=== PATIENT | female | born 1985 | race Caucasian/White ===

== ENCOUNTER 2019-10-23 11:11 | Outpatient (CLI) | payer OTHER, SELFPAY | END 2019-10-23 11:12 | disposition home or self-care (01) | PROVIDERS: Visit Provider Advanced Practice Midwife | DX: O20.0 Threatened abortion (principal); Z3A.00 Weeks of gestation of pregnancy not specified | CPT/HCPCS: 36415 ==

== ENCOUNTER 2019-11-05 01:23 | Emergency (ER) | payer OTHER, SELFPAY ==
--- NOTE | ~2019-11-05 | US_ITS ---
EXAMINATION: US OB <=14 wk fetus w TV DATE: 11/05/2019 03:14 INDICATION: Abdominal and pelvic pain TECHNIQUE: Real-time pelvic ultrasound utilizing both a transvaginal and transabdominal probe was pe rformed. The interpreting radiologist was not present for the study. COMPARISON: None. FINDINGS: The uterus measures 8.0 x 4.3 x 5.4 cm. 5 mm nabothian cysts at the cervix. No evident intrauterine g estational sac. The right ovary measures 4.9 x 2.1 x 3.4 cm. 1.3 cm anechoic cyst in the right ovary. Vascular flow i dentified in the right ovary on color Doppler. The left ovary is not visualized and reportedly surgic ally absent. Small amount of free fluid in the pelvis which appears to demonstrate minimal internal e chogenicity. IMPRESSION: 1. No intrauterine gestational sac. Differential includes early, failed or ectopic . Accordi ng to documentation in report provided by [facility], Dr. Luis Turcios notified the emergency D epartment of these findings at 3:50 AM. 2. Small amount of free fluid in the pelvis which may be complex. Reviewed, dictated and finalized at location A. LAY OUT WORKER IMPRESSION: 1. No intrauterine gestational sac. Differential includes early, failed or ecto pic . According to documentation in report provided by [facility], Dr. Luis Turcios notified the emergency Department of these findings at 3:50 AM. 2. Small amount of free fluid in the pelvis which may be complex.
--- NOTE | 2019-11-05 01:36 | ED_ITS ---
I attest that this documentation has been prepared under the direction and in the presence of Claudio Rosa MD. Keshawn Mata Scribe 11/05/19;01:37 HPI - Abdominal Pain General Stated Complaint: abd pain/ miscarriage Time Seen by Provider: 11/05/19 01:33 Related Data Home Medications Medication Instructions Recorded Confirmed oxycodone-acetaminophen 10 mg-325 1 tablet PO Q8H tablet 10/02/19 10/29/19 mg tablet propranolol 20 mg tablet 20 mg PO DAILY tablet 10/02/19 10/29/19 Allergies Allergy/AdvReac Type Severity Reaction Status Date / Time morphine Allergy Intermediate ITCHING, Verified 10/29/19 11:23 MIGRAINE Penicillins Allergy Intermediate THROAT Verified 10/29/19 11:23 SWELLING metoclopramide AdvReac Severe PARANOIA Verified 10/29/19 11:23 Sulfa (Sulfonamide AdvReac Mild Rash Verified 10/29/19 11:23 Antibiotics) sulfamethoxazole AdvReac Mild Rash Verified 10/29/19 11:23 trimethoprim AdvReac Mild Rash Verified 10/29/19 11:23 Sulfonamides Allergy Intermediate Rash Uncoded 10/29/19 11:23 [facility] Social History Social History Smoking packs per day: 2 Smoking cigarettes per day: 40.0 Years smoked: 16 Smoking pack-years: 32.00 Smoking status: Current every day smoker Tobacco type: cigarettes Additional living arrangements comments: 1 daughter. 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
--- NOTE | 2019-11-05 01:38 | ED.PREGNANCY ---
HPI - General Chief complaint: Abdominal Pain Stated complaint: abd pain/ miscarriage Time Seen by Provider: 11/05/19 01:33 Source: patient and RN notes reviewed Mode of arrival: ambulatory Limitations: no limitations History of Present Illness HPI Narrative: Pt is a 34 y/o female who presents to the ED with c/o pelvic pain starting roughly 1 hour ago. She notes that she has a Hx of ectopic and dilation and curettage. Pt states that she is currently approximately 4-5 weeks , but notes that she has been diagnosed with an inviable by her [employer], Dr. Das. She states that she is scheduled for a dilation and curettage on 11/06/19. Pt notes that she developed severe pain in her pelvic area early this morning. She states that she took one prescribed Percocet for her pain around 00:30, but denied having any relief of her pain. Pt notes that movement aggravates her pain. She denies any fever, chills, or other symptoms. MD Complaint: other (Pelvic Pain) Onset (ago): hour(s) (1) Location: pelvis Severity: severe Relieving factors: none Exacerbating factors: movement Associated symptoms: denies other symptoms Patient : Yes Expected Date of Delivery: 06/24/20 Number of Weeks : 4-5 OB History - Previous Pregnancies: miscarriage care: followed by OB Related Data Home Medications Medication Instructions Recorded Confirmed oxycodone-acetaminophen 10 mg-325 1 tablet PO Q8H tablet 10/02/19 10/29/19 mg tablet propranolol 20 mg tablet 20 mg PO DAILY tablet 10/02/19 10/29/19 Allergies Allergy/AdvReac Type Severity Reaction Status Date / Time morphine Allergy Intermediate ITCHING, Verified 10/29/19 11:23 MIGRAINE Penicillins Allergy Intermediate THROAT Verified 10/29/19 11:23 SWELLING metoclopramide AdvReac Severe PARANOIA Verified 10/29/19 11:23 Sulfa (Sulfonamide AdvReac Mild Rash Verified 10/29/19 11:23 Antibiotics) sulfamethoxazole AdvReac Mild Rash Verified 10/29/19 11:23 trimethoprim AdvReac Mild Rash Verified 10/29/19 11:23 Sulfonamides Allergy Intermediate Rash Uncoded 10/29/19 11:23 Review of Systems Review of Systems: All systems reviewed & are unremarkable except as noted in HPI and below Constitutional: Constitutional: Denies chills and Denies fever(s) Genitourinary: Genitourinary: Reports pelvic pain PMFSH Past Medical History Medical History (Updated 11/05/19 @ 04:15 by Claudio Rosa MD) Anxiety Bipolar disorder Chronic headaches Chronic low back pain Depression Ectopic Eczema Epilepsy Gastric ulcer GERD (gastroesophageal reflux disease) Nicotine dependence Overweight UTI (urinary tract infection) Surgical History Surgical History Hx of section x3 Hx of cholecystectomy Hx of dilation and curettage Social History Social History Smoking packs per day: 2 Smoking cigarettes per day: 40.0 Years smoked: 16 Smoking pack-years: 32.00 Smoking status: Current every day smoker Tobacco type: cigarettes Additional living arrangements comments: 1 daughter. 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 Das. Exam Const: General: healthy appearing and other (tearful) Nutritional Appearance: well nourished Resp: Effort & Inspection: normal respiratory effort Auscultation: clear to auscultation bilaterally Cardio: Rate: regular rate Rhythm: regular rhythm Heart sounds: no murmurs GI: GI Palp: Yes Soft to palpation and Yes Tenderness to palpation present (GI) (pt complained of suprapubic tenderness prior to her ABD being palpated) Back/Spine/Pelvis: Back: other (Full ROM) Skin: General skin exam: normal color, dry skin and other (warm) Neuro: General: patient
[2019-11-05] MEDS: KETOROLAC 30 MG/ML VIAL (*BKC) IV PUSH (01:53)
[2019-11-05] MEDS: SODIUM CHLORIDE 0.9% IV 1,000 ML 999 ML IV CONT (01:54)
--- NOTE | 2019-11-05 02:22 | PC.NURSE ---
PT REPORT THAT THE FUCKING TORADOL YOU GAVE ME DIDNT DO AN SORIANO NOTIFIED
[2019-11-05 02:39] VITALS: BP 107/68; PULSE 95; RESP 18; TEMP 36.7; O2SAT 100
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
[2019-11-05 03:11] LABS: Basophils Percent Auto 0.4 % (0.2-1.2); Eosinophils Absolute Auto 0.3 K/mm3 (0-0.3); Eosinophils Percent Auto 3.9 % (0-4.4); Hematocrit 43.6 % (37.0-47.0); Hemoglobin 14.8 g/dL (12.0-15.0); Immature Granulocyte Absolute 0.01 K/mm3 (0.00-0.031); Immature Granulocyte Percent A 0.1 % (0-0.5); Lymphocytes Absolute Auto 2.51 K/mm3 (0.9-3.2); Lymphocytes Percent Auto 35.2 % (18.3-44.2); Mean Corpuscular HGB Conc 33.9 g/dl (32-36); Mean Corpuscular Hemoglobin 29.7 pg (26-34); Mean Corpuscular Volume 87.6 fl (80-100); Mean Platelet Volume 11.4 fl (7.4-10.4); Monocytes Absolute Auto 0.4 K/mm3 (0.1-0.6); Monocytes Percent Auto 5.8 % (2.6-8.5); Neutrophils Absolute Auto 3.9 K/mm3 (1.3-6.7); Neutrophils Percent Auto 54.6 % (45.5-73.1); Platelet Count Result 233 k/mm3 (150-375); Red Blood Count 4.98 M/mm3 (4.2-5.4); Red Cell Distribution Width 13.4 % (11.5-14.5); White Blood Count 7.1 K/mm3 (4.5-10.0)
[2019-11-05 03:21] LABS: INR 0.9; Prothrombin Time 11.7 Seconds (11.1-14.7)
[2019-11-05 03:22] LABS: Partial Thromboplastin Time 32.3 SECONDS (22.3-36.8)
[2019-11-05 03:29] LABS: Alanine Aminotransferase 20 U/L (4-35); Albumin Level 4.7 g/dL (3.5-5.1); Alkaline Phosphatase 82 U/L (38-126); Aspartate Amino Transferase 21 U/L (14-36); Bilirubin,Total 0.4 mg/dL (0.2-1.3); Blood Urea Nitrogen 10 mg/dL (7-17); Calcium 9.6 mg/dL (8.4-10.2); Carbon Dioxide 22 mmol/L (22-30); Chloride 101 mmol/L (98-107); Estimated Glomerular Filt Rate > 60; Glucose 93 mg/dL (65-105); Potassium 3.6 mmol/L (3.4-5.0); Sodium 140 mmol/L (137-145)
[2019-11-05 03:42] LABS: Add Urine Microscopic? YES; Appearance Urine Clear (Clear); Bacteria Urine Trace /hpf; Bilirubin Urine Negative (Negative); Blood Urine 3+ (Negative); Color Urine Yellow (Yellow); Glucose Urine UA Negative (Negative); Ketones Urine Negative (Negative); Leukocyte Esterase Ur Negative LEU/UL (Negative); Mucus Urine Heavy /lpf; Nitrate Urine Negative (Negative); Protein Urine 1+ mg/dL (Negative); Specific Grav Ur 1.023 (1.001-1.035); Squamous Epithelial Cell Urine Few /hpf (Few); Urobilinogen Urine Negative mg/dL (<2.0); WBC Urine 0-3 /hpf
[2019-11-05 03:45] LABS: Beta HCG Quantitative 206.43 mIU/ML
[2019-11-05 04:31] VITALS: BP 105/65; PULSE 82; RESP 20; O2SAT 98
== END 2019-11-05 04:33 | disposition home or self-care (01) ==
PROVIDERS: Emergency Provider Emergency Medicine
DX: O03.9 Complete or unspecified spontaneous abortion without complication (principal); F17.210 Nicotine dependence, cigarettes, uncomplicated; F41.9 Anxiety disorder, unspecified; F32.9 Major depressive disorder, single episode, unspecified; G40.909 Epilepsy, unspecified, not intractable, without status epilepticus; K21.9 Gastro-esophageal reflux disease without esophagitis
CPT/HCPCS: 36415; 76801; 76817; 80053; 81001; 81025; 84702; 85025; 85610; 85730; 96361; 96374; 96375; 99284; J1885; J3010; J7030

== ENCOUNTER 2019-11-05 15:30 | Outpatient (CLI) | payer OTHER, SELFPAY ==
[2019-11-05 17:05] LABS: Beta HCG Quantitative 190.13 mIU/ML
== END 2019-11-05 15:31 | disposition home or self-care (01) ==
LOC: ANHLAB 15:32
PROVIDERS: Visit Provider Obstetrics & Gynecology
DX: O02.1 Missed abortion (principal); Z3A.00 Weeks of gestation of pregnancy not specified
CPT/HCPCS: 36415; 84702

== ENCOUNTER 2019-11-08 14:33 | Outpatient (RCR) | payer OTHER, SELFPAY | END 2020-02-04 23:59 | disposition home or self-care (01) | LOC: ANHLAB 14:33 | PROVIDERS: Visit Provider Obstetrics & Gynecology | DX: O03.4 Incomplete spontaneous abortion without complication (principal) | CPT/HCPCS: 36415; 84702 ==

== ENCOUNTER 2019-11-15 00:14 | Day surgery (SDC) | payer OTHER, SELFPAY ==
[2019-10-29 11:21] VITALS: BMI 21.3
[2019-11-15] VITALS (9 sets, daily range): BP systolic 100–123; BP diastolic 57–83; PULSE 75–104; RESP 14–21; TEMP 36.9–37.8; O2SAT 95–99
[2019-11-15] MEDS: LACTATED RINGERS 1,000 ML 30 ML IV CONT ×2 (09:15→11:31)
--- NOTE | 2019-11-15 09:34 | WPDANESEPPF ---
Anes - Initial Pre Proc Eval Procedure: Operation Date: 11/15/19 10:30 Proposed Procedures p Diagnostic Laparoscopy, Suction Dilatation And Curettage - Laquita Das MD Date/Time: 11/15/19 09:34 Surgeon: Laquita Das MD Pre Op Diagnosis: Missed Ab,pelvic pain Patient Data Age: 34 Gender: F Height: 5 ft 1 in Weight: 51.26 kg Allergies Allergy/AdvReac Type Severity Reaction Status Date / Time morphine Allergy Intermediate ITCHING, Verified 10/29/19 11:23 MIGRAINE Penicillins Allergy Intermediate THROAT Verified 10/29/19 11:23 SWELLING metoclopramide AdvReac Severe PARANOIA Verified 10/29/19 11:23 Sulfa (Sulfonamide AdvReac Mild Rash Verified 10/29/19 11:23 Antibiotics) sulfamethoxazole AdvReac Mild Rash Verified 10/29/19 11:23 trimethoprim AdvReac Mild Rash Verified 10/29/19 11:23 Sulfonamides Allergy Intermediate Rash Uncoded 10/29/19 11:23 Home Medications Medication Instructions Recorded Confirmed Type hydroxyzine HCl 25 mg tablet 25 mg PO BID PRN #20 tablet 10/02/19 10/29/19 Rx oxycodone-acetaminophen 10 mg-325 1 tablet PO Q8H tablet 10/02/19 10/29/19 History mg tablet propranolol 20 mg tablet 20 mg PO DAILY tablet 10/02/19 10/29/19 History doxylamine succinate [Unisom 25 mg PO HS PRN 11/12/19 11/12/19 History (doxylamine)] Patient hx anesthesia problems: none Family hx anesthesia problems: none PMFSH Past Medical History Medical History Anxiety Bipolar disorder Chronic headaches Chronic low back pain Depression Ectopic Eczema Epilepsy Gastric ulcer GERD (gastroesophageal reflux disease) Nicotine dependence Overweight UTI (urinary tract infection) Surgical History Surgical History Hx of section x3 Hx of cholecystectomy Hx of dilation and curettage Family History Family History Father Medical history unknown Mother Schizophrenia Liver cirrhosis Social History Social History Smoking packs per day: 2 Smoking cigarettes per day: 40.0 Years smoked: 16 Smoking pack-years: 32.00 Smoking status: Current every day smoker Tobacco type: cigarettes Additional living arrangements comments: 1 daughter. 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 Questions were solicited and answers provided to the satisfaction of the patient/family/POA.
--- NOTE | 2019-11-15 09:37 | WPDHPUPDATE1 ---
History and Physical Update Update Date/Time: 11/15/19 09:37 History and Physical has been reviewed, including an updated exam of the patient. There are NO changes in the patient's condition. Risks, benefits, and alternatives have been discussed and questions answered. Patient agrees to proceed with procedure.
[2019-11-15] MEDS: KETOROLAC 30 MG/ML VIAL (*BKC) IV PUSH (11:21)
--- NOTE | 2019-11-15 11:30 | PM.PROC ---
Procedure Note - Detailed Date of procedure: 11/15/19 Pre-op diagnosis: Missed Ab,pelvic pain Post-op diagnosis: other (Ectopic in the right fallopian tube. Hemorrhagic corpus that cyst of the right ovary.) Procedure performed: Diagnostic laparoscopy, right ovarian cystectomy, right salpingostomy with removal ectopic . Description of procedure: The patient was taken the operating room. She was prepped and draped in the dorsal lithotomy position after induction of general anesthesia. A 5 mm left upper quadrant incision was made in the abdominal skin with a scalpel. A 5 mm trocar was inserted the intra-abdominal cavity under direct visualization of the scope. A 10 mm left lower quadrant incision was made with the scalp on the abdominal skin and a 10 mm trocar was inserted the intra-abdominal cavity under direct visualization of the scope. A 5 mm infraumbilical incision was made with scalpel and a 5 mm trocar was inserted into the intra-abdominal cavity under direct visualization of the scope. The pelvis and lower abdomen were irrigated with copious amounts of irrigation to remove all the clot. In the right adnexa of the right tube was found to be enlarged and apparently containing a ectopic . This is in the distal half of the tube. A linear incision was made in the tube with scissors in the area of the ectopic . It was about a 2.5 cm incision. The ectopic was withdrawn with a grasper. The ectopic was placed in a endobag and taken at the left lower quadrant trocar. The incision was closed with interrupted 3 0 Vicryl. This was done with intracorporeal knot tying. The cyst was removed from the right ovary. It was a hemorrhagic cyst with clot adherent to the outside surface. The cyst capsule was removed with blunt dissection. The abraded surface of the ovary was cauterized gently to make it hemostatic. The pelvis was irrigated with copious amounts of normal saline. The pneumoperitoneum was reduced. The trocars were removed. The patient was taken recovery room stable condition. Sponge lap and needle counts were correct x2. Anesthesia: GETA Surgeon: Laquita Das MD Estimated blood loss (mL): 200 Drains: No Packing: No Pathology: yes Complications: No immediate complications Condition: stable Disposition: PACU Findings: Is a 3 cm right hemorrhagic corpus luteum cyst with clot adherent to the outside. There was a large 4 cm mass in the right fallopian tube. It was consistent with an ectopic . The left fallopian tube was absent. The uterus appeared normal. There was a hemoperitoneum.
== END 2019-11-15 13:55 | disposition home or self-care (01) ==
PROVIDERS: Visit Provider Obstetrics & Gynecology
PROC: 0UDB8ZZ Extraction of Endometrium, Via Natural or Artificial Opening Endoscopic (ICD-10-PCS; CPT 58558; principal; 2019-11-15 10:30)
DX: O00.101 Right tubal pregnancy without intrauterine pregnancy (principal); N83.11 Corpus luteum cyst of right ovary; Z90.79 Acquired absence of other genital organ(s); F17.210 Nicotine dependence, cigarettes, uncomplicated; Z88.0 Allergy status to penicillin; Z88.2 Allergy status to sulfonamides
CPT/HCPCS: 59150; 58662; 88305; A9270; J0131; J0330; J1100; J1170; J1885; J2250; J2704; J2710; J3010; J7030; J7120

== ENCOUNTER 2020-05-09 20:18 | Emergency (ER) | payer OTHER, SELFPAY ==
--- NOTE | ~2020-05-09 | CT_ITS ---
EXAMINATION: CT brain wo con DATE: 05/09/2020 20:58 INDICATION: Seizure TECHNIQUE: Computed tomography (CT) of the head was performed without intravenous contrast. Sagittal and coronal reconstructions were performed. The mA was adjusted according to patient size. Iterative reconstruction technique was employed. The dose-length product was 605.33 mGy-cm. COMPARISON: head CT dated 11/04/2018 FINDINGS: No acute intracranial hemorrhage, acute infarction or abnormal extra axial fluid collection. Ventricl es are normal and symmetric. No mass/mass effect. Bubbly mucus in the left sphenoid sinus and in a po sterior right ethmoid air cell. Trace left mastoid effusion. The orbits are normal. IMPRESSION: 1. Normal brain. Reviewed, dictated and finalized at location A. IMPRESSION: 1. Normal brain.
[2020-05-09 20:19] VITALS: BP 105/72; PULSE 112; RESP 25; TEMP 36.2; O2SAT 99
[2020-05-09 20:34] VITALS: O2SAT 100
[2020-05-09 21:16] LABS: Add Urine Microscopic? YES; Appearance Urine Clear (Clear); Bilirubin Urine Negative (Negative); Blood Urine 1+ (Negative); Color Urine Straw (Yellow); Glucose Urine UA Negative (Negative); Ketones Urine Negative (Negative); Leukocyte Esterase Ur Negative LEU/UL (Negative); Mucus Urine Rare /lpf; Nitrate Urine Negative (Negative); Protein Urine 1+ mg/dL (Negative); RBC Urine 0-2 /hpf (0-2); Specific Grav Ur 1.014 (1.001-1.035); Squamous Epithelial Cell Urine Few /hpf (Few); Urobilinogen Urine Negative mg/dL (<2.0); WBC Urine 0-3 /hpf
[2020-05-09 21:26] LABS: Basophils Percent Auto 0.3 % (0.2-1.2); Eosinophils Absolute Auto 0.1 K/mm3 (0-0.3); Eosinophils Percent Auto 0.9 % (0-4.4); Hematocrit 42.5 % (37.0-47.0); Hemoglobin 15.1 g/dL (12.0-15.0); Immature Granulocyte Absolute 0.06 K/mm3 (0.00-0.031); Immature Granulocyte Percent A 0.5 % (0-0.5); Lymphocytes Absolute Auto 1.43 K/mm3 (0.9-3.2); Lymphocytes Percent Auto 10.8 % (18.3-44.2); Mean Corpuscular HGB Conc 35.5 g/dl (32-36); Mean Corpuscular Hemoglobin 30.3 pg (26-34); Mean Corpuscular Volume 85.2 fl (80-100); Mean Platelet Volume 9.5 fl (7.4-10.4); Monocytes Absolute Auto 0.7 K/mm3 (0.1-0.6); Neutrophils Absolute Auto 10.9 K/mm3 (1.3-6.7); Neutrophils Percent Auto 82.5 % (45.5-73.1); Platelet Count Result 214 k/mm3 (150-375); Red Blood Count 4.99 M/mm3 (4.2-5.4); Red Cell Distribution Width 12.9 % (11.5-14.5); White Blood Count 13.2 K/mm3 (4.5-10.0)
[2020-05-09 21:31] VITALS: BP 107/61; PULSE 115; RESP 20; TEMP 36.2; O2SAT 100
[2020-05-09 21:37] LABS: Ethanol < 10 mg/dL (<10)
[2020-05-09 21:38] LABS: Alanine Aminotransferase 21 U/L (4-35); Albumin Level 4.3 g/dL (3.5-5.1); Alkaline Phosphatase 80 U/L (38-126); Anion Gap 7 mmol/L (8-16); Aspartate Amino Transferase 19 U/L (14-36); Bilirubin,Total 0.2 mg/dL (0.2-1.3); Blood Urea Nitrogen 13 mg/dL (7-17); Calcium 9.8 mg/dL (8.4-10.2); Carbon Dioxide 21 mmol/L (22-30); Chloride 105 mmol/L (98-107); Estimated CRCL calculation 98 ml/min; Estimated Glomerular Filt Rate > 60; Glucose 108 mg/dL (65-105); Sodium 133 mmol/L (137-145)
[2020-05-09] MEDS: KETOROLAC 30 MG/ML VIAL (*BKC) (21:42)
--- NOTE | 2020-05-09 22:29 | ED.SEIZURE ---
HPI - Seizure General Chief Complaint: Seizure Stated Complaint: seizure Time Seen by Provider: 05/09/20 20:23 Source: patient and family Mode of arrival: EMS Limitations: no limitations History of Present Illness HPI Narrative: 34-year-old with a history of bipolar disorder, chronic headaches, dentalgia, anxiety, remote history of seizure disorder was brought in from home with a history of seizures. As per the patient was on to have a seizure for approximately 25 minutes. He also states that he was bleeding from the nose. Patient states that she is been taking Percocet every 6 hours for and ibuprofen. Patient states that she was diagnosed with seizures but she opted not to take any medication. Seizure History: Yes (LAST 2015, NO MEDICATIONS) Related Data Home Medications Medication Instructions Recorded Confirmed oxycodone-acetaminophen 10 mg-325 1 tablet PO Q8H tablet 10/02/19 02/27/20 mg tablet propranolol 20 mg tablet 20 mg PO DAILY tablet 10/02/19 02/27/20 Unisom (doxylamine) 25 mg PO HS PRN 11/12/19 02/27/20 hydroxyzine HCl 25 mg tablet 50 mg PO TID PRN tablet 04/08/20 paroxetine HCl 10 mg tablet 30 mg PO DAILY tablet 04/08/20 Allergies Allergy/AdvReac Type Severity Reaction Status Date / Time morphine Allergy Intermediate ITCHING, Verified 04/08/20 14:04 MIGRAINE Penicillins Allergy Intermediate THROAT Verified 04/08/20 14:04 SWELLING metoclopramide AdvReac Severe PARANOIA Verified 04/08/20 14:04 Sulfa (Sulfonamide AdvReac Mild Rash Verified 04/08/20 14:04 Antibiotics) sulfamethoxazole AdvReac Mild Rash Verified 04/08/20 14:04 trimethoprim AdvReac Mild Rash Verified 04/08/20 14:04 Sulfonamides Allergy Intermediate Rash Uncoded 11/15/19 09:37 Review of Systems Review of Systems: All systems reviewed & are unremarkable except as noted in HPI and below Constitutional: Constitutional: Reports as per HPI Eyes: Eyes: Reports as per HPI Cardiovascular: Cardiovascular: Reports as per HPI and Reports no additional cardiovascular complaints Respiratory: Respiratory: Reports as per HPI Gastrointestinal: Gastrointestinal: Reports as per HPI Musculoskeletal: Musculoskeletal: Reports no additional musculoskeletal complaints Neurologic: Reports system reviewed and no additional complaints, except as documented PMFSH Past Medical History Medical History Anxiety Bipolar disorder Chronic headaches Chronic low back pain Depression Ectopic Eczema Epilepsy Gastric ulcer GERD (gastroesophageal reflux disease) Nicotine dependence Overweight UTI (urinary tract infection) Surgical History Surgical History Hx of section x3 Hx of cholecystectomy Hx of dilation and curettage Family History Family History Father Medical history unknown Mother Schizophrenia Liver cirrhosis Social History Social History Smoking packs per day: 2 Smoking cigarettes per day: 40.0 Years smoked: 16 Smoking pack-years: 32.00 Smoking status: Current every day smoker Tobacco type: cigarettes Additional living arrangements comments: 1 daughter. 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 HEAD: Normocephalic, atraumatic. EYES: PERRLA and EOMI. ENT: Nares clear, old blood from the left naris. Mucous membranes moist. NECK: Supple. CHEST: Clear to auscultation. No respiratory distress. HEART: Regular rate and rhythm. No murmur heard. Normal peripheral pulses. ABDOMEN: Soft, nontender, nondistended, normal active bowel sounds. EXTREMITIES: Verenice
[2020-05-09 22:33] VITALS: BP 99/67; PULSE 110; RESP 22; O2SAT 100
--- NOTE | 2020-05-09 22:35 | PC.NURSE ---
pt requesting d/c papers at this time due to edp not giving her any more narcotic pain medication.
[2020-05-09 23:04] VITALS: BP 112/64; PULSE 80; RESP 19; TEMP 36.2; O2SAT 100
--- NOTE | 2020-05-09 23:31 | ECG_ITS ---
Measurements Intervals [place] Rate: 115 P: 36 CA: 120 QRS: 72 QRSD: 90 T: 16 QT: 312 QTc: 433 Interpretive Statements SINUS TACHYCARDIA NONSPECIFIC ST & T-WAVE ABNORMALITY- INFERIOR LEADS BASELINE ARTIFACT- I, III, AVL ABNORMAL ECG Electronically Signed On 05-15-2020 14:59:17 CDT by Winston Beck D.O.
== END 2020-05-09 23:05 | disposition home or self-care (01) ==
PROVIDERS: Emergency Provider Family Medicine; PCP Family Medicine
DX: R51 Headache (principal); G40.909 Epilepsy, unspecified, not intractable, without status epilepticus; F41.9 Anxiety disorder, unspecified; F31.9 Bipolar disorder, unspecified; K21.9 Gastro-esophageal reflux disease without esophagitis; Z87.440 Personal history of urinary (tract) infections; E66.3 Overweight; Z68.38 Body mass index [BMI] 38.0-38.9, adult; F17.210 Nicotine dependence, cigarettes, uncomplicated
CPT/HCPCS: 36415; 70450; 80053; 80307; 81001; 85025; 93005; 96374; 96375; 99284; J1885; J3010

== ENCOUNTER 2020-07-27 11:57 | Outpatient (CLI) | payer OTHER, SELFPAY ==
[2020-07-28 14:53] LABS: SARS-CoV-2 RNA PCR Negative
== END 2020-07-27 11:58 | disposition home or self-care (01) ==
LOC: CHSLAB 12:00
PROVIDERS: PCP Family Medicine; Visit Provider Family Medicine
DX: Z20.828 Contact with and (suspected) exposure to other viral communicable diseases (principal)
CPT/HCPCS: 87635; C9803; U0003

== ENCOUNTER 2020-08-04 11:24 | Outpatient (CLI) | payer OTHER, SELFPAY ==
[2020-08-05 14:04] LABS: SARS-CoV-2 RNA PCR Negative
== END 2020-08-04 11:25 | disposition home or self-care (01) ==
LOC: CHSLAB 11:26
PROVIDERS: PCP Family Medicine; Visit Provider Family Medicine
DX: Z20.828 Contact with and (suspected) exposure to other viral communicable diseases (principal)
CPT/HCPCS: 87635; C9803; U0003

== ENCOUNTER → 2020-11-14 02:56 | Outpatient (CLI) | payer OTHER, SELFPAY ==
[2020-11-14 19:42] LABS: SARS-CoV-2 RNA PCR Negative
== END ==
PROVIDERS: PCP Family Medicine; Visit Provider Obstetrics & Gynecology
DX: Z01.812 Encounter for preprocedural laboratory examination (principal); Z20.822 Contact with and (suspected) exposure to COVID-19
CPT/HCPCS: C9803; U0003; U0005

== ENCOUNTER 2020-11-17 19:20 | Observation (INO) | payer OTHER, SELFPAY ==
[2020-11-17 19:23] VITALS: BP 122/83; PULSE 92; RESP 20; TEMP 36.6; O2SAT 99
--- NOTE | 2020-11-17 22:38 | ED.ABDPAIN ---
HPI - Abdominal Pain General Chief Complaint: Abdominal Pain Stated Complaint: Cyst on ovary Time Seen by Provider: 11/17/20 22:37 Source: patient Mode of arrival: ambulatory Limitations: no limitations History of Present Illness HPI narrative: Patient is a 35-year-old female complaining of lower abdominal, pelvic pain, 06/27, sharp, nonradiating. Patient states she has a history of ovarian cyst and scheduled to have it removed tomorrow morning. Related Data Home Medications Medication Instructions Recorded Confirmed oxycodone-acetaminophen 10 mg-325 1 tablet PO Q8H tablet 10/02/19 11/13/20 mg tablet propranolol 20 mg tablet 20 mg PO BID tablet 10/02/19 11/13/20 Unisom (doxylamine) 25 mg PO HS PRN 11/12/19 11/13/20 paroxetine HCl 40 mg tablet 40 mg PO DAILY tablet 09/30/20 11/13/20 Allergies Allergy/AdvReac Type Severity Reaction Status Date / Time morphine Allergy Intermediate ITCHING, Verified 09/30/20 14:35 MIGRAINE Penicillins Allergy Intermediate THROAT Verified 09/30/20 14:35 SWELLING metoclopramide AdvReac Severe PARANOIA Verified 09/30/20 14:35 Sulfa (Sulfonamide AdvReac Mild Rash Verified 09/30/20 14:35 Antibiotics) sulfamethoxazole AdvReac Mild Rash Verified 09/30/20 14:35 trimethoprim AdvReac Mild Rash Verified 09/30/20 14:35 Sulfonamides Allergy Intermediate Rash Uncoded 09/30/20 14:35 Review of Systems Review of Systems: All systems reviewed & are unremarkable except as noted in HPI and below Constitutional: Constitutional: Denies body ache(s), Denies chills, Denies excessive sweating, Denies fatigue, Denies fever(s), Denies headache(s), Denies lethargy, Denies malaise, Denies weakness and Denies weight loss Eyes: Eyes: Denies blurry vision, Denies change in vision and Denies loss of vision ENT: Denies dizziness, Denies ear discharge, Denies headache(s), Denies lip swelling, Denies epistaxis, Denies nasal congestion, Denies neck pain, Denies throat swelling and Denies tongue swelling Cardiovascular: Cardiovascular: Denies chest pain, Denies chest pain at rest, Denies chest pain with activity, Denies diaphoresis, Denies rapid heart rate, Denies edema, Denies irregular heart rhythm, Denies lightheadedness, Denies palpitations, Denies dyspnea and Denies dyspnea on exertion Respiratory: Respiratory: Denies chest congestion, Denies cough, Denies hemoptysis, Denies dyspnea and Denies dyspnea on exertion Gastrointestinal: Gastrointestinal: Denies melena, Denies hematochezia, Denies diarrhea, Denies nausea, Denies vomiting and Denies hematemesis Musculoskeletal: Musculoskeletal: Denies abnormal gait, Denies deformity, Denies joint swelling, Denies limited range of motion, Denies neck pain and Denies numbness Neurologic: Denies Abnormal speech present, Denies abnormal gait, Denies confusion, Denies dizziness, Denies headache(s), Denies focal weakness, Denies loss of vision, Denies numbness, Denies Other visual disturbances, Denies Sensory deficit (Neuro) and Denies weakness Psychiatric: Psychiatric: Denies confusion, Denies depression, Denies auditory hallucinations, Denies homicidal ideation and Denies suicidal ideation Endocrine: Endocrine: Denies cold intolerance, Denies excessive sweating, Denies fatigue, Denies heat intolerance and Denies palpitations Hematologic/Lymphatic: Hematologic/Lymphatic: Denies easy bleeding and Denies easy bruising Allergic/Immunologic: Allergic/Immunologic: Denies lip swelling, Denies throat swelling and Denies tongue swelling PMFSH Past Medical History Medical History Anxiety Bipolar disorder Chronic headaches Chronic low back pain Depression Ectopic Eczema Epilepsy Gastric ulcer GERD (gastroesophageal reflux disease) Nicotine dependence Obesity, Class III, BMI 40-49.9 (morbid obesity) Overweight UTI (urinary tract infection) Surgical History Surgical History (Reviewed 11/17/20 @ 22:40 by
[2020-11-17 22:44] VITALS: BP 119/73; PULSE 84; RESP 16; O2SAT 99
[2020-11-17] MEDS: SODIUM CHLORIDE 0.9% IV 50 ML 200 ML (23:47)
[2020-11-17] MEDS: PROMETHAZINE HCL 25 MG/ML AMPUL 12.5 MG IV PUSH (23:47)
[2020-11-18] VITALS (15 sets, daily range): BP systolic 87–119; BP diastolic 42–83; PULSE 47–87; RESP 14–20; TEMP 36.3–37.6; O2SAT 96–100
[2020-11-18 03:26] LABS: Basophils Percent Auto 0.5 % (0.2-1.2); Eosinophils Absolute Auto 0.3 K/mm3 (0-0.3); Eosinophils Percent Auto 5.3 % (0-4.4); Hematocrit 38.9 % (37.0-47.0); Hemoglobin 13.2 g/dL (12.0-15.0); Immature Granulocyte Absolute 0.01 K/mm3 (0.00-0.031); Immature Granulocyte Percent A 0.2 % (0-0.5); Lymphocytes Absolute Auto 2.29 K/mm3 (0.9-3.2); Lymphocytes Percent Auto 39.2 % (18.3-44.2); Mean Corpuscular HGB Conc 33.9 g/dl (32-36); Mean Corpuscular Hemoglobin 29.9 pg (26-34); Mean Corpuscular Volume 88.2 fl (80-100); Mean Platelet Volume 11.5 fl (7.4-10.4); Monocytes Absolute Auto 0.4 K/mm3 (0.1-0.6); Monocytes Percent Auto 6.8 % (2.6-8.5); Neutrophils Absolute Auto 2.8 K/mm3 (1.3-6.7); Platelet Count Result 171 k/mm3 (150-375); Red Blood Count 4.41 M/mm3 (4.2-5.4); Red Cell Distribution Width 13.6 % (11.5-14.5); White Blood Count 5.8 K/mm3 (4.5-10.0)
[2020-11-18 03:38] LABS: Add Urine Microscopic? YES; Appearance Urine Cloudy (Clear); Bilirubin Urine Negative (Negative); Blood Urine 3+ (Negative); Glucose Urine UA Negative (Negative); Ketones Urine Negative (Negative); Leukocyte Esterase Ur Trace LEU/UL (Negative); Mucus Urine Heavy /lpf; Nitrate Urine Negative (Negative); Protein Urine 2+ mg/dL (Negative); RBC Urine >75 /hpf (0-2); Specific Grav Ur 1.014 (1.001-1.035); Urobilinogen Urine Negative mg/dL (<2.0)
[2020-11-18 03:39] LABS: Color Urine Light Brown (Yellow)
[2020-11-18 03:42] LABS: Alanine Aminotransferase 12 U/L (4-35); Albumin Level 3.4 g/dL (3.5-5.1); Alkaline Phosphatase 53 U/L (38-126); Anion Gap 6 mmol/L (8-16); Aspartate Amino Transferase 17 U/L (14-36); Bilirubin,Total 0.3 mg/dL (0.2-1.3); Blood Urea Nitrogen 16 mg/dL (7-17); Calcium 7.9 mg/dL (8.4-10.2); Carbon Dioxide 22 mmol/L (22-30); Chloride 111 mmol/L (98-107); Estimated CRCL calculation 95 ml/min; Estimated Glomerular Filt Rate > 60; Glucose 96 mg/dL (65-105); Lipase 78 U/L (23-300); Potassium 3.7 mmol/L (3.4-5.0); Sodium 139 mmol/L (137-145)
--- NOTE | 2020-11-18 04:09 | PC.NURSE ---
Patient admitted to room #289 per stretcher from ED.
[2020-11-18] MEDS: LACTATED RINGERS 1,000 ML 125 ML IV CONT (04:21)
[2020-11-18] MEDS: HYDROmorphone HCL INJ (*CRX) 1 MG/ML SYR 0.5 MG IV PUSH ×3 (04:22→10:33)
[2020-11-18] MEDS: ONDANSETRON INJ 4 MG/2 ML VIAL IV PUSH (04:42)
--- NOTE | 2020-11-18 04:50 | PC.NURSE ---
Patient states she has her prescription Percocet with her and that they don't leave her side .
--- NOTE | 2020-11-18 08:00 | PC.NURSE ---
PT introductions made and plan of care discussed per post op [facility] surgery, pain management, daily care activities and pending discharge to home. PT verbalized understanding of such care.
--- NOTE | 2020-11-18 08:13 | PM.IMHP ---
H&P: HPI History of Present Illness Date/Time: 11/18/20 08:13 Chief Complaint: Pelvic pain Narrative: Elvira Del Cid is a 35 year old female with severe pelvic pain. She presented the emergency department approximately 12 hours ago with marked right-sided pelvic pain. She has had severe pelvic pain for several weeks and had worsened today. Patient is noted have a right ovarian cyst. She denies any nausea, vomiting, fever, chills. She denies any chest pain or shortness of breath. The pain is constant. It does not radiate. It has gotten worse over time. It has been present for 3 weeks. Review of Systems Constitutional: Constitutional: Reports no additional constitutional complaints, Denies fatigue, Denies headache(s), Denies lethargy and Denies weakness Eyes: Eyes: Reports no additional eye complaints, Denies blurry vision and Denies photophobia ENT: Reports as per HPI, Denies headache(s) and Denies neck pain Cardiovascular: Cardiovascular: Denies chest pain, Denies diaphoresis, Denies leg edema, Denies palpitations and Denies dyspnea Respiratory: Respiratory: Denies hemoptysis, Denies dyspnea and Denies wheezing Gastrointestinal: Gastrointestinal: Denies abdominal pain, Denies melena, Denies bloating, Denies hematochezia, Denies nausea and Denies vomiting Genitourinary: Genitourinary: Reports no additional female genitourinary complaints Musculoskeletal: Musculoskeletal: Denies joint swelling, Denies neck pain, Denies numbness and Denies stiffness Neurologic: Denies Abnormal speech present, Denies confusion, Denies headache(s), Denies numbness and Denies weakness Psychiatric: Psychiatric: Denies anxiety, Denies confusion, Denies depression, Denies homicidal ideation and Denies suicidal ideation Endocrine: Endocrine: Denies fatigue and Denies palpitations Allergic/Immunologic: Allergic/Immunologic: Denies wheezing PMFSH Past Medical History Medical History Anxiety Bipolar disorder Chronic headaches Chronic low back pain Depression Ectopic Eczema Epilepsy Gastric ulcer GERD (gastroesophageal reflux disease) Nicotine dependence Obesity, Class III, BMI 40-49.9 (morbid obesity) Overweight UTI (urinary tract infection) Surgical History Surgical History Hx of section x3 Hx of cholecystectomy Hx of dilation and curettage Family History Family History Father Medical history unknown Mother Schizophrenia Liver cirrhosis Social History Social History Smoking packs per day: 2 Smoking cigarettes per day: 40.0 Years smoked: 16 Smoking pack-years: 32.00 Smoking status: Current every day smoker Tobacco type: cigarettes Substance use: never Living arrangements: with family Additional living arrangements comments: 1 daughter. Additional occupation/education comments: Disabled due to Idiopathic Intracranial Hypertension Gender identity (if verbalized by the patient): Female Sexual Orientation (if Verbalized by the Patient): Straight or Heterosexual Spiritual care concerns: No Meds Home Medications and Allergies Home Medications Medication Instructions Recorded Confirmed Type oxycodone-acetaminophen 10 mg-325 1 tablet PO Q8H tablet 10/02/19 11/18/20 History mg tablet propranolol 20 mg tablet 20 mg PO BID tablet 10/02/19 11/18/20 History Unisom (doxylamine) 25 mg PO HS PRN 11/12/19 11/18/20 History albuterol sulfate 90 mcg/actuation See Rx Instructions .ROUTE 04/08/20 11/18/20 Rx aerosol inhaler .COMPLEX #18 gm fluticasone propionate 110 1 puff INHALATION Q12H #12 gm 04/08/20 11/18/20 Rx mcg/actuation HFA aerosol inhaler ibuprofen 800 mg tablet 800 mg PO TID #90 tablet 07/03/20 11/18/20 Rx paroxetine HCl 40 mg tablet 40 mg
--- NOTE | 2020-11-18 08:17 | WPDHPUPDATE1 ---
History and Physical Update Update Date/Time: 11/18/20 08:17 History and Physical has been reviewed, including an updated exam of the patient. There are NO changes in the patient's condition. Risks, benefits, and alternatives have been discussed and questions answered. Patient agrees to proceed with procedure.
[2020-11-18] MEDS: PROPRANOLOL HCL 20 MG TABLET PO (08:53)
[2020-11-18] MEDS: hydrOXYzine HCL 25 MG TABLET 50 MG PO ×2 (08:53→14:34)
[2020-11-18] MEDS: PARoxetine 20 MG TABLET 40 MG PO (08:56)
--- NOTE | 2020-11-18 10:00 | PC.NURSE ---
PT to OR via bed accompanied by OR staff. significant other will remain in room temporarily per his choice.
[2020-11-18] MEDS: LACTATED RINGERS 1,000 ML 30 ML IV CONT ×2 (10:20→12:36)
--- NOTE | 2020-11-18 10:53 | WPDANESEPPF ---
Anes - Initial Pre Proc Eval Procedure: Operation Date: 11/18/20 10:30 Proposed Procedures p Laparoscopic Right Ovarian Cystectomy - Laquita Das MD Date/Time: 11/18/20 10:53 Surgeon: Laquita Das MD Pre Op Diagnosis: PELVIC PAIN, OVARIAN CYST Patient Data Age: 35 Gender: F Height: 5 ft 1 in Weight: 102.7 kg Last Vital Signs Temp 36.9 C 11/18/20 07:50 Pulse 78 11/18/20 08:53 Resp 16 11/18/20 07:50 BP 99/50 L 11/18/20 07:50 Pulse Ox 97 11/18/20 07:50 Allergies Allergy/AdvReac Type Severity Reaction Status Date / Time adhesive tape Allergy Severe Hives Verified 11/18/20 05:04 morphine Allergy Intermediate ITCHING, Verified 11/18/20 05:04 MIGRAINE Penicillins Allergy Intermediate THROAT Verified 11/18/20 05:04 SWELLING metoclopramide AdvReac Severe PARANOIA Verified 11/18/20 05:04 Sulfa (Sulfonamide AdvReac Mild Rash Verified 11/18/20 05:04 Antibiotics) sulfamethoxazole AdvReac Mild Rash Verified 11/18/20 05:04 trimethoprim AdvReac Mild Rash Verified 11/18/20 05:04 Sulfonamides Allergy Intermediate Rash Uncoded 09/30/20 14:35 Home Medications Medication Instructions Recorded Confirmed Type oxycodone-acetaminophen 10 mg-325 1 tablet PO Q8H tablet 10/02/19 11/18/20 History mg tablet propranolol 20 mg tablet 20 mg PO BID tablet 10/02/19 11/18/20 History Unisom (doxylamine) 25 mg PO HS PRN 11/12/19 11/18/20 History albuterol sulfate 90 mcg/actuation See Rx Instructions .ROUTE 04/08/20 11/18/20 Rx aerosol inhaler .COMPLEX #18 gm fluticasone propionate 110 1 puff INHALATION Q12H #12 gm 04/08/20 11/18/20 Rx mcg/actuation HFA aerosol inhaler ibuprofen 800 mg tablet 800 mg PO TID #90 tablet 07/03/20 11/18/20 Rx paroxetine HCl 40 mg tablet 40 mg PO DAILY tablet 09/30/20 11/18/20 History trazodone 100 mg tablet 100 mg PO .qhs #30 tablet 09/30/20 11/18/20 Rx hydroxyzine HCl 25 mg tablet 50 mg PO TID PRN #30 tablet 11/04/20 11/18/20 Rx Laboratory Tests 11/18/20 11/18/20 11/18/20 03:17 03:18 03:18 WBC 5.8 K/mm3 K/mm3 (4.5-10.0) RBC 4.41 M/mm3 M/mm3 (4.2-5.4) Hgb 13.2 g/dL g/dL (12.0-15.0) Hct 38.9 % % (37.0-47.0) MCV 88.2 fl fl (80-100) MCH 29.9 pg pg (26-34) MCHC 33.9 g/dl g/dl (32-36) RDW 13.6 % % (11.5-14.5) Plt Count 171 k/mm3 k/mm3 (150-375) MPV 11.5 fl H fl (7.4-10.4) Immature Gran % (Auto) 0.2 % % (0-0.5) Neut % (Auto) 48.0 % % (45.5-73.1) Lymph % (Auto) 39.2 % % (18.3-44.2) [place] % (Auto) 6.8 % % (2.6-8.5) Eos % (Auto) 5.3 % H % (0-4.4) Baso % (Auto) 0.5 % % (0.2-1.2) Lymph # (Auto) 2.29 K/mm3 K/mm3 (0.9-3.2) [place] # (Auto) 0.4 K/mm3 K/mm3 (0.1-0.6) Eos # (Auto) 0.3 K/mm3 K/mm3 (0-0.3) Baso # (Auto) 0.0 K/mm3 K/mm3 (0.0-0.1) Abs Immat Gran (auto) 0.01 K/mm3 K/mm3 (0.00-0.031) Absolute Neuts (auto) 2.8 K/mm3 K/mm3 (1.3-6.7) Absolute Nucleated RBC 0.0 K/mm3 K/mm3 (0.0-0.012) Nucleated RBC % 0.0 % % (0.0-0.2) Sodium 139 mmol/L mmol/L (137-145) Potassium 3.7 mmol/L mmol/L (3.4-5.0) Chloride 111 mmol/L H mmol/L (98-107) Carbon Dioxide 22 mmol/L mmol/L (22-30) Anion Gap 6 mmol/L L mmol/L (8-16) BUN 16 mg/dL mg/dL (7-17) Creatinine 0.80 mg/dL mg/dL (0.7-1.0) Estim Creat Clear Calc 95 ml/min ml/min Estimated GFR > 60 (59 - ) Glucose 96 mg/dL mg/dL (65-105) Calcium 7.9 mg/dL L mg/dL (8.4-10.2) Total Bilirubin 0.3 mg/dL mg/dL (0.2-1.3) AST 17 U/L U/L (14-36) ALT 12 U/L U/L (4-35) Alkaline Phosphatase 53 U/L U/L (38-126) Total Protein 6.0 g/dL L g/dL (6.3-8.2) Albumin 3.4 g/dL L g/dL (3.5-5.1
[2020-11-18] MEDS: METHYLENE BLUE 0.5% INJ 10 ML AMPULE IRRIGATION (12:07)
--- NOTE | 2020-11-18 12:33 | P.OP_ITS ---
Procedure Note - Detailed Date of procedure: 11/18/20 Pre-op diagnosis: PELVIC PAIN, OVARIAN CYST Post-op diagnosis: same (Hemoperitoneum) Procedure performed: Laparoscopic right ovarian cystectomy, evacuation of hemoperitoneum Description of procedure: The patient was taken the operating room. She was prepped and draped in the dorsal lithotomy position after induction of general anesthesia. A 5 mm left upper quadrant incision was made in the abdominal skin with a scalpel. A 5 mm trocar was inserted the intra-abdominal cavity under direct visualization of the scope. A 5 mm left lower quadrant incision was made with the scalp on the abdominal skin and a 5 mm trocar was inserted the intra- abdominal cavity under direct visualization of the scope. A 5 mm infraumbilical incision was made with scalpel and a 5 mm trocar was inserted into the intra- abdominal cavity under direct visualization of the scope. Using sharp and blunt dissection a right ovarian cystectomy was performed. Cautery was also used to make cut surfaces hemostatic. The cyst capsule was peeled out of the inner surface of the of the cyst. Hematoma was applied to the cut surfaces. The pelvis was irrigated with copious amounts of normal saline. The pneumo peritoneum was reduced. The trocars were removed. The patient was taken recovery room stable condition. Sponge lap and needle counts were correct x2. Anesthesia: GETA Surgeon: Laquita Das MD Estimated blood loss (mL): 20 Drains: No Packing: No Complications: No immediate complications Condition: stable Disposition: PACU Findings: 5 cm right ovarian cyst, hemoperitoneum
[2020-11-18] MEDS: fentaNYL CITRATE INJ (*CRX) 100 MCG/2 ML VIAL 25 MCG IV PUSH ×8 (12:51→13:39)
--- NOTE | 2020-11-18 13:29 | SUR.PHASEI ---
1330 sbar faxed floor notified
--- NOTE | 2020-11-18 14:01 | SUR.PHASEI ---
[id number] nurse unable to take report at this time
--- NOTE | 2020-11-18 14:10 | PC.NURSE ---
PT returned to OB floor and room 289 via bed. PT alert and awake and accompanied by significant other. PT oob to bathroom with assistance and no difficulty. PT states would like to home later.
[2020-11-18] MEDS: IBUPROFEN 400 MG TABLET 800 MG PO (14:33)
[2020-11-18] MEDS: oxyCODONE/ACETAMINOPHEN (*CRX) 5-325 MG TABLET 1 TABLET PO (14:35)
--- NOTE | 2020-11-18 17:10 | PC.NURSE ---
PT received discharge instructions per protocol and verbalized understanding of such care.
--- NOTE | 2020-11-18 17:25 | PC.NURSE ---
Pt discharged to home via wheelchair accompanied by significant other and taken to waiting car. Follow up appts confirmed
--- NOTE | 2020-12-13 10:00 | PM.DS ---
DS: Admitting Diagnosis Admitting Diagnosis Admitting Diagnosis: acute pelvic pain DS: Discharge Diagnosis Discharge Diagnosis (1) Pelvic pain: Code(s): R10.2 - Pelvic and perineal pain Status: Acute (2) Ovarian cyst: Qualifiers: Laterality: unspecified laterality Qualified Code(s): N83.209 - Unspecified ovarian cyst, unspecified side Code(s): N83.209 - Unspecified ovarian cyst, unspecified side Status: Acute DS: Summary Hospital Course Hospital Course: this patient is a 35-year-old female who presented with severe pelvic pain and ovarian cyst. She is admitted for pain control and it was decided she needed surgery to remove the ovarian cyst relieve her pain. This surgery was performed without complications. She tolerated the procedure well. She recovered normally after the surgery. There was hemoperitoneum in the pelvis discovered at the time of the surgery. It was evacuated. She was discharged thereafter. Time Spent with Patient Time attestation: Total time spent providing and/or coordinating discharge services: DS: Data Data Completed and Pending Completed studies during hospitalization: Pending at discharge 11/18/20 12:22 Surgical [PTH] Routine Discharge Plan Discharge Discharging Clinician: Laquita Das Patient Disposition: Home, Self-Care Activity: may shower, no straining, no driving, as tolerated and pelvic rest Diet: heart healthy Patient Instructions: Antibiotic Form, Pain Management (DC), Ovarian Cyst Removal (DC) Stand Alone Forms: General Discharge Information Follow-up/Referrals: Laquita Das MD [Physician] - Discharge Medications: Continued oxycodone-acetaminophen 10-325 mg tablet 1 tablet PO Q8H RF: 0 propranolol 20 mg tablet 20 mg PO BID RF: 0 paroxetine HCl 40 mg tablet 40 mg PO DAILY RF: 0 trazodone 100 mg tablet 100 mg PO .qhs Qty: 30 RF: 3 albuterol sulfate 90 mcg/actuation HFA aerosol inhaler See Rx Instructions .ROUTE .COMPLEX Qty: 18 RF: 5 Flovent HFA 110 mcg/actuation HFA aerosol inhaler 1 puff INHALATION Q12H Qty: 12 RF: 3 Unisom (doxylamine) 25 mg Tablet 25 mg PO HS PRN (Reason: insomnia) RF: 0 ibuprofen 800 mg tablet 800 mg PO TID Qty: 90 RF: 3 Discontinued hydroxyzine HCl 25 mg tablet 50 mg PO TID PRN (Reason: anxiety) Qty: 30 RF: 0 Date of admission: 11/18/20 00:45 Primary Care Provider: Cuauhtemoc Veloz Admitting Provider: Laquita Das Attending physician on admission: Laquita Das Condition: Stable
== END 2020-11-18 17:25 | disposition home or self-care (01) ==
LOC: ANHED 11-18 00:49 → ANHOB2 11-18 01:03
PROVIDERS: Admitting Provider Obstetrics & Gynecology; Emergency Provider Emergency Medicine; PCP Family Medicine; Visit Provider Obstetrics & Gynecology
PROC: (CPT 49320; principal; 2020-11-18 10:30)
DX: N83.201 Unspecified ovarian cyst, right side (principal); N83.11 Corpus luteum cyst of right ovary; K66.1 Hemoperitoneum; E66.01 Morbid (severe) obesity due to excess calories; F17.210 Nicotine dependence, cigarettes, uncomplicated; Z68.41 Body mass index [BMI] 40.0-44.9, adult
CPT/HCPCS: 58662; 36415; 80053; 81001; 81025; 83690; 85025; 87077; 87086; 87088; 87186; 88305; 96365; 96375; 96376; 99285; A9270; G0378; G0379; J0131; J0330; J0461; J1100; J1170; J2250; J2405; J2550; J2704; J2710; J3010; J7120; Q9968

== ENCOUNTER 2021-01-11 13:45 | Outpatient (CLI) | payer OTHER, SELFPAY ==
--- NOTE | ~2021-01-11 | XR_ITS ---
EXAMINATION: XR ankle LT min 3V DATE: 01/11/2021 14:09 INDICATION: Left ankle pain post fall 5 days prior TECHNIQUE: Anteroposterior, oblique, mortise, and lateral views of the left ankle were obtained. COMPARISON: None. FINDINGS: Alignment is normal. No fracture. Joint spaces are well maintained. No ankle joint effusion. Small h eterotopic ossicle near the tip of the lateral malleolus likely sequela of chronic lateral ankle spra in. Soft tissue swelling about the lateral malleolus. IMPRESSION: 1. Findings suggestive of acute on chronic lateral ankle sprain. No acute osseous abnormality. Reviewed, dictated and finalized at location A. IMPRESSION: 1. Findings suggestive of acute on chronic lateral ankle sprain. No acute osseo us abnormality.
== END 2021-01-11 13:46 | disposition home or self-care (01) ==
LOC: CHSIMG 13:48
PROVIDERS: PCP Family Medicine; Visit Provider Family Medicine
DX: M25.572 Pain in left ankle and joints of left foot (principal)
CPT/HCPCS: 73610

== ENCOUNTER 2021-01-19 15:28 | Emergency (ER) | payer OTHER, SELFPAY ==
--- NOTE | ~2021-01-19 | XR_ITS ---
EXAMINATION: XR tibia fibula LT 2V DATE: 01/19/2021 17:08 INDICATION: Left lower leg injury. TECHNIQUE: 2 views of left tibia and fibula on 3 radiographs were obtained. COMPARISON: None. FINDINGS: Bone alignment is normal. No fracture. Joint spaces are well maintained. IMPRESSION: 1. No fracture. Reviewed, dictated and finalized at location A. IMPRESSION: 1. No fracture.
--- NOTE | ~2021-01-19 | XR_ITS ---
EXAMINATION: XR knee LT 3V DATE: 01/19/2021 17:07 INDICATION: Left knee injury. TECHNIQUE: 3 views of left knee were obtained. COMPARISON: None. FINDINGS: Bone alignment is normal. No fracture. There is mild tricompartmental osteoarthritis. No kn ee joint effusion. IMPRESSION: 1. Mild left knee osteoarthritis. Reviewed, dictated and finalized at location A.
[2021-01-19 15:50] VITALS: BP 116/72; PULSE 80; RESP 20; TEMP 36.3; O2SAT 100
--- NOTE | 2021-01-19 16:07 | PC.NURSE ---
Per XRAY, pt is refusing films until she gets pain medication. mobile equipment operator made aware.
--- NOTE | 2021-01-19 16:47 | ED.GENADULT ---
HPI - General Adult General Chief complaint: Extremity Injury, Lower Stated complaint: left knee injury Time Seen by Provider: 01/19/21 16:23 Source: patient History of Present Illness HPI narrative: Patient is a 35 y/o female complaining of left knee pain and left leg starting 1 1/2 hour ago. She states that she fell at a tire shop. She describes her pain crushing and rates it as more than 10/10. She states that movement worsens her pain. She denies hitting her head or having any other injury. Related Data Home Medications Medication Instructions Recorded Confirmed paroxetine HCl 40 mg tablet 40 mg PO DAILY tablet 09/30/20 12/31/20 risperidone 0.5 mg tablet 0.5 mg PO BID tablet 12/31/20 12/31/20 Allergies Allergy/AdvReac Type Severity Reaction Status Date / Time adhesive tape Allergy Severe Hives Verified 01/19/21 16:08 morphine Allergy Intermediate ITCHING, Verified 01/19/21 16:08 MIGRAINE Penicillins Allergy Intermediate THROAT Verified 01/19/21 16:08 SWELLING metoclopramide AdvReac Severe PARANOIA Verified 01/19/21 16:08 Sulfa (Sulfonamide AdvReac Mild Rash Verified 01/19/21 16:08 Antibiotics) sulfamethoxazole AdvReac Mild Rash Verified 01/19/21 16:08 trimethoprim AdvReac Mild Rash Verified 01/19/21 16:08 Sulfonamides Allergy Intermediate Rash Uncoded 01/19/21 16:08 Review of Systems Constitutional: Constitutional: Denies chills, Denies fever(s), Denies headache(s) and Denies weakness Eyes: Eyes: Denies blurry vision ENT: Denies headache(s) and Denies neck pain Cardiovascular: Cardiovascular: Denies chest pain and Denies dyspnea Respiratory: Respiratory: Denies cough and Denies dyspnea Gastrointestinal: Gastrointestinal: Denies abdominal pain, Denies diarrhea, Denies nausea and Denies vomiting Genitourinary: Genitourinary: Denies hematuria and Denies dysuria Musculoskeletal: Musculoskeletal: Denies back pain, Denies neck pain and Reports other (left knee pain) Neurologic: Denies headache(s) and Denies weakness PMFSH Past Medical History Medical History Anxiety Bipolar disorder Chronic headaches Chronic low back pain Depression Ectopic Eczema Epilepsy Gastric ulcer GERD (gastroesophageal reflux disease) Idiopathic intracranial hypertension Nicotine dependence Obesity, Class III, BMI 40-49.9 (morbid obesity) UTI (urinary tract infection) Surgical History Surgical History Hx of section x3 Hx of cholecystectomy Hx of dilation and curettage Family History Family History Father Medical history unknown Mother Schizophrenia Liver cirrhosis Social History Social History Smoking packs per day: 2 Smoking cigarettes per day: 40.0 Years smoked: 16 Smoking pack-years: 32.00 Smoking status: Current every day smoker Tobacco type: cigarettes Substance use: never Additional living arrangements comments: 1 daughter. Additional occupation/education comments: Disabled due to Idiopathic Intracranial Hypertension Gender identity (if verbalized by the patient): Female Spiritual care concerns: No Exam Const: General: no acute distress and well developed Orientation/consciousness: oriented to person, oriented to place, oriented to time and patient oriented x3 HENMT: Head: normocephalic Ears: external ears normal General nose exam: Normal external nose present Eyes: General: appearance normal, both eyes and all related structures Conjunctivae: conjunctivae normal Neck: Neck: normal visual inspection and full ROM Chest: Chest palpation & inspection: normal inspection of the chest and no tenderness Resp: Effort & Inspection: normal respiratory effort Auscultation: clear to auscultation bilaterally Cardio: Rate: regular rate
[2021-01-19] MEDS: IBUPROFEN 600 MG TABLET PO (17:21)
--- NOTE | 2021-01-19 17:37 | PC.NURSE ---
ambulation assessment - pt able to ambulate w/ walker
[2021-01-19 18:21] VITALS: BP 118/75; PULSE 72; RESP 18; O2SAT 100
== END 2021-01-19 18:22 | disposition home or self-care (01) ==
PROVIDERS: Emergency Provider Emergency Medicine; PCP Family Medicine
DX: M25.562 Pain in left knee (principal); F17.210 Nicotine dependence, cigarettes, uncomplicated; F41.9 Anxiety disorder, unspecified; F31.9 Bipolar disorder, unspecified; M54.5 Low back pain; G89.29 Other chronic pain; G40.909 Epilepsy, unspecified, not intractable, without status epilepticus; K21.9 Gastro-esophageal reflux disease without esophagitis; Z87.440 Personal history of urinary (tract) infections
CPT/HCPCS: 73562; 73590; 99283; A9270

== ENCOUNTER 2021-06-28 15:45 | Observation (INO) | payer OTHER, SELFPAY ==
--- NOTE | ~2021-06-28 | XR_ITS ---
EXAMINATION: XR lumbar puncture diagnostic EXAM DATE: 06/29/2021 12:42 INDICATION: Idiopathic intracranial hypertension, headache. History of blood patch after the prior alessandro mbar puncture performed here. TECHNIQUE: Informed consent was obtained from the patient for doing this procedure bedside prior to r [facility]. I discussed benefits and risks including bleeding, infection, backache and headache . Alternatives also discussed. Patient was brought down to fluoroscopy suite. Radiologist Nazario Wood M.D. performed the procedure with date of pulsed dose reduction fluoroscopy, with fluoroscopic time of 0.1 minutes. The DAP for this procedure was 0.6 Gycm2. A total of 3 images obtained for the exam . A timeout procedure was performed. The back was prepped in standard sterile fashion with Betadine. L4-5 entry site was chosen under fluoroscopic guidance and infiltrated with 1% lidocaine. The thecal sac was then accessed from a right approach using a 6 22G needle. Opening pressure determined to be 20 cm/mmHg. Closing pressure was less than 14, less than length of the needle (Normal range is variably defined as 6-20 cm water and up to 25 cm water in obese patients . Pressure >25 cm water is one of the modified Dandy criteria for idiopathic intracranial hypertensio n). A total of 19.5 mL of clear cerebral spinal fluid were then drained and placed in 4 consecutive vials which were labeled and sent to lab for analysis. Closing pressure was less than the length of t he needle, which is normal. There were no immediate complications. Patient tolerated the procedure we ll. IMPRESSION: Status post therapeutic lumbar puncture. Reviewed, dictated and finalized at location A.
--- NOTE | ~2021-06-28 | CT_ITS ---
EXAMINATION: CT brain wo con DATE: 06/28/2021 21:37 INDICATION: Headache. TECHNIQUE: Computed tomography (CT) of the head was performed without intravenous contrast. The mA wa s adjusted according to patient size. Iterative reconstruction technique was employed. The dose-lengt h product was 529.67 mGy-cm. COMPARISON: Head CT 05/09/2020 FINDINGS: There is no intracranial hemorrhage, acute infarction, or abnormal intracranial mass lesion . The ventricles are normal in size. There is mild mucosal thickening in the ethmoid sinuses. The orb its are normal. There is a small left mastoid effusion. IMPRESSION: 1. Normal brain. Reviewed, dictated and finalized at location A. IMPRESSION: 1. Normal brain.
[2021-06-28 16:25] VITALS: BP 125/62; PULSE 90; RESP 16; TEMP 36.3; O2SAT 98
[2021-06-28 17:40] VITALS: BP 120/74; PULSE 83; RESP 18; TEMP 36.4; O2SAT 96
[2021-06-28 20:47] VITALS: BP 85/60; PULSE 95; RESP 16; O2SAT 99
[2021-06-28 21:57] LABS: Basophils Percent Auto 0.4 % (0.2-1.2); Eosinophils Absolute Auto 0.4 K/mm3 (0-0.3); Eosinophils Percent Auto 4.3 % (0-4.4); Hematocrit 42.3 % (37.0-47.0); Hemoglobin 14.1 g/dL (12.0-15.0); Immature Granulocyte Absolute 0.03 K/mm3 (0.00-0.031); Immature Granulocyte Percent A 0.4 % (0-0.5); Lymphocytes Absolute Auto 1.85 K/mm3 (0.9-3.2); Lymphocytes Percent Auto 22.3 % (18.3-44.2); Mean Corpuscular HGB Conc 33.3 g/dl (32-36); Mean Corpuscular Hemoglobin 30.4 pg (26-34); Mean Corpuscular Volume 91.2 fl (80-100); Monocytes Absolute Auto 0.5 K/mm3 (0.1-0.6); Monocytes Percent Auto 6.2 % (2.6-8.5); Neutrophils Absolute Auto 5.5 K/mm3 (1.3-6.7); Neutrophils Percent Auto 66.4 % (45.5-73.1); Platelet Count Result 222 k/mm3 (150-375); Red Blood Count 4.64 M/mm3 (4.2-5.4); Red Cell Distribution Width 13.7 % (11.5-14.5); White Blood Count 8.3 K/mm3 (4.5-10.0)
[2021-06-28 22:01] LABS: Add Urine Microscopic? YES; Appearance Urine Clear (Clear); Bacteria Urine Trace /hpf; Bilirubin Urine Negative (Negative); Color Urine Yellow (Yellow); Glucose Urine UA Negative (Negative); Ketones Urine Negative (Negative); Leukocyte Esterase Ur Trace LEU/UL (Negative); Mucus Urine Rare /lpf; Nitrate Urine Negative (Negative); Protein Urine 1+ mg/dL (Negative); RBC Urine 0-2 /hpf (0-2); Squamous Epithelial Cell Urine Many /hpf (Few); Urobilinogen Urine Negative mg/dL (<2.0)
[2021-06-28 22:05] LABS: Blood Urine Negative (Negative)
[2021-06-28 22:09] LABS: Alanine Aminotransferase 21 U/L (4-35); Albumin Level 4.5 g/dL (3.5-5.1); Alkaline Phosphatase 60 U/L (38-126); Anion Gap 5 mmol/L (8-16); Aspartate Amino Transferase 27 U/L (14-36); Bilirubin,Total 0.4 mg/dL (0.2-1.3); Blood Urea Nitrogen 15 mg/dL (7-17); Calcium 9.4 mg/dL (8.4-10.2); Carbon Dioxide 30 mmol/L (22-30); Chloride 104 mmol/L (98-107); Estimated CRCL calculation 95 ml/min; Estimated Glomerular Filt Rate > 60; Glucose 92 mg/dL (65-110); Potassium 4.2 mmol/L (3.4-5.0); Sodium 139 mmol/L (137-145)
[2021-06-28 22:11] LABS: INR 0.8; Prothrombin Time 11.4 Seconds (11.1-14.7)
[2021-06-28 22:12] LABS: Partial Thromboplastin Time 31.6 SECONDS (22.3-36.8)
[2021-06-28] MEDS: HYDROmorphone HCL INJ (*CRX) 1 MG/ML SYR IV PUSH ×2 (22:19→23:44)
--- NOTE | 2021-06-28 22:22 | ED.GENADULT ---
HPI - General Adult General Chief complaint: Headache Stated complaint: head pressure Time Seen by Provider: 06/28/21 20:24 History of Present Illness HPI narrative: Patient 35-year-old female presents the emergency department with chief complaint of headache. Patient reports she has history of idiopathic intercranial hypertension and has had improvement before with therapeutic lumbar puncture. Patient states that this headache is been going on for several days reports is not improved by anything and reports that it is causing significant pain to the point that she is very frustrated. Patient states she called her neurologist this evening and the come to the emergency department. Related Data Home Medications Medication Instructions Recorded Confirmed paroxetine HCl 40 mg tablet 40 mg PO DAILY tablet 09/30/20 04/14/21 risperidone 0.5 mg tablet 0.5 mg PO BID tablet 12/31/20 04/14/21 hydroxyzine HCl 06/28/21 propranolol 06/28/21 Allergies Allergy/AdvReac Type Severity Reaction Status Date / Time adhesive tape Allergy Severe Hives Verified 06/28/21 20:51 morphine Allergy Intermediate ITCHING, Verified 06/28/21 20:51 MIGRAINE Penicillins Allergy Intermediate THROAT Verified 06/28/21 20:51 SWELLING metoclopramide AdvReac Severe PARANOIA Verified 06/28/21 20:51 Sulfa (Sulfonamide AdvReac Mild Rash Verified 06/28/21 20:51 Antibiotics) sulfamethoxazole AdvReac Mild Rash Verified 06/28/21 20:51 trimethoprim AdvReac Mild Rash Verified 06/28/21 20:51 Sulfonamides Allergy Intermediate Rash Uncoded 06/28/21 20:51 Review of Systems Review of Systems: A 10 system review of systems was completed on the patient and is negative except for what is stated in the HPI. Nursing and ancillary documentation was reviewed. [facility] Past Medical History Medical History Anxiety Bipolar disorder Chronic headaches Chronic low back pain Contusion of left knee Depression Ectopic Eczema Epilepsy Gastric ulcer GERD (gastroesophageal reflux disease) Idiopathic intracranial hypertension Nicotine dependence Obesity, Class III, BMI 40-49.9 (morbid obesity) UTI (urinary tract infection) Surgical History Surgical History Hx of section x3 Hx of cholecystectomy Hx of dilation and curettage Family History Family History Father Medical history unknown Mother Schizophrenia Liver cirrhosis Social History Social History Smoking packs per day: 1.5 Smoking cigarettes per day: 30.0 Years smoked: 16 Smoking pack-years: 24.00 Smoking status: Current every day smoker Tobacco type: cigarettes Substance use: never Additional living arrangements comments: 1 daughter. Additional occupation/education comments: Disabled due to Idiopathic Intracranial Hypertension Gender identity (if verbalized by the patient): Female Sexual Orientation (if Verbalized by the Patient): Straight or Heterosexual Spiritual care concerns: No Exam Narrative: GENERAL: Well-appearing, well-nourished, and in no acute distress. HEAD: Normocephalic, atraumatic. EYES: PERRLA and EOMI. ENT: Nares clear, no rhinorrhea or epistaxis. Mucous membranes moist. NECK: Supple. CHEST: Clear to auscultation. No respiratory distress. HEART: Regular rate and rhythm. No murmur heard. Normal peripheral pulses. ABDOMEN: Soft, nontender, nondistended, normal active bowel sounds. EXTREMITIES: Normal range of motion. No edema. SKIN: Warm, dry, no rash. NEURO: No focal deficits. Alert and oriented x3. PSYCH: Normal mood and affect. Course Course Emergency Course: Given the patient is followed by Dr. Higgins with neurology the case was discussed with Dr. Higgins who recommended pain
[2021-06-29] VITALS (10 sets, daily range): BP systolic 93–105; BP diastolic 53–70; PULSE 64–95; RESP 14–20; TEMP 36.1–36.6; O2SAT 94–99; BMI 41.8
--- NOTE | 2021-06-29 00:41 | PC.NURSE ---
This patient, Elvira Del Cid, was admitted to 3 [facility] Surg Room 313-01. Patient/family oriented to hospital policies and general routines including ID bracelet, bed and alarms, visiting hours, pain management, procedures, bathroom and other care routines, personal items, smoking policy, room service/diet, and visiting hours. Information on how to activate the Rapid Response Team has been discussed. Patient/Family are encouraged to report perceived risks to care and to ask questions if they do not understand what they are told or what they should do.
[2021-06-29] MEDS: HYDROmorphone HCL INJ (*CRX) 1 MG/ML SYR IV PUSH ×3 (02:54→09:00)
--- NOTE | 2021-06-29 03:59 | PM.IMHP ---
H&P: HPI History of Present Illness Date/Time: 06/29/21 03:59 Chief Complaint: Headache Narrative: 35-year-old female with past medical history of bipolar disorder, anxiety, depression, GERD, is epilepsy, and idiopathic intracranial hypertension who presented to the ER with 2 weeks of intractable headache. The patient reports that she is at 2 weeks of headache that is been quite bad. However she reports that the pain has been extremely severe in the last 2 days. She reports that her Percocet is no longer working. She is usually prescribed Percocet by Dr. Curt Higgins from Neurology. She took a Percocet prior to coming to the ER. She reports that the last time she needed a LP was approximately 1 year ago but on review of records it appears that she received her last LP October 2018. It was complicated by a post LP headache and she stated that she had weight loss could not keep food down and reported that she had loss of skin color and complete loss of her hair color and she thought he was going to . So she is extremely anxious about the possibility of requiring another lumbar puncture. She reports a history of epilepsy but has not had a seizure in many years despite not being on any epilepsy medications. She reports that her headache is a 9/10 in intensity when I arrived in the room the patient's TV was quite loud. She initially saw me that her headache was generalized in all over and felt like her eyes were going to pop out of her head. She reports that headache was throbbing in nature. However, when I went to leave the room she reported nursing staff there headache was in the posterior part of her head. She reports occasional nausea with the headache but none currently. She reports that the headache is so bad that if she was not afraid to that she would shoot herself. She denies suicidal ideation. She reports some mild blurring of her vision. He reports that she is on disability due to her headaches. She reports no eliciting or relieving factors. She does have a chronic smoker's cough. She has never been told that she has COPD. She does wheeze chronically. She has never had pulmonary function testing. She does snore quite loudly. So loud that her boyfriend has to sleep in the other room. She does occasionally wake herself up snoring. She does have daytime fatigue and sleepiness. Review of Systems Review of Systems: 12 systems were reviewed with pertinent positives and negatives per HPI. Except as documented in the HPI, all other systems were reviewed and are negative. [facility] Past Medical History Medical History (Updated 06/29/21 @ 04:31 by Fidelina Dominguez DO) Anxiety Bipolar disorder Chronic headaches Chronic low back pain Depression Ectopic Eczema Epilepsy Reportedly her last seizure was November of 2015 Gastric ulcer GERD (gastroesophageal reflux disease) Idiopathic intracranial hypertension Managed by Dr. Curt Higgins Nicotine dependence Obesity, Class III, BMI 40-49.9 (morbid obesity) UTI (urinary tract infection) Surgical History Surgical History (Updated 06/29/21 @ 04:01 by Fidelina Dominguez DO) History of left salpingo-oophorectomy Due to ectopic Hx of section x3 Hx of cholecystectomy Hx of dilation and curettage Family History Family History (Updated 06/29/21 @ 04:03 by Fidelina Dominguez DO) Father Medical history unknown Mother Schizophrenia Liver cirrhosis Sibling Seizure disorder Daughter Congenital heart disease Social History Social History (Updated 06/29/21 @ 04:18 by Fidelina Dominguez DO) Social History: She lives with her 11-year-old daughter. She also has a 13 in 14-year-old child that sounds if lives elsewhere. She has smoked 1.5 packs of cigarettes per day since she was 17 years old. She denies any significant alcohol use. She is on disability. Smoking packs per day: 1.5 Smoking cigarettes per day: 30.0 Years smoked: 18 Sm
--- NOTE | 2021-06-29 08:21 | PM.IMPN ---
Progress Note: A&P Assessment and Plan (1) Cephalgia: Qualifiers: Headache chronicity pattern: acute headache Headache type: unspecified Intractability: intractable Qualified Code(s): R51.9 - Headache, unspecified Code(s): R51.9 - Headache, unspecified Status: Acute Assessment and Plan: Intractable headache likely due to idiopathic intracranial hypertension. Supportive care Continue analgesics Appreciate neurology consultation Planning for therapeutic lumbar puncture today. Will obtain opening and closing pressures, as well as cell count, glucose, gram stain, and routine culture per neurology recommendations. Given history of post LP headache, she will need to remain on bedrest 6 hours following per neuro recs (2) Idiopathic intracranial hypertension: Code(s): G93.2 - Benign intracranial hypertension Status: Chronic Assessment and Plan: Followed with neurologist Dr. Higgins. Plan as above (3) Wheezing: Code(s): R06.2 - Wheezing Status: Acute Assessment and Plan: She has diffuse wheezing bilaterally. Maintaining adequate O2 on room air Will schedule albuterol and ipratropium nebs q6h She will need outpatient follow up to obtain PFTs (4) Snoring: Code(s): R06.83 - Snoring Status: Acute Assessment and Plan: She reports loud snoring that wakes her up at night. Perform apnea link tonight She will need outpatient sleep study (5) Nicotine dependence: Qualifiers: Nicotine product type: cigarettes Substance use status: uncomplicated Qualified Code(s): F17.210 - Nicotine dependence, cigarettes, uncomplicated Code(s): F17.200 - Nicotine dependence, unspecified, uncomplicated Status: Acute Assessment and Plan: She smokes 1.5 ppd for 18 years. Continue with nicotine patch Smoking cessation is imperative in will be reinforced (6) Bipolar disorder: Code(s): F31.9 - Bipolar disorder, unspecified Status: Acute Assessment and Plan: Mood is stable at this time Continue risperidone, paroxetine, hydroxyzine Subjective Date/time seen: 06/29/21 08:21 Interval history: Date of service: 06/29/21 Elvira Del Cid is a 35 year old female with a history of bipolar disorder, depression, tobacco abuse, and idiopathic intracranial hypertension followed by neurologist, Dr. Higgins, who is seen in follow up for headache. She has had a headache for 2 weeks but has been worse the past 2 days. She states this is consistent in character to her other headaches. She describes a 500 pound brick sitting on her head and feeling as though her eyes are going to pop out. She denies visual changes at this time but she does note blurred vision yesterday that has resolved. No speech changes. No weakness, dizziness, lightheadedness, loss of balance or coordination. She reports shortness of breath off and on with good days and bad days. She denies wheezing. Denies fever, chills, nausea, vomiting. She feels anxious regarding having a lumbar puncture and states she did not tolerate very well last time. She reports being in 10/10 pain and asks multiple times during my encounter when she can have more pain medication. Review of Systems Review of Systems: All systems reviewed & are unremarkable except as noted in HPI and below Exam Narrative: Ms. Del Cid is an obese. well-appearing, slightly disheveled appearing 35-year-old female who is lying supine in bed. She appears comfortable and is in NARD. Neuro: awake, alert and oriented x4, speech clear, CN II-XII intact, strength 5/5 throughout, sensation intact, bilateral peoplesoft programmer strength equal HEENMT: normocephalic, atraumatic, EOMI, sclerae anicteric, moist oral mucosa Neck: supple, no lymphadenopathy Respiratory: clear to auscultation bilaterally, nonlabored breathing Cardio: regular rate, regular rhythm with S1-S2 Abdomen: nondi
[2021-06-29] MEDS: PARoxetine 10 MG TABLET 30 MG PO (09:03)
[2021-06-29] MEDS: risperiDONE 0.5 MG TABLET PO ×2 (09:04→19:01)
[2021-06-29] MEDS: hydrOXYzine HCL 25 MG TABLET 50 MG PO (09:05)
[2021-06-29] MEDS: LORazepam INJ (*CRX) 2 MG/ML VIAL 0.5 MG IV PUSH (11:34)
[2021-06-29] MEDS: HYDROmorphone HCL INJ (*CRX) 1 MG/ML SYR 0.5 MG IV PUSH ×2 (12:50→19:02)
[2021-06-29 13:13] LABS: Glucose CSF 55 mg/dL (40-70); Total Protein CSF 25 mg/dL (12-60)
[2021-06-29 13:59] LABS: Appearance CSF Clear (Clear); CSF source CSF; Color CSF Colorless (Colorless); Nucleated Cell CSF 0 /uL (0-5); Red Blood Cell CSF 15 (0-2)
[2021-06-29 14:02] LABS: Neutrophils CSF 0 % (0-6)
[2021-06-29] MEDS: HYDROcodone/acetaminophen (*CRX) 5-325 MG TABLET 1 TAB PO ×2 (14:43→22:41)
--- NOTE | 2021-06-29 16:14 | WPDNEURCNPN ---
Assessment and Plan Additional Plan considering the pseudotumor cerebri as documented previously by the spinal tap she had been continued on the treatment but unfortunately her headaches have been becoming more frequent and more severe and she has been refusing spinal tap repeat because the previous post spinal tap headaches X. but obviously we cannot continue the treatment as such she has to have the spinal tap done if the patient is still elevated she will need to be followed by the neurosurgeon otherwise will follow in the office Consult date: 06/29/21 Time Seen: 11:00 HPI: Elvira Del Cid is a 35 year old female has been admitted to the hospital through the emergency room for the complaints of severe headaches. In the past patient carries the diagnosis of 1. Idiopathic intracranial hypertension 2. Bipolar disorder 3. Anxiety with depression 4. GERD 5. Epilepsy the pain has been recently becoming more severe her last spinal tap was done in October of 2018 which was complicated by the LP headache neurosurgical consultation was obtained as well she has not had any seizure for several years considering her acute exacerbation of the headache in the emergency room she was advised to be hospitalized for the spinal tap additionally she does carry the diagnosis of COPD PMFSH Past Medical History Medical History Anxiety Bipolar disorder Chronic headaches Chronic low back pain Depression Ectopic Eczema Epilepsy Reportedly her last seizure was November of 2015 Gastric ulcer GERD (gastroesophageal reflux disease) Idiopathic intracranial hypertension Managed by Dr. Curt Higgins Nicotine dependence Obesity, Class III, BMI 40-49.9 (morbid obesity) UTI (urinary tract infection) Surgical History Surgical History History of left salpingo-oophorectomy Due to ectopic Hx of section x3 Hx of cholecystectomy Hx of dilation and curettage Family History Family History Father Medical history unknown Mother Schizophrenia Liver cirrhosis Sibling Seizure disorder Daughter Congenital heart disease Social History Social History Social History: She lives with her 11-year-old daughter. She also has a 13 in 14-year-old child that sounds if lives elsewhere. She has smoked 1.5 packs of cigarettes per day since she was 17 years old. She denies any significant alcohol use. She is on disability. Smoking packs per day: 1.5 Smoking cigarettes per day: 30.0 Years smoked: 18 Smoking pack-years: 27.00 Smoking status: Current every day smoker Tobacco type: cigarettes Second hand tobacco smoke exposure: Yes Alcohol intake: never Substance use: current Substance use type: marijuana Other substance usage details: used to sleep the other day, but not a daily usage Additional living arrangements comments: 1 daughter. Additional occupation/education comments: Disabled due to Idiopathic Intracranial Hypertension Gender identity (if verbalized by the patient): Female Sexual Orientation (if Verbalized by the Patient): Straight or Heterosexual Spiritual care concerns: No Meds Home Medications and Allergies Home Medications Medication Instructions Recorded Confirmed Type risperidone 0.5 mg tablet 0.5 mg PO BID tablet 12/31/20 06/29/21 History trazodone 100 mg tablet 100 mg PO .qhs #30 tablet 01/18/21 06/29/21 Rx hydroxyzine HCl 50 mg PO DAILY 06/28/21 06/29/21 History paroxetine HCl 30 mg PO DAILY 06/29/21 06/29/21 History Allergies Allergy/AdvReac Type Severity Reaction Status Date / Time adhesive tape Allergy Severe Hives Verified 06/28/21 20:51 morphine Allergy Intermediate ITCHING, Verified 06/28/21 20:51 MIGRAINE Penicillins Allergy Intermediate THROAT Verified 06/28
[2021-06-29] MEDS: IPRATROPIUM BR 0.02% INH SOLN 0.5 MG/2.5 ML VIAL INHALATION (19:50)
[2021-06-29] MEDS: ALBUTEROL SULFATE NEB 2.5 MG/0.5 ML INH INHALATION (19:50)
[2021-06-29] MEDS: NICOTINE (*PBKC) 21 MG PATCH 1 PATCH TRANSDERM (21:25)
[2021-06-29] MEDS: traZODone HCL 50 MG TABLET 100 MG PO (21:28)
[2021-06-30] MEDS: ALBUTEROL SULFATE NEB 2.5 MG/0.5 ML INH INHALATION (02:10)
[2021-06-30] MEDS: IPRATROPIUM BR 0.02% INH SOLN 0.5 MG/2.5 ML VIAL INHALATION (02:10)
[2021-06-30 02:11] VITALS: PULSE 80; RESP 16
[2021-06-30 02:18] VITALS: PULSE 92; RESP 16
[2021-06-30 06:00] VITALS: BP 107/78; PULSE 68; RESP 20; TEMP 36.4; O2SAT 97
[2021-06-30] MEDS: HYDROcodone/acetaminophen (*CRX) 5-325 MG TABLET 1 TAB PO (06:32)
[2021-06-30 07:45] VITALS: PULSE 75; RESP 18
[2021-06-30 07:52] VITALS: PULSE 79; RESP 18
[2021-06-30] MEDS: risperiDONE 0.5 MG TABLET PO (10:13)
[2021-06-30] MEDS: hydrOXYzine HCL 25 MG TABLET 50 MG PO (10:13)
[2021-06-30] MEDS: PARoxetine 10 MG TABLET 30 MG PO (10:13)
[2021-06-30] MEDS: NICOTINE (*PBKC) 21 MG PATCH 1 PATCH TRANSDERM (10:13)
--- NOTE | 2021-06-30 13:57 | PM.DS ---
DS: Admitting Diagnosis Discharge Date 06/30/2021 Admitting Diagnosis Intractable headache DS: Discharge Diagnosis Discharge Diagnosis (1) Cephalgia: Qualifiers: Headache chronicity pattern: acute headache Headache type: unspecified Intractability: intractable Qualified Code(s): R51.9 - Headache, unspecified Code(s): R51.9 - Headache, unspecified Status: Acute Assessment and Plan: Presented with severe headache ongoing for 2 weeks, felt to be related to idiopathic intracranial hypertension. Supportive care provided. Normal brain CT She was seen in consultation by Neurology and she is established with Dr. Higgins. She underwent therapeutic lumbar puncture on 06/29/2021. Opening and closing pressure is normal. CSF with normal glucose, protein, cell count, Gram stain negative, and preliminary culture negative. She remained on bedrest for 6 hours following to prevent post LP headache, which she has a history of. She did have some improvement, though headache did not resolve entirely. Discussed with her neurologist who felt comfortable with plans for discharge and continuing supportive care. She should follow-up with Neurology as an outpatient and may benefit from referral to Neurosurgery. She has been seen by Neurosurgery in the past but chose not to pursue any surgical options at that time. She would like to try seeing someone new as she reports she was not found of the first neurosurgeon she was referred to. (2) Idiopathic intracranial hypertension: Code(s): G93.2 - Benign intracranial hypertension Status: Chronic Assessment and Plan: See above (3) UTI (urinary tract infection): Code(s): N39.0 - Urinary tract infection, site not specified Status: Acute Assessment and Plan: Urinalysis grossly abnormal on presentation. Urine culture with growth of >100k E coli. She was started on IV Rocephin and will continue p.o. Macrobid to complete 3 days of treatment based on susceptibilities. (4) Wheezing: Code(s): R06.2 - Wheezing Status: Acute Assessment and Plan: She has diffuse wheezing bilaterally on presentation. Maintained adequate oxygen saturations on room air. She has never had PFTs and has never been evaluated for wheezing. She does have a 27 pack year smoking history. Had symptomatic improvement with albuterol and ipratropium nebs. Albuterol inhaler prescribed on discharge. She will need to follow-up with PCP for PFTs and possibly maintenance inhalers. (5) Snoring: Code(s): R06.83 - Snoring Status: Acute Assessment and Plan: She reports loud snoring that wakes her up at night. ApneaLink performed which showed high likelihood for RUFUS. She will need outpatient sleep study (6) Nicotine dependence: Qualifiers: Nicotine product type: cigarettes Substance use status: uncomplicated Qualified Code(s): F17.210 - Nicotine dependence, cigarettes, uncomplicated Code(s): F17.200 - Nicotine dependence, unspecified, uncomplicated Status: Acute Assessment and Plan: She smokes 1.5 ppd for 18 years. Nicotine patch initiated during hospital stay. She was educated on smoking cessation. (7) Bipolar disorder: Code(s): F31.9 - Bipolar disorder, unspecified Status: Acute Assessment and Plan: Mood was stable during hospitalization. Continue risperidone, paroxetine, hydroxyzine DS: Summary Hospital Course Hospital Course: Date of admission: 06/28/2021 Date of discharge: 06/30/2021 Elvira Del Cid is a 35 year old female with a history of bipolar disorder, depression, tobacco abuse, and idiopathic intracranial hypertension followed by neurologist, Dr. Higgins, who presented to the emergency department on 06/28/2021 with complaints of headache but had gone on for several days without improvement. On presentation to the emergency department, her vital signs
[2021-06-30 14:00] VITALS: BP 96/60; PULSE 93; RESP 18; TEMP 36.4; O2SAT 95
== END 2021-06-30 14:20 | disposition home or self-care (01) ==
LOC: ANHED 22:25 → ANH3MEDSUR 23:39
PROVIDERS: Physician Assistant; Admitting Provider Internal Medicine; Emergency Provider Emergency Medicine; PCP Family Medicine; Visit Provider Family Medicine
DX: R51.9 Headache, unspecified (principal); G93.2 Benign intracranial hypertension; N39.0 Urinary tract infection, site not specified; B96.20 Unspecified Escherichia coli [E. coli] as the cause of diseases classified elsewhere; F31.9 Bipolar disorder, unspecified; F41.8 Other specified anxiety disorders; F17.210 Nicotine dependence, cigarettes, uncomplicated; G40.909 Epilepsy, unspecified, not intractable, without status epilepticus; K21.9 Gastro-esophageal reflux disease without esophagitis; R06.83 Snoring; R06.2 Wheezing
CPT/HCPCS: 36415; 62328; 70450; 80053; 81001; 81025; 82945; 83735; 84157; 85025; 85610; 85730; 87070; 87077; 87086; 87088; 87186; 87205; 89051; 94640; 94762; 96365; 96374; 96375; 96376; 99285; A9270; G0378; G0379; J0696; J1170; J2060

== ENCOUNTER 2021-10-04 16:10 | Outpatient (CLI) | payer OTHER, SELFPAY ==
[2021-10-04 17:06] LABS: SARS-CoV-2 Ag Negative (Negative)
== END 2021-10-04 16:11 | disposition home or self-care (01) ==
LOC: CHSLAB 16:15
PROVIDERS: PCP Family Medicine; Visit Provider Family Medicine
DX: Z20.822 Contact with and (suspected) exposure to COVID-19 (principal)
CPT/HCPCS: 87426; C9803

== ENCOUNTER 2021-10-19 14:02 | Outpatient (CLI) | payer OTHER, SELFPAY ==
--- NOTE | 2021-10-19 14:03 | ECG_ITS ---
Measurements Intervals [place] Rate: 91 P: 60 SC: 140 QRS: 84 QRSD: 92 T: 57 QT: 360 QTc: 444 Interpretive Statements SINUS RHYTHM MINIMAL Q WAVES- INF/LAT LEADS BORDERLINE ECG Electronically Signed On 10-19-2021 16:03:52 [employer] by Winston Beck D.O.
== END 2021-10-19 14:03 | disposition home or self-care (01) ==
LOC: CHSCARD 14:03
PROVIDERS: PCP Family Medicine; Visit Provider Family Medicine
DX: Z91.89 Other specified personal risk factors, not elsewhere classified (principal)
CPT/HCPCS: 93005

== ENCOUNTER 2021-11-09 18:56 | Emergency (ER) | payer OTHER, SELFPAY ==
--- NOTE | ~2021-11-09 | CT_ITS ---
EXAMINATION: CT abdomen pelvis w con INDICATION: Abdominal pain TECHNIQUE: Computed tomographic images of the abdomen and pelvis were obtained after the administrati on of 100 cc of Omnipaque 350 intravenous contrast. The dose-length product (DLP) was 1474.55 mGy-cm. Automated exposure control and iterative reconstruction technique were employed. COMPARISON: 10/21/2018 FINDINGS: The lung bases are clear. The heart size is normal. The gallbladder is surgically absent. T he liver, spleen, pancreas, and adrenal glands are normal. The kidneys are unremarkable. No pathologi [place] enlarged abdominal or pelvic lymph nodes are identified. There is no free intraperitoneal gas o r evidence of bowel obstruction. The appendix is normal. There is a fat-containing umbilical hernia. IMPRESSION: 1. No CT correlate for the patient's symptoms. Reviewed, dictated and finalized at location F. DER TIER
[2021-11-09 18:57] VITALS: BP 114/81; PULSE 93; RESP 20; TEMP 36.3; O2SAT 100
--- NOTE | 2021-11-09 19:32 | ED.ABDPAIN ---
HPI - Abdominal Pain General Chief Complaint: Abdominal Pain Stated Complaint: ABD Pain Time Seen by Provider: 11/09/21 19:18 Source: patient Mode of arrival: ambulatory Limitations: no limitations History of Present Illness HPI narrative: Patient is a 36-year-old female complaining of mid abdominal pain, 7 out of 10, twisting accompanied by nausea times months . Patient states that she has seen her PCP for this multiple times and was given Protonix and Zofran. Patient also states that she was referred to a fish tender and has an endoscopy scheduled next month. Patient denies any chest pain, shortness of breath, diarrhea, fever or chills. Patient denies any urinary symptoms. Patient states that she takes Percocet 10 for her chronic pain. Related Data Home Medications Medication Instructions Recorded Confirmed hydroxyzine HCl 50 mg PO DAILY 06/28/21 10/05/21 paroxetine HCl 40 mg tablet 40 mg PO DAILY 08/17/21 10/05/21 risperidone 1 mg tablet 1 mg PO BID 08/17/21 10/05/21 trazodone 150 mg tablet 150 mg PO QHS PRN 08/17/21 10/05/21 Allergies Allergy/AdvReac Type Severity Reaction Status Date / Time adhesive tape Allergy Severe Hives Verified 11/09/21 19:22 morphine Allergy Intermediate ITCHING, Verified 11/09/21 19:22 MIGRAINE Penicillins Allergy Intermediate THROAT Verified 11/09/21 19:22 SWELLING metoclopramide AdvReac Severe PARANOIA Verified 11/09/21 19:22 Sulfa (Sulfonamide AdvReac Mild Rash Verified 11/09/21 19:22 Antibiotics) sulfamethoxazole AdvReac Mild Rash Verified 11/09/21 19:22 trimethoprim AdvReac Mild Rash Verified 11/09/21 19:22 Sulfonamides Allergy Intermediate Rash Uncoded 11/09/21 19:22 Review of Systems Review of Systems: All systems reviewed & are unremarkable except as noted in HPI and below Constitutional: Constitutional: Denies body ache(s), Denies chills, Denies excessive sweating, Denies fatigue, Denies fever(s), Denies headache(s), Denies lethargy, Denies malaise, Denies weakness and Denies weight loss Eyes: Eyes: Denies blurry vision, Denies change in vision and Denies loss of vision ENT: Denies dizziness, Denies ear discharge, Denies headache(s), Denies lip swelling, Denies epistaxis, Denies nasal congestion, Denies neck pain, Denies throat swelling and Denies tongue swelling Cardiovascular: Cardiovascular: Denies chest pain, Denies chest pain at rest, Denies chest pain with activity, Denies diaphoresis, Denies rapid heart rate, Denies edema, Denies irregular heart rhythm, Denies lightheadedness, Denies palpitations, Denies dyspnea and Denies dyspnea on exertion Respiratory: Respiratory: Denies chest congestion, Denies cough, Denies hemoptysis, Denies dyspnea and Denies dyspnea on exertion Gastrointestinal: Gastrointestinal: Denies melena, Denies hematochezia, Denies diarrhea, Denies vomiting and Denies hematemesis Musculoskeletal: Musculoskeletal: Denies abnormal gait, Denies deformity, Denies joint swelling, Denies limited range of motion, Denies neck pain and Denies numbness Neurologic: Denies Abnormal speech present, Denies abnormal gait, Denies confusion, Denies dizziness, Denies headache(s), Denies focal weakness, Denies loss of vision, Denies numbness, Denies Other visual disturbances, Denies Sensory deficit (Neuro) and Denies weakness Psychiatric: Psychiatric: Denies confusion, Denies depression, Denies auditory hallucinations, Denies homicidal ideation and Denies suicidal ideation Endocrine: Endocrine: Denies cold intolerance, Denies excessive sweating, Denies fatigue, Denies heat intolerance and Denies palpitations Hematologic/Lymphatic: Hematologic/Lymphatic: Denies easy bleeding and Denies easy bruising Allergic/Immunologic: Allergic/Immunologic: Denies lip swelling, Denies throat swelling and Denies tongue swelling PMFSH Past Medical History Medical History Anxiety Bipolar disorder Chronic headaches Ch
[2021-11-09] MEDS: KETOROLAC 30 MG/ML VIAL (*BKC) IV PUSH (19:42)
[2021-11-09] MEDS: PROMETHAZINE HCL 25 MG/ML AMPUL 12.5 MG IV PUSH (19:43)
[2021-11-09 19:45] LABS: Basophils Percent Auto 0.6 % (0.2-1.2); Eosinophils Absolute Auto 0.2 K/mm3 (0-0.3); Eosinophils Percent Auto 3.2 % (0-4.4); Hematocrit 44.5 % (37.0-47.0); Hemoglobin 14.8 g/dL (12.0-15.0); Immature Granulocyte Absolute 0.02 K/mm3 (0.00-0.031); Immature Granulocyte Percent A 0.3 % (0-0.5); Lymphocytes Absolute Auto 1.71 K/mm3 (0.9-3.2); Lymphocytes Percent Auto 25.1 % (18.3-44.2); Mean Corpuscular HGB Conc 33.3 g/dl (32-36); Mean Corpuscular Hemoglobin 29.2 pg (26-34); Mean Corpuscular Volume 87.8 fl (80-100); Monocytes Absolute Auto 0.4 K/mm3 (0.1-0.6); Monocytes Percent Auto 6.2 % (2.6-8.5); Neutrophils Absolute Auto 4.4 K/mm3 (1.3-6.7); Neutrophils Percent Auto 64.6 % (45.5-73.1); Platelet Count Result 225 k/mm3 (150-375); Red Blood Count 5.07 M/mm3 (4.2-5.4); Red Cell Distribution Width 13.7 % (11.5-14.5); White Blood Count 6.8 K/mm3 (4.5-10.0)
[2021-11-09 19:49] LABS: Add Urine Microscopic? YES; Appearance Urine Clear (Clear); Bilirubin Urine Negative (Negative); Blood Urine 1+ (Negative); Color Urine Colorless (Yellow); Glucose Urine UA Negative (Negative); Ketones Urine Negative (Negative); Leukocyte Esterase Ur Negative LEU/UL (Negative); Nitrate Urine Negative (Negative); Protein Urine Negative (Negative); RBC Urine 0-2 /hpf (0-2); Squamous Epithelial Cell Urine Rare /hpf (Few); Urobilinogen Urine Negative mg/dL (<2.0); WBC Urine 0-3 /hpf
[2021-11-09 19:50] LABS: Specific Grav Ur 1.001 (1.001-1.035)
[2021-11-09 19:56] LABS: Alanine Aminotransferase 27 U/L (4-35); Albumin Level 4.7 g/dL (3.5-5.1); Alkaline Phosphatase 87 U/L (38-126); Anion Gap 6 mmol/L (8-16); Aspartate Amino Transferase 29 U/L (14-36); Bilirubin,Total 0.6 mg/dL (0.2-1.3); Blood Urea Nitrogen 12 mg/dL (7-17); Calcium 9.2 mg/dL (8.4-10.2); Carbon Dioxide 24 mmol/L (22-30); Chloride 105 mmol/L (98-107); Estimated CRCL calculation 111 ml/min; Estimated Glomerular Filt Rate > 60; Glucose 102 mg/dL (65-110); Lipase 76 U/L (23-300); Potassium 4.4 mmol/L (3.4-5.0); Sodium 135 mmol/L (137-145)
[2021-11-09 21:18] VITALS: BP 116/73; PULSE 87; RESP 16; O2SAT 100
== END 2021-11-09 21:17 | disposition home or self-care (01) ==
LOC: ANHED 20:49
PROVIDERS: Emergency Provider Emergency Medicine; PCP Family Medicine
DX: R10.33 Periumbilical pain (principal); G93.2 Benign intracranial hypertension; K21.9 Gastro-esophageal reflux disease without esophagitis; G40.909 Epilepsy, unspecified, not intractable, without status epilepticus; F41.9 Anxiety disorder, unspecified; F31.9 Bipolar disorder, unspecified; E66.01 Morbid (severe) obesity due to excess calories; Z68.42 Body mass index [BMI] 45.0-49.9, adult; Z87.440 Personal history of urinary (tract) infections; F17.210 Nicotine dependence, cigarettes, uncomplicated
CPT/HCPCS: 36415; 74177; 80053; 81001; 81025; 83690; 85025; 96374; 96375; 99284; J1885; J2550; Q9967

== ENCOUNTER 2021-11-30 00:28 | Day surgery (SDC) | payer OTHER, SELFPAY ==
[2021-11-23 13:10] VITALS: BMI 47.3
[2021-11-30 08:51] VITALS: BP 107/72; PULSE 86; RESP 18; TEMP 36.3; O2SAT 99
[2021-11-30] MEDS: LACTATED RINGERS 1,000 ML 150 ML IV CONT (08:54)
--- NOTE | 2021-11-30 09:34 | WPDANESEPPF ---
Anes - Initial Pre Proc Eval Procedure: Operation Date: 11/30/21 10:00 Proposed Procedures p Esophagogastroduodenoscopy - Yordan Jay MD Date/Time: 11/30/21 09:34 Surgeon: Yordan Jay MD Pre Op Diagnosis: GERD Patient Data Age: 36 Gender: F Height: 1.55 m Weight: 111.1 kg Last Vital Signs Temp 97.3 F L 11/30/21 08:51 Pulse 86 11/30/21 08:51 Resp 18 11/30/21 08:51 BP 107/72 11/30/21 08:51 Pulse Ox 99 11/30/21 08:51 Allergies Allergy/AdvReac Type Severity Reaction Status Date / Time adhesive tape Allergy Severe Hives Verified 11/30/21 08:50 morphine Allergy Intermediate ITCHING, Verified 11/30/21 08:50 MIGRAINE Penicillins Allergy Intermediate THROAT Verified 11/30/21 08:50 SWELLING metoclopramide AdvReac Severe PARANOIA Verified 11/30/21 08:50 Sulfa (Sulfonamide AdvReac Mild Rash Verified 11/30/21 08:50 Antibiotics) sulfamethoxazole AdvReac Mild Rash Verified 11/30/21 08:50 trimethoprim AdvReac Mild Rash Verified 11/30/21 08:50 Sulfonamides Allergy Intermediate Rash Uncoded 11/30/21 08:50 Home Medications Medication Instructions Recorded Confirmed Type hydroxyzine HCl 50 mg PO DAILY 06/28/21 11/30/21 History albuterol sulfate 1 inh INHALATION QID PRN #8.5 g 06/30/21 11/30/21 Rx paroxetine HCl 40 mg tablet 40 mg PO DAILY 08/17/21 11/30/21 History risperidone 1 mg tablet 1 mg PO BID 08/17/21 11/30/21 History trazodone 150 mg tablet 150 mg PO QHS 08/17/21 11/30/21 History fluticasone propionate 110 1 puff INHALATION Q12H #12 gm 10/07/21 11/30/21 Rx mcg/actuation HFA aerosol inhaler oxycodone-acetaminophen 10 mg-325 1 tablet PO Q8H PRN #90 tablet 10/27/21 11/30/21 Rx mg tablet pantoprazole 40 mg tablet,delayed See Rx Instructions .ROUTE 11/15/21 11/30/21 Rx release .COMPLEX #30 tablet sucralfate 1 gram tablet See Rx Instructions .ROUTE 11/15/21 11/30/21 Rx .COMPLEX #90 tablet ondansetron HCl 4 mg tablet 4 mg PO Q8H PRN #30 tablet 11/17/21 11/30/21 Rx Patient hx anesthesia problems: none Family hx anesthesia problems: none Results Review: All pre-operative results and documents have been reviewed as part of the pre-operative evaluation. [facility] Past Medical History Medical History Anxiety Bipolar disorder Chronic headaches Chronic low back pain Depression Ectopic Eczema Epilepsy Reportedly her last seizure was November of 2015 Gastric ulcer GERD (gastroesophageal reflux disease) Idiopathic intracranial hypertension Managed by Dr. Curt Higgins Nicotine dependence Obesity, Class III, BMI 40-49.9 (morbid obesity) UTI (urinary tract infection) Surgical History Surgical History History of left salpingo-oophorectomy Due to ectopic Hx of section x3 Hx of cholecystectomy Hx of dilation and curettage Family History Family History Father Medical history unknown Mother Schizophrenia Liver cirrhosis Sibling Seizure disorder Daughter Congenital heart disease Social History Social History Social History: She lives with her 11-year-old daughter. She also has a 13 in 14-year-old child that sounds if lives elsewhere. She has smoked 1.5 packs of cigarettes per day since she was 17 years old. She denies any significant alcohol use. She is on disability. Smoking packs per day: 2 Smoking cigarettes per day: 40.0 Years smoked: 18 Smoking pack-years: 36.00 Smoking status: Current every day smoker Tobacco type: cigarettes Second hand tobacco smoke exposure: Yes Alcohol intake: never Substance use: current Substance use type: marijuana Other substance usage details: used to sleep the other day, but not a daily usage Additional living arrangements
--- NOTE | 2021-11-30 09:38 | PM.HPGS ---
History of Present Illness History of Present Illness Consent: Risks, benefits, and alternatives have been discussed and questions answered. Patient agrees to proceed with procedure. Chief complaint: GERD Narrative: Elvira Del Cid is a 36 year old female with burning sensation and pain in epigastrium for months, also n/v. Now using protonix, carafate and zofran with some relief but still with pain. Recent CT scan a/p unremarkable. Never had EGD. She is post cholecystectomy Review of Systems Constitutional: Constitutional: Denies headache(s) and Denies weakness Eyes: Eyes: Denies blurry vision ENT: Reports Normal hearing present, Denies headache(s) and Denies neck pain Cardiovascular: Cardiovascular: Denies chest pain and Denies dyspnea Respiratory: Respiratory: Denies dyspnea Gastrointestinal: Gastrointestinal: Reports no additional gastrointestinal complaints Genitourinary: Genitourinary: Denies dysuria Musculoskeletal: Musculoskeletal: Denies neck pain Integumentary/Breasts: Skin/Breast: Denies dry skin Neurologic: Reports Normal hearing present, Denies headache(s) and Denies weakness Psychiatric: Psychiatric: Denies anxiety Endocrine: Endocrine: Denies change in body appearance Hematologic/Lymphatic: Hematologic/Lymphatic: Denies easy bleeding Allergic/Immunologic: Allergic/Immunologic: Denies urticaria PMFSH Past Medical History Medical History (Updated 11/30/21 @ 09:40 by Yordan Jay MD) Anxiety Bipolar disorder Chronic headaches Chronic low back pain Depression Ectopic Eczema Epigastric pain Epilepsy Reportedly her last seizure was November of 2015 Gastric ulcer GERD (gastroesophageal reflux disease) Idiopathic intracranial hypertension Managed by Dr. Curt Higgins Nausea and vomiting in adult Nicotine dependence Obesity, Class III, BMI 40-49.9 (morbid obesity) UTI (urinary tract infection) Surgical History Surgical History History of left salpingo-oophorectomy Due to ectopic Hx of section x3 Hx of cholecystectomy Hx of dilation and curettage Family History Family History Father Medical history unknown Mother Schizophrenia Liver cirrhosis Sibling Seizure disorder Daughter Congenital heart disease Social History Social History Social History: She lives with her 11-year-old daughter. She also has a 13 in 14-year-old child that sounds if lives elsewhere. She has smoked 1.5 packs of cigarettes per day since she was 17 years old. She denies any significant alcohol use. She is on disability. Smoking packs per day: 2 Smoking cigarettes per day: 40.0 Years smoked: 18 Smoking pack-years: 36.00 Smoking status: Current every day smoker Tobacco type: cigarettes Second hand tobacco smoke exposure: Yes Alcohol intake: never Substance use: current Substance use type: marijuana Other substance usage details: used to sleep the other day, but not a daily usage Additional living arrangements comments: 1 daughter. Additional occupation/education comments: Disabled due to Idiopathic Intracranial Hypertension Gender identity (if verbalized by the patient): Female Sexual Orientation (if Verbalized by the Patient): Straight or Heterosexual Spiritual care concerns: No Meds Home Medications and Allergies Home Medications Medication Instructions Recorded Confirmed Type hydroxyzine HCl 50 mg PO DAILY 06/28/21 11/30/21 History albuterol sulfate 1 inh INHALATION QID PRN #8.5 g 06/30/21 11/30/21 Rx paroxetine HCl 40 mg tablet 40 mg PO DAILY 08/17/21 11/30/21 History risperidone 1 mg tablet 1 mg PO BID 08/17/21 11/30/21 History trazodone 150 mg tablet 150 mg PO QHS 08/17/21 11/30/21 History fluticasone propionate 110 1 puff INHALATION Q12
[2021-11-30 09:58] VITALS: BP 94/55; PULSE 81; RESP 22; O2SAT 95
[2021-11-30 10:08] VITALS: BP 112/68; PULSE 77; RESP 25; O2SAT 95
[2021-11-30 10:18] VITALS: BP 99/71; PULSE 71; RESP 18; O2SAT 100
== END 2021-11-30 10:30 | disposition home or self-care (01) ==
PROVIDERS: PCP Family Medicine; Visit Provider Internal Medicine Gastroenterology
PROC: 0DJ08ZZ Inspection of Upper Intestinal Tract, Via Natural or Artificial Opening Endoscopic (ICD-10-PCS; CPT 43235; principal; 2021-11-30 10:00)
DX: R11.2 Nausea with vomiting, unspecified (principal); R10.13 Epigastric pain; K44.9 Diaphragmatic hernia without obstruction or gangrene; K21.00 Gastro-esophageal reflux disease with esophagitis, without bleeding; K29.70 Gastritis, unspecified, without bleeding; F41.8 Other specified anxiety disorders; F31.9 Bipolar disorder, unspecified; L30.9 Dermatitis, unspecified; G40.909 Epilepsy, unspecified, not intractable, without status epilepticus; K25.9 Gastric ulcer, unspecified as acute or chronic, without hemorrhage or perforation; G93.2 Benign intracranial hypertension; Z90.49 Acquired absence of other specified parts of digestive tract; F17.210 Nicotine dependence, cigarettes, uncomplicated; F12.90 Cannabis use, unspecified, uncomplicated; Z79.51 Long term (current) use of inhaled steroids; E66.01 Morbid (severe) obesity due to excess calories; Z68.42 Body mass index [BMI] 45.0-49.9, adult
CPT/HCPCS: 43239; 88305; J2704; J7120

== ENCOUNTER 2021-12-15 16:51 | Outpatient (RCR) | payer OTHER, SELFPAY ==
--- NOTE | 2021-12-15 17:41 | PTOPEVAL ---
Thank you for referring Elvira Del Cid to [facility].? The patient is scheduled to be seen for therapy? ____x/week for ___ weeks. Please review, sign, date and return this plan of care JORGE. I agree with and certify that the following plan of care is medically necessary. Referring Physician Date Admitting Provider: Attending Provider: Kari Cummins Referring Provider: *PT Outpatient Evaluation Start: 12/15/21 17:02 Freq: Status: Active Protocol: Document 12/15/21 17:03 Terell (Rec: 12/15/21 17:41 [facility] [id number]) Therapy Assessment Status Assessment Status Assessment Status Evaluation Outpatient Past Medical History Neurological History Hx Epilepsy Yes Hx Other Neurological Disorders Yes: Idiopathic Intracranial Hypertension Cardiovascular History Hx Cardiac Disorders No Significant History Respiratory History Hx Asthma Yes Hx Bronchitis Yes Gastrointestinal History Hx Cholecystectomy Yes: 2018 Genitourinary History Hx Genitourinary Disorders No Significant History Musculoskeletal History Hx Other Musculoskeletal Disorders Yes: sciatica Hematological History Hx Hematological Disorders No Significant History Endocrine History Hx Endocrine Disorders No Significant History HEENT History Hx Dental Problems Yes: ALL UPPER TEETH REMOVED Integumentary History Hx Eczema Yes Reproductive History Hx Section Yes: X3 Hx Other Reproductive Disorders Yes: PELVIC PAIN Psychosocial History Hx Anxiety Yes Hx Depression Yes Pain History Has Past Pain Affected Your Daily Life Yes: BACK PAIN History of Long-Term Prescription Pain Yes: OXYCODONE 10/325 Medication Use (Opiates) Anesthesia History Hx Anesthesia Reactions No Significant History Evaluation Information Problem Diagnosis lumbar radiculopathy Onset 12/03/21 Additional Evaluation Detail LEFS = 70% functionally declined Subjective Information patient reports she has been Query Text:As Reported By Patient/ having pain in the lower back Family since puberty. she reports she is experiencing worsening pain in the lower back for the past 6 months to a year. she reports she does not tolerate standing in the kitched long enough to do dishes. she reports she refused injections to the lower back. she reports she does have pain
--- NOTE | 2021-12-31 20:24 | PTOPEVAL ---
Thank you for referring Elvira Del Cid to [facility].? The patient is scheduled to be seen for therapy? ____x/week for ___ weeks. Please review, sign, date and return this plan of care JORGE. I agree with and certify that the following plan of care is medically necessary. Referring Physician Date Admitting Provider: Attending Provider: Kari Cummins Referring Provider: *PT Outpatient Evaluation Start: 12/15/21 17:02 Freq: Status: Active Protocol: Document 12/15/21 17:03 Terell (Rec: 12/15/21 17:41 [facility] [id number]) Therapy Assessment Status Assessment Status Assessment Status Evaluation Outpatient Past Medical History Neurological History Hx Epilepsy Yes Hx Other Neurological Disorders Yes: Idiopathic Intracranial Hypertension Cardiovascular History Hx Cardiac Disorders No Significant History Respiratory History Hx Asthma Yes Hx Bronchitis Yes Gastrointestinal History Hx Cholecystectomy Yes: 2018 Genitourinary History Hx Genitourinary Disorders No Significant History Musculoskeletal History Hx Other Musculoskeletal Disorders Yes: sciatica Hematological History Hx Hematological Disorders No Significant History Endocrine History Hx Endocrine Disorders No Significant History HEENT History Hx Dental Problems Yes: ALL UPPER TEETH REMOVED Integumentary History Hx Eczema Yes Reproductive History Hx Section Yes: X3 Hx Other Reproductive Disorders Yes: PELVIC PAIN Psychosocial History Hx Anxiety Yes Hx Depression Yes Pain History Has Past Pain Affected Your Daily Life Yes: BACK PAIN History of Long-Term Prescription Pain Yes: OXYCODONE 10/325 Medication Use (Opiates) Anesthesia History Hx Anesthesia Reactions No Significant History Evaluation Information Problem Diagnosis lumbar radiculopathy Onset 12/03/21 Additional Evaluation Detail LEFS = 70% functionally declined Subjective Information patient reports she has been Query Text:As Reported By Patient/ having pain in the lower back Family since puberty. she reports she is experiencing worsening pain in the lower back for the past 6 months to a year. she reports she does not tolerate standing in the kitched long enough to do dishes. she reports she refused injections to the lower back. she reports she does have pain
== END 2022-01-11 09:29 | disposition home or self-care (01) ==
LOC: CHSPT 16:51
DX: M54.16 Radiculopathy, lumbar region (principal)
CPT/HCPCS: 97014; 97110; 97161; 97530; G0283

== ENCOUNTER 2022-01-29 09:53 | Outpatient (CLI) | payer OTHER, SELFPAY ==
--- NOTE | ~2022-01-29 | MR_ITS ---
EXAMINATION: MR lumbar spine wo con DATE: 01/29/2022 10:42 INDICATION: LBP into both legs x 3yrs, NKI, difficulty walking . TECHNIQUE: Magnetic resonance imaging (MRI) of the lumbar spine was performed without intravenous con trast. Sequences included sagittal T2-weighted FSE, sagittal T2-weighted FS FSE, sagittal T1-weighted FSE, and axial T2-weighted FSE. COMPARISON: 11/05/2018. FINDINGS: Mild motion artifact. The last fully formed and hydrated disc is designated L5-S1. The marrow signal is benign and homogeno us. Conus terminates at T12-L1. Disc narrowing and dehydration at T11-12. The following disc levels a re specifically discussed: T11-T12: Mild diffuse bulge, with likely small 3 mm left paracentral extrusion tracking 5 mm inferior ly along the posterior T12 vertebral body. There is no facet joint osteoarthritis. There is no neural foraminal stenosis. There is no central canal stenosis. T12-L1: The disc does not extend beyond the endplate margin. There is no facet joint osteoarthritis. There is no neural foraminal stenosis. There is no central canal stenosis. L1-L2: The disc does not extend beyond the endplate margin. There is no facet joint osteoarthritis. T here is no neural foraminal stenosis. There is no central canal stenosis. L2-L3: The disc does not extend beyond the endplate margin. There is no facet joint osteoarthritis. T here is no neural foraminal stenosis. There is no central canal stenosis. L3-L4: The disc does not extend beyond the endplate margin. There is no facet joint osteoarthritis. T here is no neural foraminal stenosis. There is no central canal stenosis. L4-L5: The disc does not extend beyond the endplate margin. There is mild facet joint osteoarthritis. There is no neural foraminal stenosis. There is no central canal stenosis. L5-S1: The disc does not extend beyond the endplate margin. There is mild facet joint osteoarthritis. There is no neural foraminal stenosis. There is no central canal stenosis. IMPRESSION: 1. Mild degenerative disc disease at T11-12, with likely small left paracentral disc extrusion, uncha nged. 2. Mild facet arthropathy at L4-5 and L5-S1. Reviewed, dictated and finalized at location K. IMPRESSION: 1. Mild degenerative disc disease at T11-12, with likely small left paracentral disc extrusion, unchanged. 2. Mild facet arthropathy at L4-5 and L5-S1.
== END 2022-01-29 09:54 | disposition home or self-care (01) ==
LOC: CHSIMG 09:54
PROVIDERS: PCP Family Medicine
DX: M54.16 Radiculopathy, lumbar region (principal)
CPT/HCPCS: 72148

== ENCOUNTER 2022-05-31 12:37 | Emergency (ER) | payer OTHER, SELFPAY ==
--- NOTE | ~2022-05-31 | CT_ITS ---
EXAMINATION: CT chest abdomen pelvis wo con DATE: 05/31/2022 14:56 INDICATION: chest pain, wheezing, nausea, vomiting. . TECHNIQUE: Computed tomography (CT) of the chest, abdomen, and pelvis was performed without intraveno us contrast. Automated exposure control and iterative reconstruction technique were employed. The dos e-length product was 1707.17 mGy-cm. COMPARISON: CT abdomen and pelvis 11/09/2021 FINDINGS: Thoracic aorta: No significant dilation or calcification. Lung parenchyma and airways: Scattered patchy areas of central and peripheral groundglass opacity in the upper and mid lungs. Pulmonary granulomas. Thoracic inlet, axillae and chest wall: No thyroid or soft tissue mass. No axillary lymphadenopathy. Mediastinum: Small hiatal hernia. Borderline mediastinal lymph nodes. Heart and pericardium: Normal heart size. No pericardial effusion. Coronary artery calcifications: None. Pleura: No effusion or mass. Thoracic bones: No acute osseous finding in the chest. ABDOMEN/PELVIS: Liver: Enlarged. Biliary/Gallbladder: Gallbladder is absent. No bile duct dilation. Pancreas: No mass or duct dilation. Spleen: Normal. Adrenals:No mass. Kidneys: No mass, stone, or hydronephrosis. GI tract: No small or large bowel dilation. Normal appendix. Mesentery/Peritoneum: No ascites, mass, or free air. Retroperitoneum: No mass Pelvis: Pelvic organs are within normal limits. Right ovarian cysts, of doubtful clinical significanc e Soft Tissues: Posterior injection sites. Uncomplicated small fat-containing umbilical hernia. Abdominopelvic bones: No acute osseous finding in the abdomen/pelvis. IMPRESSION: 1. Pulmonary opacities may reflect mild edema, atypical infection, acute hypersensitivity pneumonitis , or less likely pulmonary hemorrhage. If there are chronic pulmonary symptoms, consider asthma, bron chitis obliterans, hypersensitivity pneumonitis, or chronic thromboemboli. 2. Hepatomegaly. 3. No acute abdominopelvic process detected. Reviewed, dictated and finalized at location K. IMPRESSION: 1. Pulmonary opacities may reflect mild edema, atypical infection, acute hypers ensitivity pneumonitis, or less likely pulmonary hemorrhage. If there are chron ic pulmonary symptoms, consider asthma, bronchitis obliterans, hypersensitivity pneumonitis, or chronic thromboemboli. 2. Hepatomegaly. 3. No acute abdominopelvic process detected.
--- NOTE | ~2022-05-31 | CT_ITS ---
EXAMINATION: CT brain wo con DATE: 05/31/2022 14:59 INDICATION: Headache. TECHNIQUE: Computed tomography (CT) of the head was performed without intravenous contrast. The mA wa s adjusted according to patient size. Iterative reconstruction technique was employed. The dose-lengt h product was 605.33 mGy-cm. COMPARISON: Head CT 06/28/2021 FINDINGS: There is no intracranial hemorrhage, acute infarction, or abnormal intracranial mass lesion . The ventricles are normal in size. There is mucosal thickening in the paranasal sinuses. There is a left mastoid effusion. IMPRESSION: 1. Normal brain. Reviewed, dictated and finalized at location A. IMPRESSION: 1. Normal brain.
[2022-05-31 12:48] VITALS: BP 115/73; PULSE 101; RESP 19; TEMP 36.7; O2SAT 96
--- NOTE | 2022-05-31 13:14 | ECG_ITS ---
Measurements Intervals [place] Rate: 111 P: 67 CT: 122 QRS: 82 QRSD: 92 T: 20 QT: 308 QTc: 419 Interpretive Statements SINUS TACHYCARDIA MINIMAL Q WAVES- INF/LAT LEADS ABNORMAL ECG COMPARED TO ECG 10/19/2021 14:20:17 SINUS TACHYCARDIA NOW PRESENT Electronically Signed On 05-31-2022 13:40:20 CDT by Winston Beck D.O.
[2022-05-31 13:33] VITALS: PULSE 107; RESP 20; O2SAT 92
[2022-05-31] MEDS: IPRATROPIUM 0.5 MG/ALBUTEROL SULFATE 2.5 MG AMPUL.NEB 3 ML INHALATION (13:33)
--- NOTE | 2022-05-31 13:35 | PC.NURSE ---
PT REFUSES IV, ERP NOTIFIED.
[2022-05-31 13:41] VITALS: PULSE 102; RESP 20; O2SAT 99
[2022-05-31 13:45] LABS: Basophils Absolute Auto 0.03 K/mm3 (0.00-0.10); Basophils Percent Auto 0.3 % (0.0-1.0); Eosinophils Absolute Auto 0.22 K/mm3 (0.02-0.50); Eosinophils Percent Auto 2.3 % (1.0-6.0); Hematocrit 42.2 % (35.0-49.0); Hemoglobin 13.8 g/dL (12.0-15.0); Immature Granulocyte Absolute 0.03 K/mm3 (0.00-0.00); Immature Granulocyte Percent A 0.3 % (0.0-0.0); Lymphocytes Absolute Auto 1.35 K/mm3 (1.10-4.50); Lymphocytes Percent Auto 13.9 % (18.0-42.0); Mean Corpuscular HGB Conc 32.7 g/dL (32.0-36.0); Mean Corpuscular Hemoglobin 28.8 pg (27.0-31.0); Mean Corpuscular Volume 87.9 fL (78.0-102.0); Mean Platelet Volume 10.8 fl (9.2-11.8); Monocytes Absolute Auto 0.61 K/mm3 (0.10-0.90); Monocytes Percent Auto 6.3 % (2.0-11.0); Neutrophils Absolute Auto 7.5 K/mm3 (1.7-7.2); Neutrophils Percent Auto 76.9 % (50.0-70.0); Platelet Count Result 186 K/mm3 (150-420); Red Cell Distribution Width 14.5 % (11.6-14.4); White Blood Count 9.7 K/mm3 (4.8-10.8)
[2022-05-31 13:46] LABS: Add Urine Microscopic? YES; Appearance Urine Clear (Clear); Bilirubin Urine Negative (Negative); Blood Urine 1+ (Negative); Color Urine Light Yellow (Yellow); Glucose Urine UA Negative (Negative); Ketones Urine Negative (Negative); Leukocyte Esterase Ur Negative (Negative); Nitrate Urine Negative (Negative); Protein Urine Negative (Negative); Specific Grav Ur 1.015 (1.010-1.020); Urobilinogen Urine 0.2 mg/dL (0.2-1.0); pH Urine 5.5 (5.0-8.0)
[2022-05-31 13:51] LABS: Bacteria Urine Trace /hpf; Squamous Epithelial Cell Urine Few /hpf (Few); WBC Urine None seen /hpf (0-3)
[2022-05-31] MEDS: KETOROLAC (*BKC) 60 MG/2 ML VIAL IM (13:56)
[2022-05-31] MEDS: methylPREDNISolone SOD SUCC 125 MG VIAL IM (13:58)
[2022-05-31 14:07] LABS: SPREG INTERNAL CONTROL Positive; Serum Qual hCG Negative
[2022-05-31 14:08] LABS: Alanine Aminotransferase 19 U/L (14-59); Albumin Level 3.5 g/dL (3.4-5.0); Alkaline Phosphatase 78 U/L (46-116); Anion Gap 8 mmol/L (8-16); Aspartate Amino Transferase 15 U/L (15-37); Bilirubin,Total 0.5 mg/dL (0.00-1.00); Blood Urea Nitrogen 10 mg/dL (7-18); Calcium 8.6 mg/dL (8.5-10.1); Carbon Dioxide 24 mmol/L (21-32); Chloride 99 mmol/L (98-108); Estimated CRCL calculation 86 ml/min; Estimated Glomerular Filt Rate > 60; Glucose 110 mg/dL (70-99); Lipase 69 U/L (73-393); Osmolality Calculated 272 mOsm/kg (285-295); Potassium 4.1 mmol/L (3.5-5.1); Sodium 131 mmol/L (136-145); Total Protein 7.5 g/dL (6.4-8.2); Troponin I 4.5 ng/L (0.00-60.4)
--- NOTE | 2022-05-31 14:12 | PC.NURSE ---
PT IS AWAITING RESULTS FOR CT AT THIS TIME. NAD NOTED. PT IS AMBULATORY IN EXAM ROOM, TO RR, BACK TO EXAM ROOM. WILL CONTINUE TO MONITOR.
[2022-05-31 14:14] LABS: Strep Group A RT-PCR Not Detected (Negative)
[2022-05-31 14:24] LABS: Influenza A QL RT-PCR Negative (Negative); Influenza B QL RT-PCR Negative (Negative); SARS-CoV-2 RNA PCR Negative (Negative)
--- NOTE | 2022-05-31 14:37 | PC.NURSE ---
PT REPORTS SHE HAS TO LEAVE TO GET HER DAUGHTER OFF THE BUS. PT STATES SHE NEEDS A WORK NOTE. ERP NOTIFIED. PT HAS NOT GOTTEN HER CT SCANS OF YET. WILL CONTINUE TO MONITOR.
--- NOTE | 2022-05-31 14:48 | ED.URI ---
HPI - URI/Sore Throat General Chief Complaint: Upper Respiratory Infection Stated Complaint: HEADACHE, COUGH, CONGESTION Time Seen by Provider: 05/31/22 12:41 Source: patient and RN notes reviewed Mode of arrival: ambulatory Limitations: no limitations History of Present Illness MD elicited complaint: cough and other (mild occasional wheezing) Onset (ago): day(s) (3) Consistency: constant Severity: moderate Pain scale (0-10): 4 Able to tolerate fluids by mouth: Yes Exacerbating factors: nothing Relieving factors: cough suppressant Associated symptoms: nasal congestion, sore throat, shortness of breath and nausea Related Data Home Medications Medication Instructions Recorded Confirmed duloxetine 60 mg capsule,delayed 60 mg PO DAILY 03/25/22 05/31/22 release Allergies Allergy/AdvReac Type Severity Reaction Status Date / Time adhesive tape Allergy Severe Hives Verified 06/02/22 07:08 morphine Allergy Intermediate ITCHING, Verified 06/02/22 07:08 MIGRAINE Penicillins Allergy Intermediate THROAT Verified 06/02/22 07:08 SWELLING metoclopramide AdvReac Severe PARANOIA Verified 06/02/22 07:08 Sulfa (Sulfonamide AdvReac Mild Rash Verified 06/02/22 07:08 Antibiotics) sulfamethoxazole AdvReac Mild Rash Verified 06/02/22 07:08 trimethoprim AdvReac Mild Rash Verified 06/02/22 07:08 Sulfonamides Allergy Intermediate Rash Uncoded 06/02/22 07:08 Review of Systems Review of Systems: All systems reviewed & are unremarkable except as noted in HPI and below Constitutional: Constitutional: Reports no additional constitutional complaints Eyes: Eyes: Reports no additional eye complaints ENT: Reports system reviewed and no additional complaints, except as documented Cardiovascular: Cardiovascular: Reports no additional cardiovascular complaints Respiratory: Respiratory: Reports no additional respiratory complaints, Reports chest congestion, Reports cough and Reports wheezing Gastrointestinal: Gastrointestinal: Reports no additional gastrointestinal complaints Genitourinary: Genitourinary: Reports no additional female genitourinary complaints Musculoskeletal: Musculoskeletal: Reports no additional musculoskeletal complaints Integumentary/Breasts: Skin/Breast: Reports system reviewed and no additional complaints, except as docu Neurologic: Reports system reviewed and no additional complaints, except as documented Psychiatric: Psychiatric: Reports no additional psychiatric complaints Endocrine: Endocrine: Reports no additional endocrine complaints Hematologic/Lymphatic: Hematologic/Lymphatic: Reports no additional hematologic/lymphatic complaints Allergic/Immunologic: Allergic/Immunologic: Reports no additional allergic/immunologic complaints [facility] Past Medical History Medical History Anxiety Bipolar disorder Bronchitis Chronic headaches Chronic low back pain Depression Ectopic Eczema Epigastric pain Epilepsy Reportedly her last seizure was November of 2015 Gastric ulcer GERD (gastroesophageal reflux disease) Idiopathic intracranial hypertension Managed by Dr. Curt Higgins Nausea and vomiting in adult Nicotine dependence Obesity, Class III, BMI 40-49.9 (morbid obesity) UTI (urinary tract infection) Viral syndrome Surgical History Surgical History History of left salpingo-oophorectomy Due to ectopic Hx of section x3 Hx of cholecystectomy Hx of dilation and curettage Family History Family History Father Medical history unknown Mother Schizophrenia Liver cirrhosis Sibling Seizure disorder Daughter Congenital heart disease Social History Social History Social History: She lives with her 11-year-old daughter. She also has a 13 in 14-year
[2022-05-31 15:16] VITALS: BP 103/78; PULSE 82; O2SAT 98
--- NOTE | 2022-05-31 15:19 | PC.NURSE ---
PT REPORTS SHE CANNOT WAIT FOR CT RESULTS, SHE HAS TO LEAVE TO GET HER DAUGHTER.
== END 2022-05-31 15:15 | disposition home or self-care (01) ==
PROVIDERS: Emergency Provider Emergency Medicine; PCP Family Medicine
DX: J40 Bronchitis, not specified as acute or chronic (principal); B34.9 Viral infection, unspecified; Z20.822 Contact with and (suspected) exposure to COVID-19
CPT/HCPCS: 36415; 70450; 71250; 74176; 80053; 81001; 83605; 83690; 84484; 84703; 85025; 87502; 87651; 93005; 94640; 96372; 99284; C9803; J1885; J2930; U0003; U0005

== ENCOUNTER 2022-06-29 20:00 | Emergency (ER) | payer OTHER, SELFPAY ==
[2022-06-29 20:26] VITALS: BP 126/75; PULSE 88; RESP 16; TEMP 36.6; O2SAT 100
--- NOTE | 2022-06-29 20:50 | ED.HA ---
HPI - Headache General Chief Complaint: Headache Stated Complaint: headache Time Seen by Provider: 06/29/22 20:33 History of Present Illness HPI Narrative: 36-year-old female with history of pseudotumor cerebri presents to the emergency room for evaluation of a headache that has been present for 1 week. Patient states that her neurologist is at at [facility], and recently started her on Diamox. Patient states that she has had serial lumbar punctures to relieve the pressure. Patient states that she also takes Percocet for her headaches. Patient states that she was encouraged to come to the emergency room to be admitted to the hospital for pain management and to have another lumbar puncture tomorrow. Patient states she has pressure behind both of her eyes. Related Data Home Medications Medication Instructions Recorded Confirmed duloxetine 60 mg capsule,delayed 60 mg PO DAILY 03/25/22 05/31/22 release Allergies Allergy/AdvReac Type Severity Reaction Status Date / Time adhesive tape Allergy Severe Hives Verified 06/29/22 20:41 Penicillins Allergy Intermediate THROAT Verified 06/29/22 20:41 SWELLING metoclopramide AdvReac Severe PARANOIA Verified 06/29/22 20:41 morphine AdvReac Intermediate ITCHING, Verified 06/29/22 20:41 MIGRAINE Sulfa (Sulfonamide AdvReac Mild Rash Verified 06/29/22 20:41 Antibiotics) sulfamethoxazole AdvReac Mild Rash Verified 06/29/22 20:41 trimethoprim AdvReac Mild Rash Verified 06/29/22 20:41 Sulfonamides Allergy Intermediate Rash Uncoded 06/29/22 20:41 Review of Systems Review of Systems: CONSTITUTIONAL: Denies fever, chills, or sweats. EYES: Denies visual changes, redness, or discharge. ENT: Denies rhinorrhea, congestion, sore throat, or otalgia. CARDIOVASCULAR: Denies chest pain, palpitations, or edema. RESPIRATORY: Denies cough or dyspnea. GASTROINTESTINAL: Denies abdominal pain, nausea, vomiting, or diarrhea. GENITOURINARY: Denies dysuria or hematuria. SKIN: Denies rash or itching. MUSCULOSKELETAL: Denies back pain, joint pain, or myalgia. NEUROLOGIC: Reports headache PSYCHIATRIC: Denies anxiety or depression. [facility] Past Medical History Medical History Anxiety Bipolar disorder Bronchitis Chronic headaches Chronic low back pain Depression Ectopic Eczema Epigastric pain Epilepsy Reportedly her last seizure was November of 2015 Gastric ulcer GERD (gastroesophageal reflux disease) Idiopathic intracranial hypertension Managed by Dr. Curt Higgins Nausea and vomiting in adult Nicotine dependence Obesity, Class III, BMI 40-49.9 (morbid obesity) UTI (urinary tract infection) Viral syndrome Surgical History Surgical History History of left salpingo-oophorectomy Due to ectopic Hx of section x3 Hx of cholecystectomy Hx of dilation and curettage Family History Family History Father Medical history unknown Mother Schizophrenia Liver cirrhosis Sibling Seizure disorder Daughter Congenital heart disease Social History Social History Social History: She lives with her 11-year-old daughter. She also has a 13 in 14-year-old child that sounds if lives elsewhere. She has smoked 1.5 packs of cigarettes per day since she was 17 years old. She denies any significant alcohol use. She is on disability. Smoking packs per day: 2 Smoking cigarettes per day: 40.0 Years smoked: 18 Smoking pack-years: 36.00 Smoking status: Current every day smoker Tobacco type: cigarettes Second hand tobacco smoke exposure: Yes Alcohol intake: never Substance use: current Substance use type: marijuana Other substance usage details: used to sleep the other day, but not a daily usage Additional living arrangements
[2022-06-29] MEDS: SODIUM CHLORIDE 0.9% IV 1,000 ML 999 ML IV CONT (21:25)
[2022-06-29] MEDS: diphenhydrAMINE HCl INJ 50 MG/ML VIAL IV PUSH (21:26)
[2022-06-29] MEDS: methylPREDNISolone SOD SUCC 125 MG VIAL IV PUSH (21:28)
[2022-06-29] MEDS: KETOROLAC 30 MG/ML VIAL (*BKC) IV PUSH (21:33)
[2022-06-29] MEDS: PROCHLORPERAZINE EDISYLATE 10 MG/2 ML VIAL IV PUSH (21:36)
--- NOTE | 2022-06-29 22:39 | PC.NURSE ---
compazine vial would not scan. verified with second nurse. pharmacy notified and reports med is new and barcode not registered yet.
== END 2022-06-29 22:00 | disposition left against medical advice (07) ==
PROVIDERS: Emergency Provider Nurse Practitioner Family; PCP Family Medicine
DX: R51.9 Headache, unspecified (principal); G40.909 Epilepsy, unspecified, not intractable, without status epilepticus; G93.2 Benign intracranial hypertension; K21.9 Gastro-esophageal reflux disease without esophagitis; E66.01 Morbid (severe) obesity due to excess calories; Z68.42 Body mass index [BMI] 45.0-49.9, adult; Z87.442 Personal history of urinary calculi; Z90.721 Acquired absence of ovaries, unilateral; Z90.79 Acquired absence of other genital organ(s); F17.210 Nicotine dependence, cigarettes, uncomplicated
CPT/HCPCS: 96361; 96374; 96375; 99284; J0780; J1200; J1885; J2930; J7030

== ENCOUNTER 2022-06-30 11:55 | Outpatient (CLI) | payer OTHER, SELFPAY ==
--- NOTE | ~2022-06-30 | XR_ITS ---
EXAMINATION: XR knee LT 3V, XR knee RT 3V DATE: 06/30/2022 12:32 INDICATION: Nonspecific bilateral knee pain TECHNIQUE: 1. AP, flexed lateral and sunrise views of the left knee were obtained. 2. AP, flexed lateral and sunrise views of the right knee were obtained. COMPARISON: Left knee radiograph dated 01/19/2021 FINDINGS: Lateral patellar subluxation approximate 5 mm on the right and 12 mm the left. No fractures. Tricompa rtmental osteoarthritis at the left knee with moderate joint space narrowing at the lateral side of t he patellofemoral compartment with moderate-sized marginal osteophytes and with small marginal osteop hyte but relatively preserved joint space at the medial and lateral compartments. At the right knee t here is mild joint space narrowing at the lateral patellofemoral compartment with small marginal oste ophytes and tiny marginal osteophytes with relatively preserved joint spaces in the medial and latera l compartments. Soft tissues are unremarkable with no joint effusion at either knee. IMPRESSION: 1. Lateral patellar subluxation at both knees, 5 mm on the right and 12 mm on the left. 2. Patellofemoral compartment predominant tricompartmental osteoarthritis of both knees with mild rig ht patellofemoral osteoarthritis and moderate left patellofemoral osteoarthritis. Reviewed, dictated and finalized at location B. IMPRESSION: 1. Lateral patellar subluxation at both knees, 5 mm on the right and 12 mm on t he left. 2. Patellofemoral compartment predominant tricompartmental osteoarthritis of baron th knees with mild right patellofemoral osteoarthritis and moderate left patell ofemoral osteoarthritis.
== END 2022-06-30 11:56 | disposition home or self-care (01) ==
LOC: CHSLAB 11:58
PROVIDERS: PCP Family Medicine; Visit Provider Nurse Practitioner Family
DX: M25.561 Pain in right knee (principal); M25.562 Pain in left knee
CPT/HCPCS: 36415; 73562; 80307

== ENCOUNTER 2022-08-31 15:38 | Outpatient (CLI) | payer OTHER, SELFPAY ==
--- NOTE | ~2022-08-31 | XR_ITS ---
Clinical Indication: Cough PA and lateral views of the chest: Comparison: 05/30/2019 Findings: The lungs are clear, without evidence of focal consolidation or pleural effusion. Cardiome diastinal silhouette is within normal limits. Bones and soft tissues are unremarkable. Impression: Normal chest. Reviewed, dictated and finalized at location [] PHORIC ACID SUPERVISOR Impression: Normal chest.
[2022-08-31 15:58] LABS: Hematocrit 41.8 % (35.0-49.0); Mean Corpuscular HGB Conc 33.5 g/dL (32.0-36.0); Mean Corpuscular Hemoglobin 28.6 pg (27.0-31.0); Mean Corpuscular Volume 85.3 fL (78.0-102.0); Mean Platelet Volume 10.2 fl (9.2-11.8); Platelet Count Result 214 K/mm3 (150-420); Red Cell Distribution Width 14.9 % (11.6-14.4); White Blood Count 7.2 K/mm3 (4.8-10.8)
[2022-08-31 16:24] LABS: Alanine Aminotransferase 22 U/L (14-59); Albumin Level 3.5 g/dL (3.4-5.0); Alkaline Phosphatase 85 U/L (46-116); Anion Gap 9 mmol/L (8-16); Aspartate Amino Transferase 14 U/L (15-37); Bilirubin,Total 0.5 mg/dL (0.00-1.00); Blood Urea Nitrogen 9 mg/dL (7-18); Calcium 8.8 mg/dL (8.5-10.1); Carbon Dioxide 26 mmol/L (21-32); Chloride 102 mmol/L (98-108); Estimated Glomerular Filt Rate > 60; Glucose 99 mg/dL (70-99); Osmolality Calculated 282 mOsm/kg (285-295); Potassium 4.3 mmol/L (3.5-5.1); Sodium 137 mmol/L (136-145); Total Protein 7.1 g/dL (6.4-8.2)
== END 2022-08-31 15:39 | disposition home or self-care (01) ==
LOC: CHSLAB 15:40
PROVIDERS: PCP Family Medicine; Visit Provider Family Medicine
DX: J44.9 Chronic obstructive pulmonary disease, unspecified (principal)
CPT/HCPCS: 36415; 71046; 80053; 85027

== ENCOUNTER 2022-09-07 14:55 | Outpatient (RCR) | payer OTHER, SELFPAY ==
--- NOTE | 2022-09-07 15:52 | PTOPEVAL1 ---
Assessment and note entered by Any Moy, PT Evaluation Information Assessment Status Evaluation Diagnosis L RCT Onset 08/26/22 Subjective Information Elvira Del Cid reports she started having left shoulder about 1.5 months ago for unknown reasons. She is having difficulty sleeping because she can not lay on her side. She also has pain with reaching to the side, overhead, and behind her back. She is right hand dominant. She went to the doctor and was diagnosed with a rotator cuff tear and was referred to PT. She has not had diagnostic tests performed at this time. Reported Pain Level Pain Score 8: Self Report Assessment PT Clinical Summary Elvira Del Cid presents with left shoulder pain and has been diagnosed with a rotator cuff tear. She has difficulty with reaching in all directions , laying on her left side, lifting, and pulling which leads to deficits in ADL ability. She objectively demonstrates decreased and painful left shoulder AROM, decreased left shoulder PROM, decreased left shoulder strength, impaired posture , and decreased functional abilities. She will benefit from skilled PT to address these limitations. Plan of Care Interventions Electrical Stimulation,Hot Pack/Cold Pack,Manual Therapy,Patient/Caregiver Educati,Therapeutic Activities,Therapeutic Exercise PT Services Indicated Yes Treatment Frequency and 2 times a week for 8 visits Duration These treatments will address the objective and functional deficits as defined above. The patient will be advanced safely and appropriately in order for the patient to progress towards his/her prior level of function. Additional exercises will be introduced and as well as a comprehensive home exercise program upon discharge, if needed, ?to ensure carryover of functional gains achieved in the clinic. This treatment plan has been reviewed and agreement upon by the patient.
--- NOTE | 2022-10-11 14:48 | PTOPDC ---
Assessment and note entered by Any Moy, PT Evaluation Information Assessment Status Discharge Diagnosis L shoulder pain, RCT Onset 08/26/22 Subjective Information Elvira Del Cid reports that her left shoulder is still painful but is about 50% better overall since initiating PT. She continues to have pain that increases with laying on her left side, reaching overhead, and reaching behind her back. She states she has to have her daughter wash her back for her because she can not do it alone. She has been having left knee pain recently and it has been worse than her shoulder. She would like to discontinue formal PT on her left shoulder to focus on her left knee. Reported Pain Level Pain Score 4: Self Report Assessment PT Clinical Summary Elvira Del Cid has completed 8 skilled PT visits for left shoulder pain with a diagnosis of a rotator cuff tear. She is reporting a 50% overall improvement since initiating PT however, she still has pain with left sidelying, reaching overhead, and reaching behind her back. She has a history of chronic left knee pain and had a recent re-injury so she will be focusing her PT on her knee instead of the shoulder. She objectively demonstrates improved left shoulder AROM and strength but continues to have deficits. She will be discharged to an independent [facility] for her left shoulder. Plan of Care Interventions Electrical Stimulation,Hot Pack/Cold Pack,Manual Therapy,Patient/Caregiver Educati,Therapeutic Activities,Therapeutic Exercise
== END 2022-10-11 15:22 | disposition home or self-care (01) ==
LOC: CHSPT 14:55
PROVIDERS: PCP Family Medicine; Visit Provider Family Medicine
DX: M75.102 Unspecified rotator cuff tear or rupture of left shoulder, not specified as traumatic (principal)
CPT/HCPCS: 97014; 97110; 97161; G0283

== ENCOUNTER 2022-09-25 17:09 | Emergency (ER) | payer OTHER, SELFPAY ==
--- NOTE | ~2022-09-25 | XR_ITS ---
EXAM: XR knee LT min 4V DATE: 09/25/2022 17:52 HISTORY: chronic left knne pain fall monday . COMPARISON: 06/30/2022. FINDINGS: Normal mineralization. No fracture or dislocation. No lytic or blastic lesion. Moderate os teoarthritic change. No erosion or periosteal change. Soft tissues within normal limits. Moderate hina nt effusion. IMPRESSION: No acute osseous finding in the left knee. Reviewed, dictated and finalized at location K. BITION DESIGNER
[2022-09-25 17:40] VITALS: BP 102/64; PULSE 84; RESP 18; TEMP 36.2; O2SAT 96
--- NOTE | 2022-09-25 18:58 | ED.LOWEXIN ---
HPI - Extremity Injury (Lower) General Chief Complaint: Extremity Injury, Lower Stated Complaint: LLE pain Time Seen by Provider: 09/25/22 17:17 History of Present Illness HPI Narrative: 36-year-old female history of chronic left knee pain presents to the emergency room for sudden onset of left knee pain. Patient states as a child she fractured her left knee in multiple places and is has been experiencing chronic knee pain since. States she was evaluated by orthopedics in July and was told to have an MRI for further evaluation. Patient states pain is located posteriorly and reports feeling like it is going to give out on her when she ambulates. Patient was encouraged to go to PT following her orthopedic visit but has not done so. has been taking ibuprofen, using an Jesus bandage keeping it elevated and applying ice. does not radiate experience any resolution or improvement of her symptoms. Related Data Home Medications Medication Instructions Recorded Confirmed duloxetine 60 mg capsule,delayed 60 mg PO DAILY 03/25/22 07/26/22 release atogepant 60 mg tablet (Qulipta) 60 mg PO DAILY 08/26/22 sumatriptan succinate 100 mg tablet See Rx Instructions PO .COMPLEX 08/26/22 Allergies Allergy/AdvReac Type Severity Reaction Status Date / Time adhesive tape Allergy Severe Hives Verified 09/25/22 18:21 Penicillins Allergy Intermediate THROAT Verified 09/25/22 18:21 SWELLING metoclopramide AdvReac Severe PARANOIA Verified 09/25/22 18:21 morphine AdvReac Intermediate ITCHING, Verified 09/25/22 18:21 MIGRAINE Sulfa (Sulfonamide AdvReac Mild Rash Verified 09/25/22 18:21 Antibiotics) sulfamethoxazole AdvReac Mild Rash Verified 09/25/22 18:21 trimethoprim AdvReac Mild Rash Verified 09/25/22 18:21 Sulfonamides Allergy Intermediate Rash Uncoded 09/25/22 18:21 Review of Systems Review of Systems: CONSTITUTIONAL: Denies fever, chills, or sweats. EYES: Denies visual changes, redness, or discharge. ENT: Denies rhinorrhea, congestion, sore throat, or otalgia. CARDIOVASCULAR: Denies chest pain, palpitations, or edema. RESPIRATORY: Denies cough or dyspnea. GASTROINTESTINAL: Denies abdominal pain, nausea, vomiting, or diarrhea. GENITOURINARY: Denies dysuria or hematuria. SKIN: Denies rash or itching. MUSCULOSKELETAL: Denies back pain, joint pain, or myalgia. NEUROLOGIC: Denies headache, numbness, dizziness, or weakness. PSYCHIATRIC: Denies anxiety or depression. [facility] Past Medical History Medical History Anxiety Arthritis Bipolar disorder Bronchitis Chronic headaches Chronic low back pain Claustrophobia Depression Ectopic Eczema Epigastric pain Epilepsy Reportedly her last seizure was November of 2015 Gastric ulcer GERD (gastroesophageal reflux disease) Idiopathic intracranial hypertension Managed by Dr. Curt Higgins Nausea and vomiting in adult Nicotine dependence Obesity, Class III, BMI 40-49.9 (morbid obesity) UTI (urinary tract infection) Viral syndrome Surgical History Surgical History History of left salpingo-oophorectomy Due to ectopic Hx of section x3 Hx of cholecystectomy Hx of dilation and curettage Family History Family History Father Medical history unknown Mother Schizophrenia Liver cirrhosis Sibling Seizure disorder Daughter Congenital heart disease Other Arthritis Diabetes mellitus HLD (hyperlipidemia) Heart disease Hypertension Social History Social History Social History: She lives with her 11-year-old daughter. She also has a 13 in 14-year-old child that sounds if lives elsewhere. She has smoked 1.5 packs of cigarettes per day since she was 17 years old. She denies any significant alcohol use. She is on disa
== END 2022-09-25 19:37 | disposition home or self-care (01) ==
PROVIDERS: Emergency Provider Nurse Practitioner Family; PCP Family Medicine
DX: M23.92 Unspecified internal derangement of left knee (principal); G40.909 Epilepsy, unspecified, not intractable, without status epilepticus; G93.2 Benign intracranial hypertension; K21.9 Gastro-esophageal reflux disease without esophagitis; M19.90 Unspecified osteoarthritis, unspecified site; E66.01 Morbid (severe) obesity due to excess calories; Z68.41 Body mass index [BMI] 40.0-44.9, adult; Z87.440 Personal history of urinary (tract) infections; Z90.79 Acquired absence of other genital organ(s); Z90.721 Acquired absence of ovaries, unilateral; F17.210 Nicotine dependence, cigarettes, uncomplicated
CPT/HCPCS: 73564; 99283

== ENCOUNTER 2022-09-27 10:46 | Outpatient (CLI) | payer OTHER, SELFPAY ==
--- NOTE | ~2022-09-27 | MR_ITS ---
EXAMINATION: MR knee LT wo con DATE: 09/27/2022 11:42 INDICATION: Patellar subluxation TECHNIQUE: Magnetic resonance imaging (MRI) of the left knee was performed without intravenous contra st. Sequences included coronal PD-weighted FSE, coronal PD-weighted FS FSE, sagittal T2-weighted FSE , sagittal PD-weighted FS FSE and axial PD weighted fat saturated FSE. COMPARISON: None. FINDINGS: Medial compartment: Medial meniscus is normal. There are small marginal osteophytes along both the intercondylar eminence and weightbearing medial femoral condyle. The articular cartilage is however relatively preserved. Lateral compartment: Lateral meniscus is normal. Full-thickness chondral fissuring which appears to involve less than 50% the cartilage thickness at the central and posterior aspect of the lateral tibial plateau. Cartilage along the weightbearing lateral femoral condyle appears relatively preserved. Small marginal osteophy glenda are present. Patellofemoral compartment: There is patella shelly with Insall-Salvati ratio of 1.53, 1.4 cm lateral patellar subluxation and incr eased tibial tubercle - trochlear groove distance of 2.4 cm. All findings consistent with patellar in stability. Full-thickness cartilage loss with remodeling of the underlying articular cortex along the lateral third of the lateral trochlea. There is abrupt transition to relatively preserved cartilage thickness along the more medial aspect of the lateral trochlea but with irregular margin along the ju nction with deep fissuring and some delamination along the bone chondral interface. Additional full-t hickness cartilage loss with remodeling of the articular cortex at the juxtaposed articulation with t he medial half of the lateral patellar facet and apical ridge. Additional deep chondral ulceration al tyesha the lateral side of the medial patellar facet. Moderate size marginal osteophytes are present. Ligaments and tendons: Anterior and posterior cruciate ligaments are normal. The medial collateral ligament and fibular jennie ateral ligament complex are normal. Mild patellar and quadriceps tendinopathy without tear. There is a mesial and mild feathery muscular edema along the distal vastus medialis which can be seen with low -grade strain. The visualized medial and lateral hamstring tendons as well as the iliotibial band are normal. Fluid: Small left knee joint effusion. No loose osteochondral bodies identified. There is prominent prepatel lar edema without discrete bursal fluid collection. Osseous/other: Findings of patellar instability as previously detailed. No fracture. There is patchy red marrow reex pansion the metadiaphyseal region of the distal femur and proximal tibia and fibula. No other patholo gic marrow replacing process. IMPRESSION: 1. Constellation of findings including patella shelly, increased tibial tubercle 2 trochlear groove dis tance and lateral patellar subluxation, all consistent with patellar instability. There is likely sec ondary severe osteoarthritis at the lateral side of the patellofemoral joint. 2. Mild osteoarthritis in the medial and lateral compartments. 3. Low-grade strain along the distal vastus medialis with mild tendinopathy without discrete tears at the quadriceps and patellar tendons. Reviewed, dictated and finalized at location A. NESS ENGLISH INSTRUCTOR IMPRESSION: 1. Constellation of findings including patella shelly, increased tibial tubercle 2 trochlear groove distance and lateral patellar subluxation, all consistent wi th patellar instability. There is likely secondary severe osteoarthritis at the lateral side of the patellofemoral joint. 2. Mild osteoarthritis in the medial and lateral compartments. 3. Low-grade strain along the distal vastus medialis with mild tend
== END 2022-09-27 10:47 | disposition home or self-care (01) ==
PROVIDERS: PCP Family Medicine; Visit Provider Orthopaedic Surgery
DX: S83.013A Lateral subluxation of unspecified patella, initial encounter (principal); M25.562 Pain in left knee; M17.12 Unilateral primary osteoarthritis, left knee; S86.812A Strain of other muscle(s) and tendon(s) at lower leg level, left leg, initial encounter
CPT/HCPCS: 73721

== ENCOUNTER 2022-10-18 14:00 | Outpatient (RCR) | payer OTHER, SELFPAY ==
--- NOTE | 2022-10-18 15:00 | PTOPEVAL1 ---
Assessment and note entered by Charissa Gale DPT Evaluation Information Assessment Status Evaluation Diagnosis L knee pain Onset 09/23/22 Subjective Information Patient reports pain started after she fell on Sep 23 when she tripped and her knee popped out of place. Since then she has had fluid drained off her knee and pain has gotten worse. She reports pain is worse with walking and when standing after sitting for long periods of time. She reports that laying down helps to decrease pain. She is not working currently Reported Pain Level Pain Score 8: Self Report Assessment PT Clinical Summary Elvira is a 37 year old female who presents to PT with L knee pain. She demonstrates decreased L knee strength, decreased L knee extension ROM and impaired gait mechanics consistent with L patella instability. Patient has difficulty with walking and getting up after sitting for long periods of time and would benefit from skilled PT to address impairments and return to PLOF. Plan of Care Interventions Electrical Stimulation,Gait Training,Hot Pack/Cold Pack,Intermittent Compression,Manual Therapy, Mechanical Traction,Neuro Re-education,Patient/ Caregiver Educati,Therapeutic Activities, Therapeutic Exercise,Self-Care/Home Management PT Services Indicated Yes Treatment Frequency and 2x weekly for 10 visits Duration These treatments will address the objective and functional deficits as defined above. The patient will be advanced safely and appropriately in order for the patient to progress towards his/her prior level of function. Additional exercises will be introduced and as well as a comprehensive home exercise program upon discharge, if needed, ?to ensure carryover of functional gains achieved in the clinic. This treatment plan has been reviewed and agreement upon by the patient.
--- NOTE | 2023-01-24 13:38 | PCPTNOTE ---
Patient to be discharged at this time due to completion of current plan
== END 2022-12-02 23:59 | disposition home or self-care (01) ==
LOC: CHSPT 14:00
PROVIDERS: PCP Family Medicine; Visit Provider Orthopaedic Surgery
DX: S83.01 Lateral subluxation and dislocation of patella (principal)
CPT/HCPCS: 97014; 97110; 97161; 97530; G0283

== ENCOUNTER 2023-11-07 15:58 | Outpatient (RCR) | payer OTHER, SELFPAY ==
--- NOTE | 2023-10-31 14:44 | PCPTNOTE ---
patient had to cancel evaluation today due to having a sick kid. she was re-scheduled for next monday.
--- NOTE | 2023-11-07 16:36 | OPREHPOC ---
Outpatient Therapy Plan of Care This is a Multidisciplinary Plan of Care that may contain components documented by all disciplines (PT, OT, and ST.) PT Problem 1 PT Problem #1 Knowledge Deficit PT Goal 1 Goal 1. independent and compliant with HEP Target Visit 6 PT Problem 2 PT Problem #2 Pain PT Goal 1 Goal 1. decrease pain at worst to 6/10 in the lower back to improve quality of life and functional activity endurance Target Visit 12 PT Problem 3 PT Problem #3 Impaired Endurance PT Goal 1 Goal 1. patient to complete 6 minute walk test without sitting rest 2. patient to tolerate standing exercises for 10 minutes without rest Target Visit 12 PT Problem 4 PT Problem #4 Impaired Strength PT Goal 1 Goal 1. improve bilateral hip strength to 4+/5 or better 2. improve bilateral knee strength to 5/5 3. improve bilateral ankle DF to 5/5 Target Visit 12 PT Problem 5 PT Problem #5 Impaired Functional Mobil PT Goal 1 Goal 1. oswestry to display 40% or less functional deficits 2. patient to begin weight loss program to help with pain reduction of the lower back and other LE joints Target Visit 12
--- NOTE | 2023-11-07 16:36 | PTOPEVAL1 ---
Assessment and note entered by JT File, PT Evaluation Information Assessment Status Evaluation Diagnosis low back pain Onset 10/27/23 Subjective Information patient reports she is having lower back pain. she reports she has to come to therapy to get an MRI. she reports her back has been more flared up for the past 6 months or more. she reports she also has pain in the hips, knees, and LE's. she reports she has increased pain with sitting, standing, and walking. she reports standing and walking are the worst. she reports she gets red and sweaty when she is up too long. she reports it feels like her back is breaking. she reports she reports is unable to stand for more than 5 minutes, she reports she is unable to walk more than 1/2 a block, and reports it is difficult to get dressed (especially the lower body). she reports she does not have any NTB in the legs. Reported Pain Level Pain Score 5: Self Report Assessment PT Clinical Summary mrs. owens is a 38 yo woman who presents to skilled PT services for evaluation and treatment of lower back pain. she presents today with signs and symptoms of DDD of the lumbar spine. she displays a weak core, weakened LE's, poor lumbar rom, and limited standing/ambulation endurance. she would benefit from continued skilled PT to address her objective/functional deficits and progress towards a return to her prior level functional activity performance/quality of life. Plan of Care Interventions Electrical Stimulation,Gait Training,Hot Pack/Cold Pack,Manual Therapy,Neuro Re-education,Patient/ Caregiver Educati,Therapeutic Activities, Therapeutic Exercise PT Services Indicated Yes Treatment Frequency and 2x weekly for 12 visits Duration These treatments will address the objective and functional deficits as defined above. The patient will be advanced safely and appropriately in order for the patient to progress towards his/her prior level of function. Additional exercises will be introduced and as well as a comprehensive home exercise program upon discharge, if needed, ?to ensure carryover of functional gains achieved in the clinic. This treatment plan has been reviewed and agreement upon by the patient.
--- NOTE | 2023-11-13 13:00 | PCPTNOTE ---
Patient cancelled session today. Patient reports that her tooth is bothering her, and she is trying to get into the dentist.
--- NOTE | 2023-12-13 16:18 | OPREHPOC ---
Outpatient Therapy Plan of Care This is a Multidisciplinary Plan of Care that may contain components documented by all disciplines (PT, OT, and ST.) PT Problem 1 PT Problem #1 Knowledge Deficit PT Goal 1 Goal 1. independent and compliant with HEP Target Visit 6 Progress Met PT Problem 2 PT Problem #2 Pain PT Goal 1 Goal 1. decrease pain at worst to 6/10 in the lower back to improve quality of life and functional activity endurance Target Visit 12 Progress Not Met PT Problem 3 PT Problem #3 Impaired Endurance PT Goal 1 Goal 1. patient to complete 6 minute walk test without sitting rest 2. patient to tolerate standing exercises for 10 minutes without rest Target Visit 12 Progress Not Met PT Problem 4 PT Problem #4 Impaired Strength PT Goal 1 Goal 1. improve bilateral hip strength to 4+/5 or better 2. improve bilateral knee strength to 5/5 3. improve bilateral ankle DF to 5/5 Target Visit 12 Progress Not Met PT Problem 5 PT Problem #5 Impaired Functional Mobil PT Goal 1 Goal 1. oswestry to display 40% or less functional deficits 2. patient to begin weight loss program to help with pain reduction of the lower back and other LE joints Target Visit 12 Progress Not Met
--- NOTE | 2023-12-13 16:18 | PTOPDC ---
Assessment and note entered by JT File, PT Evaluation Information Assessment Status Discharge Diagnosis low back pain Onset 10/27/23 Subjective Information patient reports she is able to sit in her bed now for a bit. she reports she continues to have pain and tingling in the back and legs. she reports she is unable to stand or walk for prolonged time still due to pain. she reports she hurts all the time. Reported Pain Level Pain Score 7: Self Report Assessment PT Clinical Summary mrs. owens presents to skilled PT services for her 10th skilled therapy visit for her lower back pain. she has mande minimal progress towards goals in skilled PT, and continues to have pain and deficits in standing/upright activities. she will be DC'd from skilled PT today due to lack of significant progression made, and no reduction in symptoms. she was educated to return to the MD for follow up, and again to consider consultation for weight loss assistance. Plan of Care PT Services Indicated Yes
== END 2023-12-13 16:20 | disposition home or self-care (01) ==
LOC: CHSPT 15:58
PROVIDERS: PCP Family Medicine; Visit Provider Family Medicine
DX: M54.50 Low back pain, unspecified (principal); G89.29 Other chronic pain
CPT/HCPCS: 97014; 97110; 97161; 97550; G0283

== ENCOUNTER 2024-01-20 07:14 | Outpatient (CLI) | payer OTHER, SELFPAY ==
--- NOTE | ~2024-01-20 | MR_ITS ---
EXAMINATION: MR lumbar spine wo con DATE: 01/20/2024 08:25 INDICATION: Low back pain. TECHNIQUE: Magnetic resonance imaging (MRI) of the lumbar spine was performed without intravenous con trast. Sequences included sagittal T2-weighted FSE, sagittal T2-weighted FS FSE, sagittal T1-weighted FSE, and axial T2-weighted FSE. COMPARISON: Lumbar spine MRI 01/29/2022 FINDINGS: Bone alignment is normal. There is mild chronic anterior wedging of T12 vertebral body. Int ervertebral disc heights are normal. At T11-T12, there is a central extrusion with mild central canal stenosis. The distal spinal cord signal intensity is normal. The conus medullaris is at T12-L1. The following disc levels are specifically discussed: L1-L2: The disc does not extend beyond the endplate margin. There is no facet joint osteoarthritis. T here is no neural foraminal stenosis. There is no central canal stenosis. L2-L3: The disc does not extend beyond the endplate margin. There is no facet joint osteoarthritis. T here is no neural foraminal stenosis. There is no central canal stenosis. L3-L4: The disc does not extend beyond the endplate margin. There is mild bilateral facet joint osteo arthritis. There is no neural foraminal stenosis. There is no central canal stenosis. L4-L5: The disc does not extend beyond the endplate margin. There is mild bilateral facet joint osteo arthritis. There is no neural foraminal stenosis. There is no central canal stenosis. L5-S1: The disc does not extend beyond the endplate margin. There is mild bilateral facet joint osteo arthritis. There is no neural foraminal stenosis. There is no central canal stenosis. IMPRESSION: 1. 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 Reviewed, dictated and finalized at location A.
== END 2024-01-20 07:15 | disposition home or self-care (01) ==
PROVIDERS: PCP Family Medicine; Visit Provider Family Medicine
DX: G89.29 Other chronic pain (principal); M54.50 Low back pain, unspecified; M85.88 Other specified disorders of bone density and structure, other site
CPT/HCPCS: 72148

== ENCOUNTER 2024-02-20 13:55 | Outpatient (CLI) | payer OTHER, SELFPAY ==
--- NOTE | 2024-02-20 14:30 | NEURO_ITS ---
Impression: # Complains of left hand tingling. Not diabetic. # Normal Nerve Conduction Study # No Carpal Tunnel Syndrome or ulnar neuropathy. # Normal needle/EMG exam. Nerve Conduction Studies Anti Sensory Summary Table Stim Site NR Peak (ms) P-T Amp (?V) Site1 Site2 Delta-P (ms) Dist (cm) Mario (m/s) Left Median Anti Sensory (2-3nd Digit) Wrist 3.5 42.5 Wrist 2-3nd Digit 3.5 14.0 40 Wrist 3.6 44.0 Wrist 2-3nd Digit 3.5 14.0 40 Left Radial Anti Sensory (Base 1st Digit) Wrist 1.5 33.0 Wrist Base 1st Digit 1.5 0.0 Left Ulnar Anti Sensory (5th Digit) Wrist 2.0 66.7 Wrist 5th Digit 2.0 14.0 70 Motor Summary Table Stim Site NR Onset (ms) O-P Amp (mV) Site1 Site2 Delta-0 (ms) Dist (cm) Mario (m/s) Left Median Motor (Abd Poll Brev) Wrist 3.0 4.8 Elbow Wrist 4.9 26.0 53 Elbow 7.9 1.8 Left Ulnar Motor (Abd Dig Minimi) Wrist 2.3 6.8 A Elbow Wrist 4.4 27.0 61 A Elbow 6.7 5.6 F Wave Studies NR F-Lat (ms) L-R F-Lat (ms) Left Median (Mrkrs) (Abd Poll Brev) 25.94 Left Ulnar (Mrkrs) (Abd Dig Min) 24.69 EMG Side Muscle Nerve Root Ins Act Fibs Amp Dur Recrt Comment Left 1stDorInt Ulnar C8-T1 Nml Nml Nml Nml Nml Left Ext Indicis Radial (Post Int) C7-8 Nml Nml Nml Nml Nml Left Ext Digitorum Radial (Post Int) C7-8 Nml Nml Nml Nml Nml Left BrachioRad Radial C5-6 Nml Nml Nml Nml Nml Left PronatorTeres Median C6-7 Nml Nml Nml Nml Nml Left Abd Poll Brev Median C8-T1 Nml Nml Nml Nml Nml Left ABD Dig Min Ulnar C8-T1 Nml Nml Nml Nml Nml MTDD
== END 2024-02-20 13:56 | disposition home or self-care (01) ==
PROVIDERS: PCP Family Medicine; Visit Provider Family Medicine
DX: G56.00 Carpal tunnel syndrome, unspecified upper limb (principal)
CPT/HCPCS: 95886; 95909

== ENCOUNTER 2024-05-02 12:20 | Outpatient (CLI) | payer OTHER, SELFPAY ==
--- NOTE | ~2024-05-02 | XR_ITS ---
3 VIEWS LUMBAR SPINE Ordering provider: Edmond Patel MD History: . pain in shoulder,cervical region,unspec knee,lumbar region . Comparison: None. FINDINGS: VERTEBRAL BODIES: No visible fracture or subluxation. DISK SPACES: Normal. SOFT TISSUES: Normal. IMPRESSION: No acute osseous abnormality lumbar spine. Reviewed, dictated and finalized at location A.
--- NOTE | ~2024-05-02 | XR_ITS ---
XR_[id number] Ordering provider: Edmond Patel MD History: . y . Comparison: None. FINDINGS: VERTEBRAL BODIES: Normal height and alignment. No visible fracture or subluxation. The dens is intact . Mild dextroscoliosis. DISK SPACES: Well maintained. PARASPINOUS SOFT TISSUES: No prevertebral soft tissue swelling. IMPRESSION: No acute osseous abnormality cervical spine. Reviewed, dictated and finalized at location A.
--- NOTE | ~2024-05-02 | XR_ITS ---
XR_[id number]_CR Ordering provider: Edmond Patel MD History: . pain in shoulder,cervical region,unspec knee,lumbar region . Comparison: None. FINDINGS: BONES: No acute fracture or dislocation. JOINT SPACES: Normal. SOFT TISSUES: Normal. IMPRESSION: No acute osseous abnormality right knee. Reviewed, dictated and finalized at location A.
--- NOTE | ~2024-05-02 | XR_ITS ---
[id number] Ordering provider: Edmond Patel MD History: . pain in shoulder,cervical region,unspec knee,lumbar region . Comparison: None. FINDINGS: BONES: No acute fracture or dislocation. Slight lateral displacement of the patella. JOINT SPACES: Slight narrowing of the lateral compartment. Marginal osteophytes in the patella with n arrowing of the patellar femoral joint. SOFT TISSUES: Normal. IMPRESSION: No acute osseous abnormality left knee. Slight lateral displacement of the left kidney Mild osteoarthritic changes. Reviewed, dictated and finalized at location A.
--- NOTE | ~2024-05-02 | XR_ITS ---
3 VIEWS THORACIC SPINE Ordering provider: Edmond Patel MD History: . pain in shoulder,cervical region,unspec knee,lumbar region . Comparison: None. FINDINGS: VERTEBRAL BODIES: Normal height and alignment. No visible fracture or subluxation. 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 SOFT TISSUES: Normal. IMPRESSION: No acute osseous abnormality of the thoracic spine. Reviewed, dictated and finalized at location A.
--- NOTE | ~2024-05-02 | XR_ITS ---
XR shoulder RT min 2V Ordering provider: Edmond Patel MD History: . pain in shoulder,cervical region,unspec knee,lumbar region . Comparison: None. FINDINGS: BONES: No acute fracture or dislocation. JOINT SPACES: The acromioclavicular joint is normal. The glenohumeral joint is normal. SOFT TISSUES: Normal. IMPRESSION: No acute osseous abnormality right shoulder. Reviewed, dictated and finalized at location A.
--- NOTE | ~2024-05-02 | XR_ITS ---
XR shoulder LT min 2V Ordering provider: Edmond Patel MD History: . pain in shoulder,cervical region,unspec knee,lumbar region . Comparison: None. FINDINGS: BONES: No acute fracture or dislocation. JOINT SPACES: The acromioclavicular joint is normal. The glenohumeral joint is normal. SOFT TISSUES: Normal. IMPRESSION: No acute osseous abnormality left shoulder. Reviewed, dictated and finalized at location A.
== END 2024-05-02 12:21 | disposition home or self-care (01) ==
LOC: CHSIMG 12:23
PROVIDERS: PCP Family Medicine; Visit Provider Pain Medicine Interventional Pain Medicine
DX: M25.519 Pain in unspecified shoulder (principal); M54.12 Radiculopathy, cervical region; M25.569 Pain in unspecified knee; M54.14 Radiculopathy, thoracic region; M54.16 Radiculopathy, lumbar region
CPT/HCPCS: 72040; 72072; 72100; 73030; 73560

== ENCOUNTER 2024-05-21 08:07 | Inpatient (IN) | payer OTHER, SELFPAY ==
[2024-05-21] VITALS (18 sets, daily range): BP systolic 100–131; BP diastolic 48–86; PULSE 100–122; RESP 15–28; TEMP 36.1–36.7; O2SAT 90–96; BMI 58.6
--- NOTE | ~2024-05-21 | US_ITS ---
EXAMINATION: US venous doppler [facility] DATE: 05/21/2024 16:04 INDICATION: Lower limb pain. TECHNIQUE: Grayscale ultrasound images without and with compression and Doppler ultrasound images of the bilateral lower extremity veins were obtained. COMPARISON: None. FINDINGS: The visualized portions of right common femoral vein, profunda (deep) femoral vein, femoral vein, pop liteal vein, peroneal veins, posterior tibial veins, and greater saphenous vein outflow are patent. The visualized portions of left common femoral vein, profunda femoral vein, femoral vein, popliteal v ein, peroneal veins, posterior tibial veins, and greater saphenous vein outflow are patent. IMPRESSION: 1. No deep venous thrombosis. Reviewed, dictated and finalized at location A.
--- NOTE | ~2024-05-21 | CT_ITS ---
EXAMINATION: CTA chest PE protocol DATE: 05/21/2024 10:26 INDICATION: Hypoxia, cough, chest pain and shortness of breath TECHNIQUE: Computed tomography (CT) pulmonary angiogram of the chest was performed with 200 mL Omnipa que-350 intravenous contrast. Additional 3D reconstructions utilizing coronal maximum intensity proje ction (MIP) were performed. Automated exposure control and iterative reconstruction technique were em ployed. The dose-length product was 1818.00 mGy-cm. COMPARISON: None FINDINGS: Poor contrast opacification the initial imaging. There is adequate but still suboptimal contrast opac ification of the pulmonary arteries on the repeat imaging. This decreases sensitivity in the smaller subsegmental pulmonary arteries. No pulmonary embolism.There are patchy groundglass opacities in the right upper, middle and bilateral lower lobes. There are also regions of tree-in-bud opacity in the p osterior segment of the right upper lobe, in the posterior lingula and scattered in the left lower lo be most consistent with pneumonia with endobronchial spread of disease. No pulmonary edema or pleural effusion. Heart size is normal. No pericardial effusion. Thoracic aorta is normal in caliber with no dissection. This likely reactive mild bilateral hilar and mediastinal lymphadenopathy. Visualized up per abdomen is unremarkable. Mild thoracic spondylosis. IMPRESSION: 1. No pulmonary embolism. Sensitivity mildly decreased in the smaller subsegmental pulmonary arteries due to suboptimal contrast opacification. 2. Patchy bilateral groundglass and tree-in-bud opacities consistent with multifocal pneumonia. 3. Mild likely reactive bilateral hilar and mediastinal lymphadenopathy. Reviewed, dictated and finalized at location A. IMPRESSION: 1. No pulmonary embolism. Sensitivity mildly decreased in the smaller subsegmen jen pulmonary arteries due to suboptimal contrast opacification. 2. Patchy bilateral groundglass and tree-in-bud opacities consistent with multi focal pneumonia. 3. Mild likely reactive bilateral hilar and mediastinal lymphadenopathy.
--- NOTE | ~2024-05-21 | XR_ITS ---
XR chest 2V 05/21/2024 08:53 Indication: Cough and shortness of breath Procedure: 2 view chest Comparison: 08/31/2022 Findings: Heart size normal. There is bilateral symmetric airspace disease of the mid and lower lungs . No pleural effusion. No pneumothorax. No acute osseous abnormality. Impression: 1: Bilateral asymmetric airspace disease which may represent edema or pneumonia. Reviewed, dictated and finalized at location B. Impression: 1: Bilateral asymmetric airspace disease which may represent edema or pneumonia .
--- NOTE | 2024-05-21 08:13 | ECG_ITS ---
Test Date: 2024-05-21 08:16:50 Measurements Intervals Renick Rate: 114 P: 56 HI: 150 QRS: 80 QRSD: 94 T: -1 QT: 311 QTc: 430 Interpretive Statements SINUS TACHYCARDIA MINIMAL Q WAVES- INFERIOR LEADS NONSPECIFIC ST & T-WAVE ABNORMALITY- ANTEROLAT/INF LEADS ABNORMAL ECG No previous ECG available for comparison Electronically Signed On 05-21-2024 10:46:13 CDT by Winston Beck D.O.
--- NOTE | 2024-05-21 08:23 | ED.SOB ---
HPI - SOB/Dyspnea General Chief Complaint: Chest Pain Stated Complaint: cp and cough Time Seen by Provider: 05/21/24 08:17 History of Present Illness HPI Narrative: Patient presenting with chest discomfort, cough ongoing for the last 5 days, and URI symptoms, including headache and chills. Does smoke daily, has inhalers at home but has not really been using them. Related Data Home Medications Medication Instructions Recorded Confirmed acetazolamide 250 mg tablet 250 mg PO TID 10/11/23 05/17/24 Allergies Allergy/AdvReac Type Severity Reaction Status Date / Time adhesive tape Allergy Severe Hives Verified 05/21/24 08:49 Penicillins Allergy Intermediate THROAT Verified 05/21/24 08:49 SWELLING metoclopramide AdvReac Severe PARANOIA Verified 05/21/24 08:49 morphine AdvReac Intermediate ITCHING, Verified 05/21/24 08:49 MIGRAINE Sulfa (Sulfonamide AdvReac Mild Rash Verified 05/21/24 08:49 Antibiotics) sulfamethoxazole AdvReac Mild Rash Verified 05/21/24 08:49 trimethoprim AdvReac Mild Rash Verified 05/21/24 08:49 Sulfonamides Allergy Intermediate Rash Uncoded 05/21/24 08:49 Review of Systems Review of Systems: All systems reviewed & are unremarkable except as noted in HPI and below PMFSH Past Medical History Medical History Anxiety Arthritis Bipolar disorder Bronchitis Chronic headaches Chronic low back pain Claustrophobia Daytime somnolence Depression Ectopic Eczema Epigastric pain Epilepsy Reportedly her last seizure was November of 2015 Gastric ulcer GERD (gastroesophageal reflux disease) Idiopathic intracranial hypertension Managed by Dr. Curt Higgins Nausea and vomiting in adult Nicotine dependence Obesity, Class III, BMI 40-49.9 (morbid obesity) UTI (urinary tract infection) Viral syndrome Surgical History Surgical History History of left salpingo-oophorectomy Due to ectopic Hx of section x3 Hx of cholecystectomy Hx of dilation and curettage Family History Family History Father Medical history unknown Mother Schizophrenia Liver cirrhosis Sibling Seizure disorder Daughter Congenital heart disease Other Arthritis Diabetes mellitus HLD (hyperlipidemia) Heart disease Hypertension Social History Social History Social History: She lives with her 11-year-old daughter. She also has a 13 in 14-year-old child that sounds if lives elsewhere. She has smoked 1.5 packs of cigarettes per day since she was 17 years old. She denies any significant alcohol use. She is on disability. Smoking packs per day: 2 Smoking cigarettes per day: 40.0 Years smoked: 18 Smoking pack-years: 36.00 Smoking status: Current every day smoker Tobacco type: cigarettes Second hand tobacco smoke exposure: Yes Alcohol intake: never Substance use: current Substance use type: does not use Other substance usage details: used to sleep the other day, but not a daily usage Living arrangements: with family Additional living arrangements comments: 1 daughter. Occupation/Education: unemployed Additional occupation/education comments: Disabled due to Idiopathic Intracranial Hypertension Gender identity (if verbalized by the patient): Female Sexual Orientation (if Verbalized by the Patient): Straight or Heterosexual Spiritual care concerns: No Exam Narrative: EXAMINATION OF ORGAN SYSTEMS/BODY AREAS: Constitutional: Vital signs per nursing GENERAL:[No acute distress, non-toxic appearing.] HEAD: Normal with no signs of head trauma. EYES: EOMI, conjunctiva normal ENT: Hearing grossly intact LUNGS: Nonlabored breathing. diminished breath sounds with wheezing all lung rooney HEART: tachycardic ABD: [Soft], No
[2024-05-21] MEDS: ALBUTEROL SULFATE NEB 2.5 MG/3 ML INH 10 MG INHALATION (08:45)
[2024-05-21] MEDS: IPRATROPIUM BR 0.02% INH SOLN 0.5 MG/2.5 ML VIAL 1 MG INHALATION (08:45)
[2024-05-21] MEDS: methylPREDNISolone SOD SUCC 40 MG VIAL IV PUSH (08:50)
[2024-05-21] MEDS: KETOROLAC 15 MG/ML VIAL (*BKC) IV PUSH ×2 (08:50→21:37)
[2024-05-21 08:58] LABS: Anion Gap 9 mmol/L (4-12); Blood Urea Nitrogen 9 mg/dL (7-17); Calcium 8.8 mg/dL (8.4-10.2); Carbon Dioxide 27 mmol/L (22-30); Chloride 98 mmol/L (98-107); Estimated CRCL calculation 112 ml/min; Estimated Glomerular Filt Rate > 60; Glucose 140 mg/dL (65-110); Potassium 3.6 mmol/L (3.4-5.0); Sodium 134 mmol/L (137-145)
[2024-05-21 09:14] LABS: Basophils Percent Auto 0.4 % (0.2-1.2); Eosinophils Absolute Auto 0.2 K/mm3 (0-0.3); Eosinophils Percent Auto 3.3 % (0-4.4); Hematocrit 38.1 % (37.0-47.0); Hemoglobin 12.9 g/dL (12.0-15.0); Immature Granulocyte Percent A 1.4 % (0-0.5); Lymphocytes Absolute Auto 1.34 K/mm3 (0.9-3.2); Lymphocytes Percent Auto 18.5 % (18.3-44.2); Mean Corpuscular HGB Conc 33.9 g/dl (32-36); Mean Corpuscular Hemoglobin 28.9 pg (26-34); Mean Corpuscular Volume 85.4 fl (80-100); Mean Platelet Volume 10.1 fl (7.4-10.4); Monocytes Absolute Auto 0.5 K/mm3 (0.1-0.6); Monocytes Percent Auto 6.2 % (2.6-8.5); Neutrophils Absolute Auto 5.1 K/mm3 (1.3-6.7); Neutrophils Percent Auto 70.2 % (45.5-73.1); Platelet Count Result 185 k/mm3 (150-375); Red Blood Count 4.46 M/mm3 (4.2-5.4); Red Cell Distribution Width 15.5 % (11.5-14.5); White Blood Count 7.2 K/mm3 (4.5-10.0)
[2024-05-21 09:17] LABS: Influenza A QL RT-PCR Negative (Negative); Influenza B QL RT-PCR Negative (Negative); RSV RNA, RT-PCR Negative (Negative); SARS-CoV-2 RNA PCR Negative (Negative)
--- NOTE | 2024-05-21 09:30 | PC.NURSE ---
Kirsten in lab spoken with regarding add on BNP.
[2024-05-21 09:42] LABS: D Dimer 2.04 ug/mL (<0.48)
[2024-05-21 09:54] LABS: NT Pro B Type Natriuretic Pept 187 pg/mL (19.9-100)
[2024-05-21] MEDS: fentaNYL CITRATE INJ (*CRX) 100 MCG/2 ML VIAL 25 MCG IV PUSH (11:24)
[2024-05-21] MEDS: AZITHROMYCIN 250 MG TABLET 500 MG PO (11:25)
--- NOTE | 2024-05-21 12:14 | PC.NURSE ---
Patient request 2 additional doses of fentanyl. MD verbally notified by this RN. No new orders at this time. Patient informed that we are unable to give more fentanyl at this time.
--- NOTE | 2024-05-21 12:25 | PC.NURSE ---
Dietary called at this time to get a heart healthy lunch tray at this time.
--- NOTE | 2024-05-21 12:49 | PM.IMHP ---
H&P: HPI History of Present Illness Date/Time: 05/21/24 12:49 Chief Complaint: shortness of breath and cough Narrative: Patient is a 38 year old female that came to the hospital with cough for 5 days and shortness of breath since yesterday. Patient reports coughing up green to clear phlegm. Patient reports smoking 2-3 packs a day since the age of 17. Home inhalers are Albuterol and Symbicort, but not really using them as prescribed. Patient reports chills and generalized pain that is an 8 , pain is constant, pain described as aching, throbbing, and sharp. Denies any numbness or tingling. Patient reports being followed by pain management in [place]. Patient reports that she has not had any injections due to having to pay out of pocket, patient is prescribed Tylenol 4 up to 4 tablets daily per patient. Patient reports that she is awaiting approval for MRI back and knees. Ambulates with a walker, wears glasses. Review of Systems Constitutional: Constitutional: Reports chills Eyes: Eyes: Denies blurry vision ENT: Denies nasal discharge Cardiovascular: Cardiovascular: Denies leg edema and Reports palpitations Respiratory: Respiratory: Reports cough, Reports dyspnea, Reports dyspnea on exertion and Reports wheezing Gastrointestinal: Gastrointestinal: Denies constipation, Reports heartburn, Denies nausea and Denies vomiting Genitourinary: Genitourinary: Denies dysuria and Denies urinary urgency Musculoskeletal: Musculoskeletal: Reports myalgias Integumentary/Breasts: Skin/Breast: Reports system reviewed and no additional complaints, except as docu Neurologic: Reports headache(s) Psychiatric: Psychiatric: Reports no additional psychiatric complaints [facility] Past Medical History Medical History Anxiety Arthritis Bipolar disorder Bronchitis Chronic headaches Chronic low back pain Claustrophobia Daytime somnolence Depression Ectopic Eczema Epigastric pain Epilepsy Reportedly her last seizure was November of 2015 Gastric ulcer GERD (gastroesophageal reflux disease) Idiopathic intracranial hypertension Managed by Dr. Curt Higgins Nausea and vomiting in adult Nicotine dependence Obesity, Class III, BMI 40-49.9 (morbid obesity) UTI (urinary tract infection) Viral syndrome Surgical History Surgical History History of left salpingo-oophorectomy Due to ectopic Hx of section x3 Hx of cholecystectomy Hx of dilation and curettage Family History Family History Father Medical history unknown Mother Schizophrenia Liver cirrhosis Sibling Seizure disorder Daughter Congenital heart disease Other Arthritis Diabetes mellitus HLD (hyperlipidemia) Heart disease Hypertension Social History Social History Social History: She lives with her 11-year-old daughter. She also has a 13 in 14-year-old child that sounds if lives elsewhere. She has smoked 1.5 packs of cigarettes per day since she was 17 years old. She denies any significant alcohol use. She is on disability. Smoking packs per day: 2 Smoking cigarettes per day: 40.0 Years smoked: 18 Smoking pack-years: 36.00 Smoking status: Current every day smoker Tobacco type: cigarettes Second hand tobacco smoke exposure: Yes Alcohol intake: never Substance use: current Substance use type: does not use Other substance usage details: used to sleep the other day, but not a daily usage Living arrangements: with family Additional living arrangements comments: 1 daughter. Occupation/Education: unemployed Additional occupation/education comments: Disabled due to Idiopathic Intracranial Hypertension Gender identity (if verbalized by the patient): Female Sexual Orientation (
--- NOTE | 2024-05-21 13:00 | ADMGEN ---
This patient, Elvira Del Cid, was admitted to 3 [facility] Surg Room 309-01. Patient/family oriented to hospital policies and general routines including ID bracelet, bed and alarms, visiting hours, pain management, procedures, bathroom and other care routines, personal items, smoking policy, room service/diet, and visiting hours. Information on how to activate the Rapid Response Team has been discussed. Patient/Family are encouraged to report perceived risks to care and to ask questions if they do not understand what they are told or what they should do.
--- NOTE | 2024-05-21 13:07 | PM.IMHP ---
H&P: HPI History of Present Illness Date/Time: 05/21/24 13:07 [facility] Past Medical History Medical History Anxiety Arthritis Bipolar disorder Bronchitis Chronic headaches Chronic low back pain Claustrophobia Daytime somnolence Depression Ectopic Eczema Epigastric pain Epilepsy Reportedly her last seizure was November of 2015 Gastric ulcer GERD (gastroesophageal reflux disease) Idiopathic intracranial hypertension Managed by Dr. Curt Higgins Nausea and vomiting in adult Nicotine dependence Obesity, Class III, BMI 40-49.9 (morbid obesity) UTI (urinary tract infection) Viral syndrome Surgical History Surgical History History of left salpingo-oophorectomy Due to ectopic Hx of section x3 Hx of cholecystectomy Hx of dilation and curettage Family History Family History Father Medical history unknown Mother Schizophrenia Liver cirrhosis Sibling Seizure disorder Daughter Congenital heart disease Other Arthritis Diabetes mellitus HLD (hyperlipidemia) Heart disease Hypertension Social History Social History Social History: She lives with her 11-year-old daughter. She also has a 13 in 14-year-old child that sounds if lives elsewhere. She has smoked 1.5 packs of cigarettes per day since she was 17 years old. She denies any significant alcohol use. She is on disability. Smoking packs per day: 2 Smoking cigarettes per day: 40.0 Years smoked: 18 Smoking pack-years: 36.00 Smoking status: Current every day smoker Tobacco type: cigarettes Second hand tobacco smoke exposure: Yes Alcohol intake: never Substance use: current Substance use type: does not use Other substance usage details: used to sleep the other day, but not a daily usage Living arrangements: with family Additional living arrangements comments: 1 daughter. Occupation/Education: unemployed Additional occupation/education comments: Disabled due to Idiopathic Intracranial Hypertension Gender identity (if verbalized by the patient): Female Sexual Orientation (if Verbalized by the Patient): Straight or Heterosexual Spiritual care concerns: No Meds Home Medications and Allergies Home Medications Medication Instructions Recorded Confirmed Type albuterol sulfate 90 mcg/actuation 1 inh inhalation Q4H PRN shortness 08/31/22 05/17/24 Rx aerosol inhaler of breath or wheezing #8.5 grams acetazolamide 250 mg tablet 250 mg PO TID 10/11/23 05/17/24 History triamcinolone acetonide 0.5 % 1 applic topical TID #45 grams 12/06/23 05/17/24 Rx topical cream duloxetine 60 mg capsule,delayed 60 mg PO DAILY #90 caps 02/02/24 05/17/24 Rx release ibuprofen 800 mg tablet 800 mg PO TID PRN pain #90 tabs 02/02/24 05/17/24 Rx pregabalin 150 mg capsule (Lyrica) 150 mg PO BID #60 caps 03/05/24 05/17/24 Rx albuterol sulfate 90 mcg/actuation 2 puff inhalation QID #8.5 grams 03/26/24 05/17/24 Rx aerosol inhaler budesonide-formoterol HFA 160 2 puff inhalation Q12H #10.2 grams 03/26/24 05/17/24 Rx mcg-4.5 mcg/actuation aerosol inhaler (Symbicort) lidocaine 5 % topical patch 1 patch topical DAILY #30 ea 03/28/24 05/17/24 Rx risperidone 1 mg tablet (Risperdal) 1 mg PO BID #180 tabs 03/28/24 05/17/24 Rx hydroxyzine HCl 50 mg tablet 100 mg PO QHS PRN insomnia #60 tabs 04/08/24 05/17/24 Rx amitriptyline 100 mg tablet 100 mg PO QHS #90 tabs 04/23/24 05/17/24 Rx tizanidine 4 mg tablet 6 mg PO BID PRN muscle spasticity 05/01/24 05/17/24 Rx #60 tabs nicotine 21 mg/24 hr daily 2 patch transdermal DAILY #56 ea 05/17/24 05/17/24 Rx transdermal patch Allergies Allergy/AdvReac Type Severity Reaction Status Date / Time adhesive tape Allergy Severe Hives Verified 05/21/24
[2024-05-21] MEDS: ALBUTEROL SULFATE (*SP) INHALER 1 PUFF (15:04)
[2024-05-21] MEDS: ALBUTEROL SULFATE (*SP) AEROSOL 1 PUFF 2 PUFF INHALATION (15:04)
[2024-05-21] MEDS: risperiDONE 1 MG TABLET PO (17:30)
[2024-05-21] MEDS: PREGABALIN (*CRX) 75 MG CAPSULE 150 MG PO (17:30)
[2024-05-21] MEDS: HYDROcodone/acetaminophen (*CRX) 5-325 MG TABLET 1 TAB PO (17:30)
[2024-05-21] MEDS: NICOTINE (*PBKC) 21 MG PATCH 1 PATCH TRANSDERM (17:33)
[2024-05-21] MEDS: IPRATROPIUM 0.5 MG/ALBUTEROL SULFATE 2.5 MG AMPUL.NEB 3 ML INHALATION (20:39)
[2024-05-21] MEDS: AMITRIPTYLINE HCL 25 MG TABLET 100 MG PO (21:35)
[2024-05-21] MEDS: FAMOTIDINE 20 MG TABLET PO (21:35)
[2024-05-21] MEDS: HYDROcodone/acetaminophen (*CRX) 10-325 MG TABLET 1 TAB PO (21:35)
[2024-05-21] MEDS: hydrOXYzine HCL 25 MG TABLET 100 MG PO (21:36)
[2024-05-21] MEDS: TIZANIDINE HCL 2 MG TABLET 6 MG PO (21:37)
[2024-05-22] VITALS (13 sets, daily range): BP systolic 107–114; BP diastolic 53–75; PULSE 77–116; RESP 20–22; TEMP 35.8–36.4; O2SAT 94–98
[2024-05-22] MEDS: IPRATROPIUM 0.5 MG/ALBUTEROL SULFATE 2.5 MG AMPUL.NEB 3 ML INHALATION ×4 (02:27→20:52)
[2024-05-22 06:33] LABS: Basophils Percent Auto 0.4 % (0.2-1.2); Eosinophils Percent Auto 0.6 % (0-4.4); Hematocrit 40.4 % (37.0-47.0); Hemoglobin 13.1 g/dL (12.0-15.0); Immature Granulocyte Absolute 0.16 K/mm3 (0.00-0.031); Immature Granulocyte Percent A 2.2 % (0-0.5); Lymphocytes Absolute Auto 1.12 K/mm3 (0.9-3.2); Lymphocytes Percent Auto 15.6 % (18.3-44.2); Mean Corpuscular HGB Conc 32.4 g/dl (32-36); Mean Corpuscular Hemoglobin 28.2 pg (26-34); Mean Corpuscular Volume 86.9 fl (80-100); Mean Platelet Volume 10.2 fl (7.4-10.4); Monocytes Absolute Auto 0.4 K/mm3 (0.1-0.6); Monocytes Percent Auto 5.4 % (2.6-8.5); Neutrophils Absolute Auto 5.5 K/mm3 (1.3-6.7); Neutrophils Percent Auto 75.8 % (45.5-73.1); Platelet Count Result 226 k/mm3 (150-375); Red Blood Count 4.65 M/mm3 (4.2-5.4); Red Cell Distribution Width 15.8 % (11.5-14.5); White Blood Count 7.2 K/mm3 (4.5-10.0)
[2024-05-22 06:43] LABS: Anion Gap 10 mmol/L (4-12); Blood Urea Nitrogen 11 mg/dL (7-17); Calcium 8.9 mg/dL (8.4-10.2); Carbon Dioxide 27 mmol/L (22-30); Chloride 100 mmol/L (98-107); Estimated CRCL calculation 112 ml/min; Estimated Glomerular Filt Rate > 60; Glucose 115 mg/dL (65-110); Potassium 3.6 mmol/L (3.4-5.0); Sodium 137 mmol/L (137-145)
[2024-05-22] MEDS: KETOROLAC 15 MG/ML VIAL (*BKC) IV PUSH ×4 (09:15→21:57)
[2024-05-22] MEDS: DULoxetine HCL 60 MG CAPSULE.DR PO (09:15)
[2024-05-22] MEDS: NICOTINE (*PBKC) 21 MG PATCH 1 PATCH TRANSDERM (09:16)
[2024-05-22] MEDS: PREGABALIN (*CRX) 75 MG CAPSULE 150 MG PO ×2 (09:16→16:06)
[2024-05-22] MEDS: levoFLOXacin 750 MG/D5W 150 ML 750 MG/150 ML BAG 100 MG IVPB (09:16)
[2024-05-22] MEDS: HYDROcodone/acetaminophen (*CRX) 5-325 MG TABLET 1 TAB PO (09:16)
[2024-05-22] MEDS: LIDOCAINE 5% PATCH 1 PATCH TOPICAL (09:16)
[2024-05-22] MEDS: FAMOTIDINE 20 MG TABLET PO ×2 (09:16→21:01)
[2024-05-22] MEDS: risperiDONE 1 MG TABLET PO ×2 (09:16→16:06)
--- NOTE | 2024-05-22 13:13 | PM.IMPN ---
Progress Note: A&P Assessment and Plan (1) Multifocal pneumonia: Code(s): J18.9 - Pneumonia, unspecified organism Status: Acute Assessment and Plan: Chest CT negative for a PE, showed patchy bilateral ground glass and tree-in-bud opacities consistent with multifocal pneumonia. WBC 7.2. Negative for flu, COVID, and RSV. Blood cultures pending. Receiving IV Levofloxacin 750 mg IVPB daily. Sputum culture results pending. Added Guaifenesin 600 mg PO q 12. (2) Acute hypoxic respiratory failure: Code(s): J96.01 - Acute respiratory failure with hypoxia Status: Acute Assessment and Plan: Oxygen at 3 liters nasal cannula. Titrate to keep Sa02 >92%. D. Dimer +2.04, LE dopplers- negative. Report any worsening chest pain or shortness of breath. SCD's for DVT prophylaxis. (3) Acute exacerbation of chronic obstructive pulmonary disease: Code(s): J44.1 - Chronic obstructive pulmonary disease with (acute) exacerbation Status: Acute Assessment and Plan: Patient is receiving Duonebs. Take medications as prescribed. Refrain from smoking. Report any increased shortness of breath, wheezing, or fever. Follow labs. (4) Chronic pain: Qualifiers: Chronic pain type: other chronic pain Qualified Code(s): G89.29 - Other chronic pain Code(s): G89.29 - Other chronic pain Status: Acute Assessment and Plan: [place] and Toradol for pain. Ransom dose increased. Patient is followed by pain management outpatient. (5) Nicotine dependence: Qualifiers: Nicotine product type: cigarettes Substance use status: uncomplicated Qualified Code(s): F17.210 - Nicotine dependence, cigarettes, uncomplicated Code(s): F17.200 - Nicotine dependence, unspecified, uncomplicated Status: Acute Assessment and Plan: Refrain from smoking. Wearing nicotine patch, discussed importance of smoking cessation. Subjective Date/time seen: 05/22/24 13:13 Interval history: 38yo female with seizures, bipolar d/o, chronic pain, COPD and tobacco abuse here for SOB and cough. She developed cough, subjective fevers, chills and diaphoresis worsening over the past 5 days. No sick contacts. No n/v or diarrhea. Complains of headache with cough. Patient reports a headache, chest, and ribs that is an 8 , constant, describes as aching, throbbing, and sharp at times. Patient is asking for stronger pain medication. Appetite is good. Patient reports having difficulty coughing up phlegm. Review of Systems Constitutional: Constitutional: Reports chills and Reports headache(s) Eyes: Eyes: Denies blurry vision ENT: Reports headache(s) and Denies nasal discharge Cardiovascular: Cardiovascular: Denies leg edema, Reports dyspnea and Reports dyspnea on exertion Respiratory: Respiratory: Reports cough, Reports dyspnea, Reports dyspnea on exertion and Reports wheezing Gastrointestinal: Gastrointestinal: Denies constipation, Reports heartburn, Denies nausea and Denies vomiting Genitourinary: Genitourinary: Denies dysuria and Denies urinary urgency Musculoskeletal: Musculoskeletal: Reports myalgias Integumentary/Breasts: Skin/Breast: Reports system reviewed and no additional complaints, except as docu Neurologic: Reports headache(s) Psychiatric: Psychiatric: Reports no additional psychiatric complaints Allergic/Immunologic: Allergic/Immunologic: Reports wheezing Exam Const: General: uncomfortable (generalized pain) HENMT: Face/Nose/Sinus: Normal nares present Mouth: Yes moist mucous membranes Other: No facial tenderness. No lymphadenopathy. Eyes: General: appearance normal, both eyes and all related structures Resp: Auscultation: wheezes expiratory wheezes and diminished lung sounds Cardio: Rate: tachycardic GI: Auscultation: normal bowel sounds Skin: General skin exam: normal color Wounds: no wounds Neuro: Speech: normal speech Extrem: General: normal to
[2024-05-22] MEDS: guaiFENesin/DEXTROMETHORPHAN 10 ML UDC PO (14:36)
[2024-05-22] MEDS: HYDROcodone/acetaminophen (*CRX) 10-325 MG TABLET 1 TAB PO ×2 (15:03→21:02)
[2024-05-22] MEDS: guaiFENesin 12 HR 600 MG TABCR PO (21:01)
[2024-05-22] MEDS: AMITRIPTYLINE HCL 25 MG TABLET 100 MG PO (21:02)
[2024-05-22] MEDS: TIZANIDINE HCL 2 MG TABLET 6 MG PO (22:11)
[2024-05-23] VITALS (14 sets, daily range): BP systolic 122–124; BP diastolic 71–86; PULSE 96–108; RESP 14–20; TEMP 35.6–35.9; O2SAT 92–100
[2024-05-23] MEDS: guaiFENesin/DEXTROMETHORPHAN 10 ML UDC PO ×4 (02:23→22:06)
[2024-05-23] MEDS: IPRATROPIUM 0.5 MG/ALBUTEROL SULFATE 2.5 MG AMPUL.NEB 3 ML INHALATION ×4 (02:52→20:35)
[2024-05-23] MEDS: HYDROcodone/acetaminophen (*CRX) 10-325 MG TABLET 1 TAB PO ×3 (03:19→22:59)
[2024-05-23 06:50] LABS: Basophils Percent Auto 0.6 % (0.2-1.2); Eosinophils Absolute Auto 0.1 K/mm3 (0-0.3); Eosinophils Percent Auto 2.1 % (0-4.4); Hematocrit 38.1 % (37.0-47.0); Hemoglobin 12.5 g/dL (12.0-15.0); Lymphocytes Absolute Auto 1.52 K/mm3 (0.9-3.2); Lymphocytes Percent Auto 22.5 % (18.3-44.2); Mean Corpuscular HGB Conc 32.8 g/dl (32-36); Mean Corpuscular Hemoglobin 28.5 pg (26-34); Mean Platelet Volume 9.9 fl (7.4-10.4); Monocytes Absolute Auto 0.4 K/mm3 (0.1-0.6); Monocytes Percent Auto 5.8 % (2.6-8.5); Neutrophils Absolute Auto 4.5 K/mm3 (1.3-6.7); Platelet Count Result 222 k/mm3 (150-375); Red Blood Count 4.38 M/mm3 (4.2-5.4); Red Cell Distribution Width 15.8 % (11.5-14.5); White Blood Count 6.8 K/mm3 (4.5-10.0)
[2024-05-23 07:02] LABS: Alanine Aminotransferase 28 U/L (6-35); Albumin Level 3.7 g/dL (3.5-5.1); Alkaline Phosphatase 87 U/L (38-126); Anion Gap 7 mmol/L (4-12); Aspartate Amino Transferase 32 U/L (14-36); Bilirubin,Total 0.3 mg/dL (0.2-1.3); Blood Urea Nitrogen 14 mg/dL (7-17); Calcium 8.2 mg/dL (8.4-10.2); Carbon Dioxide 30 mmol/L (22-30); Chloride 98 mmol/L (98-107); Estimated CRCL calculation 83 ml/min; Estimated Glomerular Filt Rate 56; Glucose 104 mg/dL (65-110); Magnesium 2.2 mg/dL (1.6-2.3); Potassium 3.3 mmol/L (3.4-5.0); Sodium 135 mmol/L (137-145)
[2024-05-23] MEDS: KETOROLAC 15 MG/ML VIAL (*BKC) IV PUSH ×3 (07:18→20:20)
[2024-05-23] MEDS: POTASSIUM CHLORIDE 20 MEQ ER TABLET 40 MEQ PO (09:10)
[2024-05-23] MEDS: risperiDONE 1 MG TABLET PO ×2 (09:10→17:07)
[2024-05-23] MEDS: PREGABALIN (*CRX) 75 MG CAPSULE 150 MG PO ×2 (09:10→17:07)
[2024-05-23] MEDS: NICOTINE (*PBKC) 21 MG PATCH 1 PATCH TRANSDERM (09:11)
[2024-05-23] MEDS: DULoxetine HCL 60 MG CAPSULE.DR PO (09:11)
[2024-05-23] MEDS: levoFLOXacin 750 MG/D5W 150 ML 750 MG/150 ML BAG 100 MG IVPB (09:11)
[2024-05-23] MEDS: LIDOCAINE 5% PATCH 1 PATCH TOPICAL (09:11)
[2024-05-23] MEDS: guaiFENesin 12 HR 600 MG TABCR PO ×2 (09:11→20:21)
[2024-05-23] MEDS: FAMOTIDINE 20 MG TABLET PO ×2 (09:11→20:21)
[2024-05-23] MEDS: PROCHLORPERAZINE EDISYLATE 10 MG/2 ML VIAL IV PUSH (11:43)
--- NOTE | 2024-05-23 13:28 | PM.IMPN ---
Progress Note: A&P Assessment and Plan (1) Multifocal pneumonia: Code(s): J18.9 - Pneumonia, unspecified organism Status: Acute Assessment and Plan: Chest CT negative for a PE, showed patchy bilateral ground glass and tree-in-bud opacities consistent with multifocal pneumonia. WBC 6.8. Negative for flu, COVID, and RSV. Blood cultures pending. Receiving IV Levofloxacin 750 mg IVPB daily. Sputum culture preliminary showed: Rare Gram + cocci. Guaifenesin 600 mg PO q 12. (2) Acute hypoxic respiratory failure: Code(s): J96.01 - Acute respiratory failure with hypoxia Status: Acute Assessment and Plan: Oxygen at 3 liters nasal cannula. Titrate to keep Sa02 >92%. D. Dimer +2.04, LE dopplers- negative. Report any worsening chest pain or shortness of breath. SCD's for DVT prophylaxis. (3) Acute exacerbation of chronic obstructive pulmonary disease: Code(s): J44.1 - Chronic obstructive pulmonary disease with (acute) exacerbation Status: Acute Assessment and Plan: Patient is receiving Duonebs. Take medications as prescribed. Refrain from smoking. Report any increased shortness of breath, wheezing, or fever. Follow labs. Add incentive spirometer. (4) Chronic pain: Qualifiers: Chronic pain type: other chronic pain Qualified Code(s): G89.29 - Other chronic pain Code(s): G89.29 - Other chronic pain Status: Acute Assessment and Plan: [place] and Toradol for pain. Patient is followed by pain management outpatient. (5) Nicotine dependence: Qualifiers: Nicotine product type: cigarettes Substance use status: uncomplicated Qualified Code(s): F17.210 - Nicotine dependence, cigarettes, uncomplicated Code(s): F17.200 - Nicotine dependence, unspecified, uncomplicated Status: Acute Assessment and Plan: Refrain from smoking. Wearing nicotine patch, discussed importance of smoking cessation. (6) Nausea: Code(s): R11.0 - Nausea Status: Acute Assessment and Plan: Added Prochlorperazine. Slowly increase food as tolerated. Eat small meals. Subjective Date/time seen: 05/23/24 13:28 Interval history: 38yo female with seizures, bipolar d/o, chronic pain, COPD and tobacco abuse here for SOB and cough. She developed cough, subjective fevers, chills and diaphoresis worsening over the past 5 days. No sick contacts. No n/v or diarrhea. Complains of headache with cough. Appetite is good. Patient reports having difficulty coughing up phlegm. Patient reports shortness of breath with walking. Review of Systems Constitutional: Constitutional: Denies chills and Reports headache(s) Eyes: Eyes: Denies blurry vision ENT: Reports headache(s) and Denies nasal discharge Cardiovascular: Cardiovascular: Denies leg edema, Reports palpitations, Reports dyspnea and Reports dyspnea on exertion Respiratory: Respiratory: Reports cough, Reports dyspnea, Reports dyspnea on exertion and Reports wheezing Gastrointestinal: Gastrointestinal: Denies constipation, Reports heartburn, Denies nausea and Denies vomiting Genitourinary: Genitourinary: Denies dysuria and Denies urinary urgency Musculoskeletal: Musculoskeletal: Reports myalgias Integumentary/Breasts: Skin/Breast: Reports system reviewed and no additional complaints, except as docu Neurologic: Reports headache(s) Psychiatric: Psychiatric: Reports no additional psychiatric complaints Endocrine: Endocrine: Reports palpitations Allergic/Immunologic: Allergic/Immunologic: Reports wheezing Exam Const: General: uncomfortable (generalized pain) HENMT: Face/Nose/Sinus: Normal nares present Mouth: Yes moist mucous membranes Other: No facial tenderness. No lymphadenopathy. Eyes: General: appearance normal, both eyes and all related structures Resp: Auscultation: wheezes expiratory wheezes and diminished lung sounds Cardio: Rate: tachycardic GI: Auscultation:
[2024-05-23] MEDS: HYDROcodone/acetaminophen (*CRX) 5-325 MG TABLET 1 TAB PO (17:57)
[2024-05-23] MEDS: AMITRIPTYLINE HCL 25 MG TABLET 100 MG PO (20:21)
[2024-05-23] MEDS: TIZANIDINE HCL 2 MG TABLET 6 MG PO (20:22)
[2024-05-24] MEDS: IPRATROPIUM 0.5 MG/ALBUTEROL SULFATE 2.5 MG AMPUL.NEB 3 ML INHALATION ×3 (01:25→13:18)
[2024-05-24 01:26] VITALS: PULSE 99; RESP 18
[2024-05-24] MEDS: KETOROLAC 15 MG/ML VIAL (*BKC) IV PUSH ×2 (02:24→09:19)
[2024-05-24] MEDS: guaiFENesin/DEXTROMETHORPHAN 10 ML UDC PO ×2 (03:16→09:38)
[2024-05-24] MEDS: HYDROcodone/acetaminophen (*CRX) 10-325 MG TABLET 1 TAB PO (05:14)
[2024-05-24 05:41] VITALS: BP 130/68; PULSE 94; RESP 18; TEMP 35.8; O2SAT 98
[2024-05-24 07:49] VITALS: PULSE 91; RESP 18; O2SAT 95
[2024-05-24 08:07] VITALS: PULSE 101; RESP 18
[2024-05-24] MEDS: NICOTINE (*PBKC) 21 MG PATCH 1 PATCH TRANSDERM (09:21)
[2024-05-24] MEDS: LIDOCAINE 5% PATCH 1 PATCH TOPICAL (09:22)
[2024-05-24] MEDS: PREGABALIN (*CRX) 75 MG CAPSULE 150 MG PO (09:25)
[2024-05-24] MEDS: FAMOTIDINE 20 MG TABLET PO (09:25)
[2024-05-24] MEDS: guaiFENesin 12 HR 600 MG TABCR PO (09:25)
[2024-05-24] MEDS: DULoxetine HCL 60 MG CAPSULE.DR PO (09:25)
[2024-05-24] MEDS: risperiDONE 1 MG TABLET PO (09:25)
[2024-05-24] MEDS: levoFLOXacin 750 MG/D5W 150 ML 750 MG/150 ML BAG 100 MG IVPB (09:26)
--- NOTE | 2024-05-24 13:05 | PM.DS ---
DS: Admitting Diagnosis Discharge Date 05/24/24 Admitting Diagnosis Pneumonia DS: Discharge Diagnosis Discharge Diagnosis (1) Multifocal pneumonia: Code(s): J18.9 - Pneumonia, unspecified organism Status: Acute DS: Summary Hospital Course Hospital Course: 38yo female with seizures, bipolar d/o, chronic pain, COPD and tobacco abuse here for SOB and cough. She developed cough, subjective fevers, chills and diaphoresis worsening over the past 5 days. No sick contacts. Has productive cough of green sputum. No n/v or diarrhea. Complains of headache with cough. O: AF/VSS. NARD. Moderately poor lower dentition. Coarse inspir/expir rhonchi diffusely. RRR S1/S2. Abd soft, NT, obese. No pedal edema. +Eliza's sign A/P: PNA. COPD exacerbation. Seizure d/o. Bipolar d/o. Chronic pain. Tobacco abuse. Agree with the BHAVANA's evaluation, assessment and plan. Discussed with BHAVANA. Continue IV abx. Schedule nebs. Continue to follow. May need to schedule steroids but will see how nebs and abx work. She did receive [id number] once in ED. Patient was treated for pneumonia with levaquin and today she is off oxygen and was discharged home mira complete 4 more days of Levaquin. Assessment and Plan (1) Multifocal pneumonia: Code(s): J18.9 - Pneumonia, unspecified organism Status: Acute Assessment and Plan: Chest CT negative for a PE, showed patchy bilateral ground glass and tree-in-bud opacities consistent with multifocal pneumonia. WBC 6.8. Negative for flu, COVID, and RSV. culture negative completed 3 days of Levaquin discharged on 4 more days of Levaquin f/u with PCP in 3-5 days (2) Acute hypoxic respiratory failure, resolved Code(s): J96.01 - Acute respiratory failure with hypoxia Status: Acute Assessment and Plan: now on room air (3) Acute exacerbation of chronic obstructive pulmonary disease: Code(s): J44.1 - Chronic obstructive pulmonary disease with (acute) exacerbation Status: Acute Assessment and Plan: s/p bronchodilators counseled about smoking cessation (4) Chronic pain: Qualifiers: Chronic pain type: other chronic pain Qualified Code(s): G89.29 - Other chronic pain Code(s): G89.29 - Other chronic pain Status: Acute Assessment and Plan: [place] and Toradol for pain. Patient is followed by pain management outpatient. (5) Nicotine dependence: Qualifiers: Nicotine product type: cigarettes Substance use status: uncomplicated Qualified Code(s): F17.210 - Nicotine dependence, cigarettes, uncomplicated Code(s): F17.200 - Nicotine dependence, unspecified, uncomplicated Status: Acute Assessment and Plan: Refrain from smoking. Wearing nicotine patch, discussed importance of smoking cessation. (6) Nausea: Code(s): R11.0 - Nausea Status: Acute Assessment and Plan: resolved F/u with PCP in 3-5 days Time Spent with Patient Time attestation: Total time spent providing and/or coordinating discharge services: DS: Data Data Completed and Pending Labs on day of discharge: Labs from last 24 hours 05/22/24 05/22/24 05/22/24 12:50 10:29 10:29 Legionella Culture Cancelled Ur L.pneumophila Ag Pending Cancelled Urine Pneumococcal Ag Pending Preliminary micro results at discharge 05/22/24 12:49 Sputum Culture - Preliminary Sputum 05/21/24 11:06 Blood Culture - Preliminary Blood 05/21/24 11:06 Blood Culture - Preliminary Blood Discharge Plan Discharge Attending physician on discharge: Rosi Fish Discharging Clinician: Rosi Fish Anticipated Discharge Date/Time: 05/24/24 12:21 Patient Disposition: Home, Self-Care Activity: as tolerated Diet: as tolerated Patient Instructions: Antibiotic Form Stand Alone Forms: General Discharge Information Follow-up/Referrals: Juni Lopez, [Primary Care Provider] -
[2024-05-24 13:18] VITALS: PULSE 108; RESP 18
[2024-05-24 13:30] VITALS: PULSE 105; RESP 18
[2024-05-24 22:39] LABS: Pneumococcal Antigen Urine NOT DETECTED
== END 2024-05-24 13:50 | disposition home or self-care (01) | DRG 139 ==
LOC: ANHED 11:46 → ANH3MEDSUR 13:20
PROVIDERS: Internal Medicine; Nurse Practitioner Family; Admitting Provider Internal Medicine; Emergency Provider Emergency Medicine; PCP Family Medicine; Visit Provider Internal Medicine
DX: J18.9 Pneumonia, unspecified organism (principal); J44.0 Chronic obstructive pulmonary disease with (acute) lower respiratory infection; F31.9 Bipolar disorder, unspecified; G89.29 Other chronic pain; J44.1 Chronic obstructive pulmonary disease with (acute) exacerbation; G40.909 Epilepsy, unspecified, not intractable, without status epilepticus; J96.01 Acute respiratory failure with hypoxia; M19.90 Unspecified osteoarthritis, unspecified site; L30.9 Dermatitis, unspecified; K21.9 Gastro-esophageal reflux disease without esophagitis; E66.9 Obesity, unspecified; R11.0 Nausea; F17.210 Nicotine dependence, cigarettes, uncomplicated; Z20.822 Contact with and (suspected) exposure to COVID-19; Z68.43 Body mass index [BMI] 50.0-59.9, adult; Z90.49 Acquired absence of other specified parts of digestive tract; Z90.721 Acquired absence of ovaries, unilateral
CPT/HCPCS: 36415; 71046; 71275; 80048; 80053; 83735; 83880; 85025; 85380; 86140; 87040; 87070; 87205; 87449; 87637; 87899; 93005; 93970; 94640; 96365; 96375; 96376; 99285; A9270; G0378; G0379; J0696; J0780; J1885; J1956; J2919; J3010; Q9967

== ENCOUNTER 2024-10-11 10:56 | Outpatient (CLI) | payer OTHER, SELFPAY ==
[2024-10-11 11:09] LABS: Basophils Absolute Auto 0.03 K/mm3 (0.00-0.10); Basophils Percent Auto 0.3 % (0.0-1.0); Eosinophils Absolute Auto 0.18 K/mm3 (0.02-0.50); Eosinophils Percent Auto 1.9 % (1.0-6.0); Hematocrit 43.1 % (35.0-49.0); Hemoglobin 14.1 g/dL (12.0-15.0); Immature Granulocyte Absolute 0.05 K/mm3 (0.00-0.00); Immature Granulocyte Percent A 0.5 % (0.0-0.0); Lymphocytes Absolute Auto 2.18 K/mm3 (1.10-4.50); Lymphocytes Percent Auto 23.1 % (18.0-42.0); Mean Corpuscular HGB Conc 32.7 g/dL (32-36); Mean Corpuscular Hemoglobin 28.4 pg (27.0-31.0); Mean Corpuscular Volume 86.9 fL (78.0-102.0); Mean Platelet Volume 9.7 fl (9.2-11.8); Monocytes Absolute Auto 0.49 K/mm3 (0.10-0.90); Monocytes Percent Auto 5.2 % (2.0-11.0); Neutrophils Absolute Auto 6.51 K/mm3 (1.70-7.20); Platelet Count Result 221 K/mm3 (150-420); Red Blood Count 4.96 M/mm3 (4.20-5.40); Red Cell Distribution Width 16.1 % (11.6-14.4); White Blood Count 9.4 K/mm3 (4.8-10.8)
[2024-10-11 11:22] LABS: D Dimer 0.57 mg/L (0.19-0.50)
--- OUTSIDE RECORDS SUMMARY | 2024-10-11 11:29 | XMS_ITS ---
Care Plan - [facility] Created on: October 11, 2024 JOY DASKat Katie : 1985 Sex: Female Author Organization [facility] Address [address] [place] [address] Phone Care Team Providers Care Surface Supervisor Name Role Phone RENA SORIANO, LYNN Alcaraz Unavailable [phone] ROSENDO PECK DO Primary Care Provider [phone] ESTRADA SORIANO, NICHOLAS Unavailable [phone]
--- OUTSIDE RECORDS SUMMARY | 2024-10-11 11:29 | XMS_ITS | Clinical Summary ---
Author Organization [facility] Address [address] [place] [address] Phone Care Team Providers Care Nuclear Reactor Operator Name Role Phone RENA SORIANO, LYNN Alcaraz Unavailable [phone] ROSENDO PECK DO Primary Care Provider [phone] ESTRADA SORIANO, NICHOLAS Unavailable [phone] Reason for Visit and Chief Complaint * PHONE CALL Problems Includes: Problems addressed during this encounter and other active Problems All Visits Onset Date Resolved Date Provider Condition S tatus Bipolar Disorder Nos Unknown DEB CAMARENA VIOLIN TEACHER-FPA, SENIOR INSIGHT MANAGER-BC Active Last Documented On 2 11:56AM ; [facility] Esophageal Reflux Unknown DEB CAMARENA APR N-FPA, SENIOR INSIGHT MANAGER-BC Active Last Documented On 2 11:57AM ; [facility] 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 DEB CAMARENA VIOLIN TEACHER-FPA, F LENS ASSORTER-BC Active Last Documented On 2 11:43AM ; [facility] Plan of Treatment No Plan of Treatment Recorded Assessments Includes: Assessments from this encounter No Assessments Recorded Medical Equipment - Implanted Devices Includes: Current Devices No Medical Equipment Recorded Medications Includes: Medications discussed during this encounter and other current Medications Current Medications (continue as prescribed) DULoxetine HCl 60 MG Oral Capsule Delayed Release Particles 01/23/2023 Provider: DEB PACHECO SENIOR INSIGHT MANAGER-BC Diagnosis: Dorsalgia, unspe cified TAKE 1 CAPSULE BY MOUTH AT BEDTIME Last Documented On 3 2:59PM By DEB CALLE-JUNIE ; [facility] tiZANidine HCl 2 MG Oral Tablet 01/23/2023 Provider: BLANE GRANADOS Diagnosis: TAKE 1 TABLET BY MOUTH THREE TIMES DAILY NEEDED Last Documented On 3 8:40AM By DEB ARGUELLES ; [facility] oxyCODONE-Acetaminophen 10-3 25 MG Oral Tablet 01/03/2023 Provider: BLANE FROBES Diagnosis: 1/2-1 tablet as needed for s evere migraine, max 2 tablets per week Last Documented On 3 4:30PM By DEB ARGUELLES ; [facility] Buprenorphine 5 MCG/HR Transdermal Patch Weekly 12/08/2022 Provider: BLANE GRANADOS Diagnosis: Chronic pain syn drome apply 1 patch every 7 days, be sure to remove the old patch Last Documented On 3 12:46PM By DEB ARGUELLES ; [facility] Narcan 4 MG/0.1ML Nasal Liquid 12/08/2022 Provider: BLANE FORBES Diagnosis: Chronic pain syn drome 1 spray intranasally for jeff pected overdose Last Documented On 3 12:46PM By DEB ARGUELLES ; [facility] CeleBREX 200 MG Oral Capsule 11/28/2022 Provider: BLANE FORBES Diagnosis: Dorsalgia, unspe cified 1 capsule daily with a meal Last Documented On 3 12:46PM By DEB ARGUELLES ; [facility] hydrOXYzine HCl 50 MG Oral Tablet 10/04/2022 Provide r: ROSENDO PECK DO Diagnosis: Last Documented On 3 12:46PM By DEB ARGUELLES ; [facility] Symbicort 160-4.5 MCG/ACT Inhalation Aerosol 3 Provider: ROSENDO PECK DO Diagnosis: Last Documented On 3 4:46PM By DEB ARGUELLES ; [facility] Albuterol Sulfate HFA 108 (9 0 Base) MCG/ACT Inhalation Aerosol Solution 09/19/2022 Provider: ROSENDO ALARCON DO Diagnosis: Last Documented On 3 4:46PM By DEB CAMARENA [facility] ; [facility] SUMAtriptan Succinate 100 MG Oral Tablet 09/17/2022 Provider: NICHOLAS DORADO MD Diagnosis: Last Documented On 3 4:46PM By DEB CAMARENA [facility] ; [facility] Qulipta 60 MG Oral Tablet 08/08/2022 Provider: Diagnosis: Last Documented On 3 4:46PM By DEB CAMARENA [facility] ; [facility] RisperDAL 1 MG Oral Tablet 12/03/2021 Provider: Diagnosis: Last Documented On 2 11:52AM [facility] Pantoprazole Sodium 40 MG Oral Tablet Delayed Release 11/14/2021 Provider: Diagnosis: Last Documented On 2 11:52AM By DEB CAMARENA [facility] ; [facility] Sucralfate 1 GM Oral Tablet 10/18/2021 Provider: Diagnosis: Last Documented On 2 11:52AM By DEB CAMARENA [facility] ; [facility] Past Medications on file SUMAtriptan Succinate 50 MG Oral Tablet 07/28/2022 - 08/27/2022 Provider: DEB CAMARENA APRN-JUNIOR, [facility]- Diagnosis: Headache, unspec ified take 2 tablet at onset of he adache, may repeat after 2 hours, max 4 in 24 hours Last Documented On 2 8:43AM By DEB CAMARENA [facility] ; [facility] Medications Administered Includes: Administered Medications from this encounter No Administered Medications Recorded Results Includes: Results discussed during this encounter No Results Recorded For Specified Dates History of Present Illness Includes: History of Present Illness from this encounter No History of Present Illness Recorded Social History Description Last Updated No consumption of alcohol 12/03/2021 Last Documented On 3 10:29AM ; [facility] Not using drugs 12/03/2021 Last Documented On 3 10:29AM ; [facility] Smoking packs of cigarettes per day 2 Last Documented On 3 10:29AM ; [facility] Current smoker 12/03/2021 Last Documented On 3 10:29AM ; [facility] Smoking Status Unknown Procedures and Surgical History Surgical History Last Updated No Pacemaker 12/03/2021 Last Documented On 3 10:29AM ; [facility] Medical History Includes: Medical History addressed during this encounter Description Last Updated Has had a fall in the last 12 months. Last Documented On 3 10:29AM ; [facility] Denies a fear of falling. 12/03/2021 Last Documented On 3 10:29AM ; [facility] Currently wearing eyeglasses 12/03/2021 Last Documented On 3 10:29AM ; [facility] No Pain Pump 12/03/2021 Last Documented On 3 10:29AM ; [facility] No Spinal cord stimulator 12/03/2021 Last Documented On 3 10:29AM ; [facility] Please list all illnesses/co nditions you have been diagnosed with: Idopathic intercranial hypertension, seizures, stomach hernia,acid reflux disease,depression,anxiety,bipolor 12/03/2021 Last Documented On 3 10:29AM ; [facility] Please list all surgeries: C sections 12/09/06 12/10/07 01/19/2010. eptopic pregnacy 2 12/03/2021 Last Documented On 3 10:29AM ; [facility] Family History Includes: Family History addressed during this encounter Description Last Updated Family history of ischemic heart disease 12/03/2021 Last Documented On 3 10:29AM ; [facility] Fraternal history of reported family his tory of seizures 12/03/2021 Last Documented On 3 10:29AM ; [facility] Maternal history of reported family hist ory of seizures 12/03/2021 Last Documented On 3 10:29AM ; [facility] Sororal history of reported family histo ry of seizures 12/03/2021 Last Documented On 3 10:29AM ; [facility] Review of Systems Includes: Review of Systems from this encounter No Review of Systems Recorded Mental Status Includes: Mental Status from this encounter No Mental Status Recorded Functional Status Includes: Functional Status from this encounter No Functional Status Recorded Physical Exam Includes: Physical Exam from this encounter No Physical Exam Recorded Allergies Includes: Active Allergies Substance Type Reaction Onset Date Resolved Date Statu s Trimethoprim Allergy 12/03/2021 Active Last Documented On 3 10:33AM ; [facility] Sulfa Antibiotics Allergy 12/03/2021 A ctive Last Documented On 3 10:33AM ; [facility] Penicillins Allergy 12/03/2021 Active Last Documented On 3 10:33AM ; [facility] Morphine Derivatives Allergy 12/03/2021 Active Last Documented On 3 10:33AM ; [facility] Metoclopramide Allergy 12/03/2021 Acti ve Last Documented On 3 10:33AM ; [facility] Adhesive Tape Allergy 12/03/2021 Activ e Last Documented On 3 10:33AM ; [facility] Encounters Encounter Provider Location Date Check-In Time Check-Out Time Diagnosis * PHONE CALL DEB Anita CAMARENA APRN-JUNIOR, LUC-BC 12/15/2022 10:29AM 11:59PM Insurance Includes: Active Insurance Policies Plan Name Member ID Group # Subscriber Relationship Effect enriqueta Dates 1 - [facility] [id number] LAURIE DAS Self Clinical Notes Includes: Clinical Notes from this encounter * Progress note Date Encounter Last Documented by 12/15/2022 * PHONE CALL Last documented on 12/15/2022; 1:54 PM, DEB Howard NICOL VIOLIN TEACHER-FPA, SENIOR INSIGHT MANAGER-BC; [facility] Active Problems & Conditions - Bipolar Disorder Nos - Esophageal Reflux - Idiopathic Intracranial Hypertension (Pseudotumor Cerebri) Chief Complaint Phone Call - Chief Concern: reason for call:Patient called, very upset. She states that she has used 1 of the pain patches for 2 days and is not getting any relief at all. She is in severe pain and wants to speak with you or your nurse. Please advise. pt phone # for return call: date/initials:12/15/2022 CP. Current Medication - Albuterol Sulfate HFA 108 (90 Base) MCG/ACT Inhalation Aerosol Solution 25 days, 0 refills - Amitriptyline HCl 50 MG Oral Tablet One tablet at bed time, 30 days, 0 refills - Buprenorphine 5 MCG/HR Transdermal Patch Weekly apply 1 patch every 7 days, be sure to remove the old patch, 30 days, 0 refills - CeleBREX 200 MG Oral Capsule 1 capsule daily with a meal, 30 days, 1 refills - DULoxetine HCl 60 MG Oral Capsule Delayed Release Particles TAKE 1 CAPSULE BY MOUTH AT BEDTIME, 30 days, 0 refills - hydrOXYzine HCl 50 MG Oral Tablet 30 days, 0 refills - Narcan 4 MG/0.1ML Nasal Liquid 1 spray intranasally for suspected overdose, 30 days, 0 refills - oxyCODONE-Acetaminophen 10-325 MG Oral Tablet 1/2-1 tablet as needed for severe migraine, max 2 tablets per week, 30 days, 0 refills - Pantoprazole Sodium 40 MG Oral Tablet Delayed Release One tablet daily 30 days, 0 refills - Pregabalin 150 MG Oral Capsule 1 CAPSULE TWO TIMES A DAY, 30 days, 0 refills - Pregabalin 75 MG Oral Capsule 1 capsule 2times daily for 4 days then at bedtime only for 4 days then stop, 8 days, 0 refills - Qulipta 60 MG Oral Tablet One tablet daily 0 days, 0 refills - RisperDAL 1 MG Oral Tablet One tablet daily 0 days, 0 refills - Sucralfate 1 GM Oral Tablet One tablet daily 30 days, 0 refills - SUMAtriptan Succinate 100 MG Oral Tablet 30 days, 0 refills - Symbicort 160-4.5 MCG/ACT Inhalation Aerosol 30 days, 0 refills - tiZANidine HCl 2 MG Oral Tablet One tablet three times a day as needed, 30 days, 0 refills Past Medical/Surgical History Reported: Please list all illnesses/conditions you have been diagnosed with: Idopathic intercranial hypertension, seizures, stomach hernia,acid reflux disease,depression,anxiety,bipolor and Please list all surgeries: C sections 12/09/06 12/10/07 01/19/2010. eptopic pregnacy 2. Medical: Currently wearing eyeglasses. No Spinal cord stimulator and no Pain Pump. Surgical / Procedural: No Pacemaker. Physical Trauma: Has had a fall in the last 12 months. Denies a fear of falling. Social History Tobacco use: Cigarette smoking smoking packs of cigarettes per day 2. Alcohol: No consumption of alcohol. Drug Use: Not using drugs. Allergies - Adhesive Tape - Metoclopramide - Morphine Derivatives - Penicillins - Sulfa Antibiotics - Trimethoprim Family History Ischemic heart disease Maternal: Reported family history of seizures Fraternal: Reported family history of seizures Sororal: Reported family history of seizures Care Team - NICHOLAS DORADO MD - Neurology - LYNN CHASE MD - Orthopedic Health Reminders - Assess Tobacco Use satisfied 12/15/2022.
--- OUTSIDE RECORDS SUMMARY | 2024-10-11 11:29 | XMS_ITS | Clinical Summary ---
Author Organization [facility] Address Formerly [facility] [place] [place] [address] [place] [address] Care Team Providers Care Streetsweeper Operator Name Role Phone JessicaMarysarah UGALDE Primary Care Provider Allergies Active Allergy Reactions Criticality Noted Date Comments Tape Itching 01/06/2021 Sulfamethoxazole-Trimethoprim Throat swelling 0 01/06/2021 Morphine Hives 01/06/2021 Penicillins Throat swelling 01/06/2021 Sulfa Antibiotics Throat swelling 01/06/2021 Medications propranolol 20 MG tablet Take 20 mg by mouth 3 (three) times daily. Active risperiDONE 0.5 MG tablet Take 0.5 mg by mouth 2 (two) times daily. Active hydrOXYzine 50 MG tablet Take 50 mg by mouth 3 (three) times daily as needed for Itching. Active PARoxetine 30 MG tablet Take 30 mg by mouth every morning. Active traZODone 50 MG tablet Take 50 mg by mouth nightly at bedtime. Active oxyCODONE-aceta minophen 10-325 MG tablet Take 1 tablet by mouth every 4 (four) hours as needed for Pain. Active orphenadrine ER (NORFLEX) 100 MG TABLET SR 12 HR 12 hr tablet Take 1 tablet (100 mg total) by mouth 2 (two) times daily as needed (muscle spasm). 20 tablet 4 Active methylPREDNISol one, KRAIG, (MEDROL DOSEPAK) 4 MG tablet Follow package directions 1 each 4 Active famotidine (PEPCID) 20 MG tablet Take 1 tablet (20 mg total) by mouth 2 (two) times daily. 20 tablet 5 Active ofloxacin (FLOXIN) 0.3 % otic solution Place 5 drops into both ears daily for 10 days. 10 mL 5 10/07/19 25 predniSONE 50 MG tablet Take 1 tablet (50 mg total) by mouth daily for 10 days. 10 tablet 5 10/07/19 25 azithromycin (ZITHROMAX) 250 MG tablet Take 2 tablets by mouth on day one then 1 daily for four days. 6 tablet 5 10/02/19 25 Encounters Date Type Department Care Team Description 09/27/2024 3:45 PM [employer] [facility] - 09/27/2024 4:22 PM [employer] [employer] [facility] Emergency [facility] Emergency Room [address] [place] [address] Kelly Demarco MD Earache Discharge Disposition: Home or Self Care (Routine Discharge) 09/27/2024 Travel from Last 3 Months Social History Tobacco Use Types Packs/Day Years Used Date Smoking Tobacco: Every Day Cigarettes Smokeless Tobacco: Never Alcohol Use Standard Drinks/Week Comments Not Currently 0 (1 standard drink = 0.6 oz pur e alcohol) Comments Unknown Sex and Gender Information Value Date Recorded Sex Assigned at Not on file Legal Sex Female 4:57 PM CDT Gender Identity Not on file Sexual Orientation Not on file Last Filed Vital Signs Vital Sign Reading Time Taken Comments Blood Pressure 117/50 09/27/2024 3:50 PM [employer] Pulse 132 09/27/2024 3:50 PM [employer] Temperature 36.6 ??C (97.8 ??F) 09/27/2024 3:50 PM CS T Respiratory Rate 18 09/27/2024 3:50 PM [employer] Oxygen Saturation 94% 09/27/2024 3:52 PM [employer] Inhaled Oxygen Concentration - - Weight 140.6 kg (310 lb) 09/27/2024 3:50 PM [employer] Height 152.4 cm (5') 09/27/2024 3:50 PM [employer] Body Mass Index 60.54 09/27/2024 3:50 PM [employer] Plan of Treatment Health Maintenance Due Date Last Done Comments Cervical Cancer Screening Pa p Smear (Age 30 to 64) Every 3 Years 1986 Annual Physical 1989 Pneumococcal Vaccine: Pediat rics (0 to 5 Years) and At-Risk Patients (6 to 64 Years) (1 of 2 - PCV) 1992 Hepatitis C 2004 DTaP, Tdap and Td Vaccines ( 1 - Tdap) 2005 Hepatitis B Vaccines (1 of 3 - 19+ 3-dose series) 2005 Cervical Cancer Screening Pa p with HPV Testing (Age 30 to 64) Every 5 Years 2016 Cervical Cancer Screening with HPV 2016 COVID-19 Vaccine (2 - 2023-2 5 season) 2024 02/01/2021 Influenza Adult (#1) 2024 HPV Vaccines Aged Out No longer eligi ble based on patient's age to complete this topic Meningococcal B Vaccine Aged Out No l onger eligible based on patient's age to complete this topic Meningococcal Vaccine Aged Out No javier leroy eligible based on patient's age to complete this topic RSV Immunizations Under 20 Months Aged Out No longer eligible based on patient's age to complete this topic Insurance [employer] Care Teams Streetsweeper Operator Relationship Specialty Start Date End Date Juni Lopez DO [address] [place] [address] PCP - General FAMILY PRACTICE 03/03/24
--- OUTSIDE RECORDS SUMMARY | 2024-10-11 11:29 | XMS_ITS | Clinical Summary ---
Author Organization [facility] Address [address] [place] [address] Phone Care Team Providers Care Hide Sorter Name Role Phone RENA SORIANO, LYNN Alcaraz [...] tatus Bipolar Disorder Nos Unknown DEB CAMARENA ZIGZAG STITCHER-FPA, PRODUCT DEVELOPMENT ENGINEER-BC Active Last Documented On 2 11:56AM ; [facility] Esophageal Reflux Unknown DEB CAMARENA APR N-FPA, PRODUCT DEVELOPMENT ENGINEER-BC Active Last Documented On 2 11:57AM ; [facility] 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 DEB CAMARENA ZIGZAG STITCHER-FPA, F LAUNCH CHECK OUT-BC Active Last Documented On 2 11:43AM ; [facility] Plan of Treatment No Plan of Treatment Recorded Assessments Includes: Assessments from this encounter No Assessments Recorded Medical Equipment - Implanted Devices Includes: Current Devices No Medical Equipment Recorded Medications Includes: Medications discussed during this encounter and other current Medications Current Medications (continue as prescribed) DULoxetine HCl 60 MG Oral Capsule Delayed Release Particles 01/23/2023 Provider: DEB PACHECO PRODUCT DEVELOPMENT ENGINEER-BC Diagnosis: Dorsalgia, unspe cified TAKE 1 CAPSULE BY MOUTH AT BEDTIME Last Documented On 3 2:59PM By DEB CALLE-JUNIE ; [facility] tiZANidine HCl 2 MG Oral Tablet 01/23/2023 Provider: BLANE GRANADOS Diagnosis: TAKE 1 TABLET BY MOUTH THREE TIMES DAILY NEEDED Last Documented On 3 8:40AM By DEB ARGUELLES ; [facility] oxyCODONE-Acetaminophen 10-3 25 MG Oral Tablet 01/03/2023 Provider: BLANE FORBES Diagnosis: 1/2-1 tablet as needed for s evere migraine, max 2 tablets per week Last Documented On 3 4:30PM By DEB ARGUELLES ; [facility] Buprenorphine 5 MCG/HR Transdermal Patch Weekly 12/08/2022 Provider: BLANE GRANADOS Diagnosis: Chronic pain syn drome apply 1 patch every 7 days, be sure to remove the old patch Last Documented On 3 12:46PM By DEB ARGUELLES ; [facility] Narcan 4 MG/0.1ML Nasal Liquid 12/08/2022 Provider: BLANE FORBES Diagnosis: Chronic pain syn drome 1 spray intranasally for jeff pected overdose Last Documented On 3 12:46PM By DEB ARGUELLES ; [facility] CeleBREX 200 MG Oral Capsule 11/28/2022 Provider: BLANE FORBES Diagnosis: Dorsalgia, unspe cified 1 capsule daily with a meal Last Documented On 3 12:46PM By DEB ARGUELLES ; [facility] hydrOXYzine HCl 50 MG Oral Tablet 10/04/2022 Provide r: ROSENDO PECK DO Diagnosis: Last Documented On 3 12:46PM By DEB ARGUELLES ; [facility] Symbicort 160-4.5 MCG/ACT Inhalation Aerosol 3 Provider: ROSENDO PECK DO Diagnosis: Last Documented On 3 4:46PM By DEB ARGUELLES ; [facility] Albuterol Sulfate HFA 108 (9 0 Base) MCG/ACT Inhalation Aerosol Solution 09/19/2022 Provider: ROSENDO ALARCON DO Diagnosis: Last Documented On 3 4:46PM By DEB CAMARENA [facility] ; [facility] SUMAtriptan Succinate 100 MG Oral Tablet 09/17/2022 Provider: NICHOLAS DORADO MD Diagnosis: Last Documented On 3 4:46PM By DEB CAMARENA [facility] ; [facility] Qulipta 60 MG Oral Tablet 08/08/2022 Provider: Diagnosis: Last Documented On 3 4:46PM By DEB CAMARENA [facility] ; [facility] RisperDAL 1 MG Oral Tablet 12/03/2021 Provider: Diagnosis: Last Documented On 2 11:52AM [facility] Pantoprazole Sodium 40 MG Oral Tablet Delayed Release 11/14/2021 Provider: Diagnosis: Last Documented On 2 11:52AM By DEB CAMARENA [facility] ; [facility] Sucralfate 1 GM Oral Tablet 10/18/2021 Provider: Diagnosis: Last Documented On 2 11:52AM By DEB CAMARENA [facility] ; [facility] Past Medications on file SUMAtriptan Succinate 50 MG Oral Tablet 07/28/2022 - 08/27/2022 Provider: DEB CAMARENA APRN-JUNIOR, [facility]- Diagnosis: Headache, unspec ified take 2 tablet at onset of he adache, may repeat after 2 hours, max 4 in 24 hours Last Documented On 2 8:43AM By DEB CAMARENA [facility] ; [facility] Medications Administered Includes: Administered Medications from this encounter No Administered Medications Recorded Results Includes: Results discussed during this encounter No Results Recorded For Specified Dates History of Present Illness Includes: History of Present Illness from this encounter No History of Present Illness Recorded Social History Description Last Updated No consumption of alcohol 12/03/2021 Last Documented On 3 4:14PM ; [facility] Not using drugs 12/03/2021 Last Documented On 3 4:14PM ; [facility] Smoking packs of cigarettes per day 2 Last Documented On 3 4:14PM ; [facility] Current smoker 12/03/2021 Last Documented On 3 4:14PM ; [facility] Smoking Status Unknown Procedures and Surgical History Surgical History Last Updated No Pacemaker 12/03/2021 Last Documented On 3 4:14PM ; [facility] Medical History Includes: Medical History addressed during this encounter Description Last Updated Has had a fall in the last 12 months. Last Documented On 3 4:14PM ; [facility] Denies a fear of falling. 12/03/2021 Last Documented On 3 4:14PM ; [facility] Currently wearing eyeglasses 12/03/2021 Last Documented On 3 4:14PM ; [facility] No Pain Pump 12/03/2021 Last Documented On 3 4:14PM ; [facility] No Spinal cord stimulator 12/03/2021 Last Documented On 3 4:14PM ; [facility] Please list all illnesses/co nditions you have been diagnosed with: Idopathic intercranial hypertension, seizures, stomach hernia,acid reflux disease,depression,anxiety,bipolor 12/03/2021 Last Documented On 3 4:14PM ; [facility] Please list all surgeries: C sections 12/09/06 12/10/07 01/19/2010. eptopic pregnacy 2 12/03/2021 Last Documented On 3 4:14PM ; [facility] Family History Includes: Family History addressed during this encounter Description Last Updated Family history of ischemic heart disease 12/03/2021 Last Documented On 3 4:14PM ; [facility] Fraternal history of reported family his tory of seizures 12/03/2021 Last Documented On 3 4:14PM ; [facility] Maternal history of reported family hist ory of seizures 12/03/2021 Last Documented On 3 4:14PM ; [facility] Sororal history of reported family histo ry of seizures 12/03/2021 Last Documented On 3 4:14PM ; [facility] Review of Systems [...] Active Last Documented On 3 10:33AM ; [facility] Sulfa Antibiotics Allergy 12/03/2021 A ctive Last Documented On 3 10:33AM ; [facility] Penicillins Allergy 12/03/2021 Active Last Documented On 3 10:33AM ; [facility] Morphine Derivatives Allergy 12/03/2021 Active Last Documented On 3 10:33AM ; [facility] Metoclopramide Allergy 12/03/2021 Acti ve Last Documented On 3 10:33AM ; [facility] Adhesive Tape Allergy 12/03/2021 Activ e Last Documented On 3 10:33AM ; [facility] Encounters Encounter Provider Location Date Check-In Time Check-Out Time Diagnosis * PHONE CALL DEB Anita CAMARENA APRN-JUNIOR, [facility] 12/13/2022 4:13PM 11:59PM Insurance Includes: Active Insurance Policies Plan Name Member ID Group # Subscriber Relationship Effect enriqueta Dates 1 - [facility] [id number] LAURIE DAS Self Clinical Notes Includes: Clinical Notes from this encounter * Progress note Date Encounter Last Documented by 12/13/2022 * PHONE CALL Last documented on 12/13/2022; 4:44 PM, DEB Howard NICOL ZIGZAG STITCHER-FPA, PRODUCT DEVELOPMENT ENGINEER-BC; [facility] Active Problems & Conditions - Bipolar Disorder Nos - Esophageal Reflux - Idiopathic Intracranial Hypertension (Pseudotumor Cerebri) Chief Complaint Phone Call - Chief Concern: reason for call: Patient called today to let us know she picked up her Buprenorphine patches. Wanted to make sure she can take it with the Oxycodone. Per our conversation I informed she could still take the Oxycodone as prescribed. Patient also wanted to know if Buprenorphine was considered a Opoid. Informed it is. Patient has concers with starting this medication. She will put a patch on today and see how she does. date/initials: 12/13/2022 OCC THERAPY ASST. Current Medication - Albuterol Sulfate HFA 108 [...] Health Reminders - Assess Tobacco Use satisfied 12/13/2022.
--- OUTSIDE RECORDS SUMMARY | 2024-10-11 11:29 | XMS_ITS | Clinical Summary ---
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 Active Last Documented On 2 11:56AM ; [facility] Esophageal Reflux Unknown DEB CAMARENA APR N-FPA, 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 Active Last Documented On 2 11:57AM ; [facility] 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, 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 Active Last Documented On 2 11:43AM ; [facility] Plan of Treatment No Plan of Treatment Recorded Assessments Includes: Assessments from this encounter No Assessments Recorded Medical Equipment - Implanted Devices Includes: Current Devices No Medical Equipment Recorded Medications Includes: Medications discussed during this encounter and other current Medications Discontinued / Stopped on this date DEB CAMARENA APRN-FPKael 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 on 12/08/2022 Pregabalin 75 MG Oral Capsule Provider: DEB CAMARENA APRN- FPKael 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 Diagnosis: Chronic pain syn drome Last Documented On 3 4:25PM By DEB JIMENEZBC ; [facility] oxyCODONE-Acetaminophen 10-3 25 MG Oral Tablet Provider: BLANE FORBES Diagnosis: Last Documented On 3 4:28PM By DEB ARGUELLES ; [facility] Amitriptyline HCl 50 MG Oral Tablet Provider: BLANE FORBES Diagnosis: Last Documented On 3 4:25PM By DEB ARGUELLES ; [facility] Pregabalin 150 MG Oral Capsule Provider: BLANE FORBES Diagnosis: Radiculopathy, l umbar region Last Documented On 3 4:26PM By DEB ARGUELLES ; [facility] New / Renewed during this visit BLANE RGANADOS on 01/03/2023 oxyCODONE-Acetaminophen 10-3 25 MG Oral Tablet Provider: BLANE GRANADOS 30 day supply: 8 tablet, 0 refills Diagnosis: 1/2-1 tablet as needed for s evere migraine, max 2 tablets per week Pharmacy: [address], [phone] Last Documented On 3 4:30PM By DEB ARGUELLES ; [facility] Current Medications (continue as prescribed) DULoxetine HCl 60 MG Oral Capsule Delayed Release Particles 01/23/2023 Provider: BLANE FORBES Diagnosis: Dorsalgia, unspe cified TAKE 1 CAPSULE BY MOUTH AT BEDTIME Last Documented On 3 2:59PM By DEB ARGUELLES ; [facility] tiZANidine HCl 2 MG Oral Tablet 01/23/2023 Provider: BLANE GRANADOS Diagnosis: TAKE 1 TABLET BY MOUTH THREE TIMES DAILY NEEDED Last Documented On 3 8:40AM By DEB ARGUELLES ; [facility] Buprenorphine 5 MCG/HR Transdermal Patch Weekly 12/08/2022 Provider: LUC GRANADOS-BC Diagnosis: Chronic pain syn drome apply 1 patch every 7 days, be sure to remove the old patch Last Documented On 3 12:46PM By DEB ARGUELLES ; [facility] Narcan 4 MG/0.1ML Nasal Liquid 12/08/2022 [facility] Diagnosis: Chronic pain syn drome 1 spray intranasally for jeff pected overdose Last Documented On 3 12:46PM [facility] CeleBREX 200 MG Oral Capsule 11/28/2022 Provider: DEB PACHECO [facility] Diagnosis: Dorsalgia, unspe cified 1 capsule daily with a meal Last Documented On 3 12:46PM [facility] hydrOXYzine HCl 50 MG Oral Tablet 10/04/2022 Provide r: ROSENDO PECK DO Diagnosis: Last Documented On 3 12:46PM [facility] ; [facility] Symbicort 160-4.5 MCG/ACT Inhalation Aerosol 3 Provider: ROSENDO PECK DO Diagnosis: Last Documented On 3 4:46PM By DEB CALLEJUNIE ; [facility] Albuterol Sulfate HFA 108 (9 0 Base) MCG/ACT Inhalation Aerosol Solution 09/19/2022 Provider: ROSENDO ALARCON DO Diagnosis: Last Documented On 3 4:46PM By DEB ARGUELLES ; [facility] SUMAtriptan Succinate 100 MG Oral Tablet 09/17/2022 Provider: NICHOLAS DORADO MD Diagnosis: Last Documented On 3 4:46PM By DEB ARGUELLES ; [facility] Qulipta 60 MG Oral Tablet 08/08/2022 Provider: Diagnosis: Last Documented On 3 4:46PM By DEB ARGUELLES ; [facility] RisperDAL 1 MG Oral Tablet 12/03/2021 Provider: Diagnosis: Last Documented On 2 11:52AM By DEB CAMARENA 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 ; [facility] Pantoprazole Sodium 40 MG Oral Tablet Delayed Release 11/14/2021 Provider: Diagnosis: Last Documented On 2 11:52AM By DEB RUIZP-BC ; [facility] Sucralfate 1 GM Oral Tablet 10/18/2021 Provider: Diagnosis: Last Documented On 2 11:52AM By DEB CAMARENA 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 ; [facility] Past Medications on file SUMAtriptan Succinate 50 MG Oral Tablet 07/28/2022 - 08/27/2022 Provider: 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, 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 Diagnosis: Headache, unspec ified take 2 tablet at onset of he adache, may repeat after 2 hours, max 4 in 24 hours Last Documented On 2 8:43AM By DEB CAMARENA 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 ; [facility] Medications Administered Includes: Administered Medications from this encounter No Administered Medications Recorded Results Includes: Results discussed during this encounter No Results Recorded For Specified Dates History of Present Illness Includes: History of Present Illness from this encounter No History of Present Illness Recorded Social History Description Last Updated No consumption of alcohol 12/03/2021 Last Documented On 3 3:54PM ; [facility] Not using drugs 12/03/2021 Last Documented On 3 3:54PM ; [facility] Smoking packs of cigarettes per day 2 Last Documented On 3 3:54PM ; [facility] Current smoker 12/03/2021 Last Documented On 3 3:54PM ; [facility] Smoking Status Unknown Procedures and Surgical History Surgical History Last Updated No Pacemaker 12/03/2021 Last Documented On 3 3:54PM ; [facility] Medical History Includes: Medical History addressed during this encounter Description Last Updated Has had a fall in the last 12 months. Last Documented On 3 3:54PM ; [facility] Denies a fear of falling. 12/03/2021 Last Documented On 3 3:54PM ; [facility] Currently wearing eyeglasses 12/03/2021 Last Documented On 3 3:54PM ; [facility] No Pain Pump 12/03/2021 Last Documented On 3 3:54PM ; [facility] No Spinal cord stimulator 12/03/2021 Last Documented On 3 3:54PM ; [facility] Please list all illnesses/co nditions you have been diagnosed with: Idopathic intercranial hypertension, seizures, stomach hernia,acid reflux disease,depression,anxiety,bipolor 12/03/2021 Last Documented On 3 3:54PM ; [facility] Please list all surgeries: C sections 12/09/06 12/10/07 01/19/2010. eptopic pregnacy 2 12/03/2021 Last Documented On 3 3:54PM ; [facility] Family History Includes: Family History addressed during this encounter Description Last Updated Family history of ischemic heart disease 12/03/2021 Last Documented On 3 3:54PM ; [facility] Fraternal history of reported family his tory of seizures 12/03/2021 Last Documented On 3 3:54PM ; [facility] Maternal history of reported family hist ory of seizures 12/03/2021 Last Documented On 3 3:54PM ; [facility] Sororal history of reported family histo ry of seizures 12/03/2021 Last Documented On 3 3:54PM ; [facility] Review of Systems Includes: Review of [...] Active Last Documented On 3 10:33AM ; [facility] Sulfa Antibiotics Allergy 12/03/2021 A ctive Last Documented On 3 10:33AM ; [facility] Penicillins Allergy 12/03/2021 Active Last Documented On 3 10:33AM ; [facility] Morphine Derivatives Allergy 12/03/2021 Active Last Documented On 3 10:33AM ; [facility] Metoclopramide Allergy 12/03/2021 Acti ve Last Documented On 3 10:33AM ; [facility] Adhesive Tape Allergy 12/03/2021 Activ e Last Documented On 3 10:33AM ; [facility] Encounters Encounter Provider Location Date Check-In Time Check-Out Time Diagnosis RX ISSUE/REFILL DEB Anita NICOL NIGHT TIME 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, 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 01/03/2023 3:54PM 11:59PM Insurance Includes: Active Insurance Policies Plan Name Member ID Group # Subscriber Relationship Effect enriqueta Dates 1 - [place] [employer] [facility] [id number] LAURIE Gill Clinical Notes Includes: Clinical Notes from this encounter * Progress note Date Encounter Last Documented by 01/03/2023 RX ISSUE/REFILL Last documented on 01/03/2023; 4:28 PM, 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, 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; [facility] Active Problems & Conditions - Bipolar Disorder Nos - Esophageal Reflux - Idiopathic Intracranial Hypertension (Pseudotumor Cerebri) Chief Complaint Phone Call - Chief Concern: Reason for call:RX REFILL Patient is requesting a refill on PERCOCET 10 ~How is medication taken? 2 WEEKLY ~How many are left?1/2 Risk Assessment Score: MOD ~[place]:12/05/22 Last Office Visit: 12/08/22 ~ pt phone # for Return call: ~Last Drug Screen:12/08/22 ~Date/Initials: 01/03/23 CB. Current Medication - Albuterol Sulfate HFA 108 (90 Base) MCG/ACT Inhalation Aerosol Solution 25 days, 0 refills - Buprenorphine 5 MCG/HR [...] suspected overdose, 30 days, 0 refills - Pantoprazole Sodium 40 MG Oral Tablet Delayed Release One tablet daily 30 days, 0 refills - Qulipta 60 MG [...] seizures Sororal: Reported family history of seizures Plan StartCited - Other oxyCODONE-Acetaminophen 10-325 MG tablet 1/2-1 tablet as needed for severe migraine, max 2 tablets per week, 30 days, 0 refills EndCited Care Team - NICHOLAS DORADO MD - Neurology - LYNN CHASE MD - Orthopedic Health Reminders - Assess Tobacco Use satisfied 01/03/2023.
--- OUTSIDE RECORDS SUMMARY | 2024-10-11 11:29 | XMS_ITS | Clinical Summary ---
Author Organization [facility] Address [address] [place] [address] Phone Care Team Providers Care 3D Artist Name Role Phone RENA SORIANO, LYNN Alcaraz Unavailable [phone] ROSENDO PECK DO Primary Care Provider [phone] ESTRADA SORIANO, NICHOLAS Unavailable [phone] Reason for Visit and Chief Complaint The Chief Complaint is: 3 month follow up Problems Includes: Problems addressed during this encounter and other active Problems Current Visit Onset Date Resolved Date Provider Conditio n Status Idiopathic Intracranial Hypertension (Pseudotumor Cerebri) Unknown 01/27/2022 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 Urine drug testing is ordered to monitor opioid use and ongoing candidacy, verify compliant use of controlled substances, and monitor for use of illicit substances as these may result in harmful interactions. - Last Documented On 12/10/2022 12:47PM ; [facility] Instructions to patient Intervention and counseling on cessation of tobacco use : Patient recieved smoking cessation handout Last Documented On 3 10:22AM ; [facility] Education and Decision Aids were provided during visit for: Pill Count: six Last Documented On 3 10:33AM ; [facility] Assessments Includes: Assessments from this encounter Findings - [E66.8 - Other obesity] Morbid obesity - Last Documented On 12/10/2022 12:47PM ; [facility] - [M25.561 - Pain in right knee] Arthralgia of the right knee/patella/tibia/fibula - Last Documented On 12/10/2022 12:47PM ; [facility] - [M25.562 - Pain in left knee] Arthralgia of the left knee/patella/tibia/fibula - Last Documented On 12/10/2022 12:47PM ; [facility] - [M54.9 - Dorsalgia, unspecified] DORSALGIA - Last Documented On 12/10/2022 12:47PM ; [facility] - [M47.896 - Other spondylosis, lumbar region] Lumbar spondylosis - Last Documented On 12/10/2022 12:47PM ; [facility] - [G44.89 - Other headache syndrome] Chronic daily headache - Last Documented On 12/10/2022 12:47PM ; 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 Medical Equipment - Implanted Devices Includes: Current Devices No Medical Equipment Recorded Medications Includes: Medications discussed during this encounter and other current Medications Discontinued / Stopped on this date HERMELINDA VILLAREAL MD on 10/28/2022 Lucemyra 0.18 MG Oral Tablet Provider: HERMELINDA VILLAREAL MD Diagnosis: Last Documented On 3 10:40AM By DEB ARGUELLES ; [facility] Amitriptyline HCl 25 MG Oral Tablet Provider: BLANE FORBES Diagnosis: Chronic pain syn drome Last Documented On 3 10:33AM By Ratna STUART ; [facility] New / Renewed during this visit BLANE GRANADOS on 12/08/2022 Pregabalin 75 MG Oral Capsule Provider: BLANE FORBES 8 day supply: 12 capsule, 0 refills Diagnosis: Chronic pain syndrome 1 capsule 2times daily for 4 days then at bedtime only for 4 days then stop Pharmacy: [address], [phone] - Last Documented On 3 4:25PM By DEB ARGUELLES ; [facility] Buprenorphine 5 MCG/HR Transdermal Patch Weekly Provider: BLANE GRANADOS 30 day supply: 4 patch, 0 refills Diagnosis: Chronic pain syndrome apply 1 patch every 7 days, be sure to remove the old patch Pharmacy: [address], [phone] - Last Documented On 3 12:46PM By DEB ARGUELLES ; [facility] Narcan 4 MG/0.1ML Nasal Liquid Provider: BLANE GRANADOS 30 day supply: 2 each, 0 refills Diagnosis: Chronic pain syndrome 1 spray intranasally for jeff pected overdose Pharmacy: [address], [phone] - Last Documented On 3 12:46PM By DEB ARGUELLES ; [facility] Current Medications (continue as prescribed) DULoxetine HCl 60 MG Oral Capsule Delayed Release Particles 01/23/2023 Provider: BLANE FORBES Diagnosis: Dorsalgia, unspe cified TAKE 1 CAPSULE BY MOUTH AT BEDTIME Last Documented On 3 2:59PM By DEB ARGUELLES ; [facility] tiZANidine HCl 2 MG Oral Tablet 01/23/2023 Provider: SARA GRANADOSJUNIE Diagnosis: TAKE 1 TABLET BY MOUTH THREE TIMES DAILY NEEDED Last Documented On 3 8:40AM By DEB ARGUELLES ; [facility] oxyCODONE-Acetaminophen 10-3 25 MG Oral Tablet 01/03/2023 Provider: BLANE FORBES Diagnosis: 1/2-1 tablet as needed for s evere migraine, max 2 tablets per week Last Documented On 3 4:30PM By DEB ARGUELLES ; [facility] CeleBREX 200 MG Oral Capsule 11/28/2022 [facility] Diagnosis: Dorsalgia, unspe cified 1 capsule daily with a meal Last Documented On 3 12:46PM By DEB ARGUELLES ; [facility] hydrOXYzine HCl 50 MG Oral Tablet 10/04/2022 Provide r: ROSENDO PECK DO Diagnosis: Last Documented On 3 12:46PM By DEB ARGUELLES ; [facility] Symbicort 160-4.5 MCG/ACT Inhalation Aerosol 3 Provider: ROSENDO PECK DO Diagnosis: Last Documented On 3 4:46PM By DEB ARGUELLES ; [facility] Albuterol Sulfate HFA 108 (9 0 Base) MCG/ACT Inhalation Aerosol Solution 09/19/2022 Provider: ROSENDO ALARCON DO Diagnosis: Last Documented On 3 4:46PM By DEB ARGUELLES ; [facility] SUMAtriptan Succinate 100 MG Oral Tablet 09/17/2022 Provider: NICHOLAS ANDERSON MD Diagnosis: Last Documented On 3 4:46PM By DEB ARGUELLES ; [facility] Qulipta 60 MG Oral Tablet 08/08/2022 Provider: Diagnosis: Last Documented On 3 4:46PM By DEB ARGUELLES ; [facility] RisperDAL 1 MG Oral Tablet 12/03/2021 Provider: Diagnosis: Last Documented On 2 11:52AM By DEB ARGUELLES ; [facility] Pantoprazole Sodium 40 MG Oral Tablet Delayed Release 11/14/2021 Provider: Diagnosis: Last Documented On 2 11:52AM By DEB ARGUELLES ; [facility] Sucralfate 1 GM Oral Tablet 10/18/2021 Provider: Diagnosis: Last Documented On 2 11:52AM By DEB ARGUELLES ; [facility] Past Medications on file SUMAtriptan Succinate 50 MG Oral Tablet 07/28/2022 - 08/27/2022 Provider: BLANE GRANADOS Diagnosis: Headache, unspec ified take 2 tablet at onset of he adache, may repeat after 2 hours, max 4 in 24 hours Last Documented On 2 8:43AM By DEB ARGUELLES ; [facility] Medications Administered Includes: Administered Medications from this encounter No Administered Medications Recorded Vital Signs Includes: Vital Signs from this encounter Vital Name 12/08/2022 09:33A Blood Pressure Sitting R 118/64 BP Cuff Size Large Pulse Rate-Sitting (bpm) 101 Temp-Oral (F) 97 Height (in) 61 Weight (lb) 279 Body Mass Index 52.7 Body Surface Area 2.2 Pain Level 8 Oxygen Saturation (%) 97 Last Documented: On 12/08/2022 10:36A M ; [facility] Results Includes: Results discussed during this encounter Drugs of abuse screen [facility] Ordered by TONY GRANADOS on 12/08/2022 Collected: Reported: 12/08/2022 12:44 Last Documented On 3 1:45PM ; [facility] Reviewed on 12/08/2022; All test results are final unless otherwise noted. Lot # & Exp. Date [id number] EXP 01/01/24 (NEG) N (Normal) Last Documented On 3 1:44PM ; [facility] Amphetamines NEG (NEG) N (Normal) Last Documented On 3 1:44PM ; [facility] Barbiturates NEG (neg) N (Normal) Last Documented On 3 1:44PM ; [facility] Benzodiazepines NEG (neg) N (Normal) Last Documented On 3 1:44PM ; [facility] Cocaine NEG (neg) N (Normal) Last Documented On 3 1:44PM ; [facility] Ecstasy NEG (Neg) N (Normal) Last Documented On 3 1:44PM ; [facility] Methamphetamines NEG (neg) N (Normal) Last Documented On 3 1:44PM ; [facility] Methadone NEG (Neg) N (Normal) Last Documented On 3 1:44PM ; [facility] Morphine NEG (Neg) N (Normal) Last Documented On 3 1:44PM ; [facility] Oxycodone POS (POS) A (Abnormal) Last Documented On 3 1:44PM ; [facility] Phencyclidine NEG (NEG) N (Normal) Last Documented On 3 1:44PM ; [facility] TCA/Tricyclic Antidepressants POS (POS) A (Abnormal) Last Documented On 3 1:44PM ; [facility] Cannabis NEG (neg) N (Normal) Last Documented On 3 1:44PM ; [facility] History of Present Illness Includes: History of Present Illness from this encounter HPI PHQ-9 Score: 13 Date:3BPI Score: Date:MiDAS Score: Date:SOAPP-R Score: 15 Moderate Date:3Pain Location: Full head. Quality: Heavy, cutting, sharp. Radiation: Into shoulder. Severity: TiminAssociated Sx: NauseaAggravating Factors: NAAlleviating Factors: Pain medication. Past Tx: Neurology, CT MRI, Spinal tap. LAURIE DAS is a 37 year old female. - Allergy list reviewed - Problem list reviewed - Medication reconciliation performed - Medication list reviewed - Primary Care Provider: - Prescription Drug Monitoring Program website checked. 12/05/2022 - How much of the medication are you taking a day? 2 a week - Last dose of medication? Last night - Pain is continuous - Pain comes/goes - Pain in AM Pain in AM - Pain in PM - Primary pain location Head - Primary pain duration All day - Secondary pain duration All day - Secondary pain location Back - Pain is throbbing - Pain is shooting - Pain is sharp - Pain is pressure like - Pain is deep - Pain is heavy - Pain is tight - Pain aggravated standing - Pain aggravated by walking - Pain aggravated by bowel movements - Pain aggrated by coughing/sneezing - Pain aggravated lifting - Pain aggravated by sex - Pain aggravated bending - Pain aggravated by sound - Pain radiating to both sides of scalp - Pain radiating to both shoulders - Neck pain radiating to both sides - Pain radiates in both eyes - Abdominal pain radiates to both sides - No vertigo - Last drug screen appropriate 06/30/2022 Discussion: Patient here today for routine FU. In regards to her knees she is going to see a specialist in [place] to discuss surgical intervention for her knee pain. She states she may be getting a realignment procedure. She states she has been trying to walk and uses her walker in case her knee gives out but her back hurts so bad she can not stand or walk very long. Back pain is axial in nature. Trying to cook, stand, or walk for long periods makes her pain worse. Sitting and resting helps with her back pain. Her current headache treatment medication she states is helping some but still has several headache days a month. She is considering Botox. She continues to see Neuro and they are sending her to an eye care professional. She has gained a lot of weight in the last 8 months. This is likely largely due to her inactivity, diet, and soda intake but part of it may be due to the Amitriptyline also. She reports little benefit for sleep or pain with this medication so we will wean her down and stop it. She does not feel like the Pregabalin gives her any benefit either. We will wean her down off this and stop it. She has finished PT for her shoulder but still has some pain. She has not had a MRI for her shoulder. She wants to continue home therapy and give it some more time. She would benefit from MBB with progression to thermal RFA for her axial lumbar pain. She is reluctant but agrees to try it after extensive explanation about risk/benefit. She states her pain greatly affects her function and quality of life. Celebrex, Duloxetine, and Tizanidine although helpful provide suboptimal relief. She has been on Tramadol, Hydrocodone, Oxycodone, and Morphine for pain and we are trying to avoid IR medication. These medications she either failed or had an adverse reaction to. She would benefit from a long acting abuse deterrent medication. PRIOR VISIT: Patient here today to review and discuss weaning schedule of her Oxycodone. I mailed her a copy but she did not bring it with her as we asked. She states she lost it. Initially when this patient came to me she had been on Oxycodone for chronic headaches due to pseudotumor cerebri. She was not appropriately treating her pseudotumor cerebri or under the care of a neurologist. We eventually were able to get her into neurology. They have evaluated her and are working to get her on appropriate medications to treat the underlying cause of her chronic headaches. I spoke with their office and they agree the Oxycodone is not an appropriate treatment. Unfortunately, Marysol often has some sort of reason she cannot take other medication that is prescribed to her. She either has an adverse reaction of some kind or it does not work. There have been multiple different medications potentially tried although there was no evidence of this in prior notes I received. Every time I would try to discuss weaning with her she would add new reasons as to why she needed to be on it. At first it was low back pain. This was fully evaluated and felt to be more of a muscular/deconditioning issue than a true underlying pathologic reason. She was encouraged to use more conservative treatment measures as well as continued therapy and weight loss. She then complained of knee pain. Imaging was completed. She was referred to orthopedic for findings of patellar subluxation. I have requested the orthopedic's notes as to the plan of care. Now today she is telling me she has a possible rotator cuff tear in her left shoulder. I spoke with her primary care physician's office and there is concern for a shoulder strain. They have started her in physical therapy prior to getting an MRI. Regardless, I feel it is most appropriate to wean her from Oxycodone as a regular regimen for pain control. I would like her to try more conservative medications and measures. She can take Oxycodone a couple of times per week for severe pain or to keep herself out of the emergency room for severe headache not controlled by her other medications. I would like her to have this opiate holiday and find more appropriate treatments for her chronic multiple pain concerns. She is only 36 years old and my concern is she has already developed dependence and tolerance on the Oxycodone. We reviewed the wean schedule today in great detail. I also had her sign a copy of the schedule that she took with her so she knows how to wean appropriately. I advised her as long as she weans per the schedule she should not have any withdrawal symptoms. She can always call with any concerns as needed. I'm happy to continue to see this patient but do not feel at this time there is any medically necessary reason for her to be taking 10 mg of Oxycodone three to four times daily and it certainly seems like the patient only wants narcotics. PRIOR VISIT; Patient is here today for routine follow-up visit. We initiated Qulipta at her last office visit for chronic headaches. Since that time she has seen her neurologist and they increased her dose to 60 mg. She has not received this yet they are working on a prior authorization. They also started Topiramate. I also prescribed her Ubrelvy for acute onset headache. However, this was denied by insurance. Her neurologist went ahead and prescribed her Sumatriptan. I advised the patient that there is no need for me and the neurologist to be managing her headaches that this can become confusing and is not a good way to provide continuity of care. I advised the patient that treating her underlying issue of intracranial hypertension is the best way to treat her headaches. She may have some overuse headaches from using Oxycodone with Acetaminophen four times a day. I do not see the need to continue this medication. I advised the patient I was going to speak with her neurologist and get back with her after we discussed a plan for treatment. I called Dr Anderson's office and spoke to the nurse practitioner Dorita June who will forward this information to Dr Anderson as well. We both do not think that the Oxycodone with Acetaminophen is appropriate treatment for daily use. If the patient were to use 4 to 10 tablets per month for severe headache to stay out of the ER that would be reasonable. However, the patient is taking this medication every day three to four times per day and often takes more than prescribed. There is a concern for possible opiate use disorder. The neurology office also states that she often stops her Diamox which is the proper treatment for her intracranial hypertension. They state that she requests lumbar punctures often to relieve pressure. I advised them I would do a wean down schedule with the patient as they also do not want to prescribe her Oxycodone. Regarding her back pain taking [id number] medication, working on weight loss, doing physical therapy, and monitoring would be appropriate treatment. Her MRI is unremarkable. Additionally, regarding her knee pain she is under the care of ortho at this time. Again I do not feel the Oxycodone would be the appropriate treatment for her knee pain or back pain. More appropriately she should take an NSAID and/or Tylenol. I tried to call the patient back to discuss this plan with her. I was unable to reach her. I left a voicemail. [patient called back 08/08 and above was discussed, I will mail her a wean down sched that she will bring to her next appt and we will review to start an appropriate wean down. She verbalized understanding] PRIOR VISIT: I received the eye doctors notes as well as the neurology notes that do confirm a diagnosis of intracranial hypertension/pseudotumor cerebri. The neurologist put her back on Acetazolamide. In the past she states this has not worked for her. She reports a recent flare with headaches increasing over the last two weeks. She has been taking extra Oxycodone without contacting the office to notify us or ask if she could take extra pain medication. This is her second warning. I advised her today that based on her pain contract she has to contact us prior to increasing her medication or she is at risk for discharge from the practice. She verbalizes understanding. She also did not bring her pain medication with her today. We discussed starting medication for chronic migraine as prevention. She has tried multiple medications in the past see below, her first office visit note. We will start Qulipta daily as preventative and Ubrelvy for acute treatment. We discussed red flags today. She was advised if pain worsens, she gets ringing in her ears, or she has visual disturbances she should go to the emergency room. She has a follow-up with neurology in two weeks. Additionally, she states her back has really been bothering her. We discussed a possible epidural steroid injection today she wants to think about this. She also states that her knees have been bothering her more. It feels like they want to give up on her at times. We discussed the importance of weight loss. This will help with all of her pain symptoms as well as her intracranial hypertension. She was encouraged to talk to her primary care about this future. We will get x-rays of her knees and start physical therapy. PRIOR VISIT: Pt is here today for FU to discuss further treatment after review of records. Lumbar MRI results discussed in detail. Unfortunately, I have not yet received her eye doctors (Dr Sharma) records and need to request previous spinal taps. She also states the Duloxetine and Pregabalin are helping with her pain and sleep. Unfortunately, she lost her Duloxetine about a month ago but she did not call to tell us or ask the pharmacy to fill it. She was referred to Neuro but did not see them yet. She states they called but she was driving and told them she would call back but has not done so yet. I again talked with her about more appropriate treatment for her chronic headaches that we still are not sure are caused by Intracranial Hypertension. I am requesting spinal tap results and her eye doctors notes and sent her to neuro for clarification as the patient insists this was her diagnoses. I do not see any reason for her to lie but her previous neurology notes reviewed did not list this as a diagnoses. Regardless chronic narcotics are not the treatment for chronic headache and although she has tried many other medications that are still other options. Once she is evaluated by neuro our plan is to get her off of the Oxycodone and use more appropriate medication for chronic headache. PRIOR VISIT: Follow up appointment. She did not get her lumbar x-ray because she lost the order . She has been doing PT 1-2 times a week for the last 6 weeks. States low back pain is not any better and it usually makes her pain worse after the session. Her symptoms are inconsistent compared with her last visit. She now states she has low back pain that radiates down both legs R>L but now all the way to her feet. She told me only to her knees before. Duloxetine is helping some with the pain and helping her to sleep better at night. I also got a note from Dr Higgins stating her spinal tap was normal not showing any elevation in pressures and his diagnosis for this patient was chronic daily headache. I explained to the patient today that this typically excludes a diagnosis of pseudotumor cerebri but she needs to be evaluated by neuro so we have a clear picture as to the cause of these headaches. I also explained to her that narcotic pain medication is not the treatment for daily headaches. The neurologist may consider sleep study as well to rule out sleep apnea as cause of her CDH. For now we will use other modalities and interventional procedures for her back pain to wean her down off of the Oxycodone. I advised her she needs to try and make these last 2-3 months when possible and it should be used for more severe pain only. There is a mental health component here that makes this patient more difficult to assess and treat. FIRST VISIT: Patient was referred by her primary care provider for chronic headaches secondary to pseudotumor cerebri diagnosed in 2018. She previously saw neurologist Dr Higgins at [place] who apparently is no longer prescribing medication and is retiring in the near future. Her primary has been refilling her Oxycodone in the interim until she could get into pain management. She states that in the past surgery options including possible shunt placement were discussed but she refused.She reports when she was first diagnosed she had visual loss. This has improved and she sees Ophthalmology regularly. She was tried on Diamox at one time however had nausea and vomiting with this medication. She reports past history of Propranolol causing hypotension and Topamax causing tremors. She reports a history of epilepsy that started around the age of 15. She states that she has been on multiple antiseizure medications to include Keppra and Depakote. She states that she does better off of them that they actually cause increased seizures. I question whether or not she has pseudo seizures. I need to get records to evaluate. She does not want to get off of the Oxycodone. We talked about more appropriate medications for her chronic headaches and she states this is the only thing that has ever helped her and then follows that up with I take it for my back pain also . She reports low back pain that radiates into the groin and anterior thighs bilaterally right greater than left, her pain does not go beyond the knees. She has history of bipolar depression per her report that she sees a counselor for regularly. She has never had any imaging or therapy for her low back pain. Imaging: All relevant imaging available was personally reviewed with the patient today with the following tests and results noted: MRI Lumbar Spine 01/29/2022 Impression: 1. Mild degenerative disc disease at T11- 12, with likely small left paracentral disc extrusion, unchanged. 2. Mild facet arthropathy at L4-5 and L5-S1. XRay Bilat Knees 06/30/22 Lateral patellar subluxation at both knees, 5 mm on the right and 12 mm on the left. Patellofemoral compartment predominant tricompartmental osteoarthritis of both knees with mild right patellofemoral osteoarthritis and moderate left patellofemoral osteoarthritis Social History Description Last Updated No consumption of alcohol 12/03/2021 Last Documented On 3 10:21AM ; [facility] Not using drugs 12/03/2021 Last Documented On 3 10:21AM ; [facility] Smoking packs of cigarettes per day 2 Last Documented On 3 10:21AM ; [facility] Current smoker 12/03/2021 Last Documented On 3 10:21AM ; [facility] Smoking Status Unknown Procedures and Surgical History Includes: Procedures from this encounter Procedures Code Diagnosis Performing Provider Service L ocation Service Date intervention and counseling on cessation of tobacco use : Patient recieved smoking cessation handout 4000F Last Documented On 3 10:22AM ; [facility] use of tobacco assessment performed 1000F Last Documented On 3 10:21AM ; [facility] patient screened for future fall risk: documentation of any fall with injury in past year Oxycodone 10-325 1100F Last Documented On 3 10:21AM ; [facility] review of medications documented 1160F Last Documented On 3 10:21AM ; [facility] screening for adult depression: impressi on and score 13 Last Documented On 3 10:21AM ; [facility] standardized depression screening: posit enriqueta for symptoms Last Documented On 3 10:21AM ; [facility] Clinical summary provided to patient Last Documented On 3 10:21AM ; [facility] SOAPP-R: total score 28 Last Documented On 3 10:30AM ; [facility] Surgical History Last Updated No Pacemaker 12/03/2021 Last Documented On 3 10:21AM ; [facility] Medical History Includes: Medical History addressed during this encounter Description Last Updated Has had a fall in the last 12 months. Last Documented On 3 12:47PM ; [facility] Denies a fear of falling. 12/03/2021 Last Documented On 3 10:21AM ; [facility] Currently wearing eyeglasses 12/03/2021 Last Documented On 3 10:21AM ; [facility] No Pain Pump 12/03/2021 Last Documented On 3 10:21AM ; [facility] No Spinal cord stimulator 12/03/2021 Last Documented On 3 10:21AM ; [facility] Please list all illnesses/co nditions you have been diagnosed with: Idopathic intercranial hypertension, seizures, stomach hernia,acid reflux disease,depression,anxiety,bipolor 12/03/2021 Last Documented On 3 10:21AM ; [facility] Please list all surgeries: C sections 12/09/06 12/10/07 01/19/2010. eptopic pregnacy 2 12/03/2021 Last Documented On 3 10:21AM ; [facility] Family History Includes: Family History addressed during this encounter Description Last Updated Family history of ischemic heart disease 12/03/2021 Last Documented On 3 10:21AM ; [facility] Fraternal history of reported family his tory of seizures 12/03/2021 Last Documented On 3 10:21AM ; [facility] Maternal history of reported family hist ory of seizures 12/03/2021 Last Documented On 3 10:21AM ; [facility] Sororal history of reported family histo ry of seizures 12/03/2021 Last Documented On 3 10:21AM ; [facility] Review of Systems Includes: Review of Systems from this encounter Systemic: No systemic symptoms other then noted. Fatigue. No recent weight loss. Head: No head symptoms other then noted. Headache chronic/recurring. Neck: No neck pain. Otolaryngeal: No otolaryngeal symptoms other than noted. Cardiovascular: No cardiovascular symptoms other than noted. Pulmonary: No pulmonary symptoms other than noted. Wheezing. Gastrointestinal: No difficulty chewing and no dysphagia. Heartburn, nausea, and abdominal pain. Genitourinary: No genitourinary symptoms other than noted. Pain with periods. Endocrine: No endocrine symptoms other than noted. Weakness. Hematologic: No easy bleeding and no tendency for easy bruising. Musculoskeletal: No musculoskeletal symptoms other than noted. Back pain Knee pain Bilaterally. Neurological: No neurological symptoms other than noted. Dizziness. No fainting passing out with needles or medical procedures. Memory lapses or loss and convulsions. Psychological: Feeling nervous and depression. No sleep apnea. Skin: No skin symptoms other than noted. Pruritus. Mental Status Includes: Mental Status from this encounter Description Memory lapses or loss Functional Status Includes: Functional Status from this encounter No Functional Status Recorded Physical Exam Includes: Physical Exam from this encounter Allergies Includes: Active Allergies Substance Type Reaction Onset Date Resolved Date Statu s Trimethoprim Allergy 12/03/2021 Active Last Documented On 3 10:33AM ; [facility] Sulfa Antibiotics Allergy 12/03/2021 A ctive Last Documented On 3 10:33AM ; [facility] Penicillins Allergy 12/03/2021 Active Last Documented On 3 10:33AM ; [facility] Morphine Derivatives Allergy 12/03/2021 Active Last Documented On 3 10:33AM ; [facility] Metoclopramide Allergy 12/03/2021 Acti ve Last Documented On 3 10:33AM ; 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 History of Present Illness PHQ-9 Score: 13 Date:09/29/2022 BPI Score: Date: MiDAS Score: Date: SOAPP-R Score: 15 Moderate Date:09/29/2022 Pain Location: Full head. Quality: Heavy, cutting, sharp. Radiation: Into shoulder. Severity: Timin Associated Sx: Nausea Aggravating Factors: NA Alleviating Factors: Pain medication. Past Tx: Neurology, CT MRI, Spinal tap. LAURIE DAS is a 37 year old female. - Allergy list reviewed - Problem list reviewed - Medication reconciliation performed - Medication list reviewed - Primary Care Provider: - Prescription Drug Monitoring Program website checked. 12/05/2022 - How much of the medication are you taking a day? 2 a week - Last dose of medication? Last night - Pain is continuous - Pain comes/goes - Pain in AM Pain in AM - Pain in PM - Primary pain location Head - Primary pain duration All day - Secondary pain duration All day - Secondary pain location Back - Pain is throbbing - Pain is shooting - Pain is sharp - Pain is pressure like - Pain is deep - Pain is heavy - Pain is tight - Pain aggravated standing - Pain aggravated by walking - Pain aggravated by bowel movements - Pain aggrated by coughing/sneezing - Pain aggravated lifting - Pain aggravated by sex - Pain aggravated bending - Pain aggravated by sound - Pain radiating to both sides of scalp - Pain radiating to both shoulders - Neck pain radiating to both sides - Pain radiates in both eyes - Abdominal pain radiates to both sides - No vertigo - Last drug screen appropriate 06/30/2022 Discussion: Patient here today for routine FU. In regards to her knees she is going to see a specialist in [place] to discuss surgical intervention for her knee pain. She states she may be getting a realignment procedure. She states she has been trying to walk and uses her walker in case her knee gives out but her back hurts so bad she can not stand or walk very long. Back pain is axial in nature. Trying to cook, stand, or walk for long periods makes her pain worse. Sitting and resting helps with her back pain. Her current headache treatment medication she states is helping some but still has several headache days a month. She is considering Botox. She continues to see Neuro and they are sending her to an eye care professional. She has gained a lot of weight in the last 8 months. This is likely largely due to her inactivity, diet, and soda intake but part of it may be due to the Amitriptyline also. She reports little benefit for sleep or pain with this medication so we will wean her down and stop it. She does not feel like the Pregabalin gives her any benefit either. We will wean her down off this and stop it. She has finished PT for her shoulder but still has some pain. She has not had a MRI for her shoulder. She wants to continue home therapy and give it some more time. She would benefit from MBB with progression to thermal RFA for her axial lumbar pain. She is reluctant but agrees to try it after extensive explanation about risk/benefit. She states her pain greatly affects her function and quality of life. Celebrex, Duloxetine, and Tizanidine although helpful provide suboptimal relief. She has been on Tramadol, Hydrocodone, Oxycodone, and Morphine for pain and we are trying to avoid IR medication. These medications she either failed or had an adverse reaction to. She would benefit from a long acting abuse deterrent medication. PRIOR VISIT: Patient here today to review and discuss weaning schedule of her Oxycodone. I mailed her a copy but she did not bring it with her as we asked. She states she lost it. Initially when this patient came to me she had been on Oxycodone for chronic headaches due to pseudotumor cerebri. She was not appropriately treating her pseudotumor cerebri or under the care of a neurologist. We eventually were able to get her into neurology. They have evaluated her and are working to get her on appropriate medications to treat the underlying cause of her chronic headaches. I spoke with their office and they agree the Oxycodone is not an appropriate treatment. Unfortunately, Marysol often has some sort of reason she cannot take other medication that is prescribed to her. She either has an adverse reaction of some kind or it does not work. There have been multiple different medications potentially tried although there was no evidence of this in prior notes I received. Every time I would try to discuss weaning with her she would add new reasons as to why she needed to be on it. At first it was low back pain. This was fully evaluated and felt to be more of a muscular/deconditioning issue than a true underlying pathologic reason. She was encouraged to use more conservative treatment measures as well as continued therapy and weight loss. She then complained of knee pain. Imaging was completed. She was referred to orthopedic for findings of patellar subluxation. I have requested the orthopedic's notes as to the plan of care. Now today she is telling me she has a possible rotator cuff tear in her left shoulder. I spoke with her primary care physician's office and there is concern for a shoulder strain. They have started her in physical therapy prior to getting an MRI. Regardless, I feel it is most appropriate to wean her from Oxycodone as a regular regimen for pain control. I would like her to try more conservative medications and measures. She can take Oxycodone a couple of times per week for severe pain or to keep herself out of the emergency room for severe headache not controlled by her other medications. I would like her to have this opiate holiday and find more appropriate treatments for her chronic multiple pain concerns. She is only 36 years old and my concern is she has already developed dependence and tolerance on the Oxycodone. We reviewed the wean schedule today in great detail. I also had her sign a copy of the schedule that she took with her so she knows how to wean appropriately. I advised her as long as she weans per the schedule she should not have any withdrawal symptoms. She can always call with any concerns as needed. I'm happy to continue to see this patient but do not feel at this time there is any medically necessary reason for her to be taking 10 mg of Oxycodone three to four times daily and it certainly seems like the patient only wants narcotics. PRIOR VISIT; Patient is here today for routine follow-up visit. We initiated Qulipta at her last office visit for chronic headaches. Since that time she has seen her neurologist and they increased her dose to 60 mg. She has not received this yet they are working on a prior authorization. They also started Topiramate. I also prescribed her Ubrelvy for acute onset headache. However, this was denied by insurance. Her neurologist went ahead and prescribed her Sumatriptan. I advised the patient that there is no need for me and the neurologist to be managing her headaches that this can become confusing and is not a good way to provide continuity of care. I advised the patient that treating her underlying issue of intracranial hypertension is the best way to treat her headaches. She may have some overuse headaches from using Oxycodone with Acetaminophen four times a day. I do not see the need to continue this medication. I advised the patient I was going to speak with her neurologist and get back with her after we discussed a plan for treatment. I called Dr Anderson's office and spoke to the nurse practitioner Dorita June who will forward this information to Dr Anderson as well. We both do not think that the Oxycodone with Acetaminophen is appropriate treatment for daily use. If the patient were to use 4 to 10 tablets per month for severe headache to stay out of the ER that would be reasonable. However, the patient is taking this medication every day three to four times per day and often takes more than prescribed. There is a concern for possible opiate use disorder. The neurology office also states that she often stops her Diamox which is the proper treatment for her intracranial hypertension. They state that she requests lumbar punctures often to relieve pressure. I advised them I would do a wean down schedule with the patient as they also do not want to prescribe her Oxycodone. Regarding her back pain taking [id number] medication, working on weight loss, doing physical therapy, and monitoring would be appropriate treatment. Her MRI is unremarkable. Additionally, regarding her knee pain she is under the care of ortho at this time. Again I do not feel the Oxycodone would be the appropriate treatment for her knee pain or back pain. More appropriately she should take an NSAID and/or Tylenol. I tried to call the patient back to discuss this plan with her. I was unable to reach her. I left a voicemail. [patient called back 08/08 and above was discussed, I will mail her a wean down sched that she will bring to her next appt and we will review to start an appropriate wean down. She verbalized understanding] PRIOR VISIT: I received the eye doctors notes as well as the neurology notes that do confirm a diagnosis of intracranial hypertension/pseudotumor cerebri. The neurologist put her back on Acetazolamide. In the past she states this has not worked for her. She reports a recent flare with headaches increasing over the last two weeks. She has been taking extra Oxycodone without contacting the office to notify us or ask if she could take extra pain medication. This is her second warning. I advised her today that based on her pain contract she has to contact us prior to increasing her medication or she is at risk for discharge from the practice. She verbalizes understanding. She also did not bring her pain medication with her today. We discussed starting medication for chronic migraine as prevention. She has tried multiple medications in the past see below, her first office visit note. We will start Qulipta daily as preventative and Ubrelvy for acute treatment. We discussed red flags today. She was advised if pain worsens, she gets ringing in her ears, or she has visual disturbances she should go to the emergency room. She has a follow-up with neurology in two weeks. Additionally, she states her back has really been bothering her. We discussed a possible epidural steroid injection today she wants to think about this. She also states that her knees have been bothering her more. It feels like they want to give up on her at times. We discussed the importance of weight loss. This will help with all of her pain symptoms as well as her intracranial hypertension. She was encouraged to talk to her primary care about this future. We will get x-rays of her knees and start physical therapy. PRIOR VISIT: Pt is here today for FU to discuss further treatment after review of records. Lumbar MRI results discussed in detail. Unfortunately, I have not yet received her eye doctors (Dr Sharma) records and need to request previous spinal taps. She also states the Duloxetine and Pregabalin are helping with her pain and sleep. Unfortunately, she lost her Duloxetine about a month ago but she did not call to tell us or ask the pharmacy to fill it. She was referred to Neuro but did not see them yet. She states they called but she was driving and told them she would call back but has not done so yet. I again talked with her about more appropriate treatment for her chronic headaches that we still are not sure are caused by Intracranial Hypertension. I am requesting spinal tap results and her eye doctors notes and sent her to neuro for clarification as the patient insists this was her diagnoses. I do not see any reason for her to lie but her previous neurology notes reviewed did not list this as a diagnoses. Regardless chronic narcotics are not the treatment for chronic headache and although she has tried many other medications that are still other options. Once she is evaluated by neuro our plan is to get her off of the Oxycodone and use more appropriate medication for chronic headache. PRIOR VISIT: Follow up appointment. She did not get her lumbar x-ray because she lost the order . She has been doing PT 1-2 times a week for the last 6 weeks. States low back pain is not any better and it usually makes her pain worse after the session. Her symptoms are inconsistent compared with her last visit. She now states she has low back pain that radiates down both legs R>L but now all the way to her feet. She told me only to her knees before. Duloxetine is helping some with the pain and helping her to sleep better at night. I also got a note from Dr Higgins stating her spinal tap was normal not showing any elevation in pressures and his diagnosis for this patient was chronic daily headache. I explained to the patient today that this typically excludes a diagnosis of pseudotumor cerebri but she needs to be evaluated by neuro so we have a clear picture as to the cause of these headaches. I also explained to her that narcotic pain medication is not the treatment for daily headaches. The neurologist may consider sleep study as well to rule out sleep apnea as cause of her CDH. For now we will use other modalities and interventional procedures for her back pain to wean her down off of the Oxycodone. I advised her she needs to try and make these last 2-3 months when possible and it should be used for more severe pain only. There is a mental health component here that makes this patient more difficult to assess and treat. FIRST VISIT: Patient was referred by her primary care provider for chronic headaches secondary to pseudotumor cerebri diagnosed in 2018. She previously saw neurologist Dr Higgins at [place] who apparently is no longer prescribing medication and is retiring in the near future. Her primary has been refilling her Oxycodone in the interim until she could get into pain management. She states that in the past surgery options including possible shunt placement were discussed but she refused.She reports when she was first diagnosed she had visual loss. This has improved and she sees Ophthalmology regularly. She was tried on Diamox at one time however had nausea and vomiting with this medication. She reports past history of Propranolol causing hypotension and Topamax causing tremors. She reports a history of epilepsy that started around the age of 15. She states that she has been on multiple antiseizure medications to include Keppra and Depakote. She states that she does better off of them that they actually cause increased seizures. I question whether or not she has pseudo seizures. I need to get records to evaluate. She does not want to get off of the Oxycodone. We talked about more appropriate medications for her chronic headaches and she states this is the only thing that has ever helped her and then follows that up with I take it for my back pain also . She reports low back pain that radiates into the groin and anterior thighs bilaterally right greater than left, her pain does not go beyond the knees. She has history of bipolar depression per her report that she sees a counselor for regularly. She has never had any imaging or therapy for her low back pain. Imaging: All relevant imaging available was personally reviewed with the patient today with the following tests and results noted: MRI Lumbar Spine 01/29/2022 Impression: 1. Mild degenerative disc disease at T11- 12, with likely small left paracentral disc extrusion, unchanged. 2. Mild facet arthropathy at L4-5 and L5-S1. XRay Bilat Knees 06/30/22 Lateral patellar subluxation at both knees, 5 mm on the right and 12 mm on the left. Patellofemoral compartment predominant tricompartmental osteoarthritis of both knees with mild right patellofemoral osteoarthritis and moderate left patellofemoral osteoarthritis Current Medication - Albuterol Sulfate HFA 108 (90 Base) MCG/ACT Inhalation Aerosol Solution 25 days, 0 refills - Amitriptyline HCl 50 MG Oral Tablet One tablet at bed time, 30 days, 0 refills - CeleBREX 200 MG Oral Capsule 1 capsule daily with a meal, 30 days, 1 refills - DULoxetine HCl 60 MG Oral Capsule Delayed Release Particles TAKE 1 CAPSULE BY MOUTH AT BEDTIME, 30 days, 0 refills - hydrOXYzine HCl 50 MG Oral Tablet 30 days, 0 refills - oxyCODONE-Acetaminophen 10-325 MG Oral Tablet 1/2-1 tablet as needed for severe migraine, max 2 tablets per week, 30 days, 0 refills - Pantoprazole Sodium 40 MG Oral Tablet Delayed Release One tablet daily 30 days, 0 refills - Pregabalin 150 MG Oral Capsule 1 CAPSULE TWO TIMES A DAY, 30 days, 0 refills - Qulipta 60 [...] seizures Sororal: Reported family history of seizures Review Of Systems Systemic: No systemic symptoms other then noted. Fatigue. No recent weight loss. Head: No head symptoms other then noted. Headache chronic/recurring. Neck: No neck pain. Otolaryngeal: No otolaryngeal symptoms other than noted. Cardiovascular: No cardiovascular symptoms other than noted. Pulmonary: No pulmonary symptoms other than noted. Wheezing. Gastrointestinal: No difficulty chewing and no dysphagia. Heartburn, nausea, and abdominal pain. Genitourinary: No genitourinary symptoms other than noted. Pain with periods. Endocrine: No endocrine symptoms other than noted. Weakness. Hematologic: No easy bleeding and no tendency for easy bruising. Musculoskeletal: No musculoskeletal symptoms other than noted. Back pain Knee pain Bilaterally. Neurological: No neurological symptoms other than noted. Dizziness. No fainting passing out with needles or medical procedures. Memory lapses or loss and convulsions. Psychological: Feeling nervous and depression. No sleep apnea. Skin: No skin symptoms other than noted. Pruritus. Physical Findings - Vitals taken 12/08/2022 09:33 am BP-Sitting R 118/64 mmHg BP Cuff Size Large Pulse Rate-Sitting 101 bpm Temp-Oral 97 F Height 61 in Weight 279 lbs Body Mass Index 52.7 kg/m2 Body Surface Area 2.2 m2 Pain Level 8 Pain Level Note Lumbar and left knee Lumbar and Left knee Oxygen Saturation 97 % Psychiatric: Psychiatric: Value PHQ9 score: 1 Constitutional: Well developed. Well nourished, obese. No acute distress. HEENT: NC/AT. Anicteric. Clear Conjunctiva. PERRLA. MM's pink/moist. Neck supple. No thyromegally. No palpable masses. No lymphadenopathy in cervical chain bilaterally. CVS: RRR. No murmurs. No gallops. No rubs. No peripheral edema. Peripheral pulses palpable in all extremities. Pulmonary: CTA bilaterally. No wheezes. No rales. No crackles. No rubs. Spine/MSK: Nontender lumbar spine. Positive facet loading bilaterally. Negative Majo's bilaterally. Negative thigh thrust bilaterally. Negative pelvic compression test. Negative straight leg test bilaterally. Negative Joseph bilaterally. Gait: Not antalgic. No steppage gait. No Trendelenburg gait. No circumspected gait pattern. Heel walk normal. Toe walk normal. Tandem gait normal. Neuro: Awake. Alert. Oriented x3. DTR's intact in all extremities. DTR's equal in all extremities. No focal neurologic deficit. [id number] normal bilaterally. Psych: No apparent distress. Mood normal. Affect normal. No pain behaviors. Tests - Test: Drugs of abuse screen Report Date: 12/08/2022 Lot # & Exp. Date [id number] EXP 01/01/24 Normal Amphetamines NEG Normal Barbiturates NEG Normal Benzodiazepines NEG Normal Cocaine NEG Normal Ecstasy NEG Normal Methamphetamines NEG Normal Methadone NEG Normal Morphine NEG Normal Oxycodone POS Abnormal Phencyclidine NEG Normal TCA/Tricyclic Antidepressants POS Abnormal Cannabis NEG Normal Educational Testing: Questionnaires PHQ-9: Value SOAPP-R: total score 28 Assessment - [E66.8 - Other obesity] Morbid obesity - [M25.561 - Pain in right knee] Arthralgia of the right knee/patella/tibia/fibula - [M25.562 - Pain in left knee] Arthralgia of the left knee/patella/tibia/fibula - [M54.9 - Dorsalgia, unspecified] DORSALGIA - [M47.896 - Other spondylosis, lumbar region] Lumbar spondylosis - [G44.89 - Other headache syndrome] Chronic daily headache - [G93.2 - Benign intracranial hypertension] Idiopathic intracranial hypertension - [G89.4 - Chronic pain syndrome] Chronic pain syndrome - [Z79.891 - snf (current) use of opiate analgesic] snf use of opiate analgesic Therapy - Intervention and counseling on cessation of tobacco use: Patient recieved smoking cessation handout. - Clinical summary provided to patient. Counseling/Education - Pill Count: six Discussed 1/2 Amitriptyline for 1 week then stop. Decrease Pregabalin dose to 75mg BID for 4 days the nightly for 4 days then stop. Talk to primary about weight loss. Follow up as scheduled with neurology. Follow up as scheduled with Ortho. She has been on Tramadol, Hydrocodone, Oxycodone, and Morphine for pain and we are trying avoid IR medication. These medications she either failed or had an adverse reaction to. She has pain 24 hours a day. She would benefit from a long acting abuse deterrent medication such as Buprenorphine transdermal. Schedule for L4, L5, L5 MBB. FU after procedure. Plan StartCited - Chronic pain syndrome In office procedures/*Clia Waived Labs: Urine Drug Screen Pregabalin 75 MG capsule 1 capsule 2times daily for 4 days then at bedtime only for 4 days then stop, 8 days, 0 refills Buprenorphine 5 MCG/HR patch apply 1 patch every 7 days, be sure to remove the old patch, 30 days, 0 refills Narcan 4 MG/0.1ML each 1 spray intranasally for suspected overdose, 30 days, 0 refills EndCited StartCited - snf (current) use of opiate analgesic Lab: PRESCRIBED DRUGS, medMATCH(R) Lab: DRUG MONITORING, PANEL 6 WITH CONFIRMATION, URINE EndCited StartCited - Other PHY ORDER/COMMENT please get last note from Dr Fernandez EndCited Urine sample ordered and sent to lab for testing with confirmation via LCMS when appropriate. Urine drug testing is ordered to monitor opioid use and ongoing candidacy, verify compliant use of controlled substances, and monitor for use of illicit substances as these may result in harmful interactions. Practice Management Use of tobacco assessment performed and patient screened for future fall risk documentation of any fall with injury in past year Oxycodone 10-325 Review of medications documented; Standardized depression screening: positive for symptoms and for adult impression and score 13; [[id number]] Established outpatient, medically appropriate H&P, high level decision making, 40-54 minutes. A total of 25 minutes were spent on this patient's evaluation, as above, with greater than 50% of this time spent in direct [id number] counseling and coordination of care. Results of this interaction were communicated directly to the patient's referring and/or primary care provider. All imaging studies and test results discussed in the above document were personally reviewed and evaluated by the performing provider. For all patients on acute or chronic opioids, ongoing need for opioid analgesia is assessed at each visit with consideration of discontinuation or wean to lowest effective dose when possible and appropriate. Contents of this document have been edited for correctness, but may be subject to typographical or bulk cooler installer errors. Verify all diagnoses, medications, dosages, and patient instructions with patient and/or the originator of this document. Care Team - NICHOLAS ANDERSON MD - Neurology - LYNN FERNANDEZ MD - Orthopedic Health Reminders - Assess BMI satisfied 12/08/2022. - Assess Tobacco Use satisfied 12/08/2022. - Depression Screening satisfied 12/08/2022. - Smoking & Tobacco Cessation Intervention and Counseling satisfied 12/08/2022.
--- OUTSIDE RECORDS SUMMARY | 2024-10-11 11:29 | XMS_ITS ---
Author Organization [facility] Address [address] [place] [address] Phone Care Team Providers Care Concrete Block Molder Name Role Phone RENA SORIANO, LYNN Alcaraz Unavailable [phone] ROSENDO PECK DO Primary Care Provider [phone] ESTRADA SORIANO, NICHOLAS Unavailable [phone] Problems Includes: Active, inactive, and resolved Problems All Visits Onset Date Resolved Date Provider Condition S tatus Bipolar Disorder Nos Unknown DEB Howard NICOL BUSINESS CONTINUITY STRATEGY DIRECTOR-FPA, TENANT SELECTOR-BC Active Last Documented On 2 11:56AM ; [facility] Esophageal Reflux Unknown DEB Howard NICOL APR N-FPA, TENANT SELECTOR-BC Active Last Documented On 2 11:57AM ; [facility] Idiopathic Intracranial Hypertension (Pseudotumor Cerebri) Unknown 01/27/2022 DEB Anita NICOL BUSINESS CONTINUITY STRATEGY DIRECTOR- FPA, TENANT SELECTOR-BC Resolved Last Documented On 2 1:17PM ; [facility] 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 DEB Howard NICOL BUSINESS CONTINUITY STRATEGY DIRECTOR-FPA, F PRESS TECHNICIAN-BC Active Last Documented On 2 11:43AM ; [facility] Plan of Treatment Referrals [place] [address] - Other headache syndrome Last Documented On 2 2:31PM ; [facility] Orthopedic [facility] - [address] [place] [address] - Other subluxation of unspecified patella, initial encounter Last Documented On 3 10:18AM ; [facility] Instructions to patient Intervention and counseling on cessation of tobacco use : Patient recieved smoking cessation handout Last Documented On 3 10:22AM ; [facility] Intervention and counseling on cessation of tobacco use : Patient recieved smoking cessation handout Last Documented On 2 1:00PM ; [facility] Intervention and counseling on cessation of tobacco use : Patient recieved smoking cessation handout Last Documented On 2 10:26AM ; [facility] Education and Decision Aids were provided during visit for: Pill Count: six Last Documented On 3 10:33AM ; [facility] Pill Count: 42.5 Last Documented On 3 4:03PM ; [facility] Pill Count: 62 Last Documented On 2 1:09PM ; [facility] Pill Count: 45 Not Appropria te Oxycodone Last Documented On 2 1:48PM ; [facility] Pill Count: 46 Oxycodone 10- 325 Last Documented On 2 1:17PM ; [facility] Pill Count: 39 Last Documented On 2 1:07PM ; [facility] Pill Count: 30.5 Last Documented On 2 11:05AM ; [facility] Assessments Includes: Assessments for all patient encounters Findings Encounter Date Arthralgia of the left knee/patella/tibia/fibula PAIN MANAGEMENT FOLLOW UP with DEB CAMARENA APRN-JUNIOR TENANT SELECTOR-BC 12/08/2022 Last Documented On 3 12:47PM ; [facility] Arthralgia of the right knee/patella/tibia/fibula PAIN MANAGEMENT FOLLOW UP with 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INESS CONTINUITY STRATEGY DIRECTOR-FPKael, TENANT SELECTOR-BC 12/08/2022 Last Documented On 3 12:47PM ; [facility] Chronic daily headache PAIN MANAGEMENT F OLLOW UP with 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INESS CONTINUITY STRATEGY DIRECTOR-FPKael, TENANT SELECTOR-BC 12/08/2022 Last Documented On 3 12:47PM ; [facility] Chronic pain syndrome PAIN MANAGEMENT FO LLOW UP with DEB Howard NICOL BUSINESS CONTINUITY STRATEGY DIRECTOR-FPA, TENANT SELECTOR-BC 12/08/2022 Last Documented On 3 12:47PM ; [facility] DORSALGIA PAIN MANAGEMENT FOLLOW UP with Haim Howard NICOL BUSINESS CONTINUITY STRATEGY DIRECTOR-FPA, TENANT SELECTOR-BC 12/08/2022 Last Documented On 3 12:47PM ; [facility] Idiopathic intracranial hypertension BRISA N MANAGEMENT FOLLOW UP with DEB Howard NICOL BUSINESS CONTINUITY STRATEGY DIRECTOR-FPA, TENANT SELECTOR-BC 12/08/2022 Last Documented On 3 12:47PM ; [facility] halfway use of opiate analgesic PAIN M ANAGEMENT FOLLOW UP with DEB Howard NICOL BUSINESS CONTINUITY STRATEGY DIRECTOR-FPA, TENANT SELECTOR-BC 12/08/2022 Last Documented On 3 12:47PM ; [facility] Lumbar spondylosis PAIN MANAGEMENT FOLL OW UP with DEB Howard NICOL BUSINESS CONTINUITY STRATEGY DIRECTOR-FPA, TENANT SELECTOR-BC 12/08/2022 Last Documented On 3 12:47PM ; [facility] Morbid obesity PAIN MANAGEMENT FOLL OW UP with DEB Howard NICOL BUSINESS CONTINUITY STRATEGY DIRECTOR-FPA, TENANT SELECTOR-BC 12/08/2022 Last Documented On 3 12:47PM ; [facility] Arthralgia of the left knee/patella/tibia/fibula PAIN MANAGEMENT FOLLOW UP with DEB Howard NICOL BUSINESS CONTINUITY STRATEGY DIRECTOR-FPA, TENANT SELECTOR-BC 09/29/2022 Last Documented On 3 5:01PM ; [facility] Arthralgia of the right knee/patella/tibia/fibula PAIN MANAGEMENT FOLLOW UP with DBE Howard NICOL BUSINESS CONTINUITY STRATEGY DIRECTOR-FPA, TENANT SELECTOR-BC 09/29/2022 Last Documented On 3 5:01PM ; [facility] Chronic daily headache PAIN MANAGEMENT F OLLOW UP with DEB Howard NICOL BUSINESS CONTINUITY STRATEGY DIRECTOR-FPA, TENANT SELECTOR-BC 09/29/2022 Last Documented On 3 5:01PM ; [facility] Chronic pain syndrome PAIN MANAGEMENT FO LLOW UP with DEB Howard NICOL BUSINESS CONTINUITY STRATEGY DIRECTOR-FPA, TENANT SELECTOR-BC 09/29/2022 Last Documented On 3 5:01PM ; [facility] DORSALGIA PAIN MANAGEMENT FOLLOW UP with Haim Howard NICOL BUSINESS CONTINUITY STRATEGY DIRECTOR-FPA, TENANT SELECTOR-BC 09/29/2022 Last Documented On 3 5:01PM ; [facility] Idiopathic intracranial hypertension BRISA N MANAGEMENT FOLLOW UP with DEB Howard NICOL BUSINESS CONTINUITY STRATEGY DIRECTOR-FPA, TENANT SELECTOR-BC 09/29/2022 Last Documented On 3 5:01PM ; [facility] 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 PAIN M ANAGEMENT FOLLOW UP with DEB Howard NICOL BUSINESS CONTINUITY STRATEGY DIRECTOR-FPA, TENANT SELECTOR-BC 09/29/2022 Last Documented On 3 5:01PM ; [facility] Lumbar radiculopathy PAIN MANAGEMENT FOL LOW UP with DEB Howard NICOL BUSINESS CONTINUITY STRATEGY DIRECTOR-FPA, TENANT SELECTOR-BC 09/29/2022 Last Documented On 3 5:01PM ; [facility] Morbid obesity PAIN MANAGEMENT FOLL OW UP with DEB Howard NICOL BUSINESS CONTINUITY STRATEGY DIRECTOR-FPA, TENANT SELECTOR-BC 09/29/2022 Last Documented On 3 5:01PM ; [facility] Arthralgia of the left knee/patella/tibia/fibula PAIN MANAGEMENT FOLLOW UP with DEB Howard NICOL BUSINESS CONTINUITY STRATEGY DIRECTOR-FPA, TENANT SELECTOR-BC 07/28/2022 Last Documented On 2 8:44AM ; [facility] Arthralgia of the right knee/patella/tibia/fibula PAIN MANAGEMENT FOLLOW UP with DEB Howard NICOL BUSINESS CONTINUITY STRATEGY DIRECTOR-FPA, TENANT SELECTOR-BC 07/28/2022 Last Documented On 2 8:44AM ; [facility] Chronic daily headache PAIN MANAGEMENT F OLLOW UP with DEB Howard NICOL BUSINESS CONTINUITY STRATEGY DIRECTOR-FPA, TENANT SELECTOR-BC 07/28/2022 Last Documented On 2 8:44AM ; [facility] Chronic pain syndrome PAIN MANAGEMENT FO LLOW UP with DEB G NICOL BUSINESS CONTINUITY STRATEGY DIRECTOR-FPA, TENANT SELECTOR-BC 07/28/2022 Last Documented On 2 8:44AM ; [facility] DORSALGIA PAIN MANAGEMENT FOLLOW UP with Haim Howard NICOL BUSINESS CONTINUITY STRATEGY DIRECTOR-FPA, TENANT SELECTOR-BC 07/28/2022 Last Documented On 2 8:44AM ; [facility] Idiopathic intracranial hypertension BRISA N MANAGEMENT FOLLOW UP with DEB TURNERLP BUSINESS CONTINUITY STRATEGY DIRECTOR-FPA, TENANT SELECTOR-BC 07/28/2022 Last Documented On 2 8:44AM ; [facility] 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 PAIN M ANAGEMENT FOLLOW UP with DEB Howard NICOL BUSINESS CONTINUITY STRATEGY DIRECTOR-FPA, TENANT SELECTOR-BC 07/28/2022 Last Documented On 2 8:44AM ; [facility] Lumbar radiculopathy PAIN MANAGEMENT FOL LOW UP with DEB Howard NICOL BUSINESS CONTINUITY STRATEGY DIRECTOR-FPA, TENANT SELECTOR-BC 07/28/2022 Last Documented On 2 8:44AM ; [facility] Morbid obesity PAIN MANAGEMENT FOLL OW UP with DEB Howard NICOL BUSINESS CONTINUITY STRATEGY DIRECTOR-FPA, TENANT SELECTOR-BC 07/28/2022 Last Documented On 2 8:44AM ; [facility] Arthralgia of knee / patella / tibia / fibula CHART UPDATE with DEB TURNERLP BUSINESS CONTINUITY STRATEGY DIRECTOR-FPA, TENANT SELECTOR-BC 07/05/2022 Last Documented On 2 9:54AM ; [facility] Subluxation of patella CHART UPDATE with DEB Howard NICOL BUSINESS CONTINUITY STRATEGY DIRECTOR-FPA, TENANT SELECTOR-BC 07/05/2022 Last Documented On 2 9:54AM ; [facility] Arthralgia of the left knee/patella/tibia/fibula PAIN MANAGEMENT FOLLOW UP with DEB Howard NICOL BUSINESS CONTINUITY STRATEGY DIRECTOR-FPA, TENANT SELECTOR-BC 06/30/2022 Last Documented On 2 1:56PM ; [facility] Arthralgia of the right knee/patella/tibia/fibula PAIN MANAGEMENT FOLLOW UP with DEB Howard NICOL BUSINESS CONTINUITY STRATEGY DIRECTOR-FPA, TENANT SELECTOR-BC 06/30/2022 Last Documented On 2 1:56PM ; [facility] Chronic daily headache PAIN MANAGEMENT F OLLOW UP with DEB G NICOL BUSINESS CONTINUITY STRATEGY DIRECTOR-FPA, TENANT SELECTOR-BC 06/30/2022 Last Documented On 2 1:56PM ; [facility] Chronic pain syndrome PAIN MANAGEMENT FO LLOW UP with DEB G NICOL BUSINESS CONTINUITY STRATEGY DIRECTOR-FPA, TENANT SELECTOR-BC 06/30/2022 Last Documented On 2 1:56PM ; [facility] DORSALGIA PAIN MANAGEMENT FOLLOW UP with Haim Howard NICOL BUSINESS CONTINUITY STRATEGY DIRECTOR-FPA, TENANT SELECTOR-BC 06/30/2022 Last Documented On 2 1:56PM ; [facility] Idiopathic intracranial hypertension BRISA N MANAGEMENT FOLLOW UP with DEB Howard NICOL BUSINESS CONTINUITY STRATEGY DIRECTOR-FPA, TENANT SELECTOR-BC 06/30/2022 Last Documented On 2 1:56PM ; [facility] halfway use of opiate analgesic PAIN M ANAGEMENT FOLLOW UP with DEB Howard NICOL BUSINESS CONTINUITY STRATEGY DIRECTOR-FPA, TENANT SELECTOR-BC 06/30/2022 Last Documented On 2 1:56PM ; [facility] Lumbar radiculopathy PAIN MANAGEMENT FOL LOW UP with DEB Howard NICOL BUSINESS CONTINUITY STRATEGY DIRECTOR-FPA, TENANT SELECTOR-BC 06/30/2022 Last Documented On 2 1:56PM ; [facility] Morbid obesity PAIN MANAGEMENT FOLL OW UP with DEB Howard NICOL BUSINESS CONTINUITY STRATEGY DIRECTOR-FPA, TENANT SELECTOR-BC 06/30/2022 Last Documented On 2 1:56PM ; [facility] Chronic daily headache * PHONE CALL with DEB Howard NICOL BUSINESS CONTINUITY STRATEGY DIRECTOR-FPA, TENANT SELECTOR-BC 03/24/2022 Last Documented On 2 2:51PM ; [facility] Chronic daily headache PAIN MANAGEMENT F OLLOW UP with DEB Howard NICOL BUSINESS CONTINUITY STRATEGY DIRECTOR-FPA, TENANT SELECTOR-BC 02/24/2022 Last Documented On 2 8:52AM ; [facility] Chronic pain syndrome PAIN MANAGEMENT FO LLOW UP with DEB Howard NICOL BUSINESS CONTINUITY STRATEGY DIRECTOR-FPA, TENANT SELECTOR-BC 02/24/2022 Last Documented On 2 8:52AM ; [facility] DORSALGIA PAIN MANAGEMENT FOLLOW UP with Haim Howard NICOL BUSINESS CONTINUITY STRATEGY DIRECTOR-FPA, TENANT SELECTOR-BC 02/24/2022 Last Documented On 2 8:52AM ; [facility] 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 PAIN M ANAGEMENT FOLLOW UP with DEB Howard NICOL BUSINESS CONTINUITY STRATEGY DIRECTOR-FPA, TENANT SELECTOR-BC 02/24/2022 Last Documented On 2 8:52AM ; [facility] Lumbar radiculopathy PAIN MANAGEMENT FOL LOW UP with DEB Howard NICOL BUSINESS CONTINUITY STRATEGY DIRECTOR-FPA, TENANT SELECTOR-BC 02/24/2022 Last Documented On 2 8:52AM ; [facility] Obesity PAIN MANAGEMENT FOLLOW UP with Haim Howard NICOL BUSINESS CONTINUITY STRATEGY DIRECTOR-FPA, TENANT SELECTOR-BC 02/24/2022 Last Documented On 2 8:52AM ; [facility] Chronic daily headache PAIN MANAGEMENT F OLLOW UP with DEB Anita NICOL BUSINESS CONTINUITY STRATEGY DIRECTOR-FPA, TENANT SELECTOR-BC 01/27/2022 Last Documented On 2 2:29PM ; [facility] Chronic pain syndrome PAIN MANAGEMENT FO LLOW UP with DEB Anita NICOL BUSINESS CONTINUITY STRATEGY DIRECTOR-FPA, TENANT SELECTOR-BC 01/27/2022 Last Documented On 2 2:29PM ; [facility] DORSALGIA PAIN MANAGEMENT FOLLOW UP with Haim Howard NICOL BUSINESS CONTINUITY STRATEGY DIRECTOR-FPA, TENANT SELECTOR-BC 01/27/2022 Last Documented On 2 2:29PM ; [facility] halfway use of opiate analgesic PAIN M ANAGEMENT FOLLOW UP with DEB Anita NICOL BUSINESS CONTINUITY STRATEGY DIRECTOR-FPA, TENANT SELECTOR-BC 01/27/2022 Last Documented On 2 2:29PM ; [facility] Lumbar radiculopathy PAIN MANAGEMENT FOL LOW UP with DEB Howard NICOL BUSINESS CONTINUITY STRATEGY DIRECTOR-FPA, TENANT SELECTOR-BC 01/27/2022 Last Documented On 2 2:29PM ; [facility] Obesity PAIN MANAGEMENT FOLLOW UP with Haim Howard NICOL BUSINESS CONTINUITY STRATEGY DIRECTOR-FPA, TENANT SELECTOR-BC 01/27/2022 Last Documented On 2 2:29PM ; [facility] Chronic daily headache PAIN MANAGEMENT N EW CONSULT with DEB G NICOL BUSINESS CONTINUITY STRATEGY DIRECTOR-FPA, TENANT SELECTOR-BC 12/03/2021 Last Documented On 2 1:39PM ; [facility] Chronic pain syndrome PAIN MANAGEMENT NE W CONSULT with DEB G NICOL BUSINESS CONTINUITY STRATEGY DIRECTOR-FPA, TENANT SELECTOR-BC 12/03/2021 Last Documented On 2 1:39PM ; [facility] DORSALGIA PAIN MANAGEMENT NEW CONSULT with DEB Howard NICOL BUSINESS CONTINUITY STRATEGY DIRECTOR-FPA, TENANT SELECTOR-BC 12/03/2021 Last Documented On 2 1:39PM ; [facility] Idiopathic intracranial hypertension BRISA N MANAGEMENT NEW CONSULT with DEB Howard NICOL BUSINESS CONTINUITY STRATEGY DIRECTOR-FPA, TENANT SELECTOR-BC 12/03/2021 Last Documented On 2 1:39PM ; [facility] 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 PAIN M ANAGEMENT NEW CONSULT with DEB Howard NICOL BUSINESS CONTINUITY STRATEGY DIRECTOR-FPA, TENANT SELECTOR-BC 12/03/2021 Last Documented On 2 1:39PM ; [facility] Lumbar radiculopathy PAIN MANAGEMENT NEW CONSULT with DEB Howard NICOL BUSINESS CONTINUITY STRATEGY DIRECTOR-FPA, TENANT SELECTOR-BC 12/03/2021 Last Documented On 2 1:39PM ; [facility] Obesity PAIN MANAGEMENT NEW CONSULT with DEB Howard NICOL BUSINESS CONTINUITY STRATEGY DIRECTOR-FPA, TENANT SELECTOR-BC 12/03/2021 Last Documented On 2 1:39PM ; [facility] Instructions Includes: Instructions for all patient encounters Instructions to patient Intervention and counseling on cessation of tobacco use : Patient recieved smoking cessation handout Last Documented On 3 10:22AM ; [facility] Intervention and counseling on cessation of tobacco use : Patient recieved smoking cessation handout Last Documented On 2 1:00PM ; [facility] Intervention and counseling on cessation of tobacco use : Patient recieved smoking cessation handout Last Documented On 2 10:26AM ; [facility] Education and Decision Aids were provided during visit for: Pill Count: six Last Documented On 3 10:33AM ; [facility] Pill Count: 42.5 Last Documented On 3 4:03PM ; [facility] Pill Count: 62 Last Documented On 2 1:09PM ; [facility] Pill Count: 45 Not Appropria te Oxycodone Last Documented On 2 1:48PM ; [facility] Pill Count: 46 Oxycodone 10- 325 Last Documented On 2 1:17PM ; [facility] Pill Count: 39 Last Documented On 2 1:07PM ; [facility] Pill Count: 30.5 Last Documented On 2 11:05AM ; [facility] Medical Equipment - Implanted Devices Includes: Current and historical Devices No Medical Equipment Recorded Medications Includes: Current and historical Medications Current Medications (continue as prescribed) DULoxetine HCl 60 MG Oral Capsule Delayed Release Particles 01/23/2023 Provider: BLANE FORBES Diagnosis: Dorsalgia, unspe cified TAKE 1 CAPSULE BY MOUTH AT BEDTIME Last Documented On 3 2:59PM By DEB ARGUELLES ; [facility] tiZANidine HCl 2 MG Oral Tablet 01/23/2023 Provider: BLAEN GRANADOS Diagnosis: TAKE 1 TABLET BY MOUTH THREE TIMES DAILY NEEDED Last Documented On 3 8:40AM By DEB ARGUELLES ; [facility] oxyCODONE-Acetaminophen 10-3 25 MG Oral Tablet 01/03/2023 Provider: BLANE FORBES Diagnosis: 1/2-1 tablet as needed for s evere migraine, max 2 tablets per week Last Documented On 3 4:30PM By DEB ARGUELLES ; [facility] Buprenorphine 5 MCG/HR Transdermal Patch Weekly 12/08/2022 Provider: BLANE GRANADOS Diagnosis: Chronic pain syn drome apply 1 patch every 7 days, be sure to remove the old patch Last Documented On 3 12:46PM By DEB ARGUELLES ; [facility] Narcan 4 MG/0.1ML Nasal Liquid 12/08/2022 Provider: BLANE FORBES Diagnosis: Chronic pain syn drome 1 spray intranasally for jeff pected overdose Last Documented On 3 12:46PM By DEB ARGUELLES ; [facility] CeleBREX 200 MG Oral Capsule 11/28/2022 Provider: BLANE FORBES Diagnosis: Dorsalgia, unspe cified 1 capsule daily with a meal Last Documented On 3 12:46PM [facility] ; [facility] hydrOXYzine HCl 50 MG Oral Tablet 10/04/2022 Provide r: ROSENDO PECK DO Diagnosis: Last Documented On 3 12:46PM By DEB RUIZJUNIE ; [facility] Symbicort 160-4.5 MCG/ACT Inhalation Aerosol 3 Provider: ROSENDO PECK DO Diagnosis: Last Documented On 3 4:46PM [facility] ; [facility] Albuterol Sulfate HFA 108 (9 0 Base) MCG/ACT Inhalation Aerosol Solution 09/19/2022 Provider: ROSENDO AALRCON DO Diagnosis: Last Documented On 3 4:46PM By DEB CAMARENA [facility] ; [facility] SUMAtriptan Succinate 100 MG Oral Tablet 09/17/2022 Provider: NICHOLAS DORADO MD Diagnosis: Last Documented On 3 4:46PM By DEB RUIZJUNIE ; [facility] Qulipta 60 MG Oral Tablet 08/08/2022 Provider: Diagnosis: Last Documented On 3 4:46PM By DEB CLALEJUNIE ; [facility] RisperDAL 1 MG Oral Tablet 12/03/2021 Provider: Diagnosis: Last Documented On 2 11:52AM By DEB RUIZJUNIE ; [facility] Pantoprazole Sodium 40 MG Oral Tablet Delayed Release 11/14/2021 Provider: Diagnosis: Last Documented On 2 11:52AM By DEB RUIZJUNIE ; [facility] Sucralfate 1 GM Oral Tablet 10/18/2021 Provider: Diagnosis: Last Documented On 2 11:52AM By DEB ARGUELLES ; [facility] Past Medications on file Pregabalin 75 MG Oral Capsule 12/08/2022 - 01/03/2023 Provider: 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INESS CONTINUITY STRATEGY DIRECTOR-FPA, TENANT SELECTOR-BC Diagnosis: Chronic pain syn drome 1 capsule 2times daily for 4 days then at bedtime only for 4 days then stop Last Documented On 3 4:25PM By [facility] ; [facility] oxyCODONE-Acetaminophen 10-3 25 MG Oral Tablet 12/05/2022 - 01/03/2023 Provider: DEB CHEN TENANT SELECTOR-JUNIE Diagnosis: 1/2-1 tablet as needed for s evere migraine, max 2 tablets per week Last Documented On 3 4:28PM By DEB CAMARENA [facility] ; [facility] Amitriptyline HCl 50 MG Oral Tablet 11/25/2022 - 01/03/2023 Provider: DEB CHEN [facility] Diagnosis: One tablet at bed time Last Documented On 3 4:25PM By DEB CAMARENA [facility] ; [facility] DULoxetine HCl 60 MG Oral Capsule Delayed Release Particles 11/25/2022 - 01/23/2023 Provider: [facility] Diagnosis: Dorsalgia, unspe cified TAKE 1 CAPSULE BY MOUTH AT BEDTIME Last Documented On 3 2:52PM By DEB CAMARENA [facility] ; [facility] tiZANidine HCl 2 MG Oral Tablet 11/25/2022 - 01/23/2023 Provider: DEB CUNHA-FPKael TENANT SELECTOR-JUNIE Diagnosis: One tablet three times a day as needed Last Documented On 3 8:32AM By DEB CAMARENA TENANT SELECTORDIVINA ; [facility] tiZANidine HCl 2 MG Oral Tablet 11/14/2022 - 11/25/2022 Provider: DEB CUNHA-FPKael TENANT SELECTOR-BC Diagnosis: One tablet three times a day as needed Last Documented On 3 3:47PM [facility] ; [facility] oxyCODONE-Acetaminophen 10-3 25 MG Oral Tablet 11/04/2022 - 11/28/2022 Provider: DEB CHEN TENANT SELECTOR-JUNIE Diagnosis: 1/2-1 tablet as needed for s evere migraine, max 2 tablets per week Last Documented On 3 8:30AM By DEB ARGUELLES ; [facility] Lucemyra 0.18 MG Oral Tablet 10/28/2022 - 12/08/2022 Haylie rob: HERMELINDA VILLAREAL MD Diagnosis: take 3 tablets 4x daily for 4 days, then 2 tablets 4x daily for 4 days, then 1 tablet 4x daily for 3 days, then 1 tablet 2x daily until out. Last Documented On 3 10:40AM By DEB ARGUELLES ; [facility] Amitriptyline HCl 50 MG Oral Tablet 10/24/2022 - 11/25/2022 Provider: DEB CHEN TENANT SELECTOR-BC Diagnosis: One tablet at bed time Last Documented On 3 3:48PM By DEB ARGUELLES ; [facility] Lucemyra 0.18 MG Oral Tablet 10/24/2022 - 10/27/2022 Provider: DEB CUNHA-JUNIOR TENANT SELECTOR-BC Diagnosis: take 3 tablets 4x daily for 3 days, then 2 tablets 4x daily for 2 days, then 1 tablet 4x daily for 2 days, then 1 tablet 2x daily for 2 days Last Documented On 10/28/2022 4:11PM By Hermelinda Villareal MD ; [facility] DULoxetine HCl 60 MG Oral Capsule Delayed Release Particles 10/24/2022 - 11/25/2022 Provider: DEB CHEN TENANT SELECTOR-BC Diagnosis: Dorsalgia, unspe cified TAKE 1 CAPSULE BY MOUTH AT BEDTIME Last Documented On 3 3:47PM By DEB ARGUELLES ; [facility] Amitriptyline HCl 25 MG Oral Tablet 10/24/2022 - 12/08/2022 Provider: DEB CAMARENA APRN-JUNIOR TENANT SELECTOR-BC Diagnosis: Chronic pain syndrome One tablet at bed time Last Documented On 3 10:33AM By Ratna STUART ; [facility] tiZANidine HCl 2 MG Oral Tablet 10/18/2022 - 11/14/2022 Provider: DEB CUNHA-JUNIOR TENANT SELECTOR-BC Diagnosis: One tablet three times a day as needed Last Documented On 3 6:21PM By DEB CALLEJUNIE ; [facility] [facility] oxyCODONE-Acetaminophen 10-3 25 MG Oral Tablet 10/10/2022 - 11/04/2022 Provider: DEB CHEN TENANT SELECTOR-BC Diagnosis: 1/2-1 tablet 1-3 times daily , decreasing by 1 tablet per week then 1-2 times per week [3 week script] Last Documented On 3 3:39PM By DEB CALLEJUNIE ; [facility] Pregabalin 150 MG Oral Capsule 10/10/2022 - 01/03/2023 Provider: BLANE GRANADOS Diagnosis: Radiculopathy, l umbar region 1 CAPSULE TWO TIMES A DAY Last Documented On 3 4:26PM By DEB ARGUELLES ; [facility] Amitriptyline HCl 25 MG Oral Tablet 09/29/2022 - 10/24/2022 Provider: DEB CHEN TENANT SELECTOR-JUNIE Diagnosis: Chronic pain syndrome One tablet at bed time Last Documented On 3 5:04PM By DEB CAMARENA TENANT SELECTORDIVINA ; [facility] CeleBREX 200 MG Oral Capsule 09/29/2022 - 11/28/2022 Provider: DEB CAMARENA APRN-JUNIOR TENANT SELECTOR-BC Diagnosis: Dorsalgia, unspe cified 1 capsule daily with a meal Last Documented On 3 5:09PM By DEB CALLEJUNIE ; [facility] tiZANidine HCl 2 MG Oral Tablet 09/20/2022 - 10/18/2022 Provider: DEB CUNHA-JUNIOR TENANT SELECTOR-BC Diagnosis: One tablet three times a day as needed Last Documented On 3 8:20AM By DEB ARGUELLES ; [facility] tiZANidine HCl 2 MG Oral Capsule 09/14/2022 - 09/20/2022 Provider: DEB CAMARENA APRN-JUNIOR TENANT SELECTOR-BC Diagnosis: Dorsalgia, unspe cified One tablet three times a day as needed Last Documented On 3 9:32AM By DEB CAMARENA [facility] ; [facility] Pregabalin 150 MG Oral Capsule 09/06/2022 - 10/10/2022 Provider: HERMELINDA Wilson Diagnosis: Radiculopathy, l umbar region 1 CAPSULE TWO TIMES A DAY Last Documented On 3 4:37PM By DEB CAMARENA [facility] ; [facility] oxyCODONE-Acetaminophen 10-3 25 MG Oral Tablet 09/05/2022 - 10/10/2022 Provider: STACY MENEZES ANP- Diagnosis: One tablet three times a day as needed for SEVERE pain only Last Documented On 3 5:11PM By DEB CAMARENA [facility] ; [facility] DULoxetine HCl 60 MG Oral Capsule Delayed Release Particles 08/24/2022 - 10/24/2022 Provider: DEB CHEN TENANT SELECTOR-BC Diagnosis: Dorsalgia, unspe cified TAKE 1 CAPSULE BY MOUTH AT BEDTIME Last Documented On 3 5:05PM By DEB CAMARENA [facility] ; [facility] oxyCODONE-Acetaminophen 10-3 25 MG Oral Tablet 08/15/2022 - 09/05/2022 Provider: DEB HCEN TENANT SELECTOR-BC Diagnosis: One tablet three times a day as needed for SEVERE pain only Last Documented On 2 8:53PM By STACY MENZEES BANNER ; [facility] tiZANidine HCl 2 MG Oral Capsule 08/08/2022 - 09/14/2022 Provider: DEB CHEN TENANT SELECTOR-BC Diagnosis: Dorsalgia, unspe cified One tablet three times a day as needed Last Documented On 2 2:32PM By DEB CAMARENA [facility] ; [facility] Pregabalin 150 MG Oral Capsule 08/08/2022 - 09/06/2022 Provider: DEB CHEN TENANT SELECTOR-BC Diagnosis: Radiculopathy, l umbar region 1 CAPSULE TWO TIMES A DAY Last Documented On 09/06/2022 12:04PM By Hermelinda Villareal MD ; [facility] SUMAtriptan Succinate 50 MG Oral Tablet 07/28/2022 - 08/27/2022 Provider: BLANE GRANADOS Diagnosis: Headache, unspec ified take 2 tablet at onset of he adache, may repeat after 2 hours, max 4 in 24 hours Last Documented On 2 8:43AM By DEB ARGUELLES ; [facility] Topamax 25 MG Oral Tablet 07/28/2022 - 09/29/2022 Prov ider: Diagnosis: Last Documented On 3 4:14PM By DEB ARGUELLES ; [facility] DULoxetine HCl 60 MG Oral Capsule Delayed Release Particles 07/27/2022 - 08/24/2022 Provider: BLANE GRANADOS Diagnosis: Dorsalgia, unspe cified TAKE 1 CAPSULE BY MOUTH AT BEDTIME Last Documented On 2 10:05AM By DEB ARGUELLES ; [facility] oxyCODONE-Acetaminophen 10-3 25 MG Oral Tablet 07/15/2022 - 08/10/2022 Provider: BLANE GRANADOS Diagnosis: One tablet three times a day as needed for SEVERE pain only Last Documented On 2 8:22AM By DEB ARGUELLES ; [facility] SUMAtriptan Succinate 50 MG Oral Tablet 07/01/2022 - 07/28/2022 Provider: BLANE GRANADOS Diagnosis: Headache, unspec ified take 1 tablet at onset of he adache, may repeat after 2 hours, max 4 in 24 hours Last Documented On 2 8:43AM By DEB ARGUELLES ; [facility] Qulipta 30 MG Oral Tablet 06/30/2022 - 08/08/2022 Provider: BLANE GRANADOS Diagnosis: Other headache syndrome One tablet daily Last Documented On 2 1:08PM By DEB ARGUELLES ; [facility] Ubrelvy 100 MG Oral Tablet 06/30/2022 - 08/08/2022 Provider: DEB CHEN [facility] Diagnosis: Other headache syndrome 1 tablet as needed for sever e headache, maximum of 2 in 24 hours Last Documented On 2 1:11PM [facility] ; [facility] Pregabalin 150 MG Oral Capsule 06/17/2022 - 07/28/2022 Provider: DEB CHEN [facility] Diagnosis: Radiculopathy, l umbar region 1 CAPSULE TWO TIMES A DAY Last Documented On 2 1:16PM By DEB CAMARENA [facility] ; [facility] DULoxetine HCl 60 MG Oral Capsule Delayed Release Particles 06/17/2022 - 07/27/2022 [facility] Diagnosis: Dorsalgia, unspe cified TAKE 1 CAPSULE BY MOUTH AT BEDTIME Last Documented On 2 10:02AM By DEB CAMARENA [facility] ; [facility] oxyCODONE-Acetaminophen 10-3 25 MG Oral Tablet 06/17/2022 - 07/15/2022 Provider: DEB CHEN [facility] Diagnosis: One tablet three times a day as needed for SEVERE pain only Last Documented On 2 1:34PM By DEB CAMARENA [facility] ; [facility] oxyCODONE-Acetaminophen 10-3 25 MG Oral Tablet 05/20/2022 - 06/15/2022 Provider: DEB CHEN [facility] Diagnosis: One tablet three times a day as needed for SEVERE pain only Last Documented On 2 5:12PM By DEB CAMARENA [facility] ; [facility] DULoxetine HCl 60 MG Oral Capsule Delayed Release Particles 05/18/2022 - 06/17/2022 Provider: STACY MENEZES [facility]AN[facility] Diagnosis: Dorsalgia, unspe cified TAKE 1 CAPSULE BY MOUTH AT BEDTIME Last Documented On 2 9:00AM By DEB CAMARENA [facility] ; [facility] Pregabalin 150 MG Oral Capsule 05/18/2022 - 06/17/2022 Provider: STACY MIRAMONTES Diagnosis: Radiculopathy, l umbar region 1 CAPSULE TWO TIMES A DAY Last Documented On 2 8:59AM [facility] ; [facility] oxyCODONE-Acetaminophen 10-3 25 MG Oral Tablet 05/03/2022 - 05/17/2022 Provider: LUC GRANADOS-JUNIE Diagnosis: One tablet three times a day as needed for SEVERE pain only Last Documented On 2 4:33PM By DEB CAMARENA [facility] ; [facility] DULoxetine HCl 60 MG Oral Capsule Delayed Release Particles 05/03/2022 - 05/18/2022 Provider: LUC GRANADOS-JUNIE Diagnosis: Dorsalgia, unspe cified TAKE 1 CAPSULE BY MOUTH AT BEDTIME Last Documented On 2 9:04AM By [facility] ; [facility] Pregabalin 150 MG Oral Capsule 04/05/2022 - 05/18/2022 Provider: LUC GRANADOS-JUNIE Diagnosis: Radiculopathy, l umbar region 1 CAPSULE TWO TIMES A DAY Last Documented On 2 9:04AM By [facility] ; [facility] oxyCODONE-Acetaminophen 10-3 25 MG Oral Tablet 04/05/2022 - 05/02/2022 Provider: LUC GRANADOS-JUNIE Diagnosis: One tablet three times a day as needed for SEVERE pain only Last Documented On 2 8:23AM By DEB CAMARENA [facility] ; [facility] Pregabalin 150 MG Oral Capsule 03/24/2022 - 04/05/2022 Provider: LUC GRANADOS-BC Diagnosis: Radiculopathy, l umbar region 1 CAPSULE TWO TIMES A DAY Last Documented On 2 11:47AM [facility] ; [facility] oxyCODONE-Acetaminophen 10-3 25 MG Oral Tablet 03/07/2022 - 04/04/2022 Provider: BLANE GRANADOS Diagnosis: One tablet three times a day as needed for SEVERE pain only Last Documented On 2 11:48AM By DEB ARGUELLES ; [facility] DULoxetine HCl 60 MG Oral Capsule Delayed Release Particles 02/28/2022 - 05/03/2022 Provider: BLANE GRANADOS Diagnosis: Dorsalgia, unspe cified TAKE 1 CAPSULE BY MOUTH AT BEDTIME Last Documented On 2 8:32AM [facility] ; [facility] DULoxetine HCl 30 MG Oral Capsule Delayed Release Particles 02/24/2022 - 06/30/2022 Provider: TONY GRANADOSBC Diagnosis: Dorsalgia, unspe cified One tablet at bed time Last Documented On 2 11:45AM By DEB RUIZPRAF ; [facility] DULoxetine HCl 60 MG Oral Capsule Delayed Release Particles 02/07/2022 - 02/24/2022 Provider: BLANE GRANADOS Diagnosis: Radiculopathy, l umbar region TAKE 1 CAPSULE BY MOUTH AT BEDTIME Last Documented On 2 8:52AM [facility] ; [facility] oxyCODONE-Acetaminophen 10-3 25 MG Oral Tablet 02/07/2022 - 03/07/2022 Provider: LUC GRANADOS-JUNIE Diagnosis: One tablet three times a day as needed for SEVERE pain only Last Documented On 2 4:00PM By [facility] ; [facility] Pregabalin 150 MG Oral Capsule 01/27/2022 - 03/24/2022 Provider: LUC GRANADOS-BC Diagnosis: Radiculopathy, l umbar region 1 CAPSULE TWO TIMES A DAY Last Documented On 2 12:55PM By DEB CAMARENA TENANT SELECTORJUNIE ; [facility] Pregabalin 75 MG Oral Capsule 01/27/2022 - 02/24/2022 Provider: BLANE GRANADOS Diagnosis: Radiculopathy, l umbar region 1 cap at bedtime for 3 days then 1 cap two times daily for 3 days then 1 cap in the am and 2 caps at bedtime for 3 days Last Documented On 2 1:59PM By DEB ARGUELLES ; [facility] oxyCODONE-Acetaminophen 10-3 25 MG Oral Tablet 01/10/2022 - 02/04/2022 Provider: BLANE GRANADOS Diagnosis: One tablet three times a day Last Documented On 2 9:05AM By DEB ARGUELLES ; [facility] oxyCODONE-Acetaminophen 10-3 25 MG Oral Tablet 12/10/2021 - 01/07/2022 Provider: BLANE GRANADOS Diagnosis: One tablet three times a day Last Documented On 2 11:01AM By DEB ARGUELLES ; [facility] Narcan 4 MG/0.1ML Nasal Liquid 12/08/2021 - 06/30/2022 Provider: BLANE LAGUNAS Diagnosis: 1 spray intranasally for suspected overdose Last Documented On 2 11:41AM By DEB ARGUELLES ; [facility] DULoxetine HCl 60 MG Oral Capsule Delayed Release Particles 12/03/2021 - 02/07/2022 Provider: BLANE GRANADOS Diagnosis: Radiculopathy, l umbar region One tablet at bed time Last Documented On 2 9:06AM By DEB ARGUELLES ; [facility] hydrOXYzine HCl 50 MG Oral Tablet 12/03/2021 - 023 Provider: Diagnosis: Up to three times a day. Last Documented On 3 4:44PM By DEB ARGUELLES ; [facility] DULoxetine HCl 30 MG Oral Capsule Delayed Release Particles 12/03/2021 - 01/27/2022 Provider: DEB G NICOL BUSINESS CONTINUITY STRATEGY DIRECTOR-FPA, TENANT SELECTOR-BC Diagnosis: Radiculopathy, l umbar region One tablet at bed time Last Documented On 2 1:59PM By DEB CAMARENA TENANT SELECTOR-BC ; [facility] Ondansetron HCl 4 MG Oral Tablet 11/17/2021 - 01/28/20 Provider: Diagnosis: PRN Last Documented On 2 1:08PM By Ratna STUART ; [facility] oxyCODONE-Acetaminophen 10-325 MG Oral Tablet 11/14/19 22 - 12/07/2021 Provider: Diagnosis: Last Documented On 2 10:25AM By DEB CAMARENA TENANT SELECTOR-BC ; [facility] Medications Administered Includes: Administered Medications in patient's chart No Administered Medications Recorded Results Includes: Results from 10/11/2023 through 10/11/2024 No Results Recorded For Specified Dates History of Present Illness History of Present Illness not supported for this document type No History of Present Illness Recorded Social History Description Last Updated No consumption of alcohol 12/03/2021 Last Documented On 2 1:39PM ; [facility] Not using drugs 12/03/2021 Last Documented On 2 1:39PM ; [facility] Smoking packs of cigarettes per day 2 Last Documented On 2 1:39PM ; [facility] Current smoker 12/03/2021 Last Documented On 2 1:39PM ; [facility] Smoking Status Unknown Procedures and Surgical History Surgical History Last Updated No Pacemaker 12/03/2021 Last Documented On 2 1:39PM ; [facility] Medical History Includes: Medical History in patient's chart Description Last Updated Has had a fall in the last 12 months. Last Documented On 3 12:47PM ; [facility] Denies a fear of falling. 12/03/2021 Last Documented On 2 1:39PM ; [facility] Currently wearing eyeglasses 12/03/2021 Last Documented On 2 1:39PM ; [facility] No Pain Pump 12/03/2021 Last Documented On 2 1:39PM ; [facility] No Spinal cord stimulator 12/03/2021 Last Documented On 2 1:39PM ; [facility] Please list all illnesses/co nditions you have been diagnosed with: Idopathic intercranial hypertension, seizures, stomach hernia,acid reflux disease,depression,anxiety,bipolor 12/03/2021 Last Documented On 2 1:39PM ; [facility] Please list all surgeries: C sections 12/09/06 12/10/07 01/19/2010. eptopic pregnacy 2 12/03/2021 Last Documented On 2 1:39PM ; [facility] Family History Includes: Family History in patient's chart Description Last Updated Family history of ischemic heart disease 12/03/2021 Last Documented On 2 1:39PM ; [facility] Fraternal history of reported family his tory of seizures 12/03/2021 Last Documented On 2 1:39PM ; [facility] Maternal history of reported family hist ory of seizures 12/03/2021 Last Documented On 2 1:39PM ; [facility] Sororal history of reported family histo ry of seizures 12/03/2021 Last Documented On 2 1:39PM ; [facility] Review of Systems Review of Systems not supported for this document type No Review of Systems Recorded Mental Status No Mental Status Recorded Functional Status No Functional Status Recorded Physical Exam Physical Exam not supported for this document type No Physical Exam Recorded Allergies Includes: Active, inactive, and resolved Allergies Substance Type Reaction Onset Date Resolved Date Statu s Trimethoprim Allergy 12/03/2021 Active Last Documented On 3 10:33AM ; [facility] Sulfa Antibiotics Allergy 12/03/2021 A ctive Last Documented On 3 10:33AM ; [facility] Penicillins Allergy 12/03/2021 Active Last Documented On 3 10:33AM ; [facility] Morphine Derivatives Allergy 12/03/2021 Active Last Documented On 3 10:33AM ; [facility] Metoclopramide Allergy 12/03/2021 Acti ve Last Documented On 3 10:33AM ; [facility] Adhesive Tape Allergy 12/03/2021 Activ e Last Documented On 3 10:33AM ; [facility] Insurance Includes: Active Insurance Policies Plan Name Member ID Group # Subscriber Relationship Effect enriqueta Dates 1 - [facility] [id number] LAURIE Gill Clinical Notes Includes: Signed Clinical Notes starting from 10/07/2022 No Clinical Notes Recorded
--- OUTSIDE RECORDS SUMMARY | 2024-10-11 11:29 | XMS_ITS | Clinical Summary ---
Author Organization [facility] Address [address] [place] [address] Phone Care Team Providers Care Curtain Worker Name Role Phone RENA SORIANO, LYNN Alcaraz Unavailable [phone] ROSENDO PECK DO Primary Care Provider [phone] ESTRADA SORIANO, NICHOLAS Unavailable [phone] Reason for Visit and Chief Complaint PAIN MANAGEMENT FOLLOW UP Problems Includes: Problems addressed during this encounter and other active Problems All Visits Onset Date Resolved Date Provider Condition S tatus Bipolar Disorder Nos Unknown DEB CAMARENA SCOURING MACHINE TENDER-FPA, CLINICAL CARE LEADER-BC Active Last Documented On 2 11:56AM ; [facility] Esophageal Reflux Unknown DEB CAMARENA APR N-FPA, CLINICAL CARE LEADER-BC Active Last Documented On 2 11:57AM ; [facility] 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 DEB CAMARENA SCOURING MACHINE TENDER-FPA, F GAMEROOM TECHNICIAN-BC Active Last Documented On 2 11:43AM ; [facility] Plan of Treatment No Plan of Treatment Recorded Assessments Includes: Assessments from this encounter No Assessments Recorded Medical Equipment - Implanted Devices Includes: Current Devices No Medical Equipment Recorded Medications Includes: Medications discussed during this encounter and other current Medications Current Medications (continue as prescribed) DULoxetine HCl 60 MG Oral Capsule Delayed Release Particles 01/23/2023 Provider: TONY FORBESBC Diagnosis: Dorsalgia, unspe cified TAKE 1 CAPSULE BY MOUTH AT BEDTIME Last Documented On 3 2:59PM By DEB CALLE-JUNIE ; [facility] tiZANidine HCl 2 MG Oral Tablet 01/23/2023 Provider: BLANE GRANADOS Diagnosis: TAKE 1 TABLET BY MOUTH THREE TIMES DAILY NEEDED Last Documented On 3 8:40AM By DEB ARGUELLES ; [facility] oxyCODONE-Acetaminophen 10-3 25 MG Oral Tablet 01/03/2023 Provider: BLANE FORBES Diagnosis: 1/2-1 tablet as needed for s evere migraine, max 2 tablets per week Last Documented On 3 4:30PM By DEB ARGUELLES ; [facility] Buprenorphine 5 MCG/HR Transdermal Patch Weekly 12/08/2022 Provider: BLANE GRANADOS Diagnosis: Chronic pain syn drome apply 1 patch every 7 days, be sure to remove the old patch Last Documented On 3 12:46PM By DEB ARGUELLES ; [facility] Narcan 4 MG/0.1ML Nasal Liquid 12/08/2022 Provider: BLANE FORBES Diagnosis: Chronic pain syn drome 1 spray intranasally for jeff pected overdose Last Documented On 3 12:46PM By DEB ARGUELLES ; [facility] CeleBREX 200 MG Oral Capsule 11/28/2022 Provider: BLANE FORBES Diagnosis: Dorsalgia, unspe cified 1 capsule daily with a meal Last Documented On 3 12:46PM By DEB ARGUELLES ; [facility] hydrOXYzine HCl 50 MG Oral Tablet 10/04/2022 Provide r: ROSENDO PECK DO Diagnosis: Last Documented On 3 12:46PM By DEB ARGUELLES ; [facility] Symbicort 160-4.5 MCG/ACT Inhalation Aerosol 3 Provider: ROSENDO PECK DO Diagnosis: Last Documented On 3 4:46PM By DEB ARGUELLES ; [facility] Albuterol Sulfate HFA 108 (9 0 Base) MCG/ACT Inhalation Aerosol Solution 09/19/2022 Provider: ROSENDO ALARCON DO Diagnosis: Last Documented On 3 4:46PM By [facility] ; [facility] SUMAtriptan Succinate 100 MG Oral Tablet 09/17/2022 Provider: NICHOLAS DORADO MD Diagnosis: Last Documented On 3 4:46PM By [facility] ; [facility] Qulipta 60 MG Oral Tablet 08/08/2022 Provider: Diagnosis: Last Documented On 3 4:46PM By DEB NICOL [facility] ; [facility] RisperDAL 1 MG Oral Tablet 12/03/2021 Provider: Diagnosis: Last Documented On 2 11:52AM By DEB CAMARENA [facility] ; [facility] Pantoprazole Sodium 40 MG Oral Tablet Delayed Release 11/14/2021 Provider: Diagnosis: Last Documented On 2 11:52AM By DEB NICOL [facility] ; [facility] Sucralfate 1 GM Oral Tablet 10/18/2021 Provider: Diagnosis: Last Documented On 2 11:52AM By DEB NICOL [facility] ; [facility] Medications Administered Includes: Administered Medications from this encounter No Administered Medications Recorded Results Includes: Results discussed during this encounter No Results Recorded For Specified Dates History of Present Illness Includes: History of Present Illness from this encounter No History of Present Illness Recorded Social History No Social History Recorded - Smoking Status Unknown Medical History Includes: Medical History addressed during this encounter No Medical History Recorded Family History Includes: Family History addressed during this encounter No Family History Recorded Review of Systems Includes: Review of Systems [...] Active Last Documented On 3 10:33AM ; [facility] Sulfa Antibiotics Allergy 12/03/2021 A ctive Last Documented On 3 10:33AM ; [facility] Penicillins Allergy 12/03/2021 Active Last Documented On 3 10:33AM ; [facility] Morphine Derivatives Allergy 12/03/2021 Active Last Documented On 3 10:33AM ; [facility] Metoclopramide Allergy 12/03/2021 Acti ve Last Documented On 3 10:33AM ; [facility] Adhesive Tape Allergy 12/03/2021 Activ e Last Documented On 3 10:33AM ; [facility] Insurance Includes: Active Insurance Policies Plan Name Member ID Group # Subscriber Relationship Effect enriqueta Dates 1 - [facility] [id number] LAURIE Gill Clinical Notes Includes: Clinical Notes from this encounter No Clinical Notes Recorded
--- OUTSIDE RECORDS SUMMARY | 2024-10-11 11:30 | XMS_ITS | Patient Health Summary ---
Author Organization [facility] Address [address] [place] [address] Care Team Providers Care Integration Developer Name Role Phone EphraimJuni rock Primary Care Provider Note from [facility],non-owned Affiliates and Associated Physician Practices is amultiple site organization consisting of ambulatory clinics and hospital sitesin [place], [place], [place] and [place]. This disclosure is being madepursuant to the Care Everywhere program and may not contain all information available regarding this patient. Last updated 18.[facility] [employer] Allergies * Morphine(Headache) * Sulfa Drugs(Rash) -Medium Criticality Medications * Be aware that medications may not be up to date on this document. Alwaysverify current medications with the patient. * HYDROcodone-acetaminophen (NORCO) 10-325 MG tablet(Started 05/11/2018) Take 1 tablet by mouth 3 times daily as needed Active Problems Problem Noted Date Diagnosed Date IIH (idiopathic intracranial hypertension) 05/31 Social History Tobacco Use Types Packs/Day Years Used Date Smoking Tobacco: Every Day Cigarettes Smokeless Tobacco: Never Tobacco Cessation:Ready to Q uit: Yes; Counseling Given: No Alcohol Use Standard Drinks/Week Comments No 0 (1 standard drink = 0.6 oz pur e alcohol) Sex and Gender Information Value Date Recorded Sex Assigned at Not on file Gender Identity Not on file Sexual Orientation Not on file Last Filed Vital Signs Vital Sign Reading Time Taken Comments Blood Pressure 121/86 05/17/2018 1:02 PM CDT Pulse 101 05/17/2018 1:02 PM CDT Temperature - - Respiratory Rate - - Oxygen Saturation - - Inhaled Oxygen Concentration - - Weight - - Height 152.4 cm (5') 05/17/2018 1:02 PM CDT Body Mass Index - - Procedures * MRI BRAIN WWO CONTRAST(Performed 06/05/2018) Performed for IIH (idiopathic intracranial hypertension) * CREATININE BLOOD - POCT (IP) [facility](Performed 06/05/2018) Performed for IIH (idiopathic intracranial hypertension) Results * MRI BRAIN WWO CONTRAST (06/05/2018 5:12 PM CDT) Anatomical Region Laterality Modality Head Magnetic Resonan ce 06/06/2018 10:4 2 AM CDT Impressions 06/06/2018 11:17 AM CDT IMPRESSION: Suggestion of flattening of the left globe at the optic head which corresponds to reported papilledema. Partially empty sella turcica. No other intracranial abnormality. Mild paranasal sinus disease as above. I, Dr. JOHANA GUAJARDO have personally reviewed and interpreted this examination/study. This report was electronically signed by JOHANA GUAJARDO ??on 06/06/2018 11:17 AM . Narrative 06/06/2018 11:17 AM CDT EXAMINATION: Magnetic resonance imaging (MRI) of the brain without and with contrast HISTORY: 32-year-old female with blurry vision and headache found to have papilledema. TECHNIQUE: MRI of the brain was performed prior to and following the uneventful administration of 10 mL Gadavist intravenous gadolinium contrast according to standard protocol. FINDINGS: Comparison is made with an outside institution dated 12/27/2017. No evidence of acute or chronic hemorrhage is identified. No evidence of acute cerebral infarction is seen. The ventricles are of normal size, shape, and morphology. No mass effect or midline shift is seen. No enhancing lesions are identified. The corpus callosum appears normal. The sella is partially empty. The posterior fossa, brainstem, and craniocervical junction appear normal. There is mucosal thickening in the bilateral maxillary sinuses, left greater than right. There is a mucous retention cyst in the left aspect of the sphenoid sinus. There is partial opacification of ethmoid air cells. There is partial opacification of the left mastoid air cells. There is suggestion of flattening of the left globe at the optic head (series 13, image 8). Normal flow voids are demonstrated in the carotid arteries and basilar artery. Procedure Note Johana Guajardo MD - 06/06/2018 EXAMINATION: Magnetic resonance imaging (MRI) of the brain without and with contrast HISTORY: 32-year-old female with blurry vision and headache found tohave papilledema. TECHNIQUE: MRI of the brain was performed prior to and following the uneventful administration of 10 mL Gadavist intravenous gadolinium contrast according to standard protocol. FINDINGS: Comparison is made with an outside institution date12/27/2017. No evidence of acute or chronic hemorrhage is identified. No evidence of acute cerebral infarction is seen. The ventricles are of normal size, shape, and morphology. No mass effect or midline shift is seen. No enhancing lesions are identified. The corpus callosum appears normal.The sella is partially empty. The posterior fossa, brainstem, and craniocervical junction appear normal. There is mucosal thickening in the bilateral maxillary sinuses, left greater than right. There is a mucous retention cyst in the left aspectof the sphenoid sinus. There is partial opacification of ethmoid air cells. There is partial opacification of the left mastoid air cells. There is suggestion of flattening of the left globe at the optic head (series 13, image 8). Normal flow voids are demonstrated in the carotid arteries and basilar artery. IMPRESSION: Suggestion of flattening of the left globe at the optic head which corresponds to reported papilledema. Partially empty sella turcica. No other intracranial abnormality. Mild paranasal sinus disease as above. I, Dr. JOHANA GUAJARDO have personally reviewed and interpreted this examination/study. This report was electronically signed by JOHANA GUAJARDO on 06/06/2018 11:17 AM . Katie Multani MD MR ORDERABLES * CREATININE BLOOD - POCT (IP) [facility] (06/05/2018 4:49 PM CDT) Creatinine POCT 0.94 0.3 - 1.3 mg/dL [facility] eGFR POCT 60 60 ml/min [facility] Blood BLOOD SPECIMEN / Unknown 06/05/2018 4:49 PM CDT Katie Multani MD LAB - POINT OF CARE ORDERABLES [facility] [address] [phone] Care Teams Integration Developer Relationship Specialty Start Date End Date Juni Lopez DO [address] [place], [place] [id number] PCP - General 12/02/21
--- OUTSIDE RECORDS SUMMARY | 2024-10-11 11:30 | XMS_ITS | Clinical Summary ---
Author Organization [facility] Address [address] [place] [address] Phone Care Team Providers Care Warp Changer Name Role Phone Juni Lopez MD Primary Care Provider [phone] Odell Anderson MD Unavailable [phone] Dorita Escobedo APRN, CHLORINE CELLS OPERATOR Unavailable [phone] Allergies Active Allergy Reactions Criticality Noted Date Comments Metoclopramide Unknown 02/04/2022 Morphine Unknown 02/04/2022 Wound Dressing Adhesive Unknown 02/04/2022 Penicillins Unknown 02/04/2022 Sulfa Antibiotics Unknown 02/04/2022 Topiramate Other (see Comments) 11/22/2022 Per patient caused a burning in her groin area Trimethoprim Unknown 02/04/2022 Medications oxyCODONE-Acet aminophen (PERCOCET) 10-325 MG Tablet 0 2 Active pregabalin (LYRICA) 75 MG Capsule 0 2 Active DULoxetine (CYMBALTA) [address] Particles Take 60 mg by mouth daily. Active pantoprazole (PROTONIX) 40 MG Tablet Delayed Response Take 40 mg by mouth daily. Active risperiDONE (RISPERDAL) 1 MG Tablet Take 1 mg by mouth 2 times daily. Active sucralfate (CARAFATE) 1 GM Tablet Take 1 g by mouth every 6 hours. Active hydrOXYzine (ATARAX) 50 MG Tablet Take 100 mg by mouth every 6 hours as needed. Active indomethacin (INDOCIN) 50 MG Capsule Take 1 Capsule by mouth 3 times daily as needed for Moderate or more severe pain. 20 Capsule 2 Active Additional Information Patient not taking.Reported on 11/22/2022 prochlorperazi ne (COMPAZINE) 5 MG Tablet Take 1-2 Tablets by mouth every 6 hours as needed for Nausea - 2nd line. 10 Tablet 2 Active Additional Information Patient not taking.Reported on 11/22/2022 ondansetron (ZOFRAN) 4 MG Tablet Take 1-2 Tablets by mouth every 8 hours as needed for Nausea - 1st line. 10 Tablet 2 Active Additional Information Patient not taking.Reported on 11/22/2022 Symbicort 160-4.5 MCG/ACT Aerosol INHALE 2 PUFFS BY MOUTH EVERY 12 HOURS 2 Active albuterol 108 (90 Base) MCG/ACT Aerosol Solution INHALE 2 PUFFS BY MOUTH FOUR TIMES DAILY 2 Active SUMAtriptan (IMITREX) 100 MG Tablet Take 1 Tablet by mouth daily as needed for Migraine. Use as directed. May repeat dose in 2 hours if headache recurs. 9 Tablet 3 3 Active acetaZOLAMIDE (DIAMOX) 250 MG Tablet Take 1 Tablet by mouth 3 times daily. 90 Tablet 4 Active Atogepant (Qulipta) 60 MG Tablet Take 60 mg by mouth daily. 90 Tablet 1 5 Active Atogepant (Qulipta) 60 MG Tablet Take 60 mg by mouth daily. 90 Tablet 1 3 09/25/19 25 Discontin ued(Reord er) Active Problems No known active problems Encounters Date Type Department Care Team Description 09/25/2024 Refill [facility] - [facility] [address] [place] [address] Odell Anderson MD Medication Refill from Last 3 Months Family History Medical History Relation Name Comments Seizures Father Seizures Mother Relation Name Status Comments Father Mother Social History Tobacco Use Types Packs/Day Years Used Date Smoking Tobacco: Every Day Cigarettes Smokeless Tobacco: Never Tobacco Cessation:Ready to Q uit: Not Asked; Counseling Given: Not Answered Alcohol Use Standard Drinks/Week Comments Not Currently 0 (1 standard drink = 0.6 oz pur e alcohol) Comments No Sex and Gender Information Value Date Recorded Sex Assigned at Not on file Legal Sex Female 1:35 PM CDT Gender Identity Not on file Sexual Orientation Not on file Last Filed Vital Signs Vital Sign Reading Time Taken Comments Blood Pressure 118/78 10/05/2023 3:07 PM EXTERN Pulse 107 10/05/2023 3:07 PM EXTERN Temperature 36.2 ??C (97.1 ??F) 10/05/2023 3:07 PM CS T Respiratory Rate 20 10/05/2023 3:07 PM EXTERN Oxygen Saturation 96% 10/05/2023 3:07 PM EXTERN Inhaled Oxygen Concentration - - Weight 136.5 kg (301 lb) 10/05/2023 3:07 PM EXTERN Height 154.9 cm (5' 1 ) 10/05/2023 3:07 PM EXTERN Body Mass Index 56.87 10/05/2023 3:07 PM EXTERN Plan of Treatment Health Maintenance Due Date Last Done Comments Hepatitis C Virus (HCV) Screening 1986 TdaP Immunization 1986 Hepatitis B Immunization (1 of 3 - 19+ 3-dose series) 2005 Pneumococcal Immunization Combined (1 of 2 - PCV) 2005 Pap Smear 2007 Cervical Cancer Screening (CCS) 2016 HPV/Cotest 2016 Influenza Immunization (#1) 2024 SARS-COV-2 Immunization ( season) 2024 09/09/2021, 03/09/2021, 02/01/2021 Respiratory Syncytial Virus (RSV) Immunization (Adult) (1 - 1-dose 75+ series) 2061 Meningococcal Immunization (ACWY) Aged Out No longer eligible b ased on patient's age to complete this topic Rotavirus Immunization Aged Out No lo nger eligible based on patient's age to complete this topic Insurance MEDICAID [employer] Care Teams Warp Changer Relationship Specialty Start Date End Date Juni Lopez MD [address] [place] [id number] PCP - General Family Medicine 07/02/22 Odell Anderson MD [address] [place] [address] Consulting Physician Neurology 07/04/23 Dorita Escobedo APRN, CHLORINE CELLS OPERATOR [address] [place] [address] Nurse Practitioner Advanced Practice Nurse 05/17/22
--- OUTSIDE RECORDS SUMMARY | 2024-10-11 11:30 | XMS_ITS | Referral Summary ---
Author Organization [facility] [employer] Address [address] [place] [address] Care Team Providers Care Gas Combustion Engineer Name Role Phone BrijeshJuni simms DO Primary Care Provider [phone] [facility] [employer],non-owned Affiliates and Associated Physician Practices is amultiple site organization consisting of ambulatory clinics and hospital sitesin [place], [place], [place] and [place]. This disclosure is being madepursuant to the Care Everywhere program and may not contain all information available regarding this patient. Last updated 18.[facility] [employer] Allergies Active Allergy Reactions Criticality Noted Date Comments Morphine Headache 05/17/2018 Sulfa Drugs Rash Medium 05/17/2018 Medications * Be aware that medications may not be up to date on this document. Alwaysverify current medications with the patient. Medication Sig Dispensed Refills Start Date End Date Status HYDROcodone-acetaminop hen (NORCO) 10-325 MG tablet Take 1 tablet by mouth 3 times daily as needed 0 05/11/2018 Active Active Problems Problem Noted Date Diagnosed Date [...] PM CDT Body Mass Index - - Plan of Treatment Not on file Care Teams Gas Combustion Engineer Relationship Specialty Start Date End Date Juni Lopez DO [address] [place] [id number] PCP - General 12/02/21
--- OUTSIDE RECORDS SUMMARY | 2024-10-11 11:30 | XMS_ITS | Clinical Summary ---
Author Organization [facility] [employer] Address [address] [place] [address] Care Team Providers Care Case Operator Name Role Phone Juni Lopez DO Primary Care Provider Source Comments [facility] [employer],non-owned Affiliates and Associated Physician Practices is amultiple site organization consisting of ambulatory clinics and hospital sitesin [place], [place], [place] and [place]. This disclosure is being madepursuant to the Care Everywhere program and may not contain all information available regarding this patient. Last updated 18.[facility] [employer] Allergies Active Allergy Reactions Criticality Noted Date [...] Mass Index - - Plan of Treatment Health Maintenance Due Date Last Done Comments PAP SMEAR 1986 HIV SCREENING 2001 HEPATITIS C SCREENING 10/03/2004 DTAP/TDAP/TD VACCINES (1 - Tdap) 2005 HEPATITIS B VACCINE (1 of 3 - 19+ 3-dose series) 2005 PNEUMOCOCCAL VACCINE (1 of 2 - PCV) 2005 COVID-19 VACCINE ( - 2023-2 5 season) 2024 INFLUENZA VACCINE (#1) 2024 DEPRESSION SCREENING 09/18/2024 ZOSTER VACCINE (1 of 2) 2036 HIB VACCINE Aged Out No longer eligi ble based on patient's age to complete this topic HPV VACCINE Aged Out No longer eligi ble based on patient's age to complete this topic MENINGOCOCCAL (Group B) VACCINE Aged Out No longer eligible based on patient's age to complete this topic MENINGOCOCCAL VACCINE Aged Out No javier leroy eligible based on patient's age to complete this topic Care Teams Case Operator Relationship Specialty Start Date End Date Juni Lopez DO [address] [place] [id number] PCP - General 12/02/21
--- OUTSIDE RECORDS SUMMARY | 2024-10-11 11:32 | XMS_ITS | Clinical Summary ---
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 DEB CAMARENA ELECTRIC MOTOR TESTER ASSEMBLER-FPA, F GROUP HOME MANAGER-BC Active Last Documented On 2 11:43AM ; [facility] Plan of Treatment No Plan of Treatment Recorded Assessments Includes: Assessments from this encounter No Assessments Recorded Medical Equipment - Implanted Devices Includes: Current Devices No Medical Equipment Recorded Medications Includes: Medications discussed during this encounter and other current Medications Current Medications (continue as prescribed) DULoxetine HCl 60 MG Oral Capsule Delayed Release Particles 01/23/2023 Provider: DEB PACHECO RECREATIONAL COUNSELOR-BC Diagnosis: Dorsalgia, unspe cified TAKE 1 CAPSULE BY MOUTH AT BEDTIME Last Documented On 3 2:59PM By DEB CALLE-JUNIE ; [facility] tiZANidine HCl 2 MG Oral Tablet 01/23/2023 Provider: BLANE GRANADOS Diagnosis: TAKE 1 TABLET BY MOUTH THREE TIMES DAILY NEEDED Last Documented On 3 8:40AM By DEB ARGUELLES ; [facility] oxyCODONE-Acetaminophen 10-3 25 MG Oral Tablet 01/03/2023 Provider: BLANE FORBES Diagnosis: 1/2-1 tablet as needed for s evere migraine, max 2 tablets per week Last Documented On 3 4:30PM By DEB ARGUELLES ; [facility] Buprenorphine 5 MCG/HR Transdermal Patch Weekly 12/08/2022 Provider: BLANE GRANADOS Diagnosis: Chronic pain syn drome apply 1 patch every 7 days, be sure to remove the old patch Last Documented On 3 12:46PM By DEB ARGUELLES ; [facility] Narcan 4 MG/0.1ML Nasal Liquid 12/08/2022 Provider: BLANE FORBES Diagnosis: Chronic pain syn drome 1 spray intranasally for jeff pected overdose Last Documented On 3 12:46PM By DEB ARGUELLES ; [facility] CeleBREX 200 MG Oral Capsule 11/28/2022 Provider: BLANE FORBES Diagnosis: Dorsalgia, unspe cified 1 capsule daily with a meal Last Documented On 3 12:46PM By DEB ARGUELLES ; [facility] hydrOXYzine HCl 50 MG Oral Tablet 10/04/2022 Provide r: ROSENDO PECK DO Diagnosis: Last Documented On 3 12:46PM By DEB ARGUELLES ; [facility] Symbicort 160-4.5 MCG/ACT Inhalation Aerosol 3 Provider: ROSENDO PECK DO Diagnosis: Last Documented On 3 4:46PM By DEB ARGUELLES ; [facility] Albuterol Sulfate HFA 108 (9 0 Base) MCG/ACT Inhalation Aerosol Solution 09/19/2022 Provider: ROSENDO ALARCON DO Diagnosis: Last Documented On 3 4:46PM By DEB CAMARENA [facility] ; [facility] SUMAtriptan Succinate 100 MG Oral Tablet 09/17/2022 Provider: NICHOLAS DORADO MD Diagnosis: Last Documented On 3 4:46PM By DEB CAMARENA [facility] ; [facility] Qulipta 60 MG Oral Tablet 08/08/2022 Provider: Diagnosis: Last Documented On 3 4:46PM By DEB CAMARENA [facility] ; [facility] RisperDAL 1 MG Oral Tablet 12/03/2021 Provider: Diagnosis: Last Documented On 2 11:52AM [facility] Pantoprazole Sodium 40 MG Oral Tablet Delayed Release 11/14/2021 Provider: Diagnosis: Last Documented On 2 11:52AM By DEB CAMARENA [facility] ; [facility] Sucralfate 1 GM Oral Tablet 10/18/2021 Provider: Diagnosis: Last Documented On 2 11:52AM By DEB CAMARENA [facility] ; [facility] Past Medications on file SUMAtriptan Succinate 50 MG Oral Tablet 07/28/2022 - 08/27/2022 Provider: DEB CAMARENA APRN-JUNIOR, [facility]- Diagnosis: Headache, unspec ified take 2 tablet at onset of he adache, may repeat after 2 hours, max 4 in 24 hours Last Documented On 2 8:43AM By DEB CAMARENA [facility] ; [facility] Medications Administered Includes: Administered Medications from this encounter No Administered Medications Recorded Results Includes: Results discussed during this encounter No Results Recorded For Specified Dates History of Present Illness Includes: History of Present Illness from this encounter No History of Present Illness Recorded Social History Description Last Updated No consumption of alcohol 12/03/2021 Last Documented On 3 4:14PM ; [facility] Not using drugs 12/03/2021 Last Documented On 3 4:14PM ; [facility] Smoking packs of cigarettes per day 2 Last Documented On 3 4:14PM ; [facility] Current smoker 12/03/2021 Last Documented On 3 4:14PM ; [facility] Smoking Status Unknown Procedures and Surgical History Surgical History Last Updated No Pacemaker 12/03/2021 Last Documented On 3 4:14PM ; [facility] Medical History Includes: Medical History addressed during this encounter Description Last Updated Has had a fall in the last 12 months. Last Documented On 3 4:14PM ; [facility] Denies a fear of falling. 12/03/2021 Last Documented On 3 4:14PM ; [facility] Currently wearing eyeglasses 12/03/2021 Last Documented On 3 4:14PM ; [facility] No Pain Pump 12/03/2021 Last Documented On 3 4:14PM ; [facility] No Spinal cord stimulator 12/03/2021 Last Documented On 3 4:14PM ; [facility] Please list all illnesses/co nditions you have been diagnosed with: Idopathic intercranial hypertension, seizures, stomach hernia,acid reflux disease,depression,anxiety,bipolor 12/03/2021 Last Documented On 3 4:14PM ; [facility] Please list all surgeries: C sections 12/09/06 12/10/07 01/19/2010. eptopic pregnacy 2 12/03/2021 Last Documented On 3 4:14PM ; [facility] Family History Includes: Family History addressed during this encounter Description Last Updated Family history of ischemic heart disease 12/03/2021 Last Documented On 3 4:14PM ; [facility] Fraternal history of reported family his tory of seizures 12/03/2021 Last Documented On 3 4:14PM ; [facility] Maternal history of reported family hist ory of seizures 12/03/2021 Last Documented On 3 4:14PM ; [facility] Sororal history of [...] Active Last Documented On 3 10:33AM ; [facility] Sulfa Antibiotics Allergy 12/03/2021 A ctive Last Documented On 3 10:33AM ; [facility] Penicillins Allergy 12/03/2021 Active Last Documented On 3 10:33AM ; [facility] Morphine Derivatives Allergy 12/03/2021 Active Last Documented On 3 10:33AM ; [facility] Metoclopramide Allergy 12/03/2021 Acti ve Last Documented On 3 10:33AM ; [facility] Adhesive Tape Allergy 12/03/2021 Activ e Last Documented On 3 10:33AM ; [facility] Encounters Encounter Provider Location Date Check-In Time Check-Out Time Diagnosis * PHONE CALL DEB Anita CAMARENA APRN-JUNIOR, [facility] 12/13/2022 4:13PM 11:59PM Insurance Includes: Active Insurance Policies Plan Name Member ID Group # Subscriber Relationship Effect enriqueta Dates 1 - [facility] [id number] LAURIE DAS Self Clinical Notes Includes: Clinical Notes from this encounter * Progress note Date Encounter Last Documented by 12/13/2022 * PHONE CALL Last documented on 12/13/2022; 4:44 PM, DEB Howard NICOL ELECTRIC MOTOR TESTER ASSEMBLER-FPA, RECREATIONAL COUNSELOR-BC; [facility] Active Problems & Conditions - Bipolar [...] and see how she does. 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 Current Medication - Albuterol Sulfate HFA 108 [...]
--- OUTSIDE RECORDS SUMMARY | 2024-10-11 11:32 | XMS_ITS | Clinical Summary ---
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 DEB CAMARENA COVER STRIPPER-FPA, F JUNIOR WEB DEVELOPER-BC Active Last Documented On 2 11:43AM ; [facility] Plan of Treatment No Plan of Treatment Recorded Assessments Includes: Assessments from this encounter No Assessments Recorded Medical Equipment - Implanted Devices Includes: Current Devices No Medical Equipment Recorded Medications Includes: Medications discussed during this encounter and other current Medications Current Medications (continue as prescribed) DULoxetine HCl 60 MG Oral Capsule Delayed Release Particles 01/23/2023 Provider: DEB PACHECO [employer]SEM[employer]-BC Diagnosis: Dorsalgia, unspe cified TAKE 1 CAPSULE BY MOUTH AT BEDTIME Last Documented On 3 2:59PM By DEB CALLE-JUNIE ; [facility] tiZANidine HCl 2 MG Oral Tablet 01/23/2023 Provider: BLANE GRANADOS Diagnosis: TAKE 1 TABLET BY MOUTH THREE TIMES DAILY NEEDED Last Documented On 3 8:40AM By DEB ARGUELLES ; [facility] oxyCODONE-Acetaminophen 10-3 25 MG Oral Tablet 01/03/2023 Provider: BLANE FORBES Diagnosis: 1/2-1 tablet as needed for s evere migraine, max 2 tablets per week Last Documented On 3 4:30PM By DEB ARGUELLES ; [facility] Buprenorphine 5 MCG/HR Transdermal Patch Weekly 12/08/2022 Provider: BLANE GRANADOS Diagnosis: Chronic pain syn drome apply 1 patch every 7 days, be sure to remove the old patch Last Documented On 3 12:46PM By DEB ARGUELLES ; [facility] Narcan 4 MG/0.1ML Nasal Liquid 12/08/2022 Provider: BLANE FORBES Diagnosis: Chronic pain syn drome 1 spray intranasally for jeff pected overdose Last Documented On 3 12:46PM By DEB ARGUELLES ; [facility] CeleBREX 200 MG Oral Capsule 11/28/2022 Provider: BLANE FORBES Diagnosis: Dorsalgia, unspe cified 1 capsule daily with a meal Last Documented On 3 12:46PM By DEB ARGUELLES ; [facility] hydrOXYzine HCl 50 MG Oral Tablet 10/04/2022 Provide r: ROSENDO PECK DO Diagnosis: Last Documented On 3 12:46PM By DEB ARGUELLES ; [facility] Symbicort 160-4.5 MCG/ACT Inhalation Aerosol 3 Provider: ROSENDO PECK DO Diagnosis: Last Documented On 3 4:46PM By DEB ARGUELLES ; [facility] Albuterol Sulfate HFA 108 (9 0 Base) MCG/ACT Inhalation Aerosol Solution 09/19/2022 Provider: ROSENDO ALARCON DO Diagnosis: Last Documented On 3 4:46PM By DEB CAMARENA [facility] ; [facility] SUMAtriptan Succinate 100 MG Oral Tablet 09/17/2022 Provider: NICHOLAS DORADO MD Diagnosis: Last Documented On 3 4:46PM By DEB CAMARENA [facility] ; [facility] Qulipta 60 MG Oral Tablet 08/08/2022 Provider: Diagnosis: Last Documented On 3 4:46PM By DEB CAMARENA [facility] ; [facility] RisperDAL 1 MG Oral Tablet 12/03/2021 Provider: Diagnosis: Last Documented On 2 11:52AM [facility] Pantoprazole Sodium 40 MG Oral Tablet Delayed Release 11/14/2021 Provider: Diagnosis: Last Documented On 2 11:52AM By DEB CAMARENA [facility] ; [facility] Sucralfate 1 GM Oral Tablet 10/18/2021 Provider: Diagnosis: Last Documented On 2 11:52AM By DEB CAMARENA [facility] ; [facility] Past Medications on file SUMAtriptan Succinate 50 MG Oral Tablet 07/28/2022 - 08/27/2022 Provider: DEB CAMARENA APRN-JUNIOR, [facility]- Diagnosis: Headache, unspec ified take 2 tablet at onset of he adache, may repeat after 2 hours, max 4 in 24 hours Last Documented On 2 8:43AM By DEB CAMARENA [facility] ; [facility] Medications Administered Includes: Administered Medications from this encounter No Administered Medications Recorded Results Includes: Results discussed during this encounter No Results Recorded For Specified Dates History of Present Illness Includes: History of Present Illness from this encounter No History of Present Illness Recorded Social History Description Last Updated No consumption of alcohol 12/03/2021 Last Documented On 3 10:29AM ; [facility] Not using drugs 12/03/2021 Last Documented On 3 10:29AM ; [facility] Smoking packs of cigarettes per day 2 Last Documented On 3 10:29AM ; [facility] Current smoker 12/03/2021 Last Documented On 3 10:29AM ; [facility] Smoking Status Unknown Procedures and Surgical History Surgical History Last Updated No Pacemaker 12/03/2021 Last Documented On 3 10:29AM ; [facility] Medical History Includes: Medical History addressed during this encounter Description Last Updated Has had a fall in the last 12 months. Last Documented On 3 10:29AM ; [facility] Denies a fear of falling. 12/03/2021 Last Documented On 3 10:29AM ; [facility] Currently wearing eyeglasses 12/03/2021 Last Documented On 3 10:29AM ; [facility] No Pain Pump 12/03/2021 Last Documented On 3 10:29AM ; [facility] No Spinal cord stimulator 12/03/2021 Last Documented On 3 10:29AM ; [facility] Please list all illnesses/co nditions you have been diagnosed with: Idopathic intercranial hypertension, seizures, stomach hernia,acid reflux disease,depression,anxiety,bipolor 12/03/2021 Last Documented On 3 10:29AM ; [facility] Please list all surgeries: C sections 12/09/06 12/10/07 01/19/2010. eptopic pregnacy 2 12/03/2021 Last Documented On 3 10:29AM ; [facility] Family History Includes: Family History addressed during this encounter Description Last Updated Family history of ischemic heart disease 12/03/2021 Last Documented On 3 10:29AM ; [facility] Fraternal history of reported family his tory of seizures 12/03/2021 Last Documented On 3 10:29AM ; [facility] Maternal history of reported family hist ory of seizures 12/03/2021 Last Documented On 3 10:29AM ; [facility] Sororal history of reported [...] Active Last Documented On 3 10:33AM ; [facility] Sulfa Antibiotics Allergy 12/03/2021 A ctive Last Documented On 3 10:33AM ; [facility] Penicillins Allergy 12/03/2021 Active Last Documented On 3 10:33AM ; [facility] Morphine Derivatives Allergy 12/03/2021 Active Last Documented On 3 10:33AM ; [facility] Metoclopramide Allergy 12/03/2021 Acti ve Last Documented On 3 10:33AM ; [facility] Adhesive Tape Allergy 12/03/2021 Activ e Last Documented On 3 10:33AM ; [facility] Encounters Encounter Provider Location Date Check-In Time Check-Out Time Diagnosis * PHONE CALL DEB Anita CAMARENA APRN-JUNIOR, LUC-BC 12/15/2022 10:29AM 11:59PM Insurance Includes: Active Insurance Policies Plan Name Member ID Group # Subscriber Relationship Effect enriqueta Dates 1 - [facility] [id number] LAURIE DAS Self Clinical Notes Includes: Clinical Notes from this encounter * Progress note Date Encounter Last Documented by 12/15/2022 * PHONE CALL Last documented on 12/15/2022; 1:54 PM, DEB Howard NICOL COVER STRIPPER-FPA, TOY ASSEMBLER WOOD-BC; [facility] Active Problems & Conditions - Bipolar [...]
--- OUTSIDE RECORDS SUMMARY | 2024-10-11 11:32 | XMS_ITS | Clinical Summary ---
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 DEB Howard NICOL COSMETICIAN-FPA, F RADIO OPERATOR GROUND-BC Active Last Documented On 2 11:43AM ; [facility] Past Visits Onset Date Resolved Date Provider Condition Status Bipolar Disorder Nos Unknown EDB Howard NICOL COSMETICIAN-FPA, EXTENSION SPECIALIST-BC Active Last Documented On 2 11:56AM ; [facility] Esophageal Reflux Unknown DEB Howard NICOL APR N-FPA, EXTENSION SPECIALIST-BC Active Last Documented On 2 11:57AM ; [facility] Plan of Treatment Urine sample ordered and sent to lab for testing with confirmation via LCMS when appropriate. Urine drug testing is ordered to monitor opioid use and ongoing candidacy, verify compliant use of controlled substances, and monitor for use of illicit substances as these may result in harmful interactions. - Last Documented On 12/10/2022 12:47PM ; [facility] Instructions to patient Intervention and counseling on cessation of tobacco use : Patient recieved smoking cessation handout Last Documented On 3 10:22AM ; [facility] Education and Decision Aids were provided during visit for: Pill Count: six Last Documented On 3 10:33AM ; [facility] Assessments Includes: Assessments from this encounter Findings - [E66.8 - Other obesity] Morbid obesity - Last Documented On 12/10/2022 12:47PM ; [facility] - [M25.561 - Pain in right knee] Arthralgia of the right knee/patella/tibia/fibula - Last Documented On 12/10/2022 12:47PM ; [facility] - [M25.562 - Pain in left knee] Arthralgia of the left knee/patella/tibia/fibula - Last Documented On 12/10/2022 12:47PM ; [facility] - [M54.9 - Dorsalgia, unspecified] DORSALGIA - Last Documented On 12/10/2022 12:47PM ; [facility] - [M47.896 - Other spondylosis, lumbar region] Lumbar spondylosis - Last Documented On 12/10/2022 12:47PM ; [facility] - [G44.89 - Other headache syndrome] Chronic daily headache - Last Documented On 12/10/2022 12:47PM ; [facility] - [G93.2 - Benign intracranial hypertension] Idiopathic intracranial hypertension - Last Documented On 12/10/2022 12:47PM ; [facility] - [G89.4 - Chronic pain syndrome] Chronic pain syndrome - Last Documented On 12/10/2022 12:47PM ; [facility] - [Z79.891 - terminal make up operator (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) use of opiate analgesic] correction use of opiate analgesic - Last Documented On 12/10/2022 12:47PM ; [facility] Instructions Includes: Instructions from this encounter Instructions to patient Intervention and counseling on cessation of tobacco use : Patient recieved smoking cessation handout Last Documented On 3 10:22AM ; [facility] Education and Decision Aids were provided during visit for: Pill Count: six Last Documented On 3 10:33AM ; [facility] Medical Equipment - Implanted Devices Includes: Current Devices No Medical Equipment Recorded Medications Includes: Medications discussed during this encounter and other current Medications Discontinued / Stopped on this date HERMELINDA VILLAREAL MD on 10/28/2022 Lucemyra 0.18 MG Oral Tablet Provider: HERMELINDA VILLAREAL MD Diagnosis: Last Documented On 3 10:40AM By DEB ARGUELLES ; [facility] Amitriptyline HCl 25 MG Oral Tablet Provider: BLANE FORBES Diagnosis: Chronic pain syn drome Last Documented On 3 10:33AM By Ratna STUART ; [facility] New / Renewed during this visit BLANE GRANADOS on 12/08/2022 Pregabalin 75 MG Oral Capsule Provider: BLANE FORBES 8 day supply: 12 capsule, 0 refills Diagnosis: Chronic pain syndrome 1 capsule 2times daily for 4 days then at bedtime only for 4 days then stop Pharmacy: [address], [phone] - Last Documented On 3 4:25PM By DEB ARGUELLES ; [facility] Buprenorphine 5 MCG/HR Transdermal Patch Weekly Provider: BLANE GRANADOS 30 day supply: 4 patch, 0 refills Diagnosis: Chronic pain syndrome apply 1 patch every 7 days, be sure to remove the old patch Pharmacy: [address], [phone] - Last Documented On 3 12:46PM By DEB ARGUELLES ; [facility] Narcan 4 MG/0.1ML Nasal Liquid Provider: BLANE GRANADOS 30 day supply: 2 each, 0 refills Diagnosis: Chronic pain syndrome 1 spray intranasally for jeff pected overdose Pharmacy: [address], [phone] - Last Documented On 3 12:46PM By DEB ARGUELLES ; [facility] Current Medications (continue as prescribed) DULoxetine HCl 60 MG Oral Capsule Delayed Release Particles 01/23/2023 Provider: BLANE FORBES Diagnosis: Dorsalgia, unspe cified TAKE 1 CAPSULE BY MOUTH AT BEDTIME Last Documented On 3 2:59PM By DEB ARGUELLES ; [facility] tiZANidine HCl 2 MG Oral Tablet 01/23/2023 Provider: SARA GRANADOSJUNIE Diagnosis: TAKE 1 TABLET BY MOUTH THREE TIMES DAILY NEEDED Last Documented On 3 8:40AM By DEB ARGUELLES ; [facility] oxyCODONE-Acetaminophen 10-3 25 MG Oral Tablet 01/03/2023 Provider: BLANE FORBES Diagnosis: 1/2-1 tablet as needed for s evere migraine, max 2 tablets per week Last Documented On 3 4:30PM By DEB ARGUELLES ; [facility] CeleBREX 200 MG Oral Capsule 11/28/2022 [facility] Diagnosis: Dorsalgia, unspe cified 1 capsule daily with a meal Last Documented On 3 12:46PM By DEB ARGUELLES ; [facility] hydrOXYzine HCl 50 MG Oral Tablet 10/04/2022 Provide r: ROSENDO PECK DO Diagnosis: Last Documented On 3 12:46PM By DEB ARGULELES ; [facility] Symbicort 160-4.5 MCG/ACT Inhalation Aerosol 3 Provider: ROSENDO PECK DO Diagnosis: Last Documented On 3 4:46PM By DEB ARGUELLES ; [facility] Albuterol Sulfate HFA 108 (9 0 Base) MCG/ACT Inhalation Aerosol Solution 09/19/2022 Provider: ROSENDO ALARCON DO Diagnosis: Last Documented On 3 4:46PM By DEB ARGUELLES ; [facility] SUMAtriptan Succinate 100 MG Oral Tablet 09/17/2022 Provider: NICHOLAS ANDERSON MD Diagnosis: Last Documented On 3 4:46PM By DEB ARGUELLES ; [facility] Qulipta 60 MG Oral Tablet 08/08/2022 Provider: Diagnosis: Last Documented On 3 4:46PM By DEB ARGUELLSE ; [facility] RisperDAL 1 MG Oral Tablet 12/03/2021 Provider: Diagnosis: Last Documented On 2 11:52AM By DEB ARGUELLES ; [facility] Pantoprazole Sodium 40 MG Oral Tablet Delayed Release 11/14/2021 Provider: Diagnosis: Last Documented On 2 11:52AM By DEB ARGUELLES ; [facility] Sucralfate 1 GM Oral Tablet 10/18/2021 Provider: Diagnosis: Last Documented On 2 11:52AM By DEB ARGUELLES ; [facility] Past Medications on file SUMAtriptan Succinate 50 MG Oral Tablet 07/28/2022 - 08/27/2022 Provider: BLANE GRANADOS Diagnosis: Headache, unspec ified take 2 tablet at onset of he adache, may repeat after 2 hours, max 4 in 24 hours Last Documented On 2 8:43AM By DEB ARGUELLES ; [facility] Medications Administered Includes: Administered [...] Last Documented: On 12/08/2022 10:36A M ; [facility] Results Includes: Results discussed during this encounter Drugs of abuse screen [facility] Ordered by TONY GRANADOS on 12/08/2022 Collected: Reported: 12/08/2022 12:44 Last Documented On 3 1:45PM ; [facility] Reviewed on 12/08/2022; All test results are final unless otherwise noted. Lot # & Exp. Date [id number] EXP 01/01/24 (NEG) N (Normal) Last Documented On 3 1:44PM ; [facility] Amphetamines NEG (NEG) N (Normal) Last Documented On 3 1:44PM ; [facility] Barbiturates NEG (neg) N (Normal) Last Documented On 3 1:44PM ; [facility] Benzodiazepines NEG (neg) N (Normal) Last Documented On 3 1:44PM ; [facility] Cocaine NEG (neg) N (Normal) Last Documented On 3 1:44PM ; [facility] Ecstasy NEG (Neg) N (Normal) Last Documented On 3 1:44PM ; [facility] Methamphetamines NEG (neg) N (Normal) Last Documented On 3 1:44PM ; [facility] Methadone NEG (Neg) N (Normal) Last Documented On 3 1:44PM ; [facility] Morphine NEG (Neg) N (Normal) Last Documented On 3 1:44PM ; [facility] Oxycodone POS (POS) A (Abnormal) Last Documented On 3 1:44PM ; [facility] Phencyclidine NEG (NEG) N (Normal) Last Documented On 3 1:44PM ; [facility] TCA/Tricyclic Antidepressants POS (POS) A (Abnormal) Last Documented On 3 1:44PM ; [facility] Cannabis NEG (neg) N (Normal) Last Documented On 3 1:44PM ; [facility] History of Present Illness Includes: History of [...] is going to see a specialist in [place] to discuss surgical intervention for her knee [...] and they are sending her to an cycle specialist. She has gained a lot of weight [...] her Oxycodone. Regarding her back pain taking esiq-rbc-zhyrxxb medication, working on weight loss, doing physical [...] She previously saw neurologist Dr Higgins at [place] who apparently is no longer prescribing medication [...] 12/03/2021 Last Documented On 3 10:21AM ; [facility] Not using drugs 12/03/2021 Last Documented On 3 10:21AM ; [facility] Smoking packs of cigarettes per day 2 Last Documented On 3 10:21AM ; [facility] Current smoker 12/03/2021 Last Documented On 3 10:21AM ; [facility] Smoking Status Unknown Procedures and Surgical History Includes: Procedures from this encounter Procedures Code Diagnosis Performing Provider Service L ocation Service Date intervention and counseling on cessation of tobacco use : Patient recieved smoking cessation handout 4000F Last Documented On 3 10:22AM ; [facility] use of tobacco assessment performed 1000F Last Documented On 3 10:21AM ; [facility] patient screened for future fall risk: documentation of any fall with injury in past year Oxycodone 10-325 1100F Last Documented On 3 10:21AM ; [facility] review of medications documented 1160F Last Documented On 3 10:21AM ; [facility] screening for adult depression: impressi on and score 13 Last Documented On 3 10:21AM ; [facility] standardized depression screening: posit enriqueta for symptoms Last Documented On 3 10:21AM ; [facility] Clinical summary provided to patient Last Documented On 3 10:21AM ; [facility] SOAPP-R: total score 28 Last Documented On 3 10:30AM ; [facility] Surgical History Last Updated No Pacemaker 12/03/2021 Last Documented On 3 10:21AM ; [facility] Medical History Includes: Medical History addressed during this encounter Description Last Updated Has had a fall in the last 12 months. Last Documented On 3 12:47PM ; [facility] Denies a fear of falling. 12/03/2021 Last Documented On 3 10:21AM ; [facility] Currently wearing eyeglasses 12/03/2021 Last Documented On 3 10:21AM ; [facility] No Pain Pump 12/03/2021 Last Documented On 3 10:21AM ; [facility] No Spinal cord stimulator 12/03/2021 Last Documented On 3 10:21AM ; [facility] Please list all illnesses/co nditions you have been diagnosed with: Idopathic intercranial hypertension, seizures, stomach hernia,acid reflux disease,depression,anxiety,bipolor 12/03/2021 Last Documented On 3 10:21AM ; [facility] Please list all surgeries: C sections 12/09/06 12/10/07 01/19/2010. eptopic pregnacy 2 12/03/2021 Last Documented On 3 10:21AM ; [facility] Family History Includes: Family History addressed during this encounter Description Last Updated Family history of ischemic heart disease 12/03/2021 Last Documented On 3 10:21AM ; [facility] Fraternal history of reported family his tory of seizures 12/03/2021 Last Documented On 3 10:21AM ; [facility] Maternal history of reported family hist ory of seizures 12/03/2021 Last Documented On 3 10:21AM ; [facility] Sororal history of reported family histo ry of seizures 12/03/2021 Last Documented On 3 10:21AM ; [facility] Review of Systems Includes: Review of Systems [...] Active Last Documented On 3 10:33AM ; [facility] Sulfa Antibiotics Allergy 12/03/2021 A ctive Last Documented On 3 10:33AM ; [facility] Penicillins Allergy 12/03/2021 Active Last Documented On 3 10:33AM ; [facility] Morphine Derivatives Allergy 12/03/2021 Active Last Documented On 3 10:33AM ; [facility] Metoclopramide Allergy 12/03/2021 Acti ve Last Documented On 3 10:33AM ; [facility] Adhesive Tape Allergy 12/03/2021 Activ e Last Documented On 3 10:33AM ; [facility] Encounters Encounter Provider Location Date Check-In Time Check-Out Time Diagnosis PAIN MANAGEMENT FOLLOW UP DEB CAMARENA COSMETICIAN-FPA, EXTENSION SPECIALIST-BC [facility] 12/09/19 10:27AM 11:09AM Idiopathic Intracranial Hypertension (Pseudotumor Cerebri),Chroni c Pain Syndrome,Obesit y Morbid,Arthralg ia - Knee / Patella / Tibia / Fibula Right,Arthralgi a - Knee / Patella / Tibia / Fibula Left,Chronic Daily Headache,Retirement Use of Opiate Analgesic,Dorsa lgia,Lumbar Spondylosis Insurance Includes: Active Insurance Policies Plan Name Member ID Group # Subscriber Relationship Effect enriqueta Dates 1 - [facility] [id number] LAURIE DAS Self Clinical Notes Includes: Clinical Notes from this encounter * Progress note Date Encounter Last Documented by 12/08/2022 PAIN MANAGEMENT FOLLOW UP Last d ocumented on 12/10/2022; 12:47 PM, DEB CAMARENA APRN-FPA, EXTENSION SPECIALIST-BC; [facility] Active Problems & Conditions - [...] is going to see a specialist in [place] to discuss surgical intervention for her knee [...] and they are sending her to an cycle specialist. She has gained a lot of weight [...] her Oxycodone. Regarding her back pain taking dpbl-xxi-jtchkrm medication, working on weight loss, doing physical [...] She previously saw neurologist Dr Higgins at [place] who apparently is no longer prescribing medication [...] in all extremities. No focal neurologic deficit. Wtjn-bd-lxte normal bilaterally. Psych: No apparent distress. Mood normal. Affect normal. No pain behaviors. Tests - Test: Drugs of abuse screen Report Date: 12/08/2022 Lot # & Exp. Date [id number] EXP 01/01/24 Normal Amphetamines NEG Normal Barbiturates [...] syndrome] Chronic pain syndrome - [Z79.891 - correction (current) use of opiate analgesic] correction use of opiate analgesic Therapy - Intervention [...] 30 days, 0 refills EndCited StartCited - correction (current) use of opiate analgesic Lab: PRESCRIBED [...] and for adult impression and score 13; [47475] Established outpatient, medically appropriate H&P, high level decision making, 40-54 minutes. A total of 25 minutes were spent on this patient's evaluation, as above, with greater than 50% of this time spent in direct yumw-ac-rrdg counseling and coordination of care. Results of [...] but may be subject to typographical or second language tutor errors. Verify all diagnoses, medications, dosages, and [...]
--- OUTSIDE RECORDS SUMMARY | 2024-10-11 11:33 | XMS_ITS ---
Author Organization [facility] Address [address] [place] [address] Phone Care Team Providers Care Real Estate Teacher Name Role Phone RENA SORIANO, LYNN Alcaraz Unavailable [phone] ROSENDO PECK DO Primary Care Provider [phone] ESTRADA SORIANO, NICHOLAS Unavailable [phone] Problems Includes: Active, inactive, and resolved Problems All Visits Onset Date Resolved Date Provider Condition S tatus Bipolar Disorder Nos Unknown DEB Howard NICOL BOTTLE PACKING MACHINE CLEANER-FPA, LINE CONSTRUCTION SUPERVISOR-BC Active Last Documented On 2 11:56AM ; [facility] Esophageal Reflux Unknown DEB Howard NICOL APR N-FPA, LINE CONSTRUCTION SUPERVISOR-BC Active Last Documented On 2 11:57AM ; [facility] Idiopathic Intracranial Hypertension (Pseudotumor Cerebri) Unknown 01/27/2022 DEB Anita NICOL BOTTLE PACKING MACHINE CLEANER- FPA, LINE CONSTRUCTION SUPERVISOR-BC Resolved Last Documented On 2 1:17PM ; [facility] 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 DEB Howard NICOL BOTTLE PACKING MACHINE CLEANER-FPA, F TANK PUMPER-BC Active Last Documented On 2 11:43AM ; [facility] Plan of Treatment [place]errals [place] [address] - Other headache syndrome Last Documented On 2 2:31PM ; [facility] Orthopedic [facility] - [address] [place] [address] - Other subluxation of unspecified patella, initial encounter Last Documented On 3 10:18AM ; [facility] Instructions to patient Intervention and counseling on cessation of tobacco use : Patient recieved smoking cessation handout Last Documented On 3 10:22AM ; [facility] Intervention and counseling on cessation of tobacco use : Patient recieved smoking cessation handout Last Documented On 2 1:00PM ; [facility] Intervention and counseling on cessation of tobacco use : Patient recieved smoking cessation handout Last Documented On 2 10:26AM ; [facility] Education and Decision Aids were provided during visit for: Pill Count: six Last Documented On 3 10:33AM ; [facility] Pill Count: 42.5 Last Documented On 3 4:03PM ; [facility] Pill Count: 62 Last Documented On 2 1:09PM ; [facility] Pill Count: 45 Not Appropria te Oxycodone Last Documented On 2 1:48PM ; [facility] Pill Count: 46 Oxycodone 10- 325 Last Documented On 2 1:17PM ; [facility] Pill Count: 39 Last Documented On 2 1:07PM ; [facility] Pill Count: 30.5 Last Documented On 2 11:05AM ; [facility] Assessments Includes: Assessments for all patient encounters Findings Encounter Date Arthralgia of the left knee/patella/tibia/fibula PAIN MANAGEMENT FOLLOW UP with DEB CAMARENA APRN-JUNIOR LINE CONSTRUCTION SUPERVISOR-BC 12/08/2022 Last Documented On 3 12:47PM ; [facility] Arthralgia of the right knee/patella/tibia/fibula PAIN MANAGEMENT FOLLOW UP with DEB CAMARENA BOTTLE PACKING MACHINE CLEANER-FPKael, LINE CONSTRUCTION SUPERVISOR-BC 12/08/2022 Last Documented On 3 12:47PM ; [facility] Chronic daily headache PAIN MANAGEMENT F OLLOW UP with DEB CAMARENA BOTTLE PACKING MACHINE CLEANER-FPKael, LINE CONSTRUCTION SUPERVISOR-BC 12/08/2022 Last Documented On 3 12:47PM ; [facility] Chronic pain syndrome PAIN MANAGEMENT FO LLOW UP with DEB Howard NICOL BOTTLE PACKING MACHINE CLEANER-FPA, LINE CONSTRUCTION SUPERVISOR-BC 12/08/2022 Last Documented On 3 12:47PM ; [facility] DORSALGIA PAIN MANAGEMENT FOLLOW UP with Haim Howard NICOL BOTTLE PACKING MACHINE CLEANER-FPA, LINE CONSTRUCTION SUPERVISOR-BC 12/08/2022 Last Documented On 3 12:47PM ; [facility] Idiopathic intracranial hypertension BRISA N MANAGEMENT FOLLOW UP with DEB Howard NICOL BOTTLE PACKING MACHINE CLEANER-FPA, LINE CONSTRUCTION SUPERVISOR-BC 12/08/2022 Last Documented On 3 12:47PM ; [facility] senior care use of opiate analgesic PAIN M ANAGEMENT FOLLOW UP with DEB Howard NICOL BOTTLE PACKING MACHINE CLEANER-FPA, LINE CONSTRUCTION SUPERVISOR-BC 12/08/2022 Last Documented On 3 12:47PM ; [facility] Lumbar spondylosis PAIN MANAGEMENT FOLL OW UP with DEB Howard NICOL BOTTLE PACKING MACHINE CLEANER-FPA, LINE CONSTRUCTION SUPERVISOR-BC 12/08/2022 Last Documented On 3 12:47PM ; [facility] Morbid obesity PAIN MANAGEMENT FOLL OW UP with DEB Howard NICOL BOTTLE PACKING MACHINE CLEANER-FPA, LINE CONSTRUCTION SUPERVISOR-BC 12/08/2022 Last Documented On 3 12:47PM ; [facility] Arthralgia of the left knee/patella/tibia/fibula PAIN MANAGEMENT FOLLOW UP with DEB Howard NICOL BOTTLE PACKING MACHINE CLEANER-FPA, LINE CONSTRUCTION SUPERVISOR-BC 09/29/2022 Last Documented On 3 5:01PM ; [facility] Arthralgia of the right knee/patella/tibia/fibula PAIN MANAGEMENT FOLLOW UP with DEB Howard NICOL BOTTLE PACKING MACHINE CLEANER-FPA, LINE CONSTRUCTION SUPERVISOR-BC 09/29/2022 Last Documented On 3 5:01PM ; [facility] Chronic daily headache PAIN MANAGEMENT F OLLOW UP with DEB Howard NICOL BOTTLE PACKING MACHINE CLEANER-FPA, LINE CONSTRUCTION SUPERVISOR-BC 09/29/2022 Last Documented On 3 5:01PM ; [facility] Chronic pain syndrome PAIN MANAGEMENT FO LLOW UP with DEB Howard NICOL BOTTLE PACKING MACHINE CLEANER-FPA, LINE CONSTRUCTION SUPERVISOR-BC 09/29/2022 Last Documented On 3 5:01PM ; [facility] DORSALGIA PAIN MANAGEMENT FOLLOW UP with Haim Howard NICOL BOTTLE PACKING MACHINE CLEANER-FPA, LINE CONSTRUCTION SUPERVISOR-BC 09/29/2022 Last Documented On 3 5:01PM ; [facility] Idiopathic intracranial hypertension BRISA N MANAGEMENT FOLLOW UP with DEB Howard NICOL BOTTLE PACKING MACHINE CLEANER-FPA, LINE CONSTRUCTION SUPERVISOR-BC 09/29/2022 Last Documented On 3 5:01PM ; [facility] rodent exterminator use of opiate analgesic PAIN M ANAGEMENT FOLLOW UP with DEB Howard NICOL BOTTLE PACKING MACHINE CLEANER-FPA, LINE CONSTRUCTION SUPERVISOR-BC 09/29/2022 Last Documented On 3 5:01PM ; [facility] Lumbar radiculopathy PAIN MANAGEMENT FOL LOW UP with DEB Howard NICOL BOTTLE PACKING MACHINE CLEANER-FPA, LINE CONSTRUCTION SUPERVISOR-BC 09/29/2022 Last Documented On 3 5:01PM ; [facility] Morbid obesity PAIN MANAGEMENT FOLL OW UP with DEB Howard NICOL BOTTLE PACKING MACHINE CLEANER-FPA, LINE CONSTRUCTION SUPERVISOR-BC 09/29/2022 Last Documented On 3 5:01PM ; [facility] Arthralgia of the left knee/patella/tibia/fibula PAIN MANAGEMENT FOLLOW UP with DEB Howard NICOL BOTTLE PACKING MACHINE CLEANER-FPA, LINE CONSTRUCTION SUPERVISOR-BC 07/28/2022 Last Documented On 2 8:44AM ; [facility] Arthralgia of the right knee/patella/tibia/fibula PAIN MANAGEMENT FOLLOW UP with DEB Howard NICOL BOTTLE PACKING MACHINE CLEANER-FPA, LINE CONSTRUCTION SUPERVISOR-BC 07/28/2022 Last Documented On 2 8:44AM ; [facility] Chronic daily headache PAIN MANAGEMENT F OLLOW UP with DEB Howard NICOL BOTTLE PACKING MACHINE CLEANER-FPA, LINE CONSTRUCTION SUPERVISOR-BC 07/28/2022 Last Documented On 2 8:44AM ; [facility] Chronic pain syndrome PAIN MANAGEMENT FO LLOW UP with DEB G NICOL BOTTLE PACKING MACHINE CLEANER-FPA, LINE CONSTRUCTION SUPERVISOR-BC 07/28/2022 Last Documented On 2 8:44AM ; [facility] DORSALGIA PAIN MANAGEMENT FOLLOW UP with Haim Howard NICOL BOTTLE PACKING MACHINE CLEANER-FPA, LINE CONSTRUCTION SUPERVISOR-BC 07/28/2022 Last Documented On 2 8:44AM ; [facility] Idiopathic intracranial hypertension BRISA N MANAGEMENT FOLLOW UP with DEB TURNERLP BOTTLE PACKING MACHINE CLEANER-FPA, LINE CONSTRUCTION SUPERVISOR-BC 07/28/2022 Last Documented On 2 8:44AM ; [facility] rodent exterminator use of opiate analgesic PAIN M ANAGEMENT FOLLOW UP with DEB Howard NICOL BOTTLE PACKING MACHINE CLEANER-FPA, LINE CONSTRUCTION SUPERVISOR-BC 07/28/2022 Last Documented On 2 8:44AM ; [facility] Lumbar radiculopathy PAIN MANAGEMENT FOL LOW UP with DEB Howard NICOL BOTTLE PACKING MACHINE CLEANER-FPA, LINE CONSTRUCTION SUPERVISOR-BC 07/28/2022 Last Documented On 2 8:44AM ; [facility] Morbid obesity PAIN MANAGEMENT FOLL OW UP with DEB Howard NICOL BOTTLE PACKING MACHINE CLEANER-FPA, LINE CONSTRUCTION SUPERVISOR-BC 07/28/2022 Last Documented On 2 8:44AM ; [facility] Arthralgia of knee / patella / tibia / fibula CHART UPDATE with DEB TURNERLP BOTTLE PACKING MACHINE CLEANER-FPA, LINE CONSTRUCTION SUPERVISOR-BC 07/05/2022 Last Documented On 2 9:54AM ; [facility] Subluxation of patella CHART UPDATE with DEB Howard NICOL BOTTLE PACKING MACHINE CLEANER-FPA, LINE CONSTRUCTION SUPERVISOR-BC 07/05/2022 Last Documented On 2 9:54AM ; [facility] Arthralgia of the left knee/patella/tibia/fibula PAIN MANAGEMENT FOLLOW UP with DEB Howard NICOL BOTTLE PACKING MACHINE CLEANER-FPA, LINE CONSTRUCTION SUPERVISOR-BC 06/30/2022 Last Documented On 2 1:56PM ; [facility] Arthralgia of the right knee/patella/tibia/fibula PAIN MANAGEMENT FOLLOW UP with DEB Howard NICOL BOTTLE PACKING MACHINE CLEANER-FPA, LINE CONSTRUCTION SUPERVISOR-BC 06/30/2022 Last Documented On 2 1:56PM ; [facility] Chronic daily headache PAIN MANAGEMENT F OLLOW UP with DEB G NICOL BOTTLE PACKING MACHINE CLEANER-FPA, LINE CONSTRUCTION SUPERVISOR-BC 06/30/2022 Last Documented On 2 1:56PM ; [facility] Chronic pain syndrome PAIN MANAGEMENT FO LLOW UP with DEB G NICOL BOTTLE PACKING MACHINE CLEANER-FPA, LINE CONSTRUCTION SUPERVISOR-BC 06/30/2022 Last Documented On 2 1:56PM ; [facility] DORSALGIA PAIN MANAGEMENT FOLLOW UP with Haim Howard NICOL BOTTLE PACKING MACHINE CLEANER-FPA, LINE CONSTRUCTION SUPERVISOR-BC 06/30/2022 Last Documented On 2 1:56PM ; [facility] Idiopathic intracranial hypertension BRISA N MANAGEMENT FOLLOW UP with DEB Howard NICOL BOTTLE PACKING MACHINE CLEANER-FPA, LINE CONSTRUCTION SUPERVISOR-BC 06/30/2022 Last Documented On 2 1:56PM ; [facility] senior care use of opiate analgesic PAIN M ANAGEMENT FOLLOW UP with DEB Howard NICOL BOTTLE PACKING MACHINE CLEANER-FPA, LINE CONSTRUCTION SUPERVISOR-BC 06/30/2022 Last Documented On 2 1:56PM ; [facility] Lumbar radiculopathy PAIN MANAGEMENT FOL LOW UP with DEB Howard NICOL BOTTLE PACKING MACHINE CLEANER-FPA, LINE CONSTRUCTION SUPERVISOR-BC 06/30/2022 Last Documented On 2 1:56PM ; [facility] Morbid obesity PAIN MANAGEMENT FOLL OW UP with DEB Howard NICOL BOTTLE PACKING MACHINE CLEANER-FPA, LINE CONSTRUCTION SUPERVISOR-BC 06/30/2022 Last Documented On 2 1:56PM ; [facility] Chronic daily headache * PHONE CALL with DEB Howard NICOL BOTTLE PACKING MACHINE CLEANER-FPA, LINE CONSTRUCTION SUPERVISOR-BC 03/24/2022 Last Documented On 2 2:51PM ; [facility] Chronic daily headache PAIN MANAGEMENT F OLLOW UP with DEB Howard NICOL BOTTLE PACKING MACHINE CLEANER-FPA, LINE CONSTRUCTION SUPERVISOR-BC 02/24/2022 Last Documented On 2 8:52AM ; [facility] Chronic pain syndrome PAIN MANAGEMENT FO LLOW UP with DEB Howard NICOL BOTTLE PACKING MACHINE CLEANER-FPA, LINE CONSTRUCTION SUPERVISOR-BC 02/24/2022 Last Documented On 2 8:52AM ; [facility] DORSALGIA PAIN MANAGEMENT FOLLOW UP with Haim Howard NICOL BOTTLE PACKING MACHINE CLEANER-FPA, LINE CONSTRUCTION SUPERVISOR-BC 02/24/2022 Last Documented On 2 8:52AM ; [facility] rodent exterminator use of opiate analgesic PAIN M ANAGEMENT FOLLOW UP with DEB Howard NICOL BOTTLE PACKING MACHINE CLEANER-FPA, LINE CONSTRUCTION SUPERVISOR-BC 02/24/2022 Last Documented On 2 8:52AM ; [facility] Lumbar radiculopathy PAIN MANAGEMENT FOL LOW UP with DEB Howard NICOL BOTTLE PACKING MACHINE CLEANER-FPA, LINE CONSTRUCTION SUPERVISOR-BC 02/24/2022 Last Documented On 2 8:52AM ; [facility] Obesity PAIN MANAGEMENT FOLLOW UP with Haim Howard NICOL BOTTLE PACKING MACHINE CLEANER-FPA, LINE CONSTRUCTION SUPERVISOR-BC 02/24/2022 Last Documented On 2 8:52AM ; [facility] Chronic daily headache PAIN MANAGEMENT F OLLOW UP with DEB Anita NICOL BOTTLE PACKING MACHINE CLEANER-FPA, LINE CONSTRUCTION SUPERVISOR-BC 01/27/2022 Last Documented On 2 2:29PM ; [facility] Chronic pain syndrome PAIN MANAGEMENT FO LLOW UP with DEB Anita NICOL BOTTLE PACKING MACHINE CLEANER-FPA, LINE CONSTRUCTION SUPERVISOR-BC 01/27/2022 Last Documented On 2 2:29PM ; [facility] DORSALGIA PAIN MANAGEMENT FOLLOW UP with Haim Howard NICOL BOTTLE PACKING MACHINE CLEANER-FPA, LINE CONSTRUCTION SUPERVISOR-BC 01/27/2022 Last Documented On 2 2:29PM ; [facility] senior care use of opiate analgesic PAIN M ANAGEMENT FOLLOW UP with DEB Anita NICOL BOTTLE PACKING MACHINE CLEANER-FPA, LINE CONSTRUCTION SUPERVISOR-BC 01/27/2022 Last Documented On 2 2:29PM ; [facility] Lumbar radiculopathy PAIN MANAGEMENT FOL LOW UP with DEB Howard NICOL BOTTLE PACKING MACHINE CLEANER-FPA, LINE CONSTRUCTION SUPERVISOR-BC 01/27/2022 Last Documented On 2 2:29PM ; [facility] Obesity PAIN MANAGEMENT FOLLOW UP with Haim Howard NICOL BOTTLE PACKING MACHINE CLEANER-FPA, LINE CONSTRUCTION SUPERVISOR-BC 01/27/2022 Last Documented On 2 2:29PM ; [facility] Chronic daily headache PAIN MANAGEMENT N EW CONSULT with DEB G NICOL BOTTLE PACKING MACHINE CLEANER-FPA, LINE CONSTRUCTION SUPERVISOR-BC 12/03/2021 Last Documented On 2 1:39PM ; [facility] Chronic pain syndrome PAIN MANAGEMENT NE W CONSULT with DEB G NICOL BOTTLE PACKING MACHINE CLEANER-FPA, LINE CONSTRUCTION SUPERVISOR-BC 12/03/2021 Last Documented On 2 1:39PM ; [facility] DORSALGIA PAIN MANAGEMENT NEW CONSULT with DEB Howard NICOL BOTTLE PACKING MACHINE CLEANER-FPA, LINE CONSTRUCTION SUPERVISOR-BC 12/03/2021 Last Documented On 2 1:39PM ; [facility] Idiopathic intracranial hypertension BRISA N MANAGEMENT NEW CONSULT with DEB Howadr NICOL BOTTLE PACKING MACHINE CLEANER-FPA, LINE CONSTRUCTION SUPERVISOR-BC 12/03/2021 Last Documented On 2 1:39PM ; [facility] rodent exterminator use of opiate analgesic PAIN M ANAGEMENT NEW CONSULT with DEB Howard NICOL BOTTLE PACKING MACHINE CLEANER-FPA, LINE CONSTRUCTION SUPERVISOR-BC 12/03/2021 Last Documented On 2 1:39PM ; [facility] Lumbar radiculopathy PAIN MANAGEMENT NEW CONSULT with DEB Howard NICOL BOTTLE PACKING MACHINE CLEANER-FPA, LINE CONSTRUCTION SUPERVISOR-BC 12/03/2021 Last Documented On 2 1:39PM ; [facility] Obesity PAIN MANAGEMENT NEW CONSULT with DEB Howard NICOL BOTTLE PACKING MACHINE CLEANER-FPA, LINE CONSTRUCTION SUPERVISOR-BC 12/03/2021 Last Documented On 2 1:39PM ; [facility] Instructions Includes: Instructions for all patient encounters Instructions to patient Intervention and counseling on cessation of tobacco use : Patient recieved smoking cessation handout Last Documented On 3 10:22AM ; [facility] Intervention and counseling on cessation of tobacco use : Patient recieved smoking cessation handout Last Documented On 2 1:00PM ; [facility] Intervention and counseling on cessation of tobacco use : Patient recieved smoking cessation handout Last Documented On 2 10:26AM ; [facility] Education and Decision Aids were provided during visit for: Pill Count: six Last Documented On 3 10:33AM ; [facility] Pill Count: 42.5 Last Documented On 3 4:03PM ; [facility] Pill Count: 62 Last Documented On 2 1:09PM ; [facility] Pill Count: 45 Not Appropria te Oxycodone Last Documented On 2 1:48PM ; [facility] Pill Count: 46 Oxycodone 10- 325 Last Documented On 2 1:17PM ; [facility] Pill Count: 39 Last Documented On 2 1:07PM ; [facility] Pill Count: 30.5 Last Documented On 2 11:05AM ; [facility] Medical Equipment - Implanted Devices Includes: Current and historical Devices No Medical Equipment Recorded Medications Includes: Current and historical Medications Current Medications (continue as prescribed) DULoxetine HCl 60 MG Oral Capsule Delayed Release Particles 01/23/2023 Provider: BLANE FORBES Diagnosis: Dorsalgia, unspe cified TAKE 1 CAPSULE BY MOUTH AT BEDTIME Last Documented On 3 2:59PM By DEB ARGUELLES ; [facility] tiZANidine HCl 2 MG Oral Tablet 01/23/2023 Provider: BLANE GRANADOS Diagnosis: TAKE 1 TABLET BY MOUTH THREE TIMES DAILY NEEDED Last Documented On 3 8:40AM By DEB ARGUELLES ; [facility] oxyCODONE-Acetaminophen 10-3 25 MG Oral Tablet 01/03/2023 Provider: BLANE FORBES Diagnosis: 1/2-1 tablet as needed for s evere migraine, max 2 tablets per week Last Documented On 3 4:30PM By DEB ARGUELLES ; [facility] Buprenorphine 5 MCG/HR Transdermal Patch Weekly 12/08/2022 Provider: BLANE GRANADOS Diagnosis: Chronic pain syn drome apply 1 patch every 7 days, be sure to remove the old patch Last Documented On 3 12:46PM By DEB ARGUELLES ; [facility] Narcan 4 MG/0.1ML Nasal Liquid 12/08/2022 Provider: BLANE FORBES Diagnosis: Chronic pain syn drome 1 spray intranasally for jeff pected overdose Last Documented On 3 12:46PM By DEB ARGUELLES ; [facility] CeleBREX 200 MG Oral Capsule 11/28/2022 Provider: BLANE FORBES Diagnosis: Dorsalgia, unspe cified 1 capsule daily with a meal Last Documented On 3 12:46PM By [facility] ; [facility] hydrOXYzine HCl 50 MG Oral Tablet 10/04/2022 Provide r: ROSENDO PECK DO Diagnosis: Last Documented On 3 12:46PM By DEB RUIZJUNIE ; [facility] Symbicort 160-4.5 MCG/ACT Inhalation Aerosol 3 Provider: ROSENDO PECK DO Diagnosis: Last Documented On 3 4:46PM [facility] ; [facility] Albuterol Sulfate HFA 108 (9 0 Base) MCG/ACT Inhalation Aerosol Solution 09/19/2022 Provider: ROSENDO ALARCON DO Diagnosis: Last Documented On 3 4:46PM By DEB CAMARENA [facility] ; [facility] SUMAtriptan Succinate 100 MG Oral Tablet 09/17/2022 Provider: NICHOLAS DORADO MD Diagnosis: Last Documented On 3 4:46PM By DEB RUIZJUNIE ; [facility] Qulipta 60 MG Oral Tablet 08/08/2022 Provider: Diagnosis: Last Documented On 3 4:46PM By DEB CALLEJUNIE ; [facility] RisperDAL 1 MG Oral Tablet 12/03/2021 Provider: Diagnosis: Last Documented On 2 11:52AM By DEB RUIZJUNIE ; [facility] Pantoprazole Sodium 40 MG Oral Tablet Delayed Release 11/14/2021 Provider: Diagnosis: Last Documented On 2 11:52AM By DEB RUIZJUNIE ; [facility] Sucralfate 1 GM Oral Tablet 10/18/2021 Provider: Diagnosis: Last Documented On 2 11:52AM By DEB ARGUELLES ; [facility] Past Medications on file Pregabalin 75 MG Oral Capsule 12/08/2022 - 01/03/2023 Provider: DEB CAMARENA BOTTLE PACKING MACHINE CLEANER-FPA, LINE CONSTRUCTION SUPERVISOR-BC Diagnosis: Chronic pain syn drome 1 capsule 2times daily for 4 days then at bedtime only for 4 days then stop Last Documented On 3 4:25PM [facility] ; [facility] oxyCODONE-Acetaminophen 10-3 25 MG Oral Tablet 12/05/2022 - 01/03/2023 Provider: DEB CHEN LINE CONSTRUCTION SUPERVISOR-JUNIE Diagnosis: 1/2-1 tablet as needed for s evere migraine, max 2 tablets per week Last Documented On 3 4:28PM By DEB CAMARENA [facility] ; [facility] Amitriptyline HCl 50 MG Oral Tablet 11/25/2022 - 01/03/2023 Provider: DEB CHEN [facility] Diagnosis: One tablet at bed time Last Documented On 3 4:25PM By DEB CAMARENA [facility] ; [facility] DULoxetine HCl 60 MG Oral Capsule Delayed Release Particles 11/25/2022 - 01/23/2023 Provider: [facility] Diagnosis: Dorsalgia, unspe cified TAKE 1 CAPSULE BY MOUTH AT BEDTIME Last Documented On 3 2:52PM By DEB CAMARENA [facility] ; [facility] tiZANidine HCl 2 MG Oral Tablet 11/25/2022 - 01/23/2023 Provider: DEB CUNHA-FPKael LINE CONSTRUCTION SUPERVISOR-JUNIE Diagnosis: One tablet three times a day as needed Last Documented On 3 8:32AM By DEB CAMARENA LINE CONSTRUCTION SUPERVISORDIVINA ; [facility] tiZANidine HCl 2 MG Oral Tablet 11/14/2022 - 11/25/2022 Provider: DEB CUNHA-FPKael LINE CONSTRUCTION SUPERVISOR-BC Diagnosis: One tablet three times a day as needed Last Documented On 3 3:47PM [facility] ; [facility] oxyCODONE-Acetaminophen 10-3 25 MG Oral Tablet 11/04/2022 - 11/28/2022 Provider: DEB CHEN LINE CONSTRUCTION SUPERVISOR-JUNIE Diagnosis: 1/2-1 tablet as needed for s evere migraine, max 2 tablets per week Last Documented On 3 8:30AM By DEB ARGUELLES ; [facility] Lucemyra 0.18 MG Oral Tablet 10/28/2022 - 12/08/2022 Haylie rob: HERMELINDA VILLAREAL MD Diagnosis: take 3 tablets 4x daily for 4 days, then 2 tablets 4x daily for 4 days, then 1 tablet 4x daily for 3 days, then 1 tablet 2x daily until out. Last Documented On 3 10:40AM By DEB ARGUELLES ; [facility] Amitriptyline HCl 50 MG Oral Tablet 10/24/2022 - 11/25/2022 Provider: DEB CHEN LINE CONSTRUCTION SUPERVISOR-BC Diagnosis: One tablet at bed time Last Documented On 3 3:48PM By DEB ARGUELLES ; [facility] Lucemyra 0.18 MG Oral Tablet 10/24/2022 - 10/27/2022 Provider: DEB CUNHA-JUNIOR LINE CONSTRUCTION SUPERVISOR-BC Diagnosis: take 3 tablets 4x daily for 3 days, then 2 tablets 4x daily for 2 days, then 1 tablet 4x daily for 2 days, then 1 tablet 2x daily for 2 days Last Documented On 10/28/2022 4:11PM By Hermelinda Villareal MD ; [facility] DULoxetine HCl 60 MG Oral Capsule Delayed Release Particles 10/24/2022 - 11/25/2022 Provider: DEB CHEN LINE CONSTRUCTION SUPERVISOR-BC Diagnosis: Dorsalgia, unspe cified TAKE 1 CAPSULE BY MOUTH AT BEDTIME Last Documented On 3 3:47PM By DEB ARGUELLES ; [facility] Amitriptyline HCl 25 MG Oral Tablet 10/24/2022 - 12/08/2022 Provider: DEB CAMARENA APRN-JUNIOR LINE CONSTRUCTION SUPERVISOR-BC Diagnosis: Chronic pain syndrome One tablet at bed time Last Documented On 3 10:33AM By Ratna STUART ; [facility] tiZANidine HCl 2 MG Oral Tablet 10/18/2022 - 11/14/2022 Provider: DEB CUNHA-JUNIOR LINE CONSTRUCTION SUPERVISOR-BC Diagnosis: One tablet three times a day as needed Last Documented On 3 6:21PM By DEB CALLEJUNIE ; [facility] oxyCODONE-Acetaminophen 10-3 25 MG Oral Tablet 10/10/2022 - 11/04/2022 Provider: DEB CHEN LINE CONSTRUCTION SUPERVISOR-BC Diagnosis: 1/2-1 tablet 1-3 times daily , decreasing by 1 tablet per week then 1-2 times per week [3 week script] Last Documented On 3 3:39PM By DEB CALLEJUNIE ; [facility] Pregabalin 150 MG Oral Capsule 10/10/2022 - 01/03/2023 Provider: BLANE GRANADOS Diagnosis: Radiculopathy, l umbar region 1 CAPSULE TWO TIMES A DAY Last Documented On 3 4:26PM By DEB ARGUELLES ; [facility] Amitriptyline HCl 25 MG Oral Tablet 09/29/2022 - 10/24/2022 Provider: DEB CHEN LINE CONSTRUCTION SUPERVISOR-JUNIE Diagnosis: Chronic pain syndrome One tablet at bed time Last Documented On 3 5:04PM By EDB CAMAERNA LINE CONSTRUCTION SUPERVISORDIVINA ; [facility] CeleBREX 200 MG Oral Capsule 09/29/2022 - 11/28/2022 Provider: DEB CAMARENA APRN-JUNIOR LINE CONSTRUCTION SUPERVISOR-BC Diagnosis: Dorsalgia, unspe cified 1 capsule daily with a meal Last Documented On 3 5:09PM By DEB CALLEJUNIE ; [facility] tiZANidine HCl 2 MG Oral Tablet 09/20/2022 - 10/18/2022 Provider: DEB CUNHA-JUNIOR LINE CONSTRUCTION SUPERVISOR-BC Diagnosis: One tablet three times a day as needed Last Documented On 3 8:20AM By DEB ARGUELLES ; [facility] tiZANidine HCl 2 MG Oral Capsule 09/14/2022 - 09/20/2022 Provider: DEB CAMARENA APRN-JUNIOR LINE CONSTRUCTION SUPERVISOR-BC Diagnosis: Dorsalgia, unspe cified One tablet three times a day as needed Last Documented On 3 9:32AM By DEB CAMARENA [facility] ; [facility] Pregabalin 150 MG Oral Capsule 09/06/2022 - 10/10/2022 Provider: HERMELINDA Wilson Diagnosis: Radiculopathy, l umbar region 1 CAPSULE TWO TIMES A DAY Last Documented On 3 4:37PM By DEB CAMARENA [facility] ; [facility] oxyCODONE-Acetaminophen 10-3 25 MG Oral Tablet 09/05/2022 - 10/10/2022 Provider: STACY MENEZES ANP- Diagnosis: One tablet three times a day as needed for SEVERE pain only Last Documented On 3 5:11PM By DEB CAMARENA [facility] ; [facility] DULoxetine HCl 60 MG Oral Capsule Delayed Release Particles 08/24/2022 - 10/24/2022 Provider: DEB CHEN LINE CONSTRUCTION SUPERVISOR-BC Diagnosis: Dorsalgia, unspe cified TAKE 1 CAPSULE BY MOUTH AT BEDTIME Last Documented On 3 5:05PM By DEB CAMARENA [facility] ; [facility] oxyCODONE-Acetaminophen 10-3 25 MG Oral Tablet 08/15/2022 - 09/05/2022 Provider: DEB CHEN LINE CONSTRUCTION SUPERVISOR-BC Diagnosis: One tablet three times a day as needed for SEVERE pain only Last Documented On 2 8:53PM By STACY MENEZES [facility] ; [facility] tiZANidine HCl 2 MG Oral Capsule 08/08/2022 - 09/14/2022 Provider: DEB CHEN LINE CONSTRUCTION SUPERVISOR-BC Diagnosis: Dorsalgia, unspe cified One tablet three times a day as needed Last Documented On 2 2:32PM By DEB CAMARENA [facility] ; [facility] Pregabalin 150 MG Oral Capsule 08/08/2022 - 09/06/2022 Provider: DEB CHEN LINE CONSTRUCTION SUPERVISOR-BC Diagnosis: Radiculopathy, l umbar region 1 CAPSULE TWO TIMES A DAY Last Documented On 09/06/2022 12:04PM By Hermelinda Villareal MD ; [facility] SUMAtriptan Succinate 50 MG Oral Tablet 07/28/2022 - 08/27/2022 Provider: BLANE GRANADOS Diagnosis: Headache, unspec ified take 2 tablet at onset of he adache, may repeat after 2 hours, max 4 in 24 hours Last Documented On 2 8:43AM By DEB ARGUELLES ; [facility] Topamax 25 MG Oral Tablet 07/28/2022 - 09/29/2022 Prov ider: Diagnosis: Last Documented On 3 4:14PM By DEB ARGUELLES ; [facility] DULoxetine HCl 60 MG Oral Capsule Delayed Release Particles 07/27/2022 - 08/24/2022 Provider: BLANE GRANADOS Diagnosis: Dorsalgia, unspe cified TAKE 1 CAPSULE BY MOUTH AT BEDTIME Last Documented On 2 10:05AM By DEB ARGUELLES ; [facility] oxyCODONE-Acetaminophen 10-3 25 MG Oral Tablet 07/15/2022 - 08/10/2022 Provider: BLANE GRANADOS Diagnosis: One tablet three times a day as needed for SEVERE pain only Last Documented On 2 8:22AM By DEB ARGUELLES ; [facility] SUMAtriptan Succinate 50 MG Oral Tablet 07/01/2022 - 07/28/2022 Provider: BLANE GRANADOS Diagnosis: Headache, unspec ified take 1 tablet at onset of he adache, may repeat after 2 hours, max 4 in 24 hours Last Documented On 2 8:43AM By DEB ARGUELLES ; [facility] Qulipta 30 MG Oral Tablet 06/30/2022 - 08/08/2022 Provider: BLANE GRANADOS Diagnosis: Other headache syndrome One tablet daily Last Documented On 2 1:08PM By DEB ARGUELLES ; [facility] Ubrelvy 100 MG Oral Tablet 06/30/2022 - 08/08/2022 Provider: DEB CHEN [facility] Diagnosis: Other headache syndrome 1 tablet as needed for sever e headache, maximum of 2 in 24 hours Last Documented On 2 1:11PM [facility] ; [facility] Pregabalin 150 MG Oral Capsule 06/17/2022 - 07/28/2022 Provider: DEB CHEN [facility] Diagnosis: Radiculopathy, l umbar region 1 CAPSULE TWO TIMES A DAY Last Documented On 2 1:16PM By DEB CAMARENA [facility] ; [facility] DULoxetine HCl 60 MG Oral Capsule Delayed Release Particles 06/17/2022 - 07/27/2022 [facility] Diagnosis: Dorsalgia, unspe cified TAKE 1 CAPSULE BY MOUTH AT BEDTIME Last Documented On 2 10:02AM By DEB CAMARENA [facility] ; [facility] oxyCODONE-Acetaminophen 10-3 25 MG Oral Tablet 06/17/2022 - 07/15/2022 Provider: DEB CHEN [facility] Diagnosis: One tablet three times a day as needed for SEVERE pain only Last Documented On 2 1:34PM By DEB CAMARENA [facility] ; [facility] oxyCODONE-Acetaminophen 10-3 25 MG Oral Tablet 05/20/2022 - 06/15/2022 Provider: DEB CHEN [facility] Diagnosis: One tablet three times a day as needed for SEVERE pain only Last Documented On 2 5:12PM By DEB CAMARENA [facility] ; [facility] DULoxetine HCl 60 MG Oral Capsule Delayed Release Particles 05/18/2022 - 06/17/2022 Provider: STACY MENEZES [facility] Diagnosis: Dorsalgia, unspe cified TAKE 1 CAPSULE BY MOUTH AT BEDTIME Last Documented On 2 9:00AM By DEB CAMARENA [facility] ; [facility] Pregabalin 150 MG Oral Capsule 05/18/2022 - 06/17/2022 Provider: STACY MIRAMONTES Diagnosis: Radiculopathy, l umbar region 1 CAPSULE TWO TIMES A DAY Last Documented On 2 8:59AM [facility] ; [facility] oxyCODONE-Acetaminophen 10-3 25 MG Oral Tablet 05/03/2022 - 05/17/2022 Provider: LUC GRANADOS-JUNIE Diagnosis: One tablet three times a day as needed for SEVERE pain only Last Documented On 2 4:33PM By DEB CAMARENA [facility] ; [facility] DULoxetine HCl 60 MG Oral Capsule Delayed Release Particles 05/03/2022 - 05/18/2022 Provider: LUC GRANADOS-JUNIE Diagnosis: Dorsalgia, unspe cified TAKE 1 CAPSULE BY MOUTH AT BEDTIME Last Documented On 2 9:04AM [facility] ; [facility] Pregabalin 150 MG Oral Capsule 04/05/2022 - 05/18/2022 Provider: LUC GRANADOS-JUNIE Diagnosis: Radiculopathy, l umbar region 1 CAPSULE TWO TIMES A DAY Last Documented On 2 9:04AM [facility] ; [facility] oxyCODONE-Acetaminophen 10-3 25 MG Oral Tablet 04/05/2022 - 05/02/2022 Provider: LUC GRANADOS-JUNIE Diagnosis: One tablet three times a day as needed for SEVERE pain only Last Documented On 2 8:23AM By DEB CAMARENA [facility] ; [facility] Pregabalin 150 MG Oral Capsule 03/24/2022 - 04/05/2022 Provider: LUC GRANADOS-BC Diagnosis: Radiculopathy, l umbar region 1 CAPSULE TWO TIMES A DAY Last Documented On 2 11:47AM [facility] ; [facility] oxyCODONE-Acetaminophen 10-3 25 MG Oral Tablet 03/07/2022 - 04/04/2022 Provider: BLANE GRANADOS Diagnosis: One tablet three times a day as needed for SEVERE pain only Last Documented On 2 11:48AM By DEB ARGUELLES ; [facility] DULoxetine HCl 60 MG Oral Capsule Delayed Release Particles 02/28/2022 - 05/03/2022 Provider: BLANE GRANADOS Diagnosis: Dorsalgia, unspe cified TAKE 1 CAPSULE BY MOUTH AT BEDTIME Last Documented On 2 8:32AM [facility] ; [facility] DULoxetine HCl 30 MG Oral Capsule Delayed Release Particles 02/24/2022 - 06/30/2022 Provider: TONY GRANADOSBC Diagnosis: Dorsalgia, unspe cified One tablet at bed time Last Documented On 2 11:45AM By DEB RUIZPRAF ; [facility] DULoxetine HCl 60 MG Oral Capsule Delayed Release Particles 02/07/2022 - 02/24/2022 Provider: BLANE GRANADOS Diagnosis: Radiculopathy, l umbar region TAKE 1 CAPSULE BY MOUTH AT BEDTIME Last Documented On 2 8:52AM [facility] ; [facility] oxyCODONE-Acetaminophen 10-3 25 MG Oral Tablet 02/07/2022 - 03/07/2022 Provider: LUC GRANADOS-JUNIE Diagnosis: One tablet three times a day as needed for SEVERE pain only Last Documented On 2 4:00PM [facility] ; [facility] Pregabalin 150 MG Oral Capsule 01/27/2022 - 03/24/2022 Provider: LUC GRANADOS-BC Diagnosis: Radiculopathy, l umbar region 1 CAPSULE TWO TIMES A DAY Last Documented On 2 12:55PM By DEB CAMARENA LINE CONSTRUCTION SUPERVISORJUNIE ; [facility] Pregabalin 75 MG Oral Capsule 01/27/2022 - 02/24/2022 Provider: BLANE GRANADOS Diagnosis: Radiculopathy, l umbar region 1 cap at bedtime for 3 days then 1 cap two times daily for 3 days then 1 cap in the am and 2 caps at bedtime for 3 days Last Documented On 2 1:59PM By DEB ARGUELLES ; [facility] oxyCODONE-Acetaminophen 10-3 25 MG Oral Tablet 01/10/2022 - 02/04/2022 Provider: BLANE GRANADOS Diagnosis: One tablet three times a day Last Documented On 2 9:05AM By DEB ARGUELLES ; [facility] oxyCODONE-Acetaminophen 10-3 25 MG Oral Tablet 12/10/2021 - 01/07/2022 Provider: BLANE GRANADOS Diagnosis: One tablet three times a day Last Documented On 2 11:01AM By DEB ARGUELLES ; [facility] Narcan 4 MG/0.1ML Nasal Liquid 12/08/2021 - 06/30/2022 Provider: BLANE LAUGNAS Diagnosis: 1 spray intranasally for suspected overdose Last Documented On 2 11:41AM By DEB ARGUELLES ; [facility] DULoxetine HCl 60 MG Oral Capsule Delayed Release Particles 12/03/2021 - 02/07/2022 Provider: BLANE GRANADOS Diagnosis: Radiculopathy, l umbar region One tablet at bed time Last Documented On 2 9:06AM By DEB ARGUELLES ; [facility] hydrOXYzine HCl 50 MG Oral Tablet 12/03/2021 - 023 Provider: Diagnosis: Up to three times a day. Last Documented On 3 4:44PM By DEB ARGUELLES ; [facility] DULoxetine HCl 30 MG Oral Capsule Delayed Release Particles 12/03/2021 - 01/27/2022 Provider: DEB G NICOL BOTTLE PACKING MACHINE CLEANER-FPA, LINE CONSTRUCTION SUPERVISOR-BC Diagnosis: Radiculopathy, l umbar region One tablet at bed time Last Documented On 2 1:59PM By DEB CAMARENA LINE CONSTRUCTION SUPERVISOR-BC ; [facility] Ondansetron HCl 4 MG Oral Tablet 11/17/2021 - 01/28/20 Provider: Diagnosis: PRN Last Documented On 2 1:08PM By Ratna STUART ; [facility] oxyCODONE-Acetaminophen 10-325 MG Oral Tablet 11/14/19 22 - 12/07/2021 Provider: Diagnosis: Last Documented On 2 10:25AM By DEB CAMARENA LINE CONSTRUCTION SUPERVISOR-BC ; [facility] Medications Administered Includes: [...] 12/03/2021 Last Documented On 2 1:39PM ; [facility] Not using drugs 12/03/2021 Last Documented On 2 1:39PM ; [facility] Smoking packs of cigarettes per day 2 Last Documented On 2 1:39PM ; [facility] Current smoker 12/03/2021 Last Documented On 2 1:39PM ; [facility] Smoking Status Unknown Procedures and Surgical History Surgical History Last Updated No Pacemaker 12/03/2021 Last Documented On 2 1:39PM ; [facility] Medical History Includes: Medical History in patient's chart Description Last Updated Has had a fall in the last 12 months. Last Documented On 3 12:47PM ; [facility] Denies a fear of falling. 12/03/2021 Last Documented On 2 1:39PM ; [facility] Currently wearing eyeglasses 12/03/2021 Last Documented On 2 1:39PM ; [facility] No Pain Pump 12/03/2021 Last Documented On 2 1:39PM ; [facility] No Spinal cord stimulator 12/03/2021 Last Documented On 2 1:39PM ; [facility] Please list all illnesses/co nditions you have been diagnosed with: Idopathic intercranial hypertension, seizures, stomach hernia,acid reflux disease,depression,anxiety,bipolor 12/03/2021 Last Documented On 2 1:39PM ; [facility] Please list all surgeries: C sections 12/09/06 12/10/07 01/19/2010. eptopic pregnacy 2 12/03/2021 Last Documented On 2 1:39PM ; [facility] Family History Includes: Family History in patient's chart Description Last Updated Family history of ischemic heart disease 12/03/2021 Last Documented On 2 1:39PM ; [facility] Fraternal history of reported family his tory of seizures 12/03/2021 Last Documented On 2 1:39PM ; [facility] Maternal history of reported family hist ory of seizures 12/03/2021 Last Documented On 2 1:39PM ; [facility] Sororal history of reported family histo ry of seizures 12/03/2021 Last Documented On 2 1:39PM ; [facility] Review of Systems Review of Systems [...] Active Last Documented On 3 10:33AM ; [facility] Sulfa Antibiotics Allergy 12/03/2021 A ctive Last Documented On 3 10:33AM ; [facility] Penicillins Allergy 12/03/2021 Active Last Documented On 3 10:33AM ; [facility] Morphine Derivatives Allergy 12/03/2021 Active Last Documented On 3 10:33AM ; [facility] Metoclopramide Allergy 12/03/2021 Acti ve Last Documented On 3 10:33AM ; [facility] Adhesive Tape Allergy 12/03/2021 Activ e Last Documented On 3 10:33AM ; [facility] Insurance Includes: Active Insurance Policies Plan Name Member ID Group # Subscriber Relationship Effect enriqueta Dates 1 - [facility] [id number] LAURIE Gill Clinical Notes Includes: Signed Clinical Notes starting from 10/07/2022 No Clinical Notes Recorded
--- OUTSIDE RECORDS SUMMARY | 2024-10-11 11:33 | XMS_ITS | Clinical Summary ---
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 DEB CAMARENA OFFSET PRESSMAN-FPA, F RELEASE MANAGER-BC Active Last Documented On 2 11:43AM ; [facility] Plan of Treatment No Plan of [...] On 3 2:59PM By DEB CALLE-JUNIE ; [facility] tiZANidine HCl 2 MG Oral Tablet 01/23/2023 Provider: BLANE GRANADOS Diagnosis: TAKE 1 TABLET BY MOUTH THREE TIMES DAILY NEEDED Last Documented On 3 8:40AM By DEB ARGUELLES ; [facility] oxyCODONE-Acetaminophen 10-3 25 MG Oral Tablet 01/03/2023 Provider: BLANE FORBES Diagnosis: 1/2-1 tablet as needed for s evere migraine, max 2 tablets per week Last Documented On 3 4:30PM By DEB ARGUELLES ; [facility] Buprenorphine 5 MCG/HR Transdermal Patch Weekly 12/08/2022 Provider: BLANE GRANADOS Diagnosis: Chronic pain syn drome apply 1 patch every 7 days, be sure to remove the old patch Last Documented On 3 12:46PM By DEB ARGUELLES ; [facility] Narcan 4 MG/0.1ML Nasal Liquid 12/08/2022 Provider: BLANE FORBES Diagnosis: Chronic pain syn drome 1 spray intranasally for jeff pected overdose Last Documented On 3 12:46PM By DEB ARGUELLES ; [facility] CeleBREX 200 MG Oral Capsule 11/28/2022 Provider: BLANE FORBES Diagnosis: Dorsalgia, unspe cified 1 capsule daily with a meal Last Documented On 3 12:46PM By DEB ARGUELLES ; [facility] hydrOXYzine HCl 50 MG Oral Tablet 10/04/2022 Provide r: ROSENDO PECK DO Diagnosis: Last Documented On 3 12:46PM By DEB ARGUELLES ; [facility] Symbicort 160-4.5 MCG/ACT Inhalation Aerosol 3 Provider: ROSENDO PECK DO Diagnosis: Last Documented On 3 4:46PM By DEB ARGUELLES ; [facility] Albuterol Sulfate HFA 108 (9 0 Base) MCG/ACT Inhalation Aerosol Solution 09/19/2022 Provider: ROSENDO ALARCON DO Diagnosis: Last Documented On 3 4:46PM By [facility] ; [facility] SUMAtriptan Succinate 100 MG Oral Tablet 09/17/2022 Provider: NICHOLAS DORADO MD Diagnosis: Last Documented On 3 4:46PM By [facility] ; [facility] Qulipta 60 MG Oral Tablet 08/08/2022 Provider: Diagnosis: Last Documented On 3 4:46PM By DEB NICOL [facility] ; [facility] RisperDAL 1 MG Oral Tablet 12/03/2021 Provider: Diagnosis: Last Documented On 2 11:52AM By DEB CAMARENA [facility] ; [facility] Pantoprazole Sodium 40 MG Oral Tablet Delayed Release 11/14/2021 Provider: Diagnosis: Last Documented On 2 11:52AM By DEB NICOL [facility] ; [facility] Sucralfate 1 GM Oral Tablet 10/18/2021 Provider: Diagnosis: Last Documented On 2 11:52AM By DEB NICOL [facility] ; [facility] Medications Administered Includes: Administered Medications from this [...] Active Last Documented On 3 10:33AM ; [facility] Sulfa Antibiotics Allergy 12/03/2021 A ctive Last Documented On 3 10:33AM ; [facility] Penicillins Allergy 12/03/2021 Active Last Documented On 3 10:33AM ; [facility] Morphine Derivatives Allergy 12/03/2021 Active Last Documented On 3 10:33AM ; [facility] Metoclopramide Allergy 12/03/2021 Acti ve Last Documented On 3 10:33AM ; [facility] Adhesive Tape Allergy 12/03/2021 Activ e Last Documented On 3 10:33AM ; [facility] Insurance Includes: Active Insurance Policies Plan Name Member ID Group # Subscriber Relationship Effect enriqueta Dates 1 - [facility] [id number] LAURIE Gill Clinical Notes Includes: Clinical Notes from this encounter No Clinical Notes Recorded
--- OUTSIDE RECORDS SUMMARY | 2024-10-11 11:33 | XMS_ITS | Clinical Summary ---
Author Organization [facility] Address [address] [place] [address] Phone Care Team Providers Care Med Surg Nurse Name Role Phone RENA SORIANO, LYNN Alcaraz [...] tatus Bipolar Disorder Nos Unknown DEB CAMARENA STATEMENT CLERKS MANAGER-FPA, CPA TAX-BC Active Last Documented On 2 11:56AM ; [facility] Esophageal Reflux Unknown DEB CAMARENA APR N-FPA, CPA TAX-BC Active Last Documented On 2 11:57AM ; [facility] 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 DEB CAMARENA STATEMENT CLERKS MANAGER-FPA, F ORTHO RN-BC Active Last Documented On 2 11:43AM ; [facility] Plan of Treatment No Plan of Treatment Recorded Assessments Includes: Assessments from this encounter No Assessments Recorded Medical Equipment - Implanted Devices Includes: Current Devices No Medical Equipment Recorded Medications Includes: Medications discussed during this encounter and other current Medications Discontinued / Stopped on this date DEB CAMARENA APRN-FPKael CPA TAX-BC on 12/08/2022 Pregabalin 75 MG Oral Capsule Provider: DEB CAMARENA APRN- FPKael CPA TAX-BC Diagnosis: Chronic pain syn drome Last Documented On 3 4:25PM By DEB JIMENEZBC ; [facility] oxyCODONE-Acetaminophen 10-3 25 MG Oral Tablet Provider: BLANE FORBES Diagnosis: Last Documented On 3 4:28PM By DEB ARGUELLES ; [facility] Amitriptyline HCl 50 MG Oral Tablet Provider: BLANE FORBES Diagnosis: Last Documented On 3 4:25PM By DEB ARGUELLES ; [facility] Pregabalin 150 MG Oral Capsule Provider: BLANE FORBES Diagnosis: Radiculopathy, l umbar region Last Documented On 3 4:26PM By DEB ARGUELLES ; [facility] New / Renewed during this visit BLANE GRANADOS on 01/03/2023 oxyCODONE-Acetaminophen 10-3 25 MG Oral Tablet Provider: BLANE GRANADOS 30 day supply: 8 tablet, 0 refills Diagnosis: 1/2-1 tablet as needed for s evere migraine, max 2 tablets per week Pharmacy: [address], [id number] Last Documented On 3 4:30PM By DEB ARGUELLES ; [facility] Current Medications (continue as prescribed) DULoxetine HCl 60 MG Oral Capsule Delayed Release Particles 01/23/2023 Provider: BLANE FORBES Diagnosis: Dorsalgia, unspe cified TAKE 1 CAPSULE BY MOUTH AT BEDTIME Last Documented On 3 2:59PM By DEB ARGUELLES ; [facility] tiZANidine HCl 2 MG Oral Tablet 01/23/2023 Provider: BLANE GRANADOS Diagnosis: TAKE 1 TABLET BY MOUTH THREE TIMES DAILY NEEDED Last Documented On 3 8:40AM By DEB ARGUELLES ; [facility] Buprenorphine 5 MCG/HR Transdermal Patch Weekly 12/08/2022 Provider: LUC GRANADOS-BC Diagnosis: Chronic pain syn drome apply 1 patch every 7 days, be sure to remove the old patch Last Documented On 3 12:46PM By DEB ARGUELLES ; [facility] Narcan 4 MG/0.1ML Nasal Liquid 12/08/2022 [facility] Diagnosis: Chronic pain syn drome 1 spray intranasally for jeff pected overdose Last Documented On 3 12:46PM [facility] ; [facility] CeleBREX 200 MG Oral Capsule 11/28/2022 Provider: DEB PACHECO [facility] Diagnosis: Dorsalgia, unspe cified 1 capsule daily with a meal Last Documented On 3 12:46PM [facility] hydrOXYzine HCl 50 MG Oral Tablet 10/04/2022 Provide r: ROSENDO PECK DO Diagnosis: Last Documented On 3 12:46PM [facility] ; [facility] Symbicort 160-4.5 MCG/ACT Inhalation Aerosol 3 Provider: ROSENDO PECK DO Diagnosis: Last Documented On 3 4:46PM By DEB CALLEJUNIE ; [facility] Albuterol Sulfate HFA 108 (9 0 Base) MCG/ACT Inhalation Aerosol Solution 09/19/2022 Provider: ROSENDO ALARCON DO Diagnosis: Last Documented On 3 4:46PM By DEB ARGUELLES ; [facility] SUMAtriptan Succinate 100 MG Oral Tablet 09/17/2022 Provider: NICHOLAS DORADO MD Diagnosis: Last Documented On 3 4:46PM By DEB ARGUELLES ; [facility] Qulipta 60 MG Oral Tablet 08/08/2022 Provider: Diagnosis: Last Documented On 3 4:46PM By DEB ARGUELLES ; [facility] RisperDAL 1 MG Oral Tablet 12/03/2021 Provider: Diagnosis: Last Documented On 2 11:52AM By DEB CAMARENA CPA TAX-BC ; [facility] Pantoprazole Sodium 40 MG Oral Tablet Delayed Release 11/14/2021 Provider: Diagnosis: Last Documented On 2 11:52AM By DEB RUIZP-BC ; [facility] Sucralfate 1 GM Oral Tablet 10/18/2021 Provider: Diagnosis: Last Documented On 2 11:52AM By DEB CAMARENA CPA TAX-BC ; [facility] Past Medications on file SUMAtriptan Succinate 50 MG Oral Tablet 07/28/2022 - 08/27/2022 Provider: DEB CAMARENA STATEMENT CLERKS MANAGER-FPA, CPA TAX-BC Diagnosis: Headache, unspec ified take 2 tablet at onset of he adache, may repeat after 2 hours, max 4 in 24 hours Last Documented On 2 8:43AM By DEB CAMARENA CPA TAX-BC ; [facility] Medications Administered Includes: Administered Medications from this encounter No Administered Medications Recorded Results Includes: Results discussed during this encounter No Results Recorded For Specified Dates History of Present Illness Includes: History of Present Illness from this encounter No History of Present Illness Recorded Social History Description Last Updated No consumption of alcohol 12/03/2021 Last Documented On 3 3:54PM ; [facility] Not using drugs 12/03/2021 Last Documented On 3 3:54PM ; [facility] Smoking packs of cigarettes per day 2 Last Documented On 3 3:54PM ; [facility] Current smoker 12/03/2021 Last Documented On 3 3:54PM ; [facility] Smoking Status Unknown Procedures and Surgical History Surgical History Last Updated No Pacemaker 12/03/2021 Last Documented On 3 3:54PM ; [facility] Medical History Includes: Medical History addressed during this encounter Description Last Updated Has had a fall in the last 12 months. Last Documented On 3 3:54PM ; [facility] Denies a fear of falling. 12/03/2021 Last Documented On 3 3:54PM ; [facility] Currently wearing eyeglasses 12/03/2021 Last Documented On 3 3:54PM ; [facility] No Pain Pump 12/03/2021 Last Documented On 3 3:54PM ; [facility] No Spinal cord stimulator 12/03/2021 Last Documented On 3 3:54PM ; [facility] Please list all illnesses/co nditions you have been diagnosed with: Idopathic intercranial hypertension, seizures, stomach hernia,acid reflux disease,depression,anxiety,bipolor 12/03/2021 Last Documented On 3 3:54PM ; [facility] Please list all surgeries: C sections 12/09/06 12/10/07 01/19/2010. eptopic pregnacy 2 12/03/2021 Last Documented On 3 3:54PM ; [facility] Family History Includes: Family History addressed during this encounter Description Last Updated Family history of ischemic heart disease 12/03/2021 Last Documented On 3 3:54PM ; [facility] Fraternal history of reported family his tory of seizures 12/03/2021 Last Documented On 3 3:54PM ; [facility] Maternal history of reported family hist ory of seizures 12/03/2021 Last Documented On 3 3:54PM ; [facility] Sororal history of reported family histo ry of seizures 12/03/2021 Last Documented On 3 3:54PM ; [facility] Review of Systems Includes: Review of [...] Active Last Documented On 3 10:33AM ; [facility] Sulfa Antibiotics Allergy 12/03/2021 A ctive Last Documented On 3 10:33AM ; [facility] Penicillins Allergy 12/03/2021 Active Last Documented On 3 10:33AM ; [facility] Morphine Derivatives Allergy 12/03/2021 Active Last Documented On 3 10:33AM ; [facility] Metoclopramide Allergy 12/03/2021 Acti ve Last Documented On 3 10:33AM ; [facility] Adhesive Tape Allergy 12/03/2021 Activ e Last Documented On 3 10:33AM ; [facility] Encounters Encounter Provider Location Date Check-In Time Check-Out Time Diagnosis RX ISSUE/REFILL DEB Anita NICOL STATEMENT CLERKS MANAGER-FPA, CPA TAX-BC 01/03/2023 3:54PM 11:59PM Insurance Includes: Active Insurance Policies Plan Name Member ID Group # Subscriber Relationship Effect enriqueta Dates 1 - [employer] [facility] [id number] LAURIE Gill Clinical Notes Includes: Clinical Notes from this encounter * Progress note Date Encounter Last Documented by 01/03/2023 RX ISSUE/REFILL Last documented on 01/03/2023; 4:28 PM, DEB CAMARENA STATEMENT CLERKS MANAGER-FPA, CPA TAX-BC; [facility] Active Problems & Conditions - Bipolar [...]
--- OUTSIDE RECORDS SUMMARY | 2024-10-11 11:33 | XMS_ITS ---
Care Plan - [facility] Created on: October 11, 2024 JOY DASKta Katie : 1985 Sex: Female Author Organization [facility] Address [address] [place] [address] Phone Care Team Providers Care Promos Executive Producer Name Role Phone RENA SORIANO, LYNN Alcaraz Unavailable [phone] ROSENDO PECK DO Primary Care Provider [phone] ESTRADA SORIANO, NICHOLAS Unavailable [phone]
[2024-10-11 11:45] LABS: Alanine Aminotransferase 37 U/L (14-59); Albumin Level 3.4 g/dL (3.4-5.0); Alkaline Phosphatase 66 U/L (46-116); Anion Gap 10 mmol/L (4-12); Aspartate Amino Transferase 11 U/L (15-37); Bilirubin,Total 0.6 mg/dL (0.00-1.00); Blood Urea Nitrogen 15 mg/dL (7-18); Calcium 8.6 mg/dL (8.5-10.1); Carbon Dioxide 27 mmol/L (21-32); Chloride 102 mmol/L (98-108); Estimated Glomerular Filt Rate > 60; Glucose 101 mg/dL (70-99); Osmolality Calculated 288 mOsm/kg (285-295); Potassium 4.1 mmol/L (3.5-5.1); Sodium 139 mmol/L (136-145); Total Protein 6.5 g/dL (6.4-8.2)
[2024-10-11 11:56] LABS: Thyroid Stimulating Hormone Reflex 1.42 u/IU/mL (0.36-3.74)
[2024-10-13 09:22] LABS: FSH 23.5 mIU/mL; LH 4.3 mIU/mL
[2024-10-14 19:43] LABS: Anti Mullerian Hormone,Female 0.05 ng/mL (0.18-5.68)
[2024-10-16 00:08] LABS: Estradiol, Ultrasensitive 7 pg/mL
== END 2024-10-11 10:57 | disposition home or self-care (01) ==
LOC: CHSLAB 10:59
PROVIDERS: PCP Nurse Practitioner Family; Visit Provider Nurse Practitioner Family
DX: R61 Generalized hyperhidrosis (principal)
CPT/HCPCS: 36415; 80053; 82670; 83001; 83002; 84443; 85025; 85380

== ENCOUNTER 2024-10-11 17:26 | Emergency (ER) | payer OTHER, SELFPAY ==
--- NOTE | ~2024-10-11 | CT_ITS ---
EXAMINATION: CTA chest PE protocol DATE: 10/11/2024 19:09 CERTIFIED CREDIT COUNSELOR INDICATION: Shortness of breath with elevated d-dimer TECHNIQUE: Computed tomographic angiography (CTA) of the chest was performed with 100 mL Omnipaque-35 0 intravenous contrast. The dose-length product was 996.96 mGy-cm. Maximum intensity projection 3D-re constructions of the aorta and other arteries were constructed by the technologist on a separate work station. COMPARISON: 05/21/2024 FINDINGS: No filling defect is identified within the main or proximal pulmonary arteries. The main pulmonary artery is not enlarged. The thoracic aorta is nonaneurysmal and without dissection. The heart is of normal size, without pericardial effusion. A moderate hiatal hernia is present. Redemonstration of patchy groundglass opacification within the bilateral lung rooney increased from p rior examination. Interval resolution of the tree-in-bud opacification of the left lung base. IMPRESSION: No pulmonary embolus. No aortic dissection. Moderate hiatal hernia. Patchy groundglass opacification within the bilateral lung rooney, increased from previous examinatio n. Reviewed, dictated and finalized at location A. IFIED CREDIT COUNSELOR IMPRESSION: No pulmonary embolus. No aortic dissection. Moderate hiatal hernia. Patchy groundglass opacification within the bilateral lung rooney, increased fr om previous examination.
[2024-10-11 17:26] VITALS: BP 132/84; PULSE 123; RESP 20; TEMP 36.3; O2SAT 96
--- OUTSIDE RECORDS SUMMARY | 2024-10-11 17:29 | XMS_ITS | Clinical Summary ---
Author Organization [facility] Address [address] [place] [address] Phone Care Team Providers Care Third Hand Name Role Phone RENA SORIANO, LYNN Alcaraz Unavailable [phone] ROSENDO EPCK DO Primary Care Provider [phone] ESTRADA SORIANO, NICHOLAS Unavailable [phone] Reason for Visit and Chief Complaint The Chief Complaint is: 3 month follow up Problems Includes: Problems addressed during this encounter and other active Problems Current Visit Onset Date Resolved Date Provider Conditio n Status Idiopathic Intracranial Hypertension (Pseudotumor Cerebri) Unknown 01/27/2022 DEB Howard NICOL GROUP SOCIAL WORKER-FPA, CERTIFIED MEDICAL TECHNICIAN-BC Resolved Last Documented On 2 1:17PM ; [facility] 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 DEB Howard NICOL GROUP SOCIAL WORKER-FPA, F GENETIC PHYSICIAN-BC Active Last Documented On 2 11:43AM ; [facility] Past Visits Onset Date Resolved Date Provider Condition Status Bipolar Disorder Nos Unknown DEB Howard NICOL [employer] SOCIAL WORKER-FPA, CERTIFIED MEDICAL TECHNICIAN-BC Active Last Documented On 2 11:56AM ; [facility] Esophageal Reflux Unknown DEB Howard NICOL APR N-FPA, CERTIFIED MEDICAL TECHNICIAN-BC Active Last Documented On 2 11:57AM ; [facility] Plan of Treatment Urine sample ordered and sent to lab for testing with confirmation via LCMS when appropriate. Urine drug testing is ordered to monitor opioid use and ongoing candidacy, verify compliant use of controlled substances, and monitor for use of illicit substances as these may result in harmful interactions. - Last Documented On 12/10/2022 12:47PM ; [facility] Instructions to patient Intervention and counseling on cessation of tobacco use : Patient recieved smoking cessation handout Last Documented On 3 10:22AM ; [facility] Education and Decision Aids were provided during visit for: Pill Count: six Last Documented On 3 10:33AM ; [facility] Assessments Includes: Assessments from this encounter Findings - [E66.8 - Other obesity] Morbid obesity - Last Documented On 12/10/2022 12:47PM ; [facility] - [M25.561 - Pain in right knee] Arthralgia of the right knee/patella/tibia/fibula - Last Documented On 12/10/2022 12:47PM ; [facility] - [M25.562 - Pain in left knee] Arthralgia of the left knee/patella/tibia/fibula - Last Documented On 12/10/2022 12:47PM ; [facility] - [M54.9 - Dorsalgia, unspecified] DORSALGIA - Last Documented On 12/10/2022 12:47PM ; [facility] - [M47.896 - Other spondylosis, lumbar region] Lumbar spondylosis - Last Documented On 12/10/2022 12:47PM ; [facility] - [G44.89 - Other headache syndrome] Chronic daily headache - Last Documented On 12/10/2022 12:47PM ; [facility] - [G93.2 - Benign intracranial hypertension] Idiopathic intracranial hypertension - Last Documented On 12/10/2022 12:47PM ; [facility] - [G89.4 - Chronic pain syndrome] Chronic pain syndrome - Last Documented On 12/10/2022 12:47PM ; [facility] - [Z79.891 - long term (current) use of opiate analgesic] FDC use of opiate analgesic - Last Documented On 12/10/2022 12:47PM ; [facility] Instructions Includes: Instructions from this encounter Instructions to patient Intervention and counseling on cessation of tobacco use : Patient recieved smoking cessation handout Last Documented On 3 10:22AM ; [facility] Education and Decision Aids were provided during visit for: Pill Count: six Last Documented On 3 10:33AM ; [facility] Medical Equipment - Implanted Devices Includes: Current Devices No Medical Equipment Recorded Medications Includes: Medications discussed during this encounter and other current Medications Discontinued / Stopped on this date HERMELINDA VILLAREAL MD on 10/28/2022 Lucemyra 0.18 MG Oral Tablet Provider: HERMELINDA VILLAREAL MD Diagnosis: Last Documented On 3 10:40AM By DEB ARGUELLES ; [facility] Amitriptyline HCl 25 MG Oral Tablet Provider: BLANE FORBES Diagnosis: Chronic pain syn drome Last Documented On 3 10:33AM By Ratna STUART ; [facility] New / Renewed during this visit BLANE GRANADOS on 12/08/2022 Pregabalin 75 MG Oral Capsule Provider: BLANE FORBES 8 day supply: 12 capsule, 0 refills Diagnosis: Chronic pain syndrome 1 capsule 2times daily for 4 days then at bedtime only for 4 days then stop Pharmacy: [address], [phone] - Last Documented On 3 4:25PM By DEB ARGUELLES ; [facility] Buprenorphine 5 MCG/HR Transdermal Patch Weekly Provider: BLANE GRANADOS 30 day supply: 4 patch, 0 refills Diagnosis: Chronic pain syndrome apply 1 patch every 7 days, be sure to remove the old patch Pharmacy: [address], [phone] - Last Documented On 3 12:46PM By DEB ARGUELLES ; [facility] Narcan 4 MG/0.1ML Nasal Liquid Provider: BLANE GRANADOS 30 day supply: 2 each, 0 refills Diagnosis: Chronic pain syndrome 1 spray intranasally for jeff pected overdose Pharmacy: [address], [phone] - Last Documented On 3 12:46PM By DEB ARGUELLES ; [facility] Current Medications (continue as prescribed) DULoxetine HCl 60 MG Oral Capsule Delayed Release Particles 01/23/2023 Provider: BLANE FORBES Diagnosis: Dorsalgia, unspe cified TAKE 1 CAPSULE BY MOUTH AT BEDTIME Last Documented On 3 2:59PM By DEB ARGUELLES ; [facility] tiZANidine HCl 2 MG Oral Tablet 01/23/2023 Provider: SARA GRANADOSJUNIE Diagnosis: TAKE 1 TABLET BY MOUTH THREE TIMES DAILY NEEDED Last Documented On 3 8:40AM By DEB ARGUELLES ; [facility] oxyCODONE-Acetaminophen 10-3 25 MG Oral Tablet 01/03/2023 Provider: BLANE FORBES Diagnosis: 1/2-1 tablet as needed for s evere migraine, max 2 tablets per week Last Documented On 3 4:30PM By DEB ARGUELLES ; [facility] CeleBREX 200 MG Oral Capsule 11/28/2022 [facility] Diagnosis: Dorsalgia, unspe cified 1 capsule daily with a meal Last Documented On 3 12:46PM By DEB ARGUELLES ; [facility] hydrOXYzine HCl 50 MG Oral Tablet 10/04/2022 Provide r: ROSENDO PECK DO Diagnosis: Last Documented On 3 12:46PM By DEB ARGUELLES ; [facility] Symbicort 160-4.5 MCG/ACT Inhalation Aerosol 3 Provider: ROSENDO PECK DO Diagnosis: Last Documented On 3 4:46PM By DEB ARGUELLES ; [facility] Albuterol Sulfate HFA 108 (9 0 Base) MCG/ACT Inhalation Aerosol Solution 09/19/2022 Provider: ROSENDO ALARCON DO Diagnosis: Last Documented On 3 4:46PM By DEB ARGUELLES ; [facility] SUMAtriptan Succinate 100 MG Oral Tablet 09/17/2022 Provider: NICHOLAS ANDERSON MD Diagnosis: Last Documented On 3 4:46PM By DEB ARGUELLES ; [facility] Qulipta 60 MG Oral Tablet 08/08/2022 Provider: Diagnosis: Last Documented On 3 4:46PM By DEB ARGUELLES ; [facility] RisperDAL 1 MG Oral Tablet 12/03/2021 Provider: Diagnosis: Last Documented On 2 11:52AM By DEB ARGUELLES ; [facility] Pantoprazole Sodium 40 MG Oral Tablet Delayed Release 11/14/2021 Provider: Diagnosis: Last Documented On 2 11:52AM By DEB ARGUELLES ; [facility] Sucralfate 1 GM Oral Tablet 10/18/2021 Provider: Diagnosis: Last Documented On 2 11:52AM By DEB ARGUELLES ; [facility] Past Medications on file SUMAtriptan Succinate 50 MG Oral Tablet 07/28/2022 - 08/27/2022 Provider: BLANE GRANADOS Diagnosis: Headache, unspec ified take 2 tablet at onset of he adache, may repeat after 2 hours, max 4 in 24 hours Last Documented On 2 8:43AM By DEB ARGUELLES ; [facility] Medications Administered Includes: [...] Last Documented: On 12/08/2022 10:36A M ; [facility] Results Includes: Results discussed during this encounter Drugs of abuse screen [facility] Ordered by TONY GRANADOS on 12/08/2022 Collected: Reported: 12/08/2022 12:44 Last Documented On 3 1:45PM ; [facility] Reviewed on 12/08/2022; All test results are final unless otherwise noted. Lot # & Exp. Date [id number] EXP 01/01/24 (NEG) N (Normal) Last Documented On 3 1:44PM ; [facility] Amphetamines NEG (NEG) N (Normal) Last Documented On 3 1:44PM ; [facility] Barbiturates NEG (neg) N (Normal) Last Documented On 3 1:44PM ; [facility] Benzodiazepines NEG (neg) N (Normal) Last Documented On 3 1:44PM ; [facility] Cocaine NEG (neg) N (Normal) Last Documented On 3 1:44PM ; [facility] Ecstasy NEG (Neg) N (Normal) Last Documented On 3 1:44PM ; [facility] Methamphetamines NEG (neg) N (Normal) Last Documented On 3 1:44PM ; [facility] Methadone NEG (Neg) N (Normal) Last Documented On 3 1:44PM ; [facility] Morphine NEG (Neg) N (Normal) Last Documented On 3 1:44PM ; [facility] Oxycodone POS (POS) A (Abnormal) Last Documented On 3 1:44PM ; [facility] Phencyclidine NEG (NEG) N (Normal) Last Documented On 3 1:44PM ; [facility] TCA/Tricyclic Antidepressants POS (POS) A (Abnormal) Last Documented On 3 1:44PM ; [facility] Cannabis NEG (neg) N (Normal) Last Documented On 3 1:44PM ; [facility] History of Present Illness Includes: History [...] is going to see a specialist in [place] to discuss surgical intervention for her knee [...] and they are sending her to an validation specialist. She has gained a lot of [...] her Oxycodone. Regarding her back pain taking mbwl-wrf-jvgbkyd medication, working on weight loss, doing physical [...] She previously saw neurologist Dr Higgins at [place] who apparently is no longer prescribing medication [...] 12/03/2021 Last Documented On 3 10:21AM ; [facility] Not using drugs 12/03/2021 Last Documented On 3 10:21AM ; [facility] Smoking packs of cigarettes per day 2 Last Documented On 3 10:21AM ; [facility] Current smoker 12/03/2021 Last Documented On 3 10:21AM ; [facility] Smoking Status Unknown Procedures and Surgical History Includes: Procedures from this encounter Procedures Code Diagnosis Performing Provider Service L ocation Service Date intervention and counseling on cessation of tobacco use : Patient recieved smoking cessation handout 4000F Last Documented On 3 10:22AM ; [facility] use of tobacco assessment performed 1000F Last Documented On 3 10:21AM ; [facility] patient screened for future fall risk: documentation of any fall with injury in past year Oxycodone 10-325 1100F Last Documented On 3 10:21AM ; [facility] review of medications documented 1160F Last Documented On 3 10:21AM ; [facility] screening for adult depression: impressi on and score 13 Last Documented On 3 10:21AM ; [facility] standardized depression screening: posit enriqueta for symptoms Last Documented On 3 10:21AM ; [facility] Clinical summary provided to patient Last Documented On 3 10:21AM ; [facility] SOAPP-R: total score 28 Last Documented On 3 10:30AM ; [facility] Surgical History Last Updated No Pacemaker 12/03/2021 Last Documented On 3 10:21AM ; [facility] Medical History Includes: Medical History addressed during this encounter Description Last Updated Has had a fall in the last 12 months. Last Documented On 3 12:47PM ; [facility] Denies a fear of falling. 12/03/2021 Last Documented On 3 10:21AM ; [facility] Currently wearing eyeglasses 12/03/2021 Last Documented On 3 10:21AM ; [facility] No Pain Pump 12/03/2021 Last Documented On 3 10:21AM ; [facility] No Spinal cord stimulator 12/03/2021 Last Documented On 3 10:21AM ; [facility] Please list all illnesses/co nditions you have been diagnosed with: Idopathic intercranial hypertension, seizures, stomach hernia,acid reflux disease,depression,anxiety,bipolor 12/03/2021 Last Documented On 3 10:21AM ; [facility] Please list all surgeries: C sections 12/09/06 12/10/07 01/19/2010. eptopic pregnacy 2 12/03/2021 Last Documented On 3 10:21AM ; [facility] Family History Includes: Family History addressed during this encounter Description Last Updated Family history of ischemic heart disease 12/03/2021 Last Documented On 3 10:21AM ; [facility] Fraternal history of reported family his tory of seizures 12/03/2021 Last Documented On 3 10:21AM ; [facility] Maternal history of reported family hist ory of seizures 12/03/2021 Last Documented On 3 10:21AM ; [facility] Sororal history of reported family histo ry of seizures 12/03/2021 Last Documented On 3 10:21AM ; [facility] Review of Systems Includes: Review of Systems [...] Active Last Documented On 3 10:33AM ; [facility] Sulfa Antibiotics Allergy 12/03/2021 A ctive Last Documented On 3 10:33AM ; [facility] Penicillins Allergy 12/03/2021 Active Last Documented On 3 10:33AM ; [facility] Morphine Derivatives Allergy 12/03/2021 Active Last Documented On 3 10:33AM ; [facility] Metoclopramide Allergy 12/03/2021 Acti ve Last Documented On 3 10:33AM ; [facility] Adhesive Tape Allergy 12/03/2021 Activ e Last Documented On 3 10:33AM ; [facility] Encounters Encounter Provider Location Date Check-In Time Check-Out Time Diagnosis PAIN MANAGEMENT FOLLOW UP DEB CAMARENA GROUP SOCIAL WORKER-FPA, CERTIFIED MEDICAL TECHNICIAN-BC [facility] 12/09/19 10:27AM 11:09AM Idiopathic Intracranial Hypertension (Pseudotumor Cerebri),Chroni c Pain Syndrome,Obesit y Morbid,Arthralg ia - Knee / Patella / Tibia / Fibula Right,Arthralgi a - Knee / Patella / Tibia / Fibula Left,Chronic Daily Headache,[facility] Use of Opiate Analgesic,Dorsa lgia,Lumbar Spondylosis Insurance Includes: Active Insurance Policies Plan Name Member ID Group # Subscriber Relationship Effect enriqueta Dates 1 - [facility] [id number] LAURIE DAS Self Clinical Notes Includes: Clinical Notes from this encounter * Progress note Date Encounter Last Documented by 12/08/2022 PAIN MANAGEMENT FOLLOW UP Last d ocumented on 12/10/2022; 12:47 PM, DEB CAMARENA APRN-FPA, CERTIFIED MEDICAL TECHNICIAN-BC; [facility] Active Problems & Conditions [...] is going to see a specialist in [place] to discuss surgical intervention for her knee [...] and they are sending her to an validation specialist. She has gained a lot of [...] her Oxycodone. Regarding her back pain taking cotp-weg-pwpbkcd medication, working on weight loss, doing physical [...] She previously saw neurologist Dr Higgins at [place] who apparently is no longer prescribing medication [...] in all extremities. No focal neurologic deficit. Uoex-wj-bsoh normal bilaterally. Psych: No apparent distress. Mood normal. Affect normal. No pain behaviors. Tests - Test: Drugs of abuse screen Report Date: 12/08/2022 Lot # & Exp. Date [id number] EXP 01/01/24 Normal Amphetamines NEG Normal Barbiturates [...] syndrome] Chronic pain syndrome - [Z79.891 - FDC (current) use of opiate analgesic] FDC use of opiate analgesic Therapy - Intervention [...] 30 days, 0 refills EndCited StartCited - FDC (current) use of opiate analgesic Lab: PRESCRIBED [...] and for adult impression and score 13; [15309] Established outpatient, medically appropriate H&P, high level decision making, 40-54 minutes. A total of 25 minutes were spent on this patient's evaluation, as above, with greater than 50% of this time spent in direct ctwk-ld-wvxd counseling and coordination of care. Results of [...] but may be subject to typographical or bit gatherer errors. Verify all diagnoses, medications, dosages, and [...]
--- OUTSIDE RECORDS SUMMARY | 2024-10-11 17:29 | XMS_ITS | Clinical Summary ---
Author Organization [facility] Address [facility] [facility] [place] [address] [place] [address] Care Team Providers Care Staff Nurse Midwife Name Role Phone JessicaMarysarah UGALDE Primary Care Provider [phone] Allergies Active Allergy Reactions Criticality Noted Date [...] Department Care Team Description 09/27/2024 3:45 PM COUPON REDEMPTION CLERK - 09/27/2024 4:22 PM COUPON REDEMPTION CLERK Emergency [facility] Emergency Room [address] [place] [address] Kelly Demarco MD Earache Discharge Disposition: Home [...] Comments Blood Pressure 117/50 09/27/2024 3:50 PM COUPON REDEMPTION CLERK Pulse 132 09/27/2024 3:50 PM COUPON REDEMPTION CLERK Temperature 36.6 ??C (97.8 ??F) 09/27/2024 3:50 PM CS T Respiratory Rate 18 09/27/2024 3:50 PM COUPON REDEMPTION CLERK Oxygen Saturation 94% 09/27/2024 3:52 PM COUPON REDEMPTION CLERK Inhaled Oxygen Concentration - - Weight 140.6 kg (310 lb) 09/27/2024 3:50 PM COUPON REDEMPTION CLERK Height 152.4 cm (5') 09/27/2024 3:50 PM COUPON REDEMPTION CLERK Body Mass Index 60.54 09/27/2024 3:50 PM COUPON REDEMPTION CLERK Plan of Treatment Health Maintenance Due Date [...] patient's age to complete this topic Insurance [employer] Care Teams Staff Nurse Midwife Relationship Specialty Start Date End Date Juni Lopez DO [address] [place] [address] PCP - General FAMILY PRACTICE 03/03/24
--- OUTSIDE RECORDS SUMMARY | 2024-10-11 17:29 | XMS_ITS | Clinical Summary ---
Author Organization [facility] Address [address] [place] [address] Phone Care Team Providers Care Radiology Technologist Name Role Phone RENA SORIANO, LYNN Alcaraz [...] tatus Bipolar Disorder Nos Unknown DEB CAMARENA RENAL DIETITIAN-FPA, MARINE MECHANIC-BC Active Last Documented On 2 11:56AM ; [facility] Esophageal Reflux Unknown DEB CAMARENA APR N-FPA, MARINE MECHANIC-BC Active Last Documented On 2 11:57AM ; [facility] 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 DEB CAMARENA RENAL DIETITIAN-FPA, F CAMP DISHWASHER-BC Active Last Documented On 2 11:43AM ; [facility] Plan of Treatment No Plan of Treatment Recorded Assessments Includes: Assessments from this encounter No Assessments Recorded Medical Equipment - Implanted Devices Includes: Current Devices No Medical Equipment Recorded Medications Includes: Medications discussed during this encounter and other current Medications Current Medications (continue as prescribed) DULoxetine HCl 60 MG Oral Capsule Delayed Release Particles 01/23/2023 Provider: DEB PACHECO MARINE MECHANIC-BC Diagnosis: Dorsalgia, unspe cified TAKE 1 CAPSULE BY MOUTH AT BEDTIME Last Documented On 3 2:59PM By DEB CALLE-JUNIE ; [facility] tiZANidine HCl 2 MG Oral Tablet 01/23/2023 Provider: BLANE GRANADOS Diagnosis: TAKE 1 TABLET BY MOUTH THREE TIMES DAILY NEEDED Last Documented On 3 8:40AM By DEB ARGUELLES ; [facility] oxyCODONE-Acetaminophen 10-3 25 MG Oral Tablet 01/03/2023 Provider: BLANE FORBES Diagnosis: 1/2-1 tablet as needed for s evere migraine, max 2 tablets per week Last Documented On 3 4:30PM By DEB ARGUELLES ; [facility] Buprenorphine 5 MCG/HR Transdermal Patch Weekly 12/08/2022 Provider: BLANE GRANADOS Diagnosis: Chronic pain syn drome apply 1 patch every 7 days, be sure to remove the old patch Last Documented On 3 12:46PM By DEB ARGUELLES ; [facility] Narcan 4 MG/0.1ML Nasal Liquid 12/08/2022 Provider: BLANE FORBES Diagnosis: Chronic pain syn drome 1 spray intranasally for jeff pected overdose Last Documented On 3 12:46PM By DEB ARGUELLES ; [facility] CeleBREX 200 MG Oral Capsule 11/28/2022 Provider: BLANE FORBES Diagnosis: Dorsalgia, unspe cified 1 capsule daily with a meal Last Documented On 3 12:46PM By DEB ARGUELLES ; [facility] hydrOXYzine HCl 50 MG Oral Tablet 10/04/2022 Provide r: ROSENDO PECK DO Diagnosis: Last Documented On 3 12:46PM By DEB ARGUELLES ; [facility] Symbicort 160-4.5 MCG/ACT Inhalation Aerosol 3 Provider: ROSENDO PECK DO Diagnosis: Last Documented On 3 4:46PM By DEB ARGUELLES ; [facility] Albuterol Sulfate HFA 108 (9 0 Base) MCG/ACT Inhalation Aerosol Solution 09/19/2022 Provider: ROSENDO ALARCON DO Diagnosis: Last Documented On 3 4:46PM By DEB CAMARENA [facility] ; [facility] SUMAtriptan Succinate 100 MG Oral Tablet 09/17/2022 Provider: NICHOLAS DORADO MD Diagnosis: Last Documented On 3 4:46PM By DEB CAMARENA [facility] ; [facility] Qulipta 60 MG Oral Tablet 08/08/2022 Provider: Diagnosis: Last Documented On 3 4:46PM By DEB CAMARENA [facility] ; [facility] RisperDAL 1 MG Oral Tablet 12/03/2021 Provider: Diagnosis: Last Documented On 2 11:52AM [facility] Pantoprazole Sodium 40 MG Oral Tablet Delayed Release 11/14/2021 Provider: Diagnosis: Last Documented On 2 11:52AM By DEB CAMARENA [facility] ; [facility] Sucralfate 1 GM Oral Tablet 10/18/2021 Provider: Diagnosis: Last Documented On 2 11:52AM By DEB CAMARENA [facility] ; [facility] Past Medications on file SUMAtriptan Succinate 50 MG Oral Tablet 07/28/2022 - 08/27/2022 Provider: DEB CAMARENA APRN-JUNIOR, [facility]- Diagnosis: Headache, unspec ified take 2 tablet at onset of he adache, may repeat after 2 hours, max 4 in 24 hours Last Documented On 2 8:43AM By DEB CAMARENA [facility] ; [facility] Medications Administered Includes: Administered Medications from this encounter No Administered Medications Recorded Results Includes: Results discussed during this encounter No Results Recorded For Specified Dates History of Present Illness Includes: History of Present Illness from this encounter No History of Present Illness Recorded Social History Description Last Updated No consumption of alcohol 12/03/2021 Last Documented On 3 4:14PM ; [facility] Not using drugs 12/03/2021 Last Documented On 3 4:14PM ; [facility] Smoking packs of cigarettes per day 2 Last Documented On 3 4:14PM ; [facility] Current smoker 12/03/2021 Last Documented On 3 4:14PM ; [facility] Smoking Status Unknown Procedures and Surgical History Surgical History Last Updated No Pacemaker 12/03/2021 Last Documented On 3 4:14PM ; [facility] Medical History Includes: Medical History addressed during this encounter Description Last Updated Has had a fall in the last 12 months. Last Documented On 3 4:14PM ; [facility] Denies a fear of falling. 12/03/2021 Last Documented On 3 4:14PM ; [facility] Currently wearing eyeglasses 12/03/2021 Last Documented On 3 4:14PM ; [facility] No Pain Pump 12/03/2021 Last Documented On 3 4:14PM ; [facility] No Spinal cord stimulator 12/03/2021 Last Documented On 3 4:14PM ; [facility] Please list all illnesses/co nditions you have been diagnosed with: Idopathic intercranial hypertension, seizures, stomach hernia,acid reflux disease,depression,anxiety,bipolor 12/03/2021 Last Documented On 3 4:14PM ; [facility] Please list all surgeries: C sections 12/09/06 12/10/07 01/19/2010. eptopic pregnacy 2 12/03/2021 Last Documented On 3 4:14PM ; [facility] Family History Includes: Family History addressed during this encounter Description Last Updated Family history of ischemic heart disease 12/03/2021 Last Documented On 3 4:14PM ; [facility] Fraternal history of reported family his tory of seizures 12/03/2021 Last Documented On 3 4:14PM ; [facility] Maternal history of reported family hist ory of seizures 12/03/2021 Last Documented On 3 4:14PM ; [facility] Sororal history of reported [...] Active Last Documented On 3 10:33AM ; [facility] Sulfa Antibiotics Allergy 12/03/2021 A ctive Last Documented On 3 10:33AM ; [facility] Penicillins Allergy 12/03/2021 Active Last Documented On 3 10:33AM ; [facility] Morphine Derivatives Allergy 12/03/2021 Active Last Documented On 3 10:33AM ; [facility] Metoclopramide Allergy 12/03/2021 Acti ve Last Documented On 3 10:33AM ; [facility] Adhesive Tape Allergy 12/03/2021 Activ e Last Documented On 3 10:33AM ; [facility] Encounters Encounter Provider Location Date Check-In Time Check-Out Time Diagnosis * PHONE CALL DEB Anita CAMARENA APRN-JUNIOR, LUC-JUNIE 12/13/2022 4:13PM 11:59PM Insurance Includes: Active Insurance Policies Plan Name Member ID Group # Subscriber Relationship Effect enriqueta Dates 1 - [facility] [id number] LAURIE DAS Self Clinical Notes Includes: Clinical Notes from this encounter * Progress note Date Encounter Last Documented by 12/13/2022 * PHONE CALL Last documented on 12/13/2022; 4:44 PM, DEB Howard NICOL RENAL DIETITIAN-FPA, MARINE MECHANIC-BC; [facility] Active Problems & Conditions - Bipolar Disorder [...] and see how she does. 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 Current Medication - Albuterol Sulfate HFA 108 [...]
[2024-10-11 17:30] VITALS: BP 130/77; O2SAT 96
--- OUTSIDE RECORDS SUMMARY | 2024-10-11 17:30 | XMS_ITS | Clinical Summary ---
Author Organization [facility] Address [address] [place] [address] Phone Care Team Providers Care Clicker Operator Name Role Phone RENA SORIANO, LYNN Alcaraz Unavailable [phone] ROSENDO PECK DO Primary Care Provider [phone] ESTRADA OSRIANO, NICHOLAS Unavailable [phone] Reason for Visit and Chief Complaint RX ISSUE/REFILL Problems Includes: Problems addressed during this encounter and other active Problems All Visits Onset Date Resolved Date Provider Condition S tatus Bipolar Disorder Nos Unknown 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, 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 Active Last Documented On 2 11:56AM ; [facility] Esophageal Reflux Unknown DEB CAMARENA APR N-FPA, 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 Active Last Documented On 2 11:57AM ; [facility] 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 WASHER-FPA, F COUNTER MANAGER-BC Active Last Documented On 2 11:43AM ; [facility] Plan of Treatment No Plan of Treatment Recorded Assessments Includes: Assessments from this encounter No Assessments Recorded Medical Equipment - Implanted Devices Includes: Current Devices No Medical Equipment Recorded Medications Includes: Medications discussed during this encounter and other current Medications Discontinued / Stopped on this date DEB CAMARENA APRN-FPKael 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 on 12/08/2022 Pregabalin 75 MG Oral Capsule Provider: DEB CAMARENA APRN- FPKael 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 Diagnosis: Chronic pain syn drome Last Documented On 3 4:25PM By EDB JIMENEZBC ; [facility] oxyCODONE-Acetaminophen 10-3 25 MG Oral Tablet Provider: BLANE FORBES Diagnosis: Last Documented On 3 4:28PM By DEB ARGUELLES ; [facility] Amitriptyline HCl 50 MG Oral Tablet Provider: BLANE FORBES Diagnosis: Last Documented On 3 4:25PM By DEB ARGUELELS ; [facility] Pregabalin 150 MG Oral Capsule Provider: BLANE FORBES Diagnosis: Radiculopathy, l umbar region Last Documented On 3 4:26PM By DEB ARGUELLES ; [facility] New / Renewed during this visit BALNE GRANADOS on 01/03/2023 oxyCODONE-Acetaminophen 10-3 25 MG Oral Tablet Provider: BLANE GRANADOS 30 day supply: 8 tablet, 0 refills Diagnosis: 1/2-1 tablet as needed for s evere migraine, max 2 tablets per week Pharmacy: [address], [id number] Last Documented On 3 4:30PM By DEB ARGUELLES ; [facility] Current Medications (continue as prescribed) DULoxetine HCl 60 MG Oral Capsule Delayed Release Particles 01/23/2023 Provider: BLANE FORBES Diagnosis: Dorsalgia, unspe cified TAKE 1 CAPSULE BY MOUTH AT BEDTIME Last Documented On 3 2:59PM By DEB ARGUELLES ; [facility] tiZANidine HCl 2 MG Oral Tablet 01/23/2023 Provider: BLANE GRANADOS Diagnosis: TAKE 1 TABLET BY MOUTH THREE TIMES DAILY NEEDED Last Documented On 3 8:40AM By DEB ARGUELLES ; [facility] Buprenorphine 5 MCG/HR Transdermal Patch Weekly 12/08/2022 Provider: LUC GRANADOS-BC Diagnosis: Chronic pain syn drome apply 1 patch every 7 days, be sure to remove the old patch Last Documented On 3 12:46PM By DEB ARGUELLES ; [facility] Narcan 4 MG/0.1ML Nasal Liquid 12/08/2022 [facility] Diagnosis: Chronic pain syn drome 1 spray intranasally for jeff pected overdose Last Documented On 3 12:46PM By [facility] ; [facility] CeleBREX 200 MG Oral Capsule 11/28/2022 Provider: DEB PACHECO [facility] Diagnosis: Dorsalgia, unspe cified 1 capsule daily with a meal Last Documented On 3 12:46PM By [facility] ; [facility] hydrOXYzine HCl 50 MG Oral Tablet 10/04/2022 Provide r: ROSENDO PECK DO Diagnosis: Last Documented On 3 12:46PM [facility] ; [facility] Symbicort 160-4.5 MCG/ACT Inhalation Aerosol 3 Provider: ROSENDO PECK DO Diagnosis: Last Documented On 3 4:46PM By DEB CALLEJUNIE ; [facility] Albuterol Sulfate HFA 108 (9 0 Base) MCG/ACT Inhalation Aerosol Solution 09/19/2022 Provider: ROSENDO ALARCON DO Diagnosis: Last Documented On 3 4:46PM By DEB ARGUELLES ; [facility] SUMAtriptan Succinate 100 MG Oral Tablet 09/17/2022 Provider: NICHOLAS DORADO MD Diagnosis: Last Documented On 3 4:46PM By DEB ARGUELLES ; [facility] Qulipta 60 MG Oral Tablet 08/08/2022 Provider: Diagnosis: Last Documented On 3 4:46PM By DEB ARGUELLES ; [facility] RisperDAL 1 MG Oral Tablet 12/03/2021 Provider: Diagnosis: Last Documented On 2 11:52AM By DEB CAMARENA 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 ; [facility] Pantoprazole Sodium 40 MG Oral Tablet Delayed Release 11/14/2021 Provider: Diagnosis: Last Documented On 2 11:52AM By DEB RUIZP-BC ; [facility] Sucralfate 1 GM Oral Tablet 10/18/2021 Provider: Diagnosis: Last Documented On 2 11:52AM By DEB CAMARENA 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 ; [facility] Past Medications on file SUMAtriptan Succinate 50 MG Oral Tablet 07/28/2022 - 08/27/2022 Provider: 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 WASHER-FPA, 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 Diagnosis: Headache, unspec ified take 2 tablet at onset of he adache, may repeat after 2 hours, max 4 in 24 hours Last Documented On 2 8:43AM By DEB CAMARENA 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 ; [facility] Medications Administered Includes: Administered Medications from this encounter No Administered Medications Recorded Results Includes: Results discussed during this encounter No Results Recorded For Specified Dates History of Present Illness Includes: History of Present Illness from this encounter No History of Present Illness Recorded Social History Description Last Updated No consumption of alcohol 12/03/2021 Last Documented On 3 3:54PM ; [facility] Not using drugs 12/03/2021 Last Documented On 3 3:54PM ; [facility] Smoking packs of cigarettes per day 2 Last Documented On 3 3:54PM ; [facility] Current smoker 12/03/2021 Last Documented On 3 3:54PM ; [facility] Smoking Status Unknown Procedures and Surgical History Surgical History Last Updated No Pacemaker 12/03/2021 Last Documented On 3 3:54PM ; [facility] Medical History Includes: Medical History addressed during this encounter Description Last Updated Has had a fall in the last 12 months. Last Documented On 3 3:54PM ; [facility] Denies a fear of falling. 12/03/2021 Last Documented On 3 3:54PM ; [facility] Currently wearing eyeglasses 12/03/2021 Last Documented On 3 3:54PM ; [facility] No Pain Pump 12/03/2021 Last Documented On 3 3:54PM ; [facility] No Spinal cord stimulator 12/03/2021 Last Documented On 3 3:54PM ; [facility] Please list all illnesses/co nditions you have been diagnosed with: Idopathic intercranial hypertension, seizures, stomach hernia,acid reflux disease,depression,anxiety,bipolor 12/03/2021 Last Documented On 3 3:54PM ; [facility] Please list all surgeries: C sections 12/09/06 12/10/07 01/19/2010. eptopic pregnacy 2 12/03/2021 Last Documented On 3 3:54PM ; [facility] Family History Includes: Family History addressed during this encounter Description Last Updated Family history of ischemic heart disease 12/03/2021 Last Documented On 3 3:54PM ; [facility] Fraternal history of reported family his tory of seizures 12/03/2021 Last Documented On 3 3:54PM ; [facility] Maternal history of reported family hist ory of seizures 12/03/2021 Last Documented On 3 3:54PM ; [facility] Sororal history of reported family histo ry of seizures 12/03/2021 Last Documented On 3 3:54PM ; [facility] Review of Systems Includes: Review [...] Last Documented On 3 10:33AM ; [facility] Sulfa Antibiotics Allergy 12/03/2021 A ctive Last Documented On 3 10:33AM ; [facility] Penicillins Allergy 12/03/2021 Active Last Documented On 3 10:33AM ; [facility] Morphine Derivatives Allergy 12/03/2021 Active Last Documented On 3 10:33AM ; [facility] Metoclopramide Allergy 12/03/2021 Acti ve Last Documented On 3 10:33AM ; [facility] Adhesive Tape Allergy 12/03/2021 Activ e Last Documented On 3 10:33AM ; [facility] Encounters Encounter Provider Location Date Check-In Time Check-Out Time Diagnosis RX ISSUE/REFILL DEB Anita NICOL BUS WASHER-FPA, 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 01/03/2023 3:54PM 11:59PM Insurance Includes: Active Insurance Policies Plan Name Member ID Group # Subscriber Relationship Effect enriqueta Dates 1 - [employer] [facility] [id number] LAURIE Gill Clinical Notes Includes: Clinical Notes from this encounter * Progress note Date Encounter Last Documented by 01/03/2023 RX ISSUE/REFILL Last documented on 01/03/2023; 4:28 PM, 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 WASHER-FPA, 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; [facility] Active Problems & Conditions - Bipolar Disorder [...]
--- OUTSIDE RECORDS SUMMARY | 2024-10-11 17:30 | XMS_ITS | Clinical Summary ---
Author Organization [facility] Address [address] [place] [address] Phone Care Team Providers Care Supervisor Endless Track Vehicle Name Role Phone Juni Lopez MD Primary Care Provider [phone] Odell Anderson MD Unavailable [phone] Dorita Escobedo APRN, PUMPMAN Unavailable [phone] Allergies Active Allergy Reactions Criticality Noted Date [...] Refill [facility] [address] [place] [address] Odell Anderson MD Medication Refill from Last [...] Comments Blood Pressure 118/78 10/05/2023 3:07 PM ENTRY LEVEL SALES CONSULTANT Pulse 107 10/05/2023 3:07 PM ENTRY LEVEL SALES CONSULTANT Temperature 36.2 ??C (97.1 ??F) 10/05/2023 3:07 PM CS T Respiratory Rate 20 10/05/2023 3:07 PM ENTRY LEVEL SALES CONSULTANT Oxygen Saturation 96% 10/05/2023 3:07 PM ENTRY LEVEL SALES CONSULTANT Inhaled Oxygen Concentration - - Weight 136.5 kg (301 lb) 10/05/2023 3:07 PM ENTRY LEVEL SALES CONSULTANT Height 154.9 cm (5' 1 ) 10/05/2023 3:07 PM ENTRY LEVEL SALES CONSULTANT Body Mass Index 56.87 10/05/2023 3:07 PM ENTRY LEVEL SALES CONSULTANT Plan of Treatment Health Maintenance Due Date [...] Insurance MEDICAID [employer] Care Teams Supervisor Endless Track Vehicle Relationship Specialty Start Date End Date Juni Lopez MD [address] [place] [id number] PCP - General Family Medicine 07/02/22 Odell Anderson MD [address] [place] [address] Consulting Physician Neurology 07/04/23 Dorita Escobedo APRN, PUMPMAN [address] [place] [address] Nurse Practitioner Advanced Practice Nurse 05/17/22
--- OUTSIDE RECORDS SUMMARY | 2024-10-11 17:30 | XMS_ITS ---
Author Organization [facility] Address [address] [place] [address] Phone Care Team Providers Care Journeyman Glazier Name Role Phone RENA SORIANO, LYNN Alcaraz Unavailable [phone] ROSENDO PECK DO Primary Care Provider [phone] ESTRADA SORIANO, NICHOLAS Unavailable [phone] Problems Includes: Active, inactive, and resolved Problems All Visits Onset Date Resolved Date Provider Condition S tatus Bipolar Disorder Nos Unknown DEB Howard NICOL CVIR TECH-FPA, METAL FLOW COORDINATOR-BC Active Last Documented On 2 11:56AM ; [facility] Esophageal Reflux Unknown DEB Howard NICOL APR N-FPA, METAL FLOW COORDINATOR-BC Active Last Documented On 2 11:57AM ; [facility] Idiopathic Intracranial Hypertension (Pseudotumor Cerebri) Unknown 01/27/2022 DEB Anita NICOL CVIR TECH- FPA, METAL FLOW COORDINATOR-BC Resolved Last Documented On 2 1:17PM ; [facility] 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 DEB Howard NICOL CVIR TECH-FPA, F FUNERAL DIRECTOR-BC Active Last Documented On 2 11:43AM ; [facility] Plan of Treatment [place]errals [place] [address] - Other headache syndrome Last Documented On 2 2:31PM ; [facility] Orthopedic [facility] - [address] [place] [address] - Other subluxation of unspecified patella, initial encounter Last Documented On 3 10:18AM ; [facility] Instructions to patient Intervention and counseling on cessation of tobacco use : Patient recieved smoking cessation handout Last Documented On 3 10:22AM ; [facility] Intervention and counseling on cessation of tobacco use : Patient recieved smoking cessation handout Last Documented On 2 1:00PM ; [facility] Intervention and counseling on cessation of tobacco use : Patient recieved smoking cessation handout Last Documented On 2 10:26AM ; [facility] Education and Decision Aids were provided during visit for: Pill Count: six Last Documented On 3 10:33AM ; [facility] Pill Count: 42.5 Last Documented On 3 4:03PM ; [facility] Pill Count: 62 Last Documented On 2 1:09PM ; [facility] Pill Count: 45 Not Appropria te Oxycodone Last Documented On 2 1:48PM ; [facility] Pill Count: 46 Oxycodone 10- 325 Last Documented On 2 1:17PM ; [facility] Pill Count: 39 Last Documented On 2 1:07PM ; [facility] Pill Count: 30.5 Last Documented On 2 11:05AM ; [facility] Assessments Includes: Assessments for all patient encounters Findings Encounter Date Arthralgia of the left knee/patella/tibia/fibula PAIN MANAGEMENT FOLLOW UP with DEB CAMARENA APRN-JUNIOR METAL FLOW COORDINATOR-BC 12/08/2022 Last Documented On 3 12:47PM ; [facility] Arthralgia of the right knee/patella/tibia/fibula PAIN MANAGEMENT FOLLOW UP with DEB CAMARENA CVIR TECH-FPKael, METAL FLOW COORDINATOR-BC 12/08/2022 Last Documented On 3 12:47PM ; [facility] Chronic daily headache PAIN MANAGEMENT F OLLOW UP with DEB CAMARENA CVIR TECH-FPKael, METAL FLOW COORDINATOR-BC 12/08/2022 Last Documented On 3 12:47PM ; [facility] Chronic pain syndrome PAIN MANAGEMENT FO LLOW UP with DEB Howard NICOL CVIR TECH-FPA, METAL FLOW COORDINATOR-BC 12/08/2022 Last Documented On 3 12:47PM ; [facility] DORSALGIA PAIN MANAGEMENT FOLLOW UP with Haim Howard NICOL CVIR TECH-FPA, METAL FLOW COORDINATOR-BC 12/08/2022 Last Documented On 3 12:47PM ; [facility] Idiopathic intracranial hypertension BRISA N MANAGEMENT FOLLOW UP with DEB Howard NICOL CVIR TECH-FPA, METAL FLOW COORDINATOR-BC 12/08/2022 Last Documented On 3 12:47PM ; [facility] use of opiate analgesic PAIN M ANAGEMENT FOLLOW UP with DEB Howard NICOL CVIR TECH-FPA, METAL FLOW COORDINATOR-BC 12/08/2022 Last Documented On 3 12:47PM ; [facility] Lumbar spondylosis PAIN MANAGEMENT FOLL OW UP with DEB Howard NICOL CVIR TECH-FPA, METAL FLOW COORDINATOR-BC 12/08/2022 Last Documented On 3 12:47PM ; [facility] Morbid obesity PAIN MANAGEMENT FOLL OW UP with DEB Howard NICOL CVIR TECH-FPA, METAL FLOW COORDINATOR-BC 12/08/2022 Last Documented On 3 12:47PM ; [facility] Arthralgia of the left knee/patella/tibia/fibula PAIN MANAGEMENT FOLLOW UP with DEB Howard NICOL CVIR TECH-FPA, METAL FLOW COORDINATOR-BC 09/29/2022 Last Documented On 3 5:01PM ; [facility] Arthralgia of the right knee/patella/tibia/fibula PAIN MANAGEMENT FOLLOW UP with DEB Howard NICOL CVIR TECH-FPA, METAL FLOW COORDINATOR-BC 09/29/2022 Last Documented On 3 5:01PM ; [facility] Chronic daily headache PAIN MANAGEMENT F OLLOW UP with DEB Howard NICOL CVIR TECH-FPA, METAL FLOW COORDINATOR-BC 09/29/2022 Last Documented On 3 5:01PM ; [facility] Chronic pain syndrome PAIN MANAGEMENT FO LLOW UP with DEB Howard NICOL CVIR TECH-FPA, METAL FLOW COORDINATOR-BC 09/29/2022 Last Documented On 3 5:01PM ; [facility] DORSALGIA PAIN MANAGEMENT FOLLOW UP with Haim Howard NICOL CVIR TECH-FPA, METAL FLOW COORDINATOR-BC 09/29/2022 Last Documented On 3 5:01PM ; [facility] Idiopathic intracranial hypertension BRISA N MANAGEMENT FOLLOW UP with DEB Howard NICOL CVIR TECH-FPA, METAL FLOW COORDINATOR-BC 09/29/2022 Last Documented On 3 5:01PM ; [facility] 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 PAIN M ANAGEMENT FOLLOW UP with DEB Howard NICOL CVIR TECH-FPA, METAL FLOW COORDINATOR-BC 09/29/2022 Last Documented On 3 5:01PM ; [facility] Lumbar radiculopathy PAIN MANAGEMENT FOL LOW UP with DEB Howard NICOL CVIR TECH-FPA, METAL FLOW COORDINATOR-BC 09/29/2022 Last Documented On 3 5:01PM ; [facility] Morbid obesity PAIN MANAGEMENT FOLL OW UP with DEB Howard NICOL CVIR TECH-FPA, METAL FLOW COORDINATOR-BC 09/29/2022 Last Documented On 3 5:01PM ; [facility] Arthralgia of the left knee/patella/tibia/fibula PAIN MANAGEMENT FOLLOW UP with DEB Howard NICOL CVIR TECH-FPA, METAL FLOW COORDINATOR-BC 07/28/2022 Last Documented On 2 8:44AM ; [facility] Arthralgia of the right knee/patella/tibia/fibula PAIN MANAGEMENT FOLLOW UP with DEB Howard NICOL CVIR TECH-FPA, METAL FLOW COORDINATOR-BC 07/28/2022 Last Documented On 2 8:44AM ; [facility] Chronic daily headache PAIN MANAGEMENT F OLLOW UP with DEB Howard NICOL CVIR TECH-FPA, METAL FLOW COORDINATOR-BC 07/28/2022 Last Documented On 2 8:44AM ; [facility] Chronic pain syndrome PAIN MANAGEMENT FO LLOW UP with DEB G NICOL CVIR TECH-FPA, METAL FLOW COORDINATOR-BC 07/28/2022 Last Documented On 2 8:44AM ; [facility] DORSALGIA PAIN MANAGEMENT FOLLOW UP with Haim Howard NICOL CVIR TECH-FPA, METAL FLOW COORDINATOR-BC 07/28/2022 Last Documented On 2 8:44AM ; [facility] Idiopathic intracranial hypertension BRISA N MANAGEMENT FOLLOW UP with DEB TURNERLP CVIR TECH-FPA, METAL FLOW COORDINATOR-BC 07/28/2022 Last Documented On 2 8:44AM ; [facility] 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 PAIN M ANAGEMENT FOLLOW UP with DEB Howard NICOL CVIR TECH-FPA, METAL FLOW COORDINATOR-BC 07/28/2022 Last Documented On 2 8:44AM ; [facility] Lumbar radiculopathy PAIN MANAGEMENT FOL LOW UP with DEB Howard NICOL CVIR TECH-FPA, METAL FLOW COORDINATOR-BC 07/28/2022 Last Documented On 2 8:44AM ; [facility] Morbid obesity PAIN MANAGEMENT FOLL OW UP with DEB Howard NICOL CVIR TECH-FPA, METAL FLOW COORDINATOR-BC 07/28/2022 Last Documented On 2 8:44AM ; [facility] Arthralgia of knee / patella / tibia / fibula CHART UPDATE with DEB TURNERLP CVIR TECH-FPA, METAL FLOW COORDINATOR-BC 07/05/2022 Last Documented On 2 9:54AM ; [facility] Subluxation of patella CHART UPDATE with DEB Howard NICOL CVIR TECH-FPA, METAL FLOW COORDINATOR-BC 07/05/2022 Last Documented On 2 9:54AM ; [facility] Arthralgia of the left knee/patella/tibia/fibula PAIN MANAGEMENT FOLLOW UP with DEB Howard NICOL CVIR TECH-FPA, METAL FLOW COORDINATOR-BC 06/30/2022 Last Documented On 2 1:56PM ; [facility] Arthralgia of the right knee/patella/tibia/fibula PAIN MANAGEMENT FOLLOW UP with DEB Howard NICOL CVIR TECH-FPA, METAL FLOW COORDINATOR-BC 06/30/2022 Last Documented On 2 1:56PM ; [facility] Chronic daily headache PAIN MANAGEMENT F OLLOW UP with DEB G NICOL CVIR TECH-FPA, METAL FLOW COORDINATOR-BC 06/30/2022 Last Documented On 2 1:56PM ; [facility] Chronic pain syndrome PAIN MANAGEMENT FO LLOW UP with DEB G NICOL CVIR TECH-FPA, METAL FLOW COORDINATOR-BC 06/30/2022 Last Documented On 2 1:56PM ; [facility] DORSALGIA PAIN MANAGEMENT FOLLOW UP with Haim Howard NICOL CVIR TECH-FPA, METAL FLOW COORDINATOR-BC 06/30/2022 Last Documented On 2 1:56PM ; [facility] Idiopathic intracranial hypertension BRISA N MANAGEMENT FOLLOW UP with DEB Howard NICOL CVIR TECH-FPA, METAL FLOW COORDINATOR-BC 06/30/2022 Last Documented On 2 1:56PM ; [facility] FCI use of opiate analgesic PAIN M ANAGEMENT FOLLOW UP with DEB Howard NICOL CVIR TECH-FPA, METAL FLOW COORDINATOR-BC 06/30/2022 Last Documented On 2 1:56PM ; [facility] Lumbar radiculopathy PAIN MANAGEMENT FOL LOW UP with DEB Howard NICOL CVIR TECH-FPA, METAL FLOW COORDINATOR-BC 06/30/2022 Last Documented On 2 1:56PM ; [facility] Morbid obesity PAIN MANAGEMENT FOLL OW UP with DEB Howard NICOL CVIR TECH-FPA, METAL FLOW COORDINATOR-BC 06/30/2022 Last Documented On 2 1:56PM ; [facility] Chronic daily headache * PHONE CALL with DEB Howard NICOL CVIR TECH-FPA, METAL FLOW COORDINATOR-BC 03/24/2022 Last Documented On 2 2:51PM ; [facility] Chronic daily headache PAIN MANAGEMENT F OLLOW UP with DEB Howard NICOL CVIR TECH-FPA, METAL FLOW COORDINATOR-BC 02/24/2022 Last Documented On 2 8:52AM ; [facility] Chronic pain syndrome PAIN MANAGEMENT FO LLOW UP with DEB Howard NICOL CVIR TECH-FPA, METAL FLOW COORDINATOR-BC 02/24/2022 Last Documented On 2 8:52AM ; [facility] DORSALGIA PAIN MANAGEMENT FOLLOW UP with Haim Howard NICOL CVIR TECH-FPA, METAL FLOW COORDINATOR-BC 02/24/2022 Last Documented On 2 8:52AM ; [facility] 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 PAIN M ANAGEMENT FOLLOW UP with DEB Howard NICOL CVIR TECH-FPA, METAL FLOW COORDINATOR-BC 02/24/2022 Last Documented On 2 8:52AM ; [facility] Lumbar radiculopathy PAIN MANAGEMENT FOL LOW UP with DEB Howard NICOL CVIR TECH-FPA, METAL FLOW COORDINATOR-BC 02/24/2022 Last Documented On 2 8:52AM ; [facility] Obesity PAIN MANAGEMENT FOLLOW UP with Haim Howard NICOL CVIR TECH-FPA, METAL FLOW COORDINATOR-BC 02/24/2022 Last Documented On 2 8:52AM ; [facility] Chronic daily headache PAIN MANAGEMENT F OLLOW UP with DEB Anita NICOL CVIR TECH-FPA, METAL FLOW COORDINATOR-BC 01/27/2022 Last Documented On 2 2:29PM ; [facility] Chronic pain syndrome PAIN MANAGEMENT FO LLOW UP with DEB Anita NICOL CVIR TECH-FPA, METAL FLOW COORDINATOR-BC 01/27/2022 Last Documented On 2 2:29PM ; [facility] DORSALGIA PAIN MANAGEMENT FOLLOW UP with Haim Howard NICOL CVIR TECH-FPA, METAL FLOW COORDINATOR-BC 01/27/2022 Last Documented On 2 2:29PM ; [facility] FCI use of opiate analgesic PAIN M ANAGEMENT FOLLOW UP with DEB Anita NICOL CVIR TECH-FPA, METAL FLOW COORDINATOR-BC 01/27/2022 Last Documented On 2 2:29PM ; [facility] Lumbar radiculopathy PAIN MANAGEMENT FOL LOW UP with DEB Howard NICOL CVIR TECH-FPA, METAL FLOW COORDINATOR-BC 01/27/2022 Last Documented On 2 2:29PM ; [facility] Obesity PAIN MANAGEMENT FOLLOW UP with Haim Howard NICOL CVIR TECH-FPA, METAL FLOW COORDINATOR-BC 01/27/2022 Last Documented On 2 2:29PM ; [facility] Chronic daily headache PAIN MANAGEMENT N EW CONSULT with DEB G NICOL CVIR TECH-FPA, METAL FLOW COORDINATOR-BC 12/03/2021 Last Documented On 2 1:39PM ; [facility] Chronic pain syndrome PAIN MANAGEMENT NE W CONSULT with DEB G NICOL CVIR TECH-FPA, METAL FLOW COORDINATOR-BC 12/03/2021 Last Documented On 2 1:39PM ; [facility] DORSALGIA PAIN MANAGEMENT NEW CONSULT with DEB Howard NICOL CVIR TECH-FPA, METAL FLOW COORDINATOR-BC 12/03/2021 Last Documented On 2 1:39PM ; [facility] Idiopathic intracranial hypertension BRISA N MANAGEMENT NEW CONSULT with DEB Howard NICOL CVIR TECH-FPA, METAL FLOW COORDINATOR-BC 12/03/2021 Last Documented On 2 1:39PM ; [facility] 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 PAIN M ANAGEMENT NEW CONSULT with DEB Howard NICOL CVIR TECH-FPA, METAL FLOW COORDINATOR-BC 12/03/2021 Last Documented On 2 1:39PM ; [facility] Lumbar radiculopathy PAIN MANAGEMENT NEW CONSULT with DEB Howard NICOL CVIR TECH-FPA, METAL FLOW COORDINATOR-BC 12/03/2021 Last Documented On 2 1:39PM ; [facility] Obesity PAIN MANAGEMENT NEW CONSULT with DEB Howard NICOL CVIR TECH-FPA, METAL FLOW COORDINATOR-BC 12/03/2021 Last Documented On 2 1:39PM ; [facility] Instructions Includes: Instructions for all patient encounters Instructions to patient Intervention and counseling on cessation of tobacco use : Patient recieved smoking cessation handout Last Documented On 3 10:22AM ; [facility] Intervention and counseling on cessation of tobacco use : Patient recieved smoking cessation handout Last Documented On 2 1:00PM ; [facility] Intervention and counseling on cessation of tobacco use : Patient recieved smoking cessation handout Last Documented On 2 10:26AM ; [facility] Education and Decision Aids were provided during visit for: Pill Count: six Last Documented On 3 10:33AM ; [facility] Pill Count: 42.5 Last Documented On 3 4:03PM ; [facility] Pill Count: 62 Last Documented On 2 1:09PM ; [facility] Pill Count: 45 Not Appropria te Oxycodone Last Documented On 2 1:48PM ; [facility] Pill Count: 46 Oxycodone 10- 325 Last Documented On 2 1:17PM ; [facility] Pill Count: 39 Last Documented On 2 1:07PM ; [facility] Pill Count: 30.5 Last Documented On 2 11:05AM ; [facility] Medical Equipment - Implanted Devices Includes: Current and historical Devices No Medical Equipment Recorded Medications Includes: Current and historical Medications Current Medications (continue as prescribed) DULoxetine HCl 60 MG Oral Capsule Delayed Release Particles 01/23/2023 Provider: BLANE FORBES Diagnosis: Dorsalgia, unspe cified TAKE 1 CAPSULE BY MOUTH AT BEDTIME Last Documented On 3 2:59PM By DEB ARGUELLES ; [facility] tiZANidine HCl 2 MG Oral Tablet 01/23/2023 Provider: BLANE GRANADOS Diagnosis: TAKE 1 TABLET BY MOUTH THREE TIMES DAILY NEEDED Last Documented On 3 8:40AM By DEB ARGUELLES ; [facility] oxyCODONE-Acetaminophen 10-3 25 MG Oral Tablet 01/03/2023 Provider: BLANE FORBES Diagnosis: 1/2-1 tablet as needed for s evere migraine, max 2 tablets per week Last Documented On 3 4:30PM By DEB ARGUELLES ; [facility] Buprenorphine 5 MCG/HR Transdermal Patch Weekly 12/08/2022 Provider: BLANE GRANADOS Diagnosis: Chronic pain syn drome apply 1 patch every 7 days, be sure to remove the old patch Last Documented On 3 12:46PM By DEB ARGUELLES ; [facility] Narcan 4 MG/0.1ML Nasal Liquid 12/08/2022 Provider: BLANE FORBES Diagnosis: Chronic pain syn drome 1 spray intranasally for jeff pected overdose Last Documented On 3 12:46PM By DEB ARGUELLES ; [facility] CeleBREX 200 MG Oral Capsule 11/28/2022 Provider: BLANE FORBES Diagnosis: Dorsalgia, unspe cified 1 capsule daily with a meal Last Documented On 3 12:46PM [facility] ; [facility] hydrOXYzine HCl 50 MG Oral Tablet 10/04/2022 Provide r: ROSENDO PECK DO Diagnosis: Last Documented On 3 12:46PM By DEB RUIZJUNIE ; [facility] Symbicort 160-4.5 MCG/ACT Inhalation Aerosol 3 Provider: ROSENDO PECK DO Diagnosis: Last Documented On 3 4:46PM [facility] ; [facility] Albuterol Sulfate HFA 108 (9 0 Base) MCG/ACT Inhalation Aerosol Solution 09/19/2022 Provider: ROSENDO ALARCON DO Diagnosis: Last Documented On 3 4:46PM By DEB CAMARENA [facility] ; [facility] SUMAtriptan Succinate 100 MG Oral Tablet 09/17/2022 Provider: NICHOLAS DORADO MD Diagnosis: Last Documented On 3 4:46PM By DEB RUIZJUNIE ; [facility] Qulipta 60 MG Oral Tablet 08/08/2022 Provider: Diagnosis: Last Documented On 3 4:46PM By DEB CALLEJUNIE ; [facility] RisperDAL 1 MG Oral Tablet 12/03/2021 Provider: Diagnosis: Last Documented On 2 11:52AM By DEB RUIZJUNIE ; [facility] Pantoprazole Sodium 40 MG Oral Tablet Delayed Release 11/14/2021 Provider: Diagnosis: Last Documented On 2 11:52AM By DEB RUIZJUNIE ; [facility] Sucralfate 1 GM Oral Tablet 10/18/2021 Provider: Diagnosis: Last Documented On 2 11:52AM By DEB ARGUELLES ; [facility] Past Medications on file Pregabalin 75 MG Oral Capsule 12/08/2022 - 01/03/2023 Provider: DEB CAMARENA CVIR TECH-FPA, METAL FLOW COORDINATOR-BC Diagnosis: Chronic pain syn drome 1 capsule 2times daily for 4 days then at bedtime only for 4 days then stop Last Documented On 3 4:25PM By [facility] ; [facility] oxyCODONE-Acetaminophen 10-3 25 MG Oral Tablet 12/05/2022 - 01/03/2023 Provider: DEB CHEN METAL FLOW COORDINATOR-JUNIE Diagnosis: 1/2-1 tablet as needed for s evere migraine, max 2 tablets per week Last Documented On 3 4:28PM By DEB CAMARENA [facility] ; [facility] Amitriptyline HCl 50 MG Oral Tablet 11/25/2022 - 01/03/2023 Provider: DEB CHEN [facility]-JUNIE Diagnosis: One tablet at bed time Last Documented On 3 4:25PM By DEB CAMARENA [facility] ; [facility] DULoxetine HCl 60 MG Oral Capsule Delayed Release Particles 11/25/2022 - 01/23/2023 Provider: [facility] Diagnosis: Dorsalgia, unspe cified TAKE 1 CAPSULE BY MOUTH AT BEDTIME Last Documented On 3 2:52PM By DEB CAMARENA [facility] ; [facility] tiZANidine HCl 2 MG Oral Tablet 11/25/2022 - 01/23/2023 Provider: DEB CUNHA-FPKael METAL FLOW COORDINATOR-JUNIE Diagnosis: One tablet three times a day as needed Last Documented On 3 8:32AM By DEB CAMARENA METAL FLOW COORDINATORDIVINA ; [facility] tiZANidine HCl 2 MG Oral Tablet 11/14/2022 - 11/25/2022 Provider: DEB CUNHA-FPKael METAL FLOW COORDINATOR-BC Diagnosis: One tablet three times a day as needed Last Documented On 3 3:47PM [facility] ; [facility] oxyCODONE-Acetaminophen 10-3 25 MG Oral Tablet 11/04/2022 - 11/28/2022 Provider: DEB CHEN METAL FLOW COORDINATOR-JUNIE Diagnosis: 1/2-1 tablet as needed for s evere migraine, max 2 tablets per week Last Documented On 3 8:30AM By DEB ARGUELLES ; [facility] Lucemyra 0.18 MG Oral Tablet 10/28/2022 - 12/08/2022 Haylie rob: HERMELINDA VILLAREAL MD Diagnosis: take 3 tablets 4x daily for 4 days, then 2 tablets 4x daily for 4 days, then 1 tablet 4x daily for 3 days, then 1 tablet 2x daily until out. Last Documented On 3 10:40AM By DEB ARGUELLES ; [facility] Amitriptyline HCl 50 MG Oral Tablet 10/24/2022 - 11/25/2022 Provider: DEB CHEN METAL FLOW COORDINATOR-BC Diagnosis: One tablet at bed time Last Documented On 3 3:48PM By DEB ARGUELLES ; [facility] Lucemyra 0.18 MG Oral Tablet 10/24/2022 - 10/27/2022 Provider: DEB CUNHA-JUNIOR METAL FLOW COORDINATOR-BC Diagnosis: take 3 tablets 4x daily for 3 days, then 2 tablets 4x daily for 2 days, then 1 tablet 4x daily for 2 days, then 1 tablet 2x daily for 2 days Last Documented On 10/28/2022 4:11PM By Hermelinda Villareal MD ; [facility] DULoxetine HCl 60 MG Oral Capsule Delayed Release Particles 10/24/2022 - 11/25/2022 Provider: DEB CHEN METAL FLOW COORDINATOR-BC Diagnosis: Dorsalgia, unspe cified TAKE 1 CAPSULE BY MOUTH AT BEDTIME Last Documented On 3 3:47PM By DEB ARGUELLES ; [facility] Amitriptyline HCl 25 MG Oral Tablet 10/24/2022 - 12/08/2022 Provider: DEB CAMARENA APRN-JUNIOR METAL FLOW COORDINATOR-BC Diagnosis: Chronic pain syndrome One tablet at bed time Last Documented On 3 10:33AM By Ratna STUART ; [facility] tiZANidine HCl 2 MG Oral Tablet 10/18/2022 - 11/14/2022 Provider: DEB CUNHA-JUNIOR METAL FLOW COORDINATOR-BC Diagnosis: One tablet three times a day as needed Last Documented On 3 6:21PM By DEB CALLEJUNIE ; [facility] oxyCODONE-Acetaminophen 10-3 25 MG Oral Tablet 10/10/2022 - 11/04/2022 Provider: DEB CHEN METAL FLOW COORDINATOR-BC Diagnosis: 1/2-1 tablet 1-3 times daily , decreasing by 1 tablet per week then 1-2 times per week [3 week script] Last Documented On 3 3:39PM By DEB CALLEJUNIE ; [facility] Pregabalin 150 MG Oral Capsule 10/10/2022 - 01/03/2023 Provider: BLANE GRANADOS Diagnosis: Radiculopathy, l umbar region 1 CAPSULE TWO TIMES A DAY Last Documented On 3 4:26PM By DEB ARGUELLES ; [facility] Amitriptyline HCl 25 MG Oral Tablet 09/29/2022 - 10/24/2022 Provider: DEB CHEN METAL FLOW COORDINATOR-JUNIE Diagnosis: Chronic pain syndrome One tablet at bed time Last Documented On 3 5:04PM By DEB CAMARENA METAL FLOW COORDINATORDIVINA ; [facility] CeleBREX 200 MG Oral Capsule 09/29/2022 - 11/28/2022 Provider: DEB CAMARENA APRN-JUNIOR METAL FLOW COORDINATOR-BC Diagnosis: Dorsalgia, unspe cified 1 capsule daily with a meal Last Documented On 3 5:09PM By DEB CALLEJUNIE ; [facility] tiZANidine HCl 2 MG Oral Tablet 09/20/2022 - 10/18/2022 Provider: DEB CUNHA-JUNIOR METAL FLOW COORDINATOR-BC Diagnosis: One tablet three times a day as needed Last Documented On 3 8:20AM By DEB ARGUELLES ; [facility] tiZANidine HCl 2 MG Oral Capsule 09/14/2022 - 09/20/2022 Provider: DEB CAMARENA APRN-JUNIOR METAL FLOW COORDINATOR-BC Diagnosis: Dorsalgia, unspe cified One tablet three times a day as needed Last Documented On 3 9:32AM By DEB CAMARENA [facility] ; [facility] Pregabalin 150 MG Oral Capsule 09/06/2022 - 10/10/2022 Provider: HERMELINDA Wilson Diagnosis: Radiculopathy, l umbar region 1 CAPSULE TWO TIMES A DAY Last Documented On 3 4:37PM By DEB CAMARENA [facility] [facility] oxyCODONE-Acetaminophen 10-3 25 MG Oral Tablet 09/05/2022 - 10/10/2022 Provider: STACY MENEZES ANP- Diagnosis: One tablet three times a day as needed for SEVERE pain only Last Documented On 3 5:11PM By DEB CAMARENA [facility] ; [facility] DULoxetine HCl 60 MG Oral Capsule Delayed Release Particles 08/24/2022 - 10/24/2022 Provider: DEB CHEN METAL FLOW COORDINATOR-BC Diagnosis: Dorsalgia, unspe cified TAKE 1 CAPSULE BY MOUTH AT BEDTIME Last Documented On 3 5:05PM By DEB CAMARENA [facility] ; [facility] oxyCODONE-Acetaminophen 10-3 25 MG Oral Tablet 08/15/2022 - 09/05/2022 Provider: DEB CHEN METAL FLOW COORDINATOR-BC Diagnosis: One tablet three times a day as needed for SEVERE pain only Last Documented On 2 8:53PM By STACY MENEZES [facility] ; [facility] tiZANidine HCl 2 MG Oral Capsule 08/08/2022 - 09/14/2022 Provider: DEB CHEN METAL FLOW COORDINATOR-BC Diagnosis: Dorsalgia, unspe cified One tablet three times a day as needed Last Documented On 2 2:32PM By DEB CAMARENA [facility] ; [facility] Pregabalin 150 MG Oral Capsule 08/08/2022 - 09/06/2022 Provider: DEB CHEN METAL FLOW COORDINATOR-BC Diagnosis: Radiculopathy, l umbar region 1 CAPSULE TWO TIMES A DAY Last Documented On 09/06/2022 12:04PM By Hermelinda Villareal MD ; [facility] SUMAtriptan Succinate 50 MG Oral Tablet 07/28/2022 - 08/27/2022 Provider: BLANE GRANADOS Diagnosis: Headache, unspec ified take 2 tablet at onset of he adache, may repeat after 2 hours, max 4 in 24 hours Last Documented On 2 8:43AM By DEB ARGUELLES ; [facility] Topamax 25 MG Oral Tablet 07/28/2022 - 09/29/2022 Prov ider: Diagnosis: Last Documented On 3 4:14PM By DEB ARGUELLES ; [facility] DULoxetine HCl 60 MG Oral Capsule Delayed Release Particles 07/27/2022 - 08/24/2022 Provider: BLANE GRANADOS Diagnosis: Dorsalgia, unspe cified TAKE 1 CAPSULE BY MOUTH AT BEDTIME Last Documented On 2 10:05AM By DEB ARGUELLES ; [facility] oxyCODONE-Acetaminophen 10-3 25 MG Oral Tablet 07/15/2022 - 08/10/2022 Provider: BLANE GRANADOS Diagnosis: One tablet three times a day as needed for SEVERE pain only Last Documented On 2 8:22AM By DEB ARGUELLES ; [facility] SUMAtriptan Succinate 50 MG Oral Tablet 07/01/2022 - 07/28/2022 Provider: BLANE GRANADOS Diagnosis: Headache, unspec ified take 1 tablet at onset of he adache, may repeat after 2 hours, max 4 in 24 hours Last Documented On 2 8:43AM By DEB ARGUELLES ; [facility] Qulipta 30 MG Oral Tablet 06/30/2022 - 08/08/2022 Provider: BLANE GRANADOS Diagnosis: Other headache syndrome One tablet daily Last Documented On 2 1:08PM By DEB ARGUELLES ; [facility] Ubrelvy 100 MG Oral Tablet 06/30/2022 - 08/08/2022 Provider: DEB CHEN [facility] Diagnosis: Other headache syndrome 1 tablet as needed for sever e headache, maximum of 2 in 24 hours Last Documented On 2 1:11PM [facility] ; [facility] Pregabalin 150 MG Oral Capsule 06/17/2022 - 07/28/2022 Provider: DEB CHEN [facility] Diagnosis: Radiculopathy, l umbar region 1 CAPSULE TWO TIMES A DAY Last Documented On 2 1:16PM By DEB CAMARENA [facility] ; [facility] DULoxetine HCl 60 MG Oral Capsule Delayed Release Particles 06/17/2022 - 07/27/2022 [facility] Diagnosis: Dorsalgia, unspe cified TAKE 1 CAPSULE BY MOUTH AT BEDTIME Last Documented On 2 10:02AM By DEB CAMARENA [facility] ; [facility] oxyCODONE-Acetaminophen 10-3 25 MG Oral Tablet 06/17/2022 - 07/15/2022 Provider: DEB CHEN [facility] Diagnosis: One tablet three times a day as needed for SEVERE pain only Last Documented On 2 1:34PM By DEB CAMARENA [facility] ; [facility] oxyCODONE-Acetaminophen 10-3 25 MG Oral Tablet 05/20/2022 - 06/15/2022 Provider: DEB CHEN [facility] Diagnosis: One tablet three times a day as needed for SEVERE pain only Last Documented On 2 5:12PM By DEB CAMARENA [facility] ; [facility] DULoxetine HCl 60 MG Oral Capsule Delayed Release Particles 05/18/2022 - 06/17/2022 Provider: STACY MENEZES [facility] Diagnosis: Dorsalgia, unspe cified TAKE 1 CAPSULE BY MOUTH AT BEDTIME Last Documented On 2 9:00AM By DEB CAMARENA [facility] ; [facility] Pregabalin 150 MG Oral Capsule 05/18/2022 - 06/17/2022 Provider: STACY MIRAMONTES Diagnosis: Radiculopathy, l umbar region 1 CAPSULE TWO TIMES A DAY Last Documented On 2 8:59AM [facility] ; [facility] oxyCODONE-Acetaminophen 10-3 25 MG Oral Tablet 05/03/2022 - 05/17/2022 Provider: LUC GRANADOS-JUNIE Diagnosis: One tablet three times a day as needed for SEVERE pain only Last Documented On 2 4:33PM By DEB CAMARENA [facility] ; [facility] DULoxetine HCl 60 MG Oral Capsule Delayed Release Particles 05/03/2022 - 05/18/2022 Provider: LUC GRANADOS-JUNIE Diagnosis: Dorsalgia, unspe cified TAKE 1 CAPSULE BY MOUTH AT BEDTIME Last Documented On 2 9:04AM [facility] ; [facility] Pregabalin 150 MG Oral Capsule 04/05/2022 - 05/18/2022 Provider: LUC GRANADOS-JUNIE Diagnosis: Radiculopathy, l umbar region 1 CAPSULE TWO TIMES A DAY Last Documented On 2 9:04AM [facility] ; [facility] oxyCODONE-Acetaminophen 10-3 25 MG Oral Tablet 04/05/2022 - 05/02/2022 Provider: LUC GRANADOS-JUNIE Diagnosis: One tablet three times a day as needed for SEVERE pain only Last Documented On 2 8:23AM By DEB CAMARENA [facility] ; [facility] Pregabalin 150 MG Oral Capsule 03/24/2022 - 04/05/2022 Provider: LUC GRANADOS-BC Diagnosis: Radiculopathy, l umbar region 1 CAPSULE TWO TIMES A DAY Last Documented On 2 11:47AM [facility] ; [facility] oxyCODONE-Acetaminophen 10-3 25 MG Oral Tablet 03/07/2022 - 04/04/2022 Provider: BLANE GRANADOS Diagnosis: One tablet three times a day as needed for SEVERE pain only Last Documented On 2 11:48AM By DEB ARGUELLES ; [facility] DULoxetine HCl 60 MG Oral Capsule Delayed Release Particles 02/28/2022 - 05/03/2022 Provider: BLANE GRANADOS Diagnosis: Dorsalgia, unspe cified TAKE 1 CAPSULE BY MOUTH AT BEDTIME Last Documented On 2 8:32AM [facility] ; [facility] DULoxetine HCl 30 MG Oral Capsule Delayed Release Particles 02/24/2022 - 06/30/2022 Provider: TONY GRANADOSBC Diagnosis: Dorsalgia, unspe cified One tablet at bed time Last Documented On 2 11:45AM By DEB RUIZPRAF ; [facility] DULoxetine HCl 60 MG Oral Capsule Delayed Release Particles 02/07/2022 - 02/24/2022 Provider: BLANE GRANADOS Diagnosis: Radiculopathy, l umbar region TAKE 1 CAPSULE BY MOUTH AT BEDTIME Last Documented On 2 8:52AM By [facility] ; [facility] oxyCODONE-Acetaminophen 10-3 25 MG Oral Tablet 02/07/2022 - 03/07/2022 Provider: LUC GRANADOS-JUNIE Diagnosis: One tablet three times a day as needed for SEVERE pain only Last Documented On 2 4:00PM By [facility] ; [facility] Pregabalin 150 MG Oral Capsule 01/27/2022 - 03/24/2022 Provider: LUC GRANADOS-BC Diagnosis: Radiculopathy, l umbar region 1 CAPSULE TWO TIMES A DAY Last Documented On 2 12:55PM By DEB CAMARENA METAL FLOW COORDINATORJUNIE ; [facility] Pregabalin 75 MG Oral Capsule 01/27/2022 - 02/24/2022 Provider: BLANE GRANADOS Diagnosis: Radiculopathy, l umbar region 1 cap at bedtime for 3 days then 1 cap two times daily for 3 days then 1 cap in the am and 2 caps at bedtime for 3 days Last Documented On 2 1:59PM By DEB ARGUELLES ; [facility] oxyCODONE-Acetaminophen 10-3 25 MG Oral Tablet 01/10/2022 - 02/04/2022 Provider: BLANE GRANADOS Diagnosis: One tablet three times a day Last Documented On 2 9:05AM By DEB ARGUELLES ; [facility] oxyCODONE-Acetaminophen 10-3 25 MG Oral Tablet 12/10/2021 - 01/07/2022 Provider: BLANE GRANADOS Diagnosis: One tablet three times a day Last Documented On 2 11:01AM By DEB ARGUELLES ; [facility] Narcan 4 MG/0.1ML Nasal Liquid 12/08/2021 - 06/30/2022 Provider: BLANE LAGUNAS Diagnosis: 1 spray intranasally for suspected overdose Last Documented On 2 11:41AM By DEB ARGUELLES ; [facility] DULoxetine HCl 60 MG Oral Capsule Delayed Release Particles 12/03/2021 - 02/07/2022 Provider: BLANE GRANADOS Diagnosis: Radiculopathy, l umbar region One tablet at bed time Last Documented On 2 9:06AM By DEB ARGUELLES ; [facility] hydrOXYzine HCl 50 MG Oral Tablet 12/03/2021 - 023 Provider: Diagnosis: Up to three times a day. Last Documented On 3 4:44PM By DEB ARGUELLES ; [facility] DULoxetine HCl 30 MG Oral Capsule Delayed Release Particles 12/03/2021 - 01/27/2022 Provider: DEB G NICOL CVIR TECH-FPA, METAL FLOW COORDINATOR-BC Diagnosis: Radiculopathy, l umbar region One tablet at bed time Last Documented On 2 1:59PM By DEB CAMARENA METAL FLOW COORDINATOR-BC ; [facility] Ondansetron HCl 4 MG Oral Tablet 11/17/2021 - 01/28/20 Provider: Diagnosis: PRN Last Documented On 2 1:08PM By Ratna STUART ; [facility] oxyCODONE-Acetaminophen 10-325 MG Oral Tablet 11/14/19 22 - 12/07/2021 Provider: Diagnosis: Last Documented On 2 10:25AM By DEB CAMARENA METAL FLOW COORDINATOR-BC ; [facility] Medications Administered Includes: Administered [...] 12/03/2021 Last Documented On 2 1:39PM ; [facility] Not using drugs 12/03/2021 Last Documented On 2 1:39PM ; [facility] Smoking packs of cigarettes per day 2 Last Documented On 2 1:39PM ; [facility] Current smoker 12/03/2021 Last Documented On 2 1:39PM ; [facility] Smoking Status Unknown Procedures and Surgical History Surgical History Last Updated No Pacemaker 12/03/2021 Last Documented On 2 1:39PM ; [facility] Medical History Includes: Medical History in patient's chart Description Last Updated Has had a fall in the last 12 months. Last Documented On 3 12:47PM ; [facility] Denies a fear of falling. 12/03/2021 Last Documented On 2 1:39PM ; [facility] Currently wearing eyeglasses 12/03/2021 Last Documented On 2 1:39PM ; [facility] No Pain Pump 12/03/2021 Last Documented On 2 1:39PM ; [facility] No Spinal cord stimulator 12/03/2021 Last Documented On 2 1:39PM ; [facility] Please list all illnesses/co nditions you have been diagnosed with: Idopathic intercranial hypertension, seizures, stomach hernia,acid reflux disease,depression,anxiety,bipolor 12/03/2021 Last Documented On 2 1:39PM ; [facility] Please list all surgeries: C sections 12/09/06 12/10/07 01/19/2010. eptopic pregnacy 2 12/03/2021 Last Documented On 2 1:39PM ; [facility] Family History Includes: Family History in patient's chart Description Last Updated Family history of ischemic heart disease 12/03/2021 Last Documented On 2 1:39PM ; [facility] Fraternal history of reported family his tory of seizures 12/03/2021 Last Documented On 2 1:39PM ; [facility] Maternal history of reported family hist ory of seizures 12/03/2021 Last Documented On 2 1:39PM ; [facility] Sororal history of reported family histo ry of seizures 12/03/2021 Last Documented On 2 1:39PM ; [facility] Review of Systems Review of [...] Documented On 3 10:33AM ; [facility] Sulfa Antibiotics Allergy 12/03/2021 A ctive Last Documented On 3 10:33AM ; [facility] Penicillins Allergy 12/03/2021 Active Last Documented On 3 10:33AM ; [facility] Morphine Derivatives Allergy 12/03/2021 Active Last Documented On 3 10:33AM ; [facility] Metoclopramide Allergy 12/03/2021 Acti ve Last Documented On 3 10:33AM ; [facility] Adhesive Tape Allergy 12/03/2021 Activ e Last Documented On 3 10:33AM ; [facility] Insurance Includes: Active Insurance Policies Plan Name Member ID Group # Subscriber Relationship Effect enriqueta Dates 1 - [facility] [id number] LAURIE Gill Clinical Notes Includes: Signed Clinical Notes starting from 10/07/2022 No Clinical Notes Recorded
--- OUTSIDE RECORDS SUMMARY | 2024-10-11 17:30 | XMS_ITS | Referral Summary ---
Author Organization [facility] Address [address] [place] [address] Care Team Providers Care Railroad Design Consultant Name Role Phone BrijeshJuni simms DO Primary Care Provider [phone] Source Comments [facility],non-owned Affiliates and Associated Physician Practices is amultiple site organization consisting of ambulatory clinics and hospital sitesin [place], [place], [place] and [place]. This disclosure is being madepursuant to the Care Everywhere program and may not contain all information available regarding this patient. Last updated 18.[facility] Allergies Active Allergy Reactions Criticality Noted Date [...] of Treatment Not on file Care Teams Railroad Design Consultant Relationship Specialty Start Date End Date Juni Lopez DO [address] [place] [id number] PCP - General 12/02/21
--- OUTSIDE RECORDS SUMMARY | 2024-10-11 17:30 | XMS_ITS | Clinical Summary ---
Author Organization [facility] Address [address] [place] [address] Care Team Providers Care Reconnaissance Man Name Role Phone Juni Lopez DO Primary Care Provider [phone] Source Comments [facility],non-owned Affiliates and Associated Physician Practices is amultiple site organization consisting of ambulatory clinics and hospital sitesin [place], [place], [place] and [place]. This disclosure is being madepursuant to the Care Everywhere program and may not contain all information available regarding this patient. Last updated 18.[facility] Allergies Active Allergy Reactions Criticality Noted Date [...] age to complete this topic Care Teams Reconnaissance Man Relationship Specialty Start Date End Date Juni Lopez DO [address] [place] [id number] PCP - General 12/02/21
--- OUTSIDE RECORDS SUMMARY | 2024-10-11 17:30 | XMS_ITS | Clinical Summary ---
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 DEB CAMARENA THERMOMETER TESTER-FPA, F HOT HEAD MACHINE OPERATOR-BC Active Last Documented On 2 11:43AM ; [facility] Plan of Treatment No Plan of [...] On 3 2:59PM By DEB CALLE-JUNIE ; [facility] tiZANidine HCl 2 MG Oral Tablet 01/23/2023 Provider: BLANE GRANADOS Diagnosis: TAKE 1 TABLET BY MOUTH THREE TIMES DAILY NEEDED Last Documented On 3 8:40AM By DEB ARGUELLES ; [facility] oxyCODONE-Acetaminophen 10-3 25 MG Oral Tablet 01/03/2023 Provider: BLANE FORBES Diagnosis: 1/2-1 tablet as needed for s evere migraine, max 2 tablets per week Last Documented On 3 4:30PM By DEB ARGUELLES ; [facility] Buprenorphine 5 MCG/HR Transdermal Patch Weekly 12/08/2022 Provider: BLANE GRANADOS Diagnosis: Chronic pain syn drome apply 1 patch every 7 days, be sure to remove the old patch Last Documented On 3 12:46PM By DEB ARGUELLES ; [facility] Narcan 4 MG/0.1ML Nasal Liquid 12/08/2022 Provider: BLANE FORBES Diagnosis: Chronic pain syn drome 1 spray intranasally for jeff pected overdose Last Documented On 3 12:46PM By DEB ARGUELLES ; [facility] CeleBREX 200 MG Oral Capsule 11/28/2022 Provider: BLANE FORBES Diagnosis: Dorsalgia, unspe cified 1 capsule daily with a meal Last Documented On 3 12:46PM By DEB ARGUELLES ; [facility] hydrOXYzine HCl 50 MG Oral Tablet 10/04/2022 Provide r: ROSENDO PECK DO Diagnosis: Last Documented On 3 12:46PM By DEB ARGUELLES ; [facility] Symbicort 160-4.5 MCG/ACT Inhalation Aerosol 3 Provider: ROSENDO PECK DO Diagnosis: Last Documented On 3 4:46PM By DEB ARGUELLES ; [facility] Albuterol Sulfate HFA 108 (9 0 Base) MCG/ACT Inhalation Aerosol Solution 09/19/2022 Provider: ROSENDO ALARCON DO Diagnosis: Last Documented On 3 4:46PM By [facility] ; [facility] SUMAtriptan Succinate 100 MG Oral Tablet 09/17/2022 Provider: NICHOLAS DORADO MD Diagnosis: Last Documented On 3 4:46PM By [facility] ; [facility] Qulipta 60 MG Oral Tablet 08/08/2022 Provider: Diagnosis: Last Documented On 3 4:46PM By DEB NICOL [facility] ; [facility] RisperDAL 1 MG Oral Tablet 12/03/2021 Provider: Diagnosis: Last Documented On 2 11:52AM By DEB CAMARENA [facility] ; [facility] Pantoprazole Sodium 40 MG Oral Tablet Delayed Release 11/14/2021 Provider: Diagnosis: Last Documented On 2 11:52AM By DEB NICOL [facility] ; [facility] Sucralfate 1 GM Oral Tablet 10/18/2021 Provider: Diagnosis: Last Documented On 2 11:52AM By DEB NICOL [facility] ; [facility] Medications Administered Includes: Administered Medications from [...] Active Last Documented On 3 10:33AM ; [facility] Sulfa Antibiotics Allergy 12/03/2021 A ctive Last Documented On 3 10:33AM ; [facility] Penicillins Allergy 12/03/2021 Active Last Documented On 3 10:33AM ; [facility] Morphine Derivatives Allergy 12/03/2021 Active Last Documented On 3 10:33AM ; [facility] Metoclopramide Allergy 12/03/2021 Acti ve Last Documented On 3 10:33AM ; [facility] Adhesive Tape Allergy 12/03/2021 Activ e Last Documented On 3 10:33AM ; [facility] Insurance Includes: Active Insurance Policies Plan Name Member ID Group # Subscriber Relationship Effect enriqueta Dates 1 - [facility] [id number] LAURIE Gill Clinical Notes Includes: Clinical Notes from this encounter No Clinical Notes Recorded
--- OUTSIDE RECORDS SUMMARY | 2024-10-11 17:30 | XMS_ITS | Clinical Summary ---
Author Organization [facility] Address [address] [place] [address] Phone Care Team Providers Care Direct Service Worker Name Role Phone RENA SORIANO, LYNN [...] tatus Bipolar Disorder Nos Unknown DEB CAMARENA FILE MACHINE OPERATOR-FPA, OPTICAL DISPENSER-BC Active Last Documented On 2 11:56AM ; [facility] Esophageal Reflux Unknown DEB CAMARENA APR N-FPA, OPTICAL DISPENSER-BC Active Last Documented On 2 11:57AM ; [facility] 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 DEB CAMARENA FILE MACHINE OPERATOR-FPA, F PLUMBING MANAGER-BC Active Last Documented On 2 11:43AM ; [facility] Plan of Treatment No Plan of Treatment Recorded Assessments Includes: Assessments from this encounter No Assessments Recorded Medical Equipment - Implanted Devices Includes: Current Devices No Medical Equipment Recorded Medications Includes: Medications discussed during this encounter and other current Medications Current Medications (continue as prescribed) DULoxetine HCl 60 MG Oral Capsule Delayed Release Particles 01/23/2023 Provider: DEB PACHECO OPTICAL DISPENSER-BC Diagnosis: Dorsalgia, unspe cified TAKE 1 CAPSULE BY MOUTH AT BEDTIME Last Documented On 3 2:59PM By DEB CALLE-JUNIE ; [facility] tiZANidine HCl 2 MG Oral Tablet 01/23/2023 Provider: BLANE GRANADOS Diagnosis: TAKE 1 TABLET BY MOUTH THREE TIMES DAILY NEEDED Last Documented On 3 8:40AM By DEB ARGUELLES ; [facility] oxyCODONE-Acetaminophen 10-3 25 MG Oral Tablet 01/03/2023 Provider: BLANE FORBES Diagnosis: 1/2-1 tablet as needed for s evere migraine, max 2 tablets per week Last Documented On 3 4:30PM By DEB ARGUELLES ; [facility] Buprenorphine 5 MCG/HR Transdermal Patch Weekly 12/08/2022 Provider: BLANE GRANADOS Diagnosis: Chronic pain syn drome apply 1 patch every 7 days, be sure to remove the old patch Last Documented On 3 12:46PM By DEB ARGUELLES ; [facility] Narcan 4 MG/0.1ML Nasal Liquid 12/08/2022 Provider: BLANE FORBES Diagnosis: Chronic pain syn drome 1 spray intranasally for jeff pected overdose Last Documented On 3 12:46PM By DEB ARGUELLES ; [facility] CeleBREX 200 MG Oral Capsule 11/28/2022 Provider: BLANE FORBES Diagnosis: Dorsalgia, unspe cified 1 capsule daily with a meal Last Documented On 3 12:46PM By DEB ARGUELLES ; [facility] hydrOXYzine HCl 50 MG Oral Tablet 10/04/2022 Provide r: ROSENDO PECK DO Diagnosis: Last Documented On 3 12:46PM By DEB ARGUELLES ; [facility] Symbicort 160-4.5 MCG/ACT Inhalation Aerosol 3 Provider: ROSENDO PECK DO Diagnosis: Last Documented On 3 4:46PM By DEB ARGUELLES ; [facility] Albuterol Sulfate HFA 108 (9 0 Base) MCG/ACT Inhalation Aerosol Solution 09/19/2022 Provider: ROSENDO ALARCON DO Diagnosis: Last Documented On 3 4:46PM By DEB CAMARENA [facility] ; [facility] SUMAtriptan Succinate 100 MG Oral Tablet 09/17/2022 Provider: NICHOLAS DORADO MD Diagnosis: Last Documented On 3 4:46PM By DEB CAMARENA [facility] ; [facility] Qulipta 60 MG Oral Tablet 08/08/2022 Provider: Diagnosis: Last Documented On 3 4:46PM By DEB CAMARENA [facility] ; [facility] RisperDAL 1 MG Oral Tablet 12/03/2021 Provider: Diagnosis: Last Documented On 2 11:52AM [facility] Pantoprazole Sodium 40 MG Oral Tablet Delayed Release 11/14/2021 Provider: Diagnosis: Last Documented On 2 11:52AM By DEB CAMARENA [facility] ; [facility] Sucralfate 1 GM Oral Tablet 10/18/2021 Provider: Diagnosis: Last Documented On 2 11:52AM By DEB CAMARENA [facility] ; [facility] Past Medications on file SUMAtriptan Succinate 50 MG Oral Tablet 07/28/2022 - 08/27/2022 Provider: DEB CAMARENA APRN-JUNIOR, [facility]- Diagnosis: Headache, unspec ified take 2 tablet at onset of he adache, may repeat after 2 hours, max 4 in 24 hours Last Documented On 2 8:43AM By DEB CAMARENA [facility] ; [facility] Medications Administered Includes: Administered Medications from this encounter No Administered Medications Recorded Results Includes: Results discussed during this encounter No Results Recorded For Specified Dates History of Present Illness Includes: History of Present Illness from this encounter No History of Present Illness Recorded Social History Description Last Updated No consumption of alcohol 12/03/2021 Last Documented On 3 10:29AM ; [facility] Not using drugs 12/03/2021 Last Documented On 3 10:29AM ; [facility] Smoking packs of cigarettes per day 2 Last Documented On 3 10:29AM ; [facility] Current smoker 12/03/2021 Last Documented On 3 10:29AM ; [facility] Smoking Status Unknown Procedures and Surgical History Surgical History Last Updated No Pacemaker 12/03/2021 Last Documented On 3 10:29AM ; [facility] Medical History Includes: Medical History addressed during this encounter Description Last Updated Has had a fall in the last 12 months. Last Documented On 3 10:29AM ; [facility] Denies a fear of falling. 12/03/2021 Last Documented On 3 10:29AM ; [facility] Currently wearing eyeglasses 12/03/2021 Last Documented On 3 10:29AM ; [facility] No Pain Pump 12/03/2021 Last Documented On 3 10:29AM ; [facility] No Spinal cord stimulator 12/03/2021 Last Documented On 3 10:29AM ; [facility] Please list all illnesses/co nditions you have been diagnosed with: Idopathic intercranial hypertension, seizures, stomach hernia,acid reflux disease,depression,anxiety,bipolor 12/03/2021 Last Documented On 3 10:29AM ; [facility] Please list all surgeries: C sections 12/09/06 12/10/07 01/19/2010. eptopic pregnacy 2 12/03/2021 Last Documented On 3 10:29AM ; [facility] Family History Includes: Family History addressed during this encounter Description Last Updated Family history of ischemic heart disease 12/03/2021 Last Documented On 3 10:29AM ; [facility] Fraternal history of reported family his tory of seizures 12/03/2021 Last Documented On 3 10:29AM ; [facility] Maternal history of reported family hist ory of seizures 12/03/2021 Last Documented On 3 10:29AM ; [facility] Sororal history of reported [...] Active Last Documented On 3 10:33AM ; [facility] Sulfa Antibiotics Allergy 12/03/2021 A ctive Last Documented On 3 10:33AM ; [facility] Penicillins Allergy 12/03/2021 Active Last Documented On 3 10:33AM ; [facility] Morphine Derivatives Allergy 12/03/2021 Active Last Documented On 3 10:33AM ; [facility] Metoclopramide Allergy 12/03/2021 Acti ve Last Documented On 3 10:33AM ; [facility] Adhesive Tape Allergy 12/03/2021 Activ e Last Documented On 3 10:33AM ; [facility] Encounters Encounter Provider Location Date Check-In Time Check-Out Time Diagnosis * PHONE CALL DEB Anita CAMARENA APRN-JUNIOR, LUC-BC 12/15/2022 10:29AM 11:59PM Insurance Includes: Active Insurance Policies Plan Name Member ID Group # Subscriber Relationship Effect enriqueta Dates 1 - [facility] [id number] LAURIE DAS Self Clinical Notes Includes: Clinical Notes from this encounter * Progress note Date Encounter Last Documented by 12/15/2022 * PHONE CALL Last documented on 12/15/2022; 1:54 PM, DEB Howard INCOL FILE MACHINE OPERATOR-FPA, OPTICAL DISPENSER-BC; [facility] Active Problems & Conditions - Bipolar [...]
--- OUTSIDE RECORDS SUMMARY | 2024-10-11 17:30 | XMS_ITS ---
Care Plan - [facility] Created on: October 11, 2024 JOY DASKat Katie : 1985 Sex: Female Author Organization [facility] Address [address] [place] [address] Phone Care Team Providers Care Stereo Equipment Salesperson Name Role Phone RENA SORIANO, LYNN Alcaraz Unavailable [phone] ROSENDO PECK DO Primary Care Provider [phone] ESTRADA SORIANO, NICHOLAS Unavailable [phone]
--- OUTSIDE RECORDS SUMMARY | 2024-10-11 17:30 | XMS_ITS | Patient Health Summary ---
Author Organization [facility] Address [address] [place] [address] Care Team Providers Care Tax Accounting Manager Name Role Phone EphraimJuni rock Primary Care Provider [phone] Note from [facility],non-owned Affiliates and Associated Physician Practices is amultiple site organization consisting of ambulatory clinics and hospital sitesin [place], [place], [place] and [place]. This disclosure is being madepursuant to the Care Everywhere program and may not contain all information available regarding this patient. Last updated 18.[facility] [employer] Allergies * Morphine(Headache) * Sulfa Drugs(Rash) -Medium [...] GUAJARDO on 06/06/2018 11:17 AM . Katie Multain MD MR ORDERABLES * CREATININE BLOOD - POCT (IP) [facility] (06/05/2018 4:49 PM CDT) Creatinine POCT 0.94 0.3 - 1.3 mg/dL [facility] POCT TESTING eGFR POCT 60 60 ml/min [facility] POCT TESTING Blood BLOOD SPECIMEN / Unknown 06/05/2018 4:49 PM CDT Katie Multani MD LAB - POINT OF CARE ORDERABLES [facility] POCT TESTING [address] [phone] Care Teams Tax Accounting Manager Relationship Specialty Start Date End Date Juni Lopez DO [address] [place], [place] [id number] PCP - General 12/02/21
[2024-10-11 17:45] VITALS: BP 120/72; O2SAT 96
--- NOTE | 2024-10-11 17:51 | ED_ITS ---
HPI - Recheck/Abnormal Lab/Rx General Chief Complaint: Shortness of Breath/Dyspnea Stated Complaint: abnormal labs Time Seen by Provider: 10/11/24 17:44 Source: patient Mode of arrival: ambulatory Limitations: no limitations History of Present Illness HPI narrative: Patient is a 39-year-old female with an outpatient workup today with the primary doctor for shortness of breath. Elevated D-dimer was appreciated and she was sent to the ER for CTA of the chest. MD complaint: abnormal lab Initial visit (ago): day(s) (1) Initial visit for: other ( Shortness of breath) Description of abnormal result: patient had a elevated D-dimer as an outpatient today and sent to the ER for further CTA of the chest rule out PE Symptoms since prior visit: no new symptoms Context: called for abnormal lab result Associated symptoms: shortness of breath Treatments prior to arrival: other ( patient has chronic pain management; she asked for pain medicine and we declined) Related Data Home Medications ?Medication ?Instructions ?Recorded ?Confirmed ?Last Taken ?Type acetaminophen 300 mg-codeine 60 mg 1 tablet PO QID PRN Chronic pain 05/21/24 10/11/24 05/21/24 03:30 History tablet oxycodone-acetaminophen 7.5 mg-325 1 tablet PO Q6H PRN 07/04/24 10/11/24 Unknown History mg tablet (Percocet) ubrogepant 100 mg tablet (Ubrelvy) 100 mg PO ONCE 09/26/24 10/11/24 Unknown History Allergies Allergy/AdvReac Type Severity Reaction Status Date / Time adhesive tape Allergy Severe Hives Verified 10/11/24 09:58 Penicillins Allergy Intermediate THROAT Verified 10/11/24 09:58 SWELLING Sulfa (Sulfonamide Allergy Intermediate Rash Verified 10/11/24 09:58 Antibiotics) sulfamethoxazole Allergy Mild Rash Verified 10/11/24 09:58 trimethoprim Allergy Mild Rash Verified 10/11/24 09:58 metoclopramide AdvReac Severe PARANOIA Verified 10/11/24 09:58 morphine AdvReac Intermediate ITCHING, Verified 10/11/24 09:58 MIGRAINE flexiril Allergy Seizure Uncoded 10/11/24 09:58 Review of Systems Review of Systems: All systems reviewed & are unremarkable except as noted in HPI and below Constitutional: Constitutional: Reports no additional constitutional complaints Eyes: Eyes: Reports no additional eye complaints ENT: Reports system reviewed and no additional complaints, except as documented Cardiovascular: Cardiovascular: Reports no additional cardiovascular complaints Respiratory: Respiratory: Reports no additional respiratory complaints Gastrointestinal: Gastrointestinal: Reports no additional gastrointestinal complaints Genitourinary: Genitourinary: Reports no additional female genitourinary complaints Musculoskeletal: Musculoskeletal: Reports no additional musculoskeletal complaints Integumentary/Breasts: Skin/Breast: Reports system reviewed and no additional complaints, except as docu Neurologic: Reports system reviewed and no additional complaints, except as documented Psychiatric: Psychiatric: Reports no additional psychiatric complaints Endocrine: Endocrine: Reports no additional endocrine complaints Hematologic/Lymphatic: Hematologic/Lymphatic: Reports no additional hematologic/lymphatic complaints Allergic/Immunologic: Allergic/Immunologic: Reports no additional allergic/immunologic complaints PMFSH Past Medical History Medical History Daytime somnolence Arthritis Claustrophobia Viral syndrome Bronchitis Nausea and vomiting in adult Epigastric pain Idiopathic intracranial hypertension Managed by Dr. Curt Higgins Obesity, Class III, BMI 40-49.9 (morbid obesity) Epilepsy Reportedly her last seizure was November of 2015 Eczema Bipolar disorder Anxiety Depression UTI (urinary tract infection) Gastric ulcer GERD (gastroesophageal reflux disease) Ectopic Chronic headaches Chronic low back pain Nicotine dependence Surgical History Surgical History History of left salpingo-oophorectomy Due to ectopic Hx of section x3 Hx of cholecystectomy Hx of dilation and curettage Family History Family History Father Medical history unknown Mother Schizophrenia Liver cirrhosis Sibling Seizure disorder Daughter Congenital heart disease Other Arthritis Diabetes mellitus HLD (hyperlipidemia) Heart disease Hypertension Social History Social History Social History: She lives with her 11-year-old daughter. She also has a 13 in 14-year-old child that sounds if lives elsewhere. She has smoked 1.5 packs of cigarettes per day since she was 17 years old. She denies any significant alcohol use. She is on disability. Smoking packs per day: 3 Smoking cigarettes per day: 60.0 Years smoked: 21 Smoking pack-years: 63.00 Smoking status: Current every day smoker Tobacco type: cigarettes Second hand tobacco smoke exposure: Yes Alcohol intake: never Substance use: never Substance use type: does not use Other substance usage details: used to sleep the other day, but not a daily usage Do You Feel Safe in your Home?: Yes Lack of Transportation: No Lack of Food: Never True Current Housing: I Have Housing Concerned About Future Housing: No Difficulty Paying Gas/Electric Bills: No Difficulty Paying for Meds: No Currently Unemployed: No Education: Decline to Answer Difficulty w/ Childcare or Family Care: No Living arrangements: with family Additional living arrangements comments: 1 daughter. Occupation/Education: unemployed Additional occupation/education comments: Disabled due to Idiopathic Intracranial Hypertension Gender identity (if verbalized by the patient): Female Sexual Orientation (if Verbalized by the Patient): Straight or Heterosexual Spiritual care concerns: No Exam Const: General: healthy appearing Nutritional Appearance: well nourished Orientation/consciousness: patient oriented x3 HENMT: Head: normal to inspection Ears: external ears normal Face/Nose/Sinus: Normal external nose present Eyes: Conjunctivae: conjunctivae normal Pupils: Equal, round and reactive pupils present EOM: EOMs intact bilaterally Neck: Neck: normal visual inspection Chest: Chest palpation & inspection: normal inspection of the chest Resp: Effort & Inspection: normal respiratory effort and not labored Auscultation: clear to auscultation bilaterally and no crackles Cardio: Rate: regular rate Rhythm: regular rhythm Heart sounds: no murmurs GI: Inspection: non-distended GI Palp: Yes Soft to palpation and No Tenderness to palpation present (GI) Auscultation: normal bowel sounds : General: Yes bladder normal to palpation Back/Spine/Pelvis: Back: no CVA tenderness Skin: General skin exam: normal color Rashes: no rashes Wounds: no wounds Neuro: General: patient oriented x3 Cranial nerves: Yes Nystagmus not present Speech: normal speech Extrem: General: normal to inspection Psych: Mental Status: mental status grossly normal Affect: normal affect Attitude: cooperative Course Vital Signs Vital signs: Vital Signs Temperature 36.3 C L 10/11/24 17:26 Pulse Rate 123 H 10/11/24 17:26 Respiratory Rate 20 10/11/24 17:26 Blood Pressure 132/84 10/11/24 17:26 Pulse Oximetry 96 10/11/24 17:26 Oxygen Delivery Room Air 10/11/24 17:26 Temperature 36.3 C L 10/11/24 17:26 Pulse Rate 124 H 10/11/24 18:49 Respiratory Rate 18 10/11/24 18:49 Blood Pressure 126/70 10/11/24 18:49 Pulse Oximetry 98 10/11/24 18:49 Oxygen Delivery Room Air 10/11/24 18:49 MDM - Recheck/Abnormal Lab/Rx MDM Narrative Medical decision making narrative: patient is a 39-year-old female with chronic pain management and some rib pains chronically and elevated D-dimer with shortness of breath outpatient workup today. She is here for CTA of the chest. Lab Data Attestation: I reviewed the patient's lab results. Labs: Reviewed labs done today Imaging Data Attestation: I personally reviewed and interpreted this imaging study as follows: Radiologist's impression: CTA of the chest shows IMPRESSION: No pulmonary embolus. No aortic dissection. Moderate hiatal hernia. Patchy groundglass opacification within the bilateral lung rooney, increased from previous examination. Discharge Plan Discharge Clinical Impression: Pneumonia Qualifiers: Pneumonia type: due to unspecified organism Laterality: bilateral Lung location: lower lobe of lung Qualified Code(s): J18.9 - Pneumonia, unspecified organism Patient Disposition: Home, Self-Care Condition: Stable Instructions: Antibiotic Form, Community Acquired Pneumonia (ED) Patient Language: Luxembourgish Prescriptions: New levofloxacin 500 mg tablet 500 mg PO DAILY 7 Days Qty: 7 0RF No Action oxycodone-acetaminophen [Percocet] 7.5-325 mg tablet 1 tablet PO Q6H PRN Ubrelvy 100 mg tablet 100 mg PO ONCE Rx Instructions: as a single dose; may repeat once in >=2 hours after first dose if needed acetaminophen-codeine 300-60 mg tablet 1 tablet PO QID PRN (Reason: Chronic pain ) duloxetine 60 mg capsule,delayed release(DR/EC) 60 mg PO DAILY Qty: 90 1RF risperidone [Risperdal] 1 mg tablet 1 mg PO BID Qty: 180 1RF amitriptyline 100 mg tablet 100 mg PO QHS Qty: 90 2RF albuterol sulfate 90 mcg/actuation HFA aerosol inhaler 2 puff inhalation QID Qty: 8.5 3RF budesonide-formoterol [Symbicort] 160-4.5 mcg/actuation HFA aerosol inhaler 2 puff inhalation Q12H Qty: 10.2 3RF tizanidine 4 mg tablet 6 mg PO BID PRN (Reason: muscle spasticity) Qty: 60 0RF pregabalin [Lyrica] 150 mg capsule 150 mg PO BID Qty: 60 2RF hydroxyzine HCl 50 mg tablet 100 mg PO QHS PRN (Reason: insomnia) Qty: 30 1RF famotidine 20 mg tablet 20 mg PO DAILY Qty: 90 0RF Follow-up/Referrals: Duncan Luna APRN [Advanced Practice Nurse] - Time of Disposition: 19:21
[2024-10-11] MEDS: ONDANSETRON HCL ODT 4 MG TABLET PO (17:57)
--- OUTSIDE RECORDS SUMMARY | 2024-10-11 18:16 | XMS_ITS | Clinical Summary ---
Author Organization [facility] Address [address] [place] [address] Phone Care Team Providers Care Environmental Field Services Technician Name Role Phone RENA SORIANO, LYNN Alcaraz [...] tatus Bipolar Disorder Nos Unknown DEB CAMARENA BREADING MACHINE TENDER-FPA, SCHEDULING ANALYST-BC Active Last Documented On 2 11:56AM ; [facility] Esophageal Reflux Unknown DEB CAMARENA APR N-FPA, SCHEDULING ANALYST-BC Active Last Documented On 2 11:57AM ; [facility] 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 DEB CAMARENA BREADING MACHINE TENDER-FPA, F RETAIL ACCOUNT EXECUTIVE-BC Active Last Documented On 2 11:43AM ; [facility] Plan of Treatment No Plan of Treatment Recorded Assessments Includes: Assessments from this encounter No Assessments Recorded Medical Equipment - Implanted Devices Includes: Current Devices No Medical Equipment Recorded Medications Includes: Medications discussed during this encounter and other current Medications Discontinued / Stopped on this date DEB CAMARENA APRN-FPKael SCHEDULING ANALYST-BC on 12/08/2022 Pregabalin 75 MG Oral Capsule Provider: DEB CAMARENA APRN- FPKael SCHEDULING ANALYST-BC Diagnosis: Chronic pain syn drome Last Documented On 3 4:25PM By DEB JIMENEZBC ; [facility] oxyCODONE-Acetaminophen 10-3 25 MG Oral Tablet Provider: BLANE FORBES Diagnosis: Last Documented On 3 4:28PM By DEB ARGUELLES ; [facility] Amitriptyline HCl 50 MG Oral Tablet Provider: BLANE FORBES Diagnosis: Last Documented On 3 4:25PM By DEB ARGUELLES ; [facility] Pregabalin 150 MG Oral Capsule Provider: BLANE FORBES Diagnosis: Radiculopathy, l umbar region Last Documented On 3 4:26PM By DEB ARGUELLES ; [facility] New / Renewed during this visit BLANE GRANADOS on 01/03/2023 oxyCODONE-Acetaminophen 10-3 25 MG Oral Tablet Provider: BLANE GRANADOS 30 day supply: 8 tablet, 0 refills Diagnosis: 1/2-1 tablet as needed for s evere migraine, max 2 tablets per week Pharmacy: [address], [phone] Last Documented On 3 4:30PM By DEB ARGUELLES ; [facility] Current Medications (continue as prescribed) DULoxetine HCl 60 MG Oral Capsule Delayed Release Particles 01/23/2023 Provider: BLANE FORBES Diagnosis: Dorsalgia, unspe cified TAKE 1 CAPSULE BY MOUTH AT BEDTIME Last Documented On 3 2:59PM By DEB ARGUELLES ; [facility] tiZANidine HCl 2 MG Oral Tablet 01/23/2023 Provider: BLANE GRANADOS Diagnosis: TAKE 1 TABLET BY MOUTH THREE TIMES DAILY NEEDED Last Documented On 3 8:40AM By DEB ARGUELLES ; [facility] Buprenorphine 5 MCG/HR Transdermal Patch Weekly 12/08/2022 Provider: LUC GRANADOS-BC Diagnosis: Chronic pain syn drome apply 1 patch every 7 days, be sure to remove the old patch Last Documented On 3 12:46PM By DEB ARGUELLES ; [facility] Narcan 4 MG/0.1ML Nasal Liquid 12/08/2022 [facility]: [facility] Diagnosis: Chronic pain syn drome 1 spray intranasally for jeff pected overdose Last Documented On 3 12:46PM [facility] ; [facility] CeleBREX 200 MG Oral Capsule 11/28/2022 Provider: DEB PACHECO [facility] Diagnosis: Dorsalgia, unspe cified 1 capsule daily with a meal Last Documented On 3 12:46PM [facility] ; [facility] hydrOXYzine HCl 50 MG Oral Tablet 10/04/2022 Provide r: ROSENDO PECK DO Diagnosis: Last Documented On 3 12:46PM [facility] ; [facility] Symbicort 160-4.5 MCG/ACT Inhalation Aerosol 3 Provider: ROSENDO PECK DO Diagnosis: Last Documented On 3 4:46PM By DEB CALLEJUNIE ; [facility] Albuterol Sulfate HFA 108 (9 0 Base) MCG/ACT Inhalation Aerosol Solution 09/19/2022 Provider: ROSENDO ALARCON DO Diagnosis: Last Documented On 3 4:46PM By DEB ARGUELLES ; [facility] SUMAtriptan Succinate 100 MG Oral Tablet 09/17/2022 Provider: NICHOLAS DORADO MD Diagnosis: Last Documented On 3 4:46PM By DEB ARGUELLES ; [facility] Qulipta 60 MG Oral Tablet 08/08/2022 Provider: Diagnosis: Last Documented On 3 4:46PM By DEB ARGUELLES ; [facility] RisperDAL 1 MG Oral Tablet 12/03/2021 Provider: Diagnosis: Last Documented On 2 11:52AM By DEB CAMARENA SCHEDULING ANALYST-BC ; [facility] Pantoprazole Sodium 40 MG Oral Tablet Delayed Release 11/14/2021 Provider: Diagnosis: Last Documented On 2 11:52AM By DEB RUIZP-BC ; [facility] Sucralfate 1 GM Oral Tablet 10/18/2021 Provider: Diagnosis: Last Documented On 2 11:52AM By DEB CAMARENA SCHEDULING ANALYST-BC ; [facility] Past Medications on file SUMAtriptan Succinate 50 MG Oral Tablet 07/28/2022 - 08/27/2022 Provider: DEB CAMARENA BREADING MACHINE TENDER-FPA, SCHEDULING ANALYST-BC Diagnosis: Headache, unspec ified take 2 tablet at onset of he adache, may repeat after 2 hours, max 4 in 24 hours Last Documented On 2 8:43AM By DEB CAMARENA SCHEDULING ANALYST-BC ; [facility] Medications Administered Includes: Administered Medications from this encounter No Administered Medications Recorded Results Includes: Results discussed during this encounter No Results Recorded For Specified Dates History of Present Illness Includes: History of Present Illness from this encounter No History of Present Illness Recorded Social History Description Last Updated No consumption of alcohol 12/03/2021 Last Documented On 3 3:54PM ; [facility] Not using drugs 12/03/2021 Last Documented On 3 3:54PM ; [facility] Smoking packs of cigarettes per day 2 Last Documented On 3 3:54PM ; [facility] Current smoker 12/03/2021 Last Documented On 3 3:54PM ; [facility] Smoking Status Unknown Procedures and Surgical History Surgical History Last Updated No Pacemaker 12/03/2021 Last Documented On 3 3:54PM ; [facility] Medical History Includes: Medical History addressed during this encounter Description Last Updated Has had a fall in the last 12 months. Last Documented On 3 3:54PM ; [facility] Denies a fear of falling. 12/03/2021 Last Documented On 3 3:54PM ; [facility] Currently wearing eyeglasses 12/03/2021 Last Documented On 3 3:54PM ; [facility] No Pain Pump 12/03/2021 Last Documented On 3 3:54PM ; [facility] No Spinal cord stimulator 12/03/2021 Last Documented On 3 3:54PM ; [facility] Please list all illnesses/co nditions you have been diagnosed with: Idopathic intercranial hypertension, seizures, stomach hernia,acid reflux disease,depression,anxiety,bipolor 12/03/2021 Last Documented On 3 3:54PM ; [facility] Please list all surgeries: C sections 12/09/06 12/10/07 01/19/2010. eptopic pregnacy 2 12/03/2021 Last Documented On 3 3:54PM ; [facility] Family History Includes: Family History addressed during this encounter Description Last Updated Family history of ischemic heart disease 12/03/2021 Last Documented On 3 3:54PM ; [facility] Fraternal history of reported family his tory of seizures 12/03/2021 Last Documented On 3 3:54PM ; [facility] Maternal history of reported family hist ory of seizures 12/03/2021 Last Documented On 3 3:54PM ; [facility] Sororal history of reported family histo ry of seizures 12/03/2021 Last Documented On 3 3:54PM ; [facility] Review of Systems Includes: Review [...] Documented On 3 10:33AM ; [facility] Sulfa Antibiotics Allergy 12/03/2021 A ctive Last Documented On 3 10:33AM ; [facility] Penicillins Allergy 12/03/2021 Active Last Documented On 3 10:33AM ; [facility] Morphine Derivatives Allergy 12/03/2021 Active Last Documented On 3 10:33AM ; [facility] Metoclopramide Allergy 12/03/2021 Acti ve Last Documented On 3 10:33AM ; [facility] Adhesive Tape Allergy 12/03/2021 Activ e Last Documented On 3 10:33AM ; [facility] Encounters Encounter Provider Location Date Check-In Time Check-Out Time Diagnosis RX ISSUE/REFILL DEB Anita NICOL BREADING MACHINE TENDER-FPA, SCHEDULING ANALYST-BC 01/03/2023 3:54PM 11:59PM Insurance Includes: Active Insurance Policies Plan Name Member ID Group # Subscriber Relationship Effect enriqueta Dates 1 - [employer] [facility] [id number] LAURIE Gill Clinical Notes Includes: Clinical Notes from this encounter * Progress note Date Encounter Last Documented by 01/03/2023 RX ISSUE/REFILL Last documented on 01/03/2023; 4:28 PM, DEB CAMARENA BREADING MACHINE TENDER-FPA, SCHEDULING ANALYST-BC; [facility] Active Problems & Conditions - Bipolar [...]
--- OUTSIDE RECORDS SUMMARY | 2024-10-11 18:16 | XMS_ITS | Clinical Summary ---
Author Organization [facility] Address [address] [place] [address] Phone Care Team Providers Care Slot Machine Key Person Name Role Phone RENA SORIANO, LYNN Alcaraz [...] tatus Bipolar Disorder Nos Unknown DEB CAMARENA C++ QUANT DEVELOPER-FPA, GUT SNATCHER-BC Active Last Documented On 2 11:56AM ; [facility] Esophageal Reflux Unknown DEB CAMARENA APR N-FPA, GUT SNATCHER-BC Active Last Documented On 2 11:57AM ; [facility] 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 DEB CAMARENA C++ QUANT DEVELOPER-FPA, F HOME HEALTH CNA-BC Active Last Documented On 2 11:43AM ; [facility] Plan of Treatment No Plan of Treatment Recorded Assessments Includes: Assessments from this encounter No Assessments Recorded Medical Equipment - Implanted Devices Includes: Current Devices No Medical Equipment Recorded Medications Includes: Medications discussed during this encounter and other current Medications Current Medications (continue as prescribed) DULoxetine HCl 60 MG Oral Capsule Delayed Release Particles 01/23/2023 Provider: DEB PACHECO GUT SNATCHER-BC Diagnosis: Dorsalgia, unspe cified TAKE 1 CAPSULE BY MOUTH AT BEDTIME Last Documented On 3 2:59PM By DEB CALLE-JUNIE ; [facility] tiZANidine HCl 2 MG Oral Tablet 01/23/2023 Provider: BLANE GRANADOS Diagnosis: TAKE 1 TABLET BY MOUTH THREE TIMES DAILY NEEDED Last Documented On 3 8:40AM By DEB ARGUELLES ; [facility] oxyCODONE-Acetaminophen 10-3 25 MG Oral Tablet 01/03/2023 Provider: BLANE FORBES Diagnosis: 1/2-1 tablet as needed for s evere migraine, max 2 tablets per week Last Documented On 3 4:30PM By DEB ARGUELLES ; [facility] Buprenorphine 5 MCG/HR Transdermal Patch Weekly 12/08/2022 Provider: BLANE GRANADOS Diagnosis: Chronic pain syn drome apply 1 patch every 7 days, be sure to remove the old patch Last Documented On 3 12:46PM By DEB ARGUELLES ; [facility] Narcan 4 MG/0.1ML Nasal Liquid 12/08/2022 Provider: BLANE FORBES Diagnosis: Chronic pain syn drome 1 spray intranasally for jeff pected overdose Last Documented On 3 12:46PM By DEB ARGUELLES ; [facility] CeleBREX 200 MG Oral Capsule 11/28/2022 Provider: BLANE FORBES Diagnosis: Dorsalgia, unspe cified 1 capsule daily with a meal Last Documented On 3 12:46PM By DEB ARGUELLES ; [facility] hydrOXYzine HCl 50 MG Oral Tablet 10/04/2022 Provide r: ROSENDO PECK DO Diagnosis: Last Documented On 3 12:46PM By DEB ARGUELLES ; [facility] Symbicort 160-4.5 MCG/ACT Inhalation Aerosol 3 Provider: ROSENDO PECK DO Diagnosis: Last Documented On 3 4:46PM By DEB ARGUELLES ; [facility] Albuterol Sulfate HFA 108 (9 0 Base) MCG/ACT Inhalation Aerosol Solution 09/19/2022 Provider: ROSENDO ALARCON DO Diagnosis: Last Documented On 3 4:46PM By DEB CAMARENA [facility] ; [facility] SUMAtriptan Succinate 100 MG Oral Tablet 09/17/2022 Provider: NICHOLAS DORADO MD Diagnosis: Last Documented On 3 4:46PM By DEB CAMARENA [facility] ; [facility] Qulipta 60 MG Oral Tablet 08/08/2022 Provider: Diagnosis: Last Documented On 3 4:46PM By DEB CAMARENA [facility] ; [facility] RisperDAL 1 MG Oral Tablet 12/03/2021 Provider: Diagnosis: Last Documented On 2 11:52AM [facility] ; [facility] Pantoprazole Sodium 40 MG Oral Tablet Delayed Release 11/14/2021 Provider: Diagnosis: Last Documented On 2 11:52AM By DEB CAMARENA [facility] ; [facility] Sucralfate 1 GM Oral Tablet 10/18/2021 Provider: Diagnosis: Last Documented On 2 11:52AM By DEB CAMARENA [facility] ; [facility] Past Medications on file SUMAtriptan Succinate 50 MG Oral Tablet 07/28/2022 - 08/27/2022 Provider: DEB CAMARENA APRN-JUNIOR, [facility]- Diagnosis: Headache, unspec ified take 2 tablet at onset of he adache, may repeat after 2 hours, max 4 in 24 hours Last Documented On 2 8:43AM By DEB CAMARENA [facility] ; [facility] Medications Administered Includes: Administered Medications from this encounter No Administered Medications Recorded Results Includes: Results discussed during this encounter No Results Recorded For Specified Dates History of Present Illness Includes: History of Present Illness from this encounter No History of Present Illness Recorded Social History Description Last Updated No consumption of alcohol 12/03/2021 Last Documented On 3 4:14PM ; [facility] Not using drugs 12/03/2021 Last Documented On 3 4:14PM ; [facility] Smoking packs of cigarettes per day 2 Last Documented On 3 4:14PM ; [facility] Current smoker 12/03/2021 Last Documented On 3 4:14PM ; [facility] Smoking Status Unknown Procedures and Surgical History Surgical History Last Updated No Pacemaker 12/03/2021 Last Documented On 3 4:14PM ; [facility] Medical History Includes: Medical History addressed during this encounter Description Last Updated Has had a fall in the last 12 months. Last Documented On 3 4:14PM ; [facility] Denies a fear of falling. 12/03/2021 Last Documented On 3 4:14PM ; [facility] Currently wearing eyeglasses 12/03/2021 Last Documented On 3 4:14PM ; [facility] No Pain Pump 12/03/2021 Last Documented On 3 4:14PM ; [facility] No Spinal cord stimulator 12/03/2021 Last Documented On 3 4:14PM ; [facility] Please list all illnesses/co nditions you have been diagnosed with: Idopathic intercranial hypertension, seizures, stomach hernia,acid reflux disease,depression,anxiety,bipolor 12/03/2021 Last Documented On 3 4:14PM ; [facility] Please list all surgeries: C sections 12/09/06 12/10/07 01/19/2010. eptopic pregnacy 2 12/03/2021 Last Documented On 3 4:14PM ; [facility] Family History Includes: Family History addressed during this encounter Description Last Updated Family history of ischemic heart disease 12/03/2021 Last Documented On 3 4:14PM ; [facility] Fraternal history of reported family his tory of seizures 12/03/2021 Last Documented On 3 4:14PM ; [facility] Maternal history of reported family hist ory of seizures 12/03/2021 Last Documented On 3 4:14PM ; [facility] Sororal history of reported [...] Active Last Documented On 3 10:33AM ; [facility] Sulfa Antibiotics Allergy 12/03/2021 A ctive Last Documented On 3 10:33AM ; [facility] Penicillins Allergy 12/03/2021 Active Last Documented On 3 10:33AM ; [facility] Morphine Derivatives Allergy 12/03/2021 Active Last Documented On 3 10:33AM ; [facility] Metoclopramide Allergy 12/03/2021 Acti ve Last Documented On 3 10:33AM ; [facility] Adhesive Tape Allergy 12/03/2021 Activ e Last Documented On 3 10:33AM ; [facility] Encounters Encounter Provider Location Date Check-In Time Check-Out Time Diagnosis * PHONE CALL DEB Anita CAMARENA APRN-JUNIOR, [facility] 12/13/2022 4:13PM 11:59PM Insurance Includes: Active Insurance Policies Plan Name Member ID Group # Subscriber Relationship Effect enriqueta Dates 1 - [facility] [id number] LAURIE DAS Self Clinical Notes Includes: Clinical Notes from this encounter * Progress note Date Encounter Last Documented by 12/13/2022 * PHONE CALL Last documented on 12/13/2022; 4:44 PM, DEB Howard NICOL C++ QUANT DEVELOPER-FPA, GUT SNATCHER-BC; [facility] Active Problems & Conditions - Bipolar [...] and see how she does. date/initials: 12/13/2022 [employer]. Current Medication - Albuterol Sulfate HFA 108 [...]
--- OUTSIDE RECORDS SUMMARY | 2024-10-11 18:16 | XMS_ITS | Clinical Summary ---
Author Organization [facility] Address [address] [place] [address] Phone Care Team Providers Care Private Secretary Name Role Phone RENA SORIANO, LYNN Alcaraz [...] tatus Bipolar Disorder Nos Unknown DEB CAMARENA MACHINE STRIPPER CUTTER-FPA, SMUTTER-BC Active Last Documented On 2 11:56AM ; [facility] Esophageal Reflux Unknown DEB CAMARENA APR N-FPA, SMUTTER-BC Active Last Documented On 2 11:57AM ; [facility] 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 DEB CAMARENA MACHINE STRIPPER CUTTER-FPA, F BALE BREAKER OPERATOR-BC Active Last Documented On 2 11:43AM ; [facility] Plan of Treatment No Plan [...] On 3 2:59PM By DEB CALLE-JUNIE ; [facility] tiZANidine HCl 2 MG Oral Tablet 01/23/2023 Provider: BLANE GRANADOS Diagnosis: TAKE 1 TABLET BY MOUTH THREE TIMES DAILY NEEDED Last Documented On 3 8:40AM By DEB ARGUELLES ; [facility] oxyCODONE-Acetaminophen 10-3 25 MG Oral Tablet 01/03/2023 Provider: BLANE FORBES Diagnosis: 1/2-1 tablet as needed for s evere migraine, max 2 tablets per week Last Documented On 3 4:30PM By DEB ARGUELLES ; [facility] Buprenorphine 5 MCG/HR Transdermal Patch Weekly 12/08/2022 Provider: BLANE GRANADOS Diagnosis: Chronic pain syn drome apply 1 patch every 7 days, be sure to remove the old patch Last Documented On 3 12:46PM By DEB ARGUELLES ; [facility] Narcan 4 MG/0.1ML Nasal [...] On 3 12:46PM By DEB ARGUELLES ; [facility] hydrOXYzine HCl 50 MG Oral Tablet 10/04/2022 Provide r: ROSENDO PECK DO Diagnosis: Last Documented On 3 12:46PM By DEB ARGUELLES ; [facility] Symbicort 160-4.5 MCG/ACT Inhalation Aerosol 3 Provider: ROSENDO PECK DO Diagnosis: Last Documented On 3 4:46PM By DEB ARGUELLES ; [facility] Albuterol Sulfate HFA 108 (9 0 Base) MCG/ACT Inhalation Aerosol Solution 09/19/2022 Provider: ROSENDO ALARCON DO Diagnosis: Last Documented On 3 4:46PM By [facility] ; [facility] SUMAtriptan Succinate 100 MG Oral Tablet 09/17/2022 Provider: NICHOLAS DORADO MD Diagnosis: Last Documented On 3 4:46PM By [facility] ; [facility] Qulipta 60 MG Oral Tablet 08/08/2022 Provider: Diagnosis: Last Documented On 3 4:46PM By DEB NICOL [facility] ; [facility] RisperDAL 1 MG Oral Tablet 12/03/2021 Provider: Diagnosis: Last Documented On 2 11:52AM By DEB CAMARENA [facility] ; [facility] Pantoprazole Sodium 40 MG Oral Tablet Delayed Release 11/14/2021 Provider: Diagnosis: Last Documented On 2 11:52AM By DEB NICOL [facility] ; [facility] Sucralfate 1 GM Oral Tablet 10/18/2021 Provider: Diagnosis: Last Documented On 2 11:52AM By DEB NICOL [facility] ; [facility] Medications Administered Includes: Administered Medications from [...] Active Last Documented On 3 10:33AM ; [facility] Sulfa Antibiotics Allergy 12/03/2021 A ctive Last Documented On 3 10:33AM ; [facility] Penicillins Allergy 12/03/2021 Active Last Documented On 3 10:33AM ; [facility] Morphine Derivatives Allergy 12/03/2021 Active Last Documented On 3 10:33AM ; [facility] Metoclopramide Allergy 12/03/2021 Acti ve Last Documented On 3 10:33AM ; [facility] Adhesive Tape Allergy 12/03/2021 Activ e Last Documented On 3 10:33AM ; [facility] Insurance Includes: Active Insurance Policies Plan Name Member ID Group # Subscriber Relationship Effect enriqueta Dates 1 - [facility] [id number] LAURIE Gill Clinical Notes Includes: Clinical Notes from this encounter No Clinical Notes Recorded
--- OUTSIDE RECORDS SUMMARY | 2024-10-11 18:16 | XMS_ITS ---
Author Organization [facility] Address [address] [place] [address] Phone Care Team Providers Care Assorter Name Role Phone RENA SORIANO, LYNN Alcaraz Unavailable [phone] ROSENDO PECK DO Primary Care Provider [phone] ESTRADA SORIANO, NICHOLAS Unavailable [phone] Problems Includes: Active, inactive, and resolved Problems All Visits Onset Date Resolved Date Provider Condition S tatus Bipolar Disorder Nos Unknown DEB Howard NICOL AUTOMATION DRIVER-FPA, DIRECTOR MICROBIOLOGY-BC Active Last Documented On 2 11:56AM ; [facility] Esophageal Reflux Unknown DEB Howard NICOL APR N-FPA, DIRECTOR MICROBIOLOGY-BC Active Last Documented On 2 11:57AM ; [facility] Idiopathic Intracranial Hypertension (Pseudotumor Cerebri) Unknown 01/27/2022 DEB Anita NICOL AUTOMATION DRIVER- FPA, DIRECTOR MICROBIOLOGY-BC Resolved Last Documented On 2 1:17PM ; [facility] 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 DEB Howard NICOL AUTOMATION DRIVER-FPA, F EXCHANGE MECHANIC-BC Active Last Documented On 2 11:43AM ; [facility] Plan of Treatment [place] [address] - Other headache syndrome Last Documented On 2 2:31PM ; [facility] Orthopedic [facility] - [address] [place] [address] - Other subluxation of unspecified patella, initial encounter Last Documented On 3 10:18AM ; [facility] Instructions to patient Intervention and counseling on cessation of tobacco use : Patient recieved smoking cessation handout Last Documented On 3 10:22AM ; [facility] Intervention and counseling on cessation of tobacco use : Patient recieved smoking cessation handout Last Documented On 2 1:00PM ; [facility] Intervention and counseling on cessation of tobacco use : Patient recieved smoking cessation handout Last Documented On 2 10:26AM ; [facility] Education and Decision Aids were provided during visit for: Pill Count: six Last Documented On 3 10:33AM ; [facility] Pill Count: 42.5 Last Documented On 3 4:03PM ; [facility] Pill Count: 62 Last Documented On 2 1:09PM ; [facility] Pill Count: 45 Not Appropria te Oxycodone Last Documented On 2 1:48PM ; [facility] Pill Count: 46 Oxycodone 10- 325 Last Documented On 2 1:17PM ; [facility] Pill Count: 39 Last Documented On 2 1:07PM ; [facility] Pill Count: 30.5 Last Documented On 2 11:05AM ; [facility] Assessments Includes: Assessments for all patient encounters Findings Encounter Date Arthralgia of the left knee/patella/tibia/fibula PAIN MANAGEMENT FOLLOW UP with DEB CAMARENA APRN-JUNIOR DIRECTOR MICROBIOLOGY-BC 12/08/2022 Last Documented On 3 12:47PM ; [facility] Arthralgia of the right knee/patella/tibia/fibula PAIN MANAGEMENT FOLLOW UP with DEB CAMARENA AUTOMATION DRIVER-FPKael, DIRECTOR MICROBIOLOGY-BC 12/08/2022 Last Documented On 3 12:47PM ; [facility] Chronic daily headache PAIN MANAGEMENT F OLLOW UP with DEB CAMARENA AUTOMATION DRIVER-FPKael, DIRECTOR MICROBIOLOGY-BC 12/08/2022 Last Documented On 3 12:47PM ; [facility] Chronic pain syndrome PAIN MANAGEMENT FO LLOW UP with DEB Howard NICOL AUTOMATION DRIVER-FPA, DIRECTOR MICROBIOLOGY-BC 12/08/2022 Last Documented On 3 12:47PM ; [facility] DORSALGIA PAIN MANAGEMENT FOLLOW UP with Haim Howard NICOL AUTOMATION DRIVER-FPA, DIRECTOR MICROBIOLOGY-BC 12/08/2022 Last Documented On 3 12:47PM ; [facility] Idiopathic intracranial hypertension BRISA N MANAGEMENT FOLLOW UP with DEB Howard NICOL AUTOMATION DRIVER-FPA, DIRECTOR MICROBIOLOGY-BC 12/08/2022 Last Documented On 3 12:47PM ; [facility] snf use of opiate analgesic PAIN M ANAGEMENT FOLLOW UP with DEB Howard NICOL AUTOMATION DRIVER-FPA, DIRECTOR MICROBIOLOGY-BC 12/08/2022 Last Documented On 3 12:47PM ; [facility] Lumbar spondylosis PAIN MANAGEMENT FOLL OW UP with DEB Howard NICOL AUTOMATION DRIVER-FPA, DIRECTOR MICROBIOLOGY-BC 12/08/2022 Last Documented On 3 12:47PM ; [facility] Morbid obesity PAIN MANAGEMENT FOLL OW UP with DEB Howard NICOL AUTOMATION DRIVER-FPA, DIRECTOR MICROBIOLOGY-BC 12/08/2022 Last Documented On 3 12:47PM ; [facility] Arthralgia of the left knee/patella/tibia/fibula PAIN MANAGEMENT FOLLOW UP with DEB Howard NICOL AUTOMATION DRIVER-FPA, DIRECTOR MICROBIOLOGY-BC 09/29/2022 Last Documented On 3 5:01PM ; [facility] Arthralgia of the right knee/patella/tibia/fibula PAIN MANAGEMENT FOLLOW UP with DEB Howard NICOL AUTOMATION DRIVER-FPA, DIRECTOR MICROBIOLOGY-BC 09/29/2022 Last Documented On 3 5:01PM ; [facility] Chronic daily headache PAIN MANAGEMENT F OLLOW UP with DEB Howard NICOL AUTOMATION DRIVER-FPA, DIRECTOR MICROBIOLOGY-BC 09/29/2022 Last Documented On 3 5:01PM ; [facility] Chronic pain syndrome PAIN MANAGEMENT FO LLOW UP with DEB Howard NICOL AUTOMATION DRIVER-FPA, DIRECTOR MICROBIOLOGY-BC 09/29/2022 Last Documented On 3 5:01PM ; [facility] DORSALGIA PAIN MANAGEMENT FOLLOW UP with Haim Howard NICOL AUTOMATION DRIVER-FPA, DIRECTOR MICROBIOLOGY-BC 09/29/2022 Last Documented On 3 5:01PM ; [facility] Idiopathic intracranial hypertension BRISA N MANAGEMENT FOLLOW UP with DEB Howard NICOL AUTOMATION DRIVER-FPA, DIRECTOR MICROBIOLOGY-BC 09/29/2022 Last Documented On 3 5:01PM ; [facility] supervisor intermediates use of opiate analgesic PAIN M ANAGEMENT FOLLOW UP with DEB Howard NICOL AUTOMATION DRIVER-FPA, DIRECTOR MICROBIOLOGY-BC 09/29/2022 Last Documented On 3 5:01PM ; [facility] Lumbar radiculopathy PAIN MANAGEMENT FOL LOW UP with DEB Howard NICOL AUTOMATION DRIVER-FPA, DIRECTOR MICROBIOLOGY-BC 09/29/2022 Last Documented On 3 5:01PM ; [facility] Morbid obesity PAIN MANAGEMENT FOLL OW UP with DEB Howard NICLO AUTOMATION DRIVER-FPA, DIRECTOR MICROBIOLOGY-BC 09/29/2022 Last Documented On 3 5:01PM ; [facility] Arthralgia of the left knee/patella/tibia/fibula PAIN MANAGEMENT FOLLOW UP with DEB Howard NICOL AUTOMATION DRIVER-FPA, DIRECTOR MICROBIOLOGY-BC 07/28/2022 Last Documented On 2 8:44AM ; [facility] Arthralgia of the right knee/patella/tibia/fibula PAIN MANAGEMENT FOLLOW UP with DEB Howard NICOL AUTOMATION DRIVER-FPA, DIRECTOR MICROBIOLOGY-BC 07/28/2022 Last Documented On 2 8:44AM ; [facility] Chronic daily headache PAIN MANAGEMENT F OLLOW UP with DEB Howard NICOL AUTOMATION DRIVER-FPA, DIRECTOR MICROBIOLOGY-BC 07/28/2022 Last Documented On 2 8:44AM ; [facility] Chronic pain syndrome PAIN MANAGEMENT FO LLOW UP with DEB G NICOL AUTOMATION DRIVER-FPA, DIRECTOR MICROBIOLOGY-BC 07/28/2022 Last Documented On 2 8:44AM ; [facility] DORSALGIA PAIN MANAGEMENT FOLLOW UP with Haim Howard NICOL AUTOMATION DRIVER-FPA, DIRECTOR MICROBIOLOGY-BC 07/28/2022 Last Documented On 2 8:44AM ; [facility] Idiopathic intracranial hypertension BRISA N MANAGEMENT FOLLOW UP with DEB TURNERLP AUTOMATION DRIVER-FPA, DIRECTOR MICROBIOLOGY-BC 07/28/2022 Last Documented On 2 8:44AM ; [facility] supervisor intermediates use of opiate analgesic PAIN M ANAGEMENT FOLLOW UP with DEB Howard NICOL AUTOMATION DRIVER-FPA, DIRECTOR MICROBIOLOGY-BC 07/28/2022 Last Documented On 2 8:44AM ; [facility] Lumbar radiculopathy PAIN MANAGEMENT FOL LOW UP with DEB Howard NICOL AUTOMATION DRIVER-FPA, DIRECTOR MICROBIOLOGY-BC 07/28/2022 Last Documented On 2 8:44AM ; [facility] Morbid obesity PAIN MANAGEMENT FOLL OW UP with DEB Howard NICOL AUTOMATION DRIVER-FPA, DIRECTOR MICROBIOLOGY-BC 07/28/2022 Last Documented On 2 8:44AM ; [facility] Arthralgia of knee / patella / tibia / fibula CHART UPDATE with DEB TURNERLP AUTOMATION DRIVER-FPA, DIRECTOR MICROBIOLOGY-BC 07/05/2022 Last Documented On 2 9:54AM ; [facility] Subluxation of patella CHART UPDATE with DEB Howard NICOL AUTOMATION DRIVER-FPA, DIRECTOR MICROBIOLOGY-BC 07/05/2022 Last Documented On 2 9:54AM ; [facility] Arthralgia of the left knee/patella/tibia/fibula PAIN MANAGEMENT FOLLOW UP with DEB Howard NICOL AUTOMATION DRIVER-FPA, DIRECTOR MICROBIOLOGY-BC 06/30/2022 Last Documented On 2 1:56PM ; [facility] Arthralgia of the right knee/patella/tibia/fibula PAIN MANAGEMENT FOLLOW UP with DEB Howard NICOL AUTOMATION DRIVER-FPA, DIRECTOR MICROBIOLOGY-BC 06/30/2022 Last Documented On 2 1:56PM ; [facility] Chronic daily headache PAIN MANAGEMENT F OLLOW UP with DEB G NICOL AUTOMATION DRIVER-FPA, DIRECTOR MICROBIOLOGY-BC 06/30/2022 Last Documented On 2 1:56PM ; [facility] Chronic pain syndrome PAIN MANAGEMENT FO LLOW UP with DEB G NICOL AUTOMATION DRIVER-FPA, DIRECTOR MICROBIOLOGY-BC 06/30/2022 Last Documented On 2 1:56PM ; [facility] DORSALGIA PAIN MANAGEMENT FOLLOW UP with Haim Howard NICOL AUTOMATION DRIVER-FPA, DIRECTOR MICROBIOLOGY-BC 06/30/2022 Last Documented On 2 1:56PM ; [facility] Idiopathic intracranial hypertension BRISA N MANAGEMENT FOLLOW UP with DEB Howard NICOL AUTOMATION DRIVER-FPA, DIRECTOR MICROBIOLOGY-BC 06/30/2022 Last Documented On 2 1:56PM ; [facility] snf use of opiate analgesic PAIN M ANAGEMENT FOLLOW UP with DEB Howard NICOL AUTOMATION DRIVER-FPA, DIRECTOR MICROBIOLOGY-BC 06/30/2022 Last Documented On 2 1:56PM ; [facility] Lumbar radiculopathy PAIN MANAGEMENT FOL LOW UP with DEB Howard NICOL AUTOMATION DRIVER-FPA, DIRECTOR MICROBIOLOGY-BC 06/30/2022 Last Documented On 2 1:56PM ; [facility] Morbid obesity PAIN MANAGEMENT FOLL OW UP with DEB Howard NICOL AUTOMATION DRIVER-FPA, DIRECTOR MICROBIOLOGY-BC 06/30/2022 Last Documented On 2 1:56PM ; [facility] Chronic daily headache * PHONE CALL with DEB Howard NICOL AUTOMATION DRIVER-FPA, DIRECTOR MICROBIOLOGY-BC 03/24/2022 Last Documented On 2 2:51PM ; [facility] Chronic daily headache PAIN MANAGEMENT F OLLOW UP with DEB Howard NICOL AUTOMATION DRIVER-FPA, DIRECTOR MICROBIOLOGY-BC 02/24/2022 Last Documented On 2 8:52AM ; [facility] Chronic pain syndrome PAIN MANAGEMENT FO LLOW UP with DEB Howard NICOL AUTOMATION DRIVER-FPA, DIRECTOR MICROBIOLOGY-BC 02/24/2022 Last Documented On 2 8:52AM ; [facility] DORSALGIA PAIN MANAGEMENT FOLLOW UP with Haim Howard NICOL AUTOMATION DRIVER-FPA, DIRECTOR MICROBIOLOGY-BC 02/24/2022 Last Documented On 2 8:52AM ; [facility] supervisor intermediates use of opiate analgesic PAIN M ANAGEMENT FOLLOW UP with DEB Howard NICOL AUTOMATION DRIVER-FPA, DIRECTOR MICROBIOLOGY-BC 02/24/2022 Last Documented On 2 8:52AM ; [facility] Lumbar radiculopathy PAIN MANAGEMENT FOL LOW UP with DEB Howard NICOL AUTOMATION DRIVER-FPA, DIRECTOR MICROBIOLOGY-BC 02/24/2022 Last Documented On 2 8:52AM ; [facility] Obesity PAIN MANAGEMENT FOLLOW UP with Haim Howard NICOL AUTOMATION DRIVER-FPA, DIRECTOR MICROBIOLOGY-BC 02/24/2022 Last Documented On 2 8:52AM ; [facility] Chronic daily headache PAIN MANAGEMENT F OLLOW UP with DEB Anita NICOL AUTOMATION DRIVER-FPA, DIRECTOR MICROBIOLOGY-BC 01/27/2022 Last Documented On 2 2:29PM ; [facility] Chronic pain syndrome PAIN MANAGEMENT FO LLOW UP with DEB Anita NICOL AUTOMATION DRIVER-FPA, DIRECTOR MICROBIOLOGY-BC 01/27/2022 Last Documented On 2 2:29PM ; [facility] DORSALGIA PAIN MANAGEMENT FOLLOW UP with Haim Howard NICOL AUTOMATION DRIVER-FPA, DIRECTOR MICROBIOLOGY-BC 01/27/2022 Last Documented On 2 2:29PM ; [facility] snf use of opiate analgesic PAIN M ANAGEMENT FOLLOW UP with DEB Anita NICOL AUTOMATION DRIVER-FPA, DIRECTOR MICROBIOLOGY-BC 01/27/2022 Last Documented On 2 2:29PM ; [facility] Lumbar radiculopathy PAIN MANAGEMENT FOL LOW UP with DEB Howard NICOL AUTOMATION DRIVER-FPA, DIRECTOR MICROBIOLOGY-BC 01/27/2022 Last Documented On 2 2:29PM ; [facility] Obesity PAIN MANAGEMENT FOLLOW UP with Haim Howard NICOL AUTOMATION DRIVER-FPA, DIRECTOR MICROBIOLOGY-BC 01/27/2022 Last Documented On 2 2:29PM ; [facility] Chronic daily headache PAIN MANAGEMENT N EW CONSULT with DEB G NICOL AUTOMATION DRIVER-FPA, DIRECTOR MICROBIOLOGY-BC 12/03/2021 Last Documented On 2 1:39PM ; [facility] Chronic pain syndrome PAIN MANAGEMENT NE W CONSULT with DEB G NICOL AUTOMATION DRIVER-FPA, DIRECTOR MICROBIOLOGY-BC 12/03/2021 Last Documented On 2 1:39PM ; [facility] DORSALGIA PAIN MANAGEMENT NEW CONSULT with DEB Howard NICOL AUTOMATION DRIVER-FPA, DIRECTOR MICROBIOLOGY-BC 12/03/2021 Last Documented On 2 1:39PM ; [facility] Idiopathic intracranial hypertension BRISA N MANAGEMENT NEW CONSULT with DEB Howard NICOL AUTOMATION DRIVER-FPA, DIRECTOR MICROBIOLOGY-BC 12/03/2021 Last Documented On 2 1:39PM ; [facility] supervisor intermediates use of opiate analgesic PAIN M ANAGEMENT NEW CONSULT with DEB Howard NICOL AUTOMATION DRIVER-FPA, DIRECTOR MICROBIOLOGY-BC 12/03/2021 Last Documented On 2 1:39PM ; [facility] Lumbar radiculopathy PAIN MANAGEMENT NEW CONSULT with DEB Howard NICOL AUTOMATION DRIVER-FPA, DIRECTOR MICROBIOLOGY-BC 12/03/2021 Last Documented On 2 1:39PM ; [facility] Obesity PAIN MANAGEMENT NEW CONSULT with DEB Howard NICOL AUTOMATION DRIVER-FPA, DIRECTOR MICROBIOLOGY-BC 12/03/2021 Last Documented On 2 1:39PM ; [facility] Instructions Includes: Instructions for all patient encounters Instructions to patient Intervention and counseling on cessation of tobacco use : Patient recieved smoking cessation handout Last Documented On 3 10:22AM ; [facility] Intervention and counseling on cessation of tobacco use : Patient recieved smoking cessation handout Last Documented On 2 1:00PM ; [facility] Intervention and counseling on cessation of tobacco use : Patient recieved smoking cessation handout Last Documented On 2 10:26AM ; [facility] Education and Decision Aids were provided during visit for: Pill Count: six Last Documented On 3 10:33AM ; [facility] Pill Count: 42.5 Last Documented On 3 4:03PM ; [facility] Pill Count: 62 Last Documented On 2 1:09PM ; [facility] Pill Count: 45 Not Appropria te Oxycodone Last Documented On 2 1:48PM ; [facility] Pill Count: 46 Oxycodone 10- 325 Last Documented On 2 1:17PM ; [facility] Pill Count: 39 Last Documented On 2 1:07PM ; [facility] Pill Count: 30.5 Last Documented On 2 11:05AM ; [facility] Medical Equipment - Implanted Devices Includes: Current and historical Devices No Medical Equipment Recorded Medications Includes: Current and historical Medications Current Medications (continue as prescribed) DULoxetine HCl 60 MG Oral Capsule Delayed Release Particles 01/23/2023 Provider: BLANE FORBES Diagnosis: Dorsalgia, unspe cified TAKE 1 CAPSULE BY MOUTH AT BEDTIME Last Documented On 3 2:59PM By DEB ARGUELLES ; [facility] tiZANidine HCl 2 MG Oral Tablet 01/23/2023 Provider: BLANE GRANADOS Diagnosis: TAKE 1 TABLET BY MOUTH THREE TIMES DAILY NEEDED Last Documented On 3 8:40AM By DEB ARGUELLES ; [facility] oxyCODONE-Acetaminophen 10-3 25 MG Oral Tablet 01/03/2023 Provider: BLANE FORBES Diagnosis: 1/2-1 tablet as needed for s evere migraine, max 2 tablets per week Last Documented On 3 4:30PM By DEB ARGUELLES ; [facility] Buprenorphine 5 MCG/HR Transdermal Patch Weekly 12/08/2022 Provider: BLANE GRANADOS Diagnosis: Chronic pain syn drome apply 1 patch every 7 days, be sure to remove the old patch Last Documented On 3 12:46PM By DEB ARGUELLES ; [facility] Narcan 4 MG/0.1ML Nasal Liquid 12/08/2022 Provider: BLANE FORBES Diagnosis: Chronic pain syn drome 1 spray intranasally for jeff pected overdose Last Documented On 3 12:46PM By DEB ARGUELLES ; [facility] CeleBREX 200 MG Oral Capsule 11/28/2022 Provider: BLANE FORBES Diagnosis: Dorsalgia, unspe cified 1 capsule daily with a meal Last Documented On 3 12:46PM By [facility] ; [facility] hydrOXYzine HCl 50 MG Oral Tablet 10/04/2022 Provide r: ROSENDO PECK DO Diagnosis: Last Documented On 3 12:46PM By DEB RUIZJUNIE ; [facility] Symbicort 160-4.5 MCG/ACT Inhalation Aerosol 3 Provider: ROSENDO PECK DO Diagnosis: Last Documented On 3 4:46PM [facility] ; [facility] Albuterol Sulfate HFA 108 (9 0 Base) MCG/ACT Inhalation Aerosol Solution 09/19/2022 Provider: ROSENDO ALARCON DO Diagnosis: Last Documented On 3 4:46PM By DEB CAMARENA [facility] ; [facility] SUMAtriptan Succinate 100 MG Oral Tablet 09/17/2022 Provider: NICHOLAS DORADO MD Diagnosis: Last Documented On 3 4:46PM By DEB RUIZJUNIE ; [facility] Qulipta 60 MG Oral Tablet 08/08/2022 Provider: Diagnosis: Last Documented On 3 4:46PM By DEB CALLEJUNIE ; [facility] RisperDAL 1 MG Oral Tablet 12/03/2021 Provider: Diagnosis: Last Documented On 2 11:52AM By DEB RUIZJUNIE ; [facility] Pantoprazole Sodium 40 MG Oral Tablet Delayed Release 11/14/2021 Provider: Diagnosis: Last Documented On 2 11:52AM By DEB RUIZJUNIE ; [facility] Sucralfate 1 GM Oral Tablet 10/18/2021 Provider: Diagnosis: Last Documented On 2 11:52AM By DEB ARGUELLES ; [facility] Past Medications on file Pregabalin 75 MG Oral Capsule 12/08/2022 - 01/03/2023 Provider: DEB CAMARENA AUTOMATION DRIVER-FPA, DIRECTOR MICROBIOLOGY-BC Diagnosis: Chronic pain syn drome 1 capsule 2times daily for 4 days then at bedtime only for 4 days then stop Last Documented On 3 4:25PM [facility] ; [facility] oxyCODONE-Acetaminophen 10-3 25 MG Oral Tablet 12/05/2022 - 01/03/2023 Provider: DEB CHEN DIRECTOR MICROBIOLOGY-JUNIE Diagnosis: 1/2-1 tablet as needed for s evere migraine, max 2 tablets per week Last Documented On 3 4:28PM By DEB CAMARENA [facility] ; [facility] Amitriptyline HCl 50 MG Oral Tablet 11/25/2022 - 01/03/2023 Provider: DEB CHEN [facility] Diagnosis: One tablet at bed time Last Documented On 3 4:25PM By DEB CAMARENA [facility] ; [facility] DULoxetine HCl 60 MG Oral Capsule Delayed Release Particles 11/25/2022 - 01/23/2023 [facility] Diagnosis: Dorsalgia, unspe cified TAKE 1 CAPSULE BY MOUTH AT BEDTIME Last Documented On 3 2:52PM By DEB CAMARENA [facility] ; [facility] tiZANidine HCl 2 MG Oral Tablet 11/25/2022 - 01/23/2023 Provider: DEB CUNHA-FPKael DIRECTOR MICROBIOLOGY-JUNIE Diagnosis: One tablet three times a day as needed Last Documented On 3 8:32AM By DEB CAMARENA DIRECTOR MICROBIOLOGYDIVINA ; [facility] tiZANidine HCl 2 MG Oral Tablet 11/14/2022 - 11/25/2022 Provider: DEB CUNHA-FPKael DIRECTOR MICROBIOLOGY-BC Diagnosis: One tablet three times a day as needed Last Documented On 3 3:47PM [facility] ; [facility] oxyCODONE-Acetaminophen 10-3 25 MG Oral Tablet 11/04/2022 - 11/28/2022 Provider: DEB CHEN DIRECTOR MICROBIOLOGY-JUNIE Diagnosis: 1/2-1 tablet as needed for s evere migraine, max 2 tablets per week Last Documented On 3 8:30AM By DEB ARGUELLES ; [facility] Lucemyra 0.18 MG Oral Tablet 10/28/2022 - 12/08/2022 Haylie rob: HERMELINDA VILLAREAL MD Diagnosis: take 3 tablets 4x daily for 4 days, then 2 tablets 4x daily for 4 days, then 1 tablet 4x daily for 3 days, then 1 tablet 2x daily until out. Last Documented On 3 10:40AM By DEB ARGUELLES ; [facility] Amitriptyline HCl 50 MG Oral Tablet 10/24/2022 - 11/25/2022 Provider: DEB CHEN DIRECTOR MICROBIOLOGY-BC Diagnosis: One tablet at bed time Last Documented On 3 3:48PM By DEB ARGUELLES ; [facility] Lucemyra 0.18 MG Oral Tablet 10/24/2022 - 10/27/2022 Provider: DEB CUNHA-JUNIOR DIRECTOR MICROBIOLOGY-BC Diagnosis: take 3 tablets 4x daily for 3 days, then 2 tablets 4x daily for 2 days, then 1 tablet 4x daily for 2 days, then 1 tablet 2x daily for 2 days Last Documented On 10/28/2022 4:11PM By Hermelinda Villareal MD ; [facility] DULoxetine HCl 60 MG Oral Capsule Delayed Release Particles 10/24/2022 - 11/25/2022 Provider: DEB CHEN DIRECTOR MICROBIOLOGY-BC Diagnosis: Dorsalgia, unspe cified TAKE 1 CAPSULE BY MOUTH AT BEDTIME Last Documented On 3 3:47PM By DEB ARGUELLES ; [facility] Amitriptyline HCl 25 MG Oral Tablet 10/24/2022 - 12/08/2022 Provider: DEB CAMARENA APRN-JUNIOR DIRECTOR MICROBIOLOGY-BC Diagnosis: Chronic pain syndrome One tablet at bed time Last Documented On 3 10:33AM By Ratna STUART ; [facility] tiZANidine HCl 2 MG Oral Tablet 10/18/2022 - 11/14/2022 Provider: DEB CUNHA-JUNIOR DIRECTOR MICROBIOLOGY-BC Diagnosis: One tablet three times a day as needed Last Documented On 3 6:21PM By DEB CALLEJUNIE ; [facility] oxyCODONE-Acetaminophen 10-3 25 MG Oral Tablet 10/10/2022 - 11/04/2022 Provider: DEB CHEN DIRECTOR MICROBIOLOGY-BC Diagnosis: 1/2-1 tablet 1-3 times daily , decreasing by 1 tablet per week then 1-2 times per week [3 week script] Last Documented On 3 3:39PM By DEB CALLEJUNIE ; [facility] Pregabalin 150 MG Oral Capsule 10/10/2022 - 01/03/2023 Provider: BLANE GRANADOS Diagnosis: Radiculopathy, l umbar region 1 CAPSULE TWO TIMES A DAY Last Documented On 3 4:26PM By DEB ARGUELLES ; [facility] Amitriptyline HCl 25 MG Oral Tablet 09/29/2022 - 10/24/2022 Provider: DEB CHEN DIRECTOR MICROBIOLOGY-JUNIE Diagnosis: Chronic pain syndrome One tablet at bed time Last Documented On 3 5:04PM By DEB CAMARENA DIRECTOR MICROBIOLOGYDIVINA ; [facility] CeleBREX 200 MG Oral Capsule 09/29/2022 - 11/28/2022 Provider: DEB CAMARENA APRN-JUNIOR DIRECTOR MICROBIOLOGY-BC Diagnosis: Dorsalgia, unspe cified 1 capsule daily with a meal Last Documented On 3 5:09PM By DEB CALLEJUNIE ; [facility] tiZANidine HCl 2 MG Oral Tablet 09/20/2022 - 10/18/2022 Provider: DEB CUNHA-JUNIOR DIRECTOR MICROBIOLOGY-BC Diagnosis: One tablet three times a day as needed Last Documented On 3 8:20AM By DEB ARGUELLES ; [facility] tiZANidine HCl 2 MG Oral Capsule 09/14/2022 - 09/20/2022 Provider: DEB CAMARENA APRN-JUNIOR DIRECTOR MICROBIOLOGY-BC Diagnosis: Dorsalgia, unspe cified One tablet three times a day as needed Last Documented On 3 9:32AM By DEB CAMARENA [facility] ; [facility] Pregabalin 150 MG Oral Capsule 09/06/2022 - 10/10/2022 Provider: HERMELINDA Wilson Diagnosis: Radiculopathy, l umbar region 1 CAPSULE TWO TIMES A DAY Last Documented On 3 4:37PM By DEB CAMARENA [facility] ; [facility] oxyCODONE-Acetaminophen 10-3 25 MG Oral Tablet 09/05/2022 - 10/10/2022 Provider: STACY MENEZES ANP- Diagnosis: One tablet three times a day as needed for SEVERE pain only Last Documented On 3 5:11PM By DEB CAMARENA [facility] ; [facility] DULoxetine HCl 60 MG Oral Capsule Delayed Release Particles 08/24/2022 - 10/24/2022 Provider: DEB CHEN DIRECTOR MICROBIOLOGY-BC Diagnosis: Dorsalgia, unspe cified TAKE 1 CAPSULE BY MOUTH AT BEDTIME Last Documented On 3 5:05PM By DEB CAMARENA [facility] ; [facility] oxyCODONE-Acetaminophen 10-3 25 MG Oral Tablet 08/15/2022 - 09/05/2022 Provider: DEB CHEN DIRECTOR MICROBIOLOGY-BC Diagnosis: One tablet three times a day as needed for SEVERE pain only Last Documented On 2 8:53PM By STACY MENEZES [facility] ; [facility] tiZANidine HCl 2 MG Oral Capsule 08/08/2022 - 09/14/2022 Provider: DEB CHEN DIRECTOR MICROBIOLOGY-BC Diagnosis: Dorsalgia, unspe cified One tablet three times a day as needed Last Documented On 2 2:32PM By DEB CAMARENA [facility] ; [facility] Pregabalin 150 MG Oral Capsule 08/08/2022 - 09/06/2022 Provider: DEB CHNE DIRECTOR MICROBIOLOGY-BC Diagnosis: Radiculopathy, l umbar region 1 CAPSULE TWO TIMES A DAY Last Documented On 09/06/2022 12:04PM By Hermelinda Villareal MD ; [facility] SUMAtriptan Succinate 50 MG Oral Tablet 07/28/2022 - 08/27/2022 Provider: BLANE GRANADOS Diagnosis: Headache, unspec ified take 2 tablet at onset of he adache, may repeat after 2 hours, max 4 in 24 hours Last Documented On 2 8:43AM By DEB ARGUELLES ; [facility] Topamax 25 MG Oral Tablet 07/28/2022 - 09/29/2022 Prov ider: Diagnosis: Last Documented On 3 4:14PM By DEB ARGUELLES ; [facility] DULoxetine HCl 60 MG Oral Capsule Delayed Release Particles 07/27/2022 - 08/24/2022 Provider: BLANE GRANADOS Diagnosis: Dorsalgia, unspe cified TAKE 1 CAPSULE BY MOUTH AT BEDTIME Last Documented On 2 10:05AM By DEB ARGUELLES ; [facility] oxyCODONE-Acetaminophen 10-3 25 MG Oral Tablet 07/15/2022 - 08/10/2022 Provider: BLANE GRANADOS Diagnosis: One tablet three times a day as needed for SEVERE pain only Last Documented On 2 8:22AM By DEB ARGUELLES ; [facility] SUMAtriptan Succinate 50 MG Oral Tablet 07/01/2022 - 07/28/2022 Provider: BLANE GRANADOS Diagnosis: Headache, unspec ified take 1 tablet at onset of he adache, may repeat after 2 hours, max 4 in 24 hours Last Documented On 2 8:43AM By DEB ARGUELLES ; [facility] Qulipta 30 MG Oral Tablet 06/30/2022 - 08/08/2022 Provider: BLANE GRANADOS Diagnosis: Other headache syndrome One tablet daily Last Documented On 2 1:08PM By DEB ARGUELLES ; [facility] Ubrelvy 100 MG Oral Tablet 06/30/2022 - 08/08/2022 Provider: DEB CHEN [facility] Diagnosis: Other headache syndrome 1 tablet as needed for sever e headache, maximum of 2 in 24 hours Last Documented On 2 1:11PM By [facility] ; [facility] Pregabalin 150 MG Oral Capsule 06/17/2022 - 07/28/2022 Provider: DEB CHEN [facility] Diagnosis: Radiculopathy, l umbar region 1 CAPSULE TWO TIMES A DAY Last Documented On 2 1:16PM By DEB CAMARENA [facility] ; [facility] DULoxetine HCl 60 MG Oral Capsule Delayed Release Particles 06/17/2022 - 07/27/2022 [facility] Diagnosis: Dorsalgia, unspe cified TAKE 1 CAPSULE BY MOUTH AT BEDTIME Last Documented On 2 10:02AM By DEB CAMARENA [facility] ; [facility] oxyCODONE-Acetaminophen 10-3 25 MG Oral Tablet 06/17/2022 - 07/15/2022 Provider: DEB CHEN [facility] Diagnosis: One tablet three times a day as needed for SEVERE pain only Last Documented On 2 1:34PM By DEB CAMARENA [facility] ; [facility] oxyCODONE-Acetaminophen 10-3 25 MG Oral Tablet 05/20/2022 - 06/15/2022 Provider: DEB CHEN [facility] Diagnosis: One tablet three times a day as needed for SEVERE pain only Last Documented On 2 5:12PM By DEB CAMARENA [facility] ; [facility] DULoxetine HCl 60 MG Oral Capsule Delayed Release Particles 05/18/2022 - 06/17/2022 Provider: STACY MENEZES [facility] Diagnosis: Dorsalgia, unspe cified TAKE 1 CAPSULE BY MOUTH AT BEDTIME Last Documented On 2 9:00AM By DEB CAMARENA [facility] ; [facility] Pregabalin 150 MG Oral Capsule 05/18/2022 - 06/17/2022 Provider: STACY MIRAMONTES Diagnosis: Radiculopathy, l umbar region 1 CAPSULE TWO TIMES A DAY Last Documented On 2 8:59AM By [facility] ; [facility] oxyCODONE-Acetaminophen 10-3 25 MG Oral Tablet 05/03/2022 - 05/17/2022 Provider: LUC GRANADOS-JUNIE Diagnosis: One tablet three times a day as needed for SEVERE pain only Last Documented On 2 4:33PM By DEB CAMARENA [facility] ; [facility] DULoxetine HCl 60 MG Oral Capsule Delayed Release Particles 05/03/2022 - 05/18/2022 Provider: LUC GRANADOS-JUNIE Diagnosis: Dorsalgia, unspe cified TAKE 1 CAPSULE BY MOUTH AT BEDTIME Last Documented On 2 9:04AM [facility] ; [facility] Pregabalin 150 MG Oral Capsule 04/05/2022 - 05/18/2022 Provider: LUC GRANADOS-JUNIE Diagnosis: Radiculopathy, l umbar region 1 CAPSULE TWO TIMES A DAY Last Documented On 2 9:04AM [facility] ; [facility] oxyCODONE-Acetaminophen 10-3 25 MG Oral Tablet 04/05/2022 - 05/02/2022 Provider: LUC GRANADOS-JUNIE Diagnosis: One tablet three times a day as needed for SEVERE pain only Last Documented On 2 8:23AM By DEB CAMARENA [facility] ; [facility] Pregabalin 150 MG Oral Capsule 03/24/2022 - 04/05/2022 Provider: LUC GRANADOS-BC Diagnosis: Radiculopathy, l umbar region 1 CAPSULE TWO TIMES A DAY Last Documented On 2 11:47AM [facility] ; [facility] oxyCODONE-Acetaminophen 10-3 25 MG Oral Tablet 03/07/2022 - 04/04/2022 Provider: BLANE GRANADOS Diagnosis: One tablet three times a day as needed for SEVERE pain only Last Documented On 2 11:48AM By DEB ARGUELLES ; [facility] DULoxetine HCl 60 MG Oral Capsule Delayed Release Particles 02/28/2022 - 05/03/2022 Provider: BLANE GRANADOS Diagnosis: Dorsalgia, unspe cified TAKE 1 CAPSULE BY MOUTH AT BEDTIME Last Documented On 2 8:32AM [facility] ; [facility] DULoxetine HCl 30 MG Oral Capsule Delayed Release Particles 02/24/2022 - 06/30/2022 Provider: TONY GRANADOSBC Diagnosis: Dorsalgia, unspe cified One tablet at bed time Last Documented On 2 11:45AM By DEB RUIZPRAF ; [facility] DULoxetine HCl 60 MG Oral Capsule Delayed Release Particles 02/07/2022 - 02/24/2022 Provider: BLANE GRANADOS Diagnosis: Radiculopathy, l umbar region TAKE 1 CAPSULE BY MOUTH AT BEDTIME Last Documented On 2 8:52AM By [facility] ; [facility] oxyCODONE-Acetaminophen 10-3 25 MG Oral Tablet 02/07/2022 - 03/07/2022 Provider: LUC GRANADOS-JUNIE Diagnosis: One tablet three times a day as needed for SEVERE pain only Last Documented On 2 4:00PM By [facility] ; [facility] Pregabalin 150 MG Oral Capsule 01/27/2022 - 03/24/2022 Provider: LUC GRANADOS-BC Diagnosis: Radiculopathy, l umbar region 1 CAPSULE TWO TIMES A DAY Last Documented On 2 12:55PM By DEB CAMARENA DIRECTOR MICROBIOLOGYJUNIE ; [facility] Pregabalin 75 MG Oral Capsule 01/27/2022 - 02/24/2022 Provider: BLANE GRANADOS Diagnosis: Radiculopathy, l umbar region 1 cap at bedtime for 3 days then 1 cap two times daily for 3 days then 1 cap in the am and 2 caps at bedtime for 3 days Last Documented On 2 1:59PM By DEB ARGUELLES ; [facility] oxyCODONE-Acetaminophen 10-3 25 MG Oral Tablet 01/10/2022 - 02/04/2022 Provider: BLANE GRANADOS Diagnosis: One tablet three times a day Last Documented On 2 9:05AM By DEB ARGUELLES ; [facility] oxyCODONE-Acetaminophen 10-3 25 MG Oral Tablet 12/10/2021 - 01/07/2022 Provider: BLANE GRANADOS Diagnosis: One tablet three times a day Last Documented On 2 11:01AM By DEB ARGUELLES ; [facility] Narcan 4 MG/0.1ML Nasal Liquid 12/08/2021 - 06/30/2022 Provider: BLANE LAGUNAS Diagnosis: 1 spray intranasally for suspected overdose Last Documented On 2 11:41AM By DEB ARGUELLES ; [facility] DULoxetine HCl 60 MG Oral Capsule Delayed Release Particles 12/03/2021 - 02/07/2022 Provider: BLANE GRANADOS Diagnosis: Radiculopathy, l umbar region One tablet at bed time Last Documented On 2 9:06AM By DEB ARGUELLES ; [facility] hydrOXYzine HCl 50 MG Oral Tablet 12/03/2021 - 023 Provider: Diagnosis: Up to three times a day. Last Documented On 3 4:44PM By DEB ARGUELLES ; [facility] DULoxetine HCl 30 MG Oral Capsule Delayed Release Particles 12/03/2021 - 01/27/2022 Provider: DEB G NICOL AUTOMATION DRIVER-FPA, DIRECTOR MICROBIOLOGY-BC Diagnosis: Radiculopathy, l umbar region One tablet at bed time Last Documented On 2 1:59PM By DEB CAMARENA DIRECTOR MICROBIOLOGY-BC ; [facility] Ondansetron HCl 4 MG Oral Tablet 11/17/2021 - 01/28/20 Provider: Diagnosis: PRN Last Documented On 2 1:08PM By Ratna STUART ; [facility] oxyCODONE-Acetaminophen 10-325 MG Oral Tablet 11/14/19 22 - 12/07/2021 Provider: Diagnosis: Last Documented On 2 10:25AM By DEB CAMARENA DIRECTOR MICROBIOLOGY-BC ; [facility] Medications Administered Includes: Administered [...] 12/03/2021 Last Documented On 2 1:39PM ; [facility] Not using drugs 12/03/2021 Last Documented On 2 1:39PM ; [facility] Smoking packs of cigarettes per day 2 Last Documented On 2 1:39PM ; [facility] Current smoker 12/03/2021 Last Documented On 2 1:39PM ; [facility] Smoking Status Unknown Procedures and Surgical History Surgical History Last Updated No Pacemaker 12/03/2021 Last Documented On 2 1:39PM ; [facility] Medical History Includes: Medical History in patient's chart Description Last Updated Has had a fall in the last 12 months. Last Documented On 3 12:47PM ; [facility] Denies a fear of falling. 12/03/2021 Last Documented On 2 1:39PM ; [facility] Currently wearing eyeglasses 12/03/2021 Last Documented On 2 1:39PM ; [facility] No Pain Pump 12/03/2021 Last Documented On 2 1:39PM ; [facility] No Spinal cord stimulator 12/03/2021 Last Documented On 2 1:39PM ; [facility] Please list all illnesses/co nditions you have been diagnosed with: Idopathic intercranial hypertension, seizures, stomach hernia,acid reflux disease,depression,anxiety,bipolor 12/03/2021 Last Documented On 2 1:39PM ; [facility] Please list all surgeries: C sections 12/09/06 12/10/07 01/19/2010. eptopic pregnacy 2 12/03/2021 Last Documented On 2 1:39PM ; [facility] Family History Includes: Family History in patient's chart Description Last Updated Family history of ischemic heart disease 12/03/2021 Last Documented On 2 1:39PM ; [facility] Fraternal history of reported family his tory of seizures 12/03/2021 Last Documented On 2 1:39PM ; [facility] Maternal history of reported family hist ory of seizures 12/03/2021 Last Documented On 2 1:39PM ; [facility] Sororal history of reported family histo ry of seizures 12/03/2021 Last Documented On 2 1:39PM ; [facility] Review of Systems Review of [...] Documented On 3 10:33AM ; [facility] Sulfa Antibiotics Allergy 12/03/2021 A ctive Last Documented On 3 10:33AM ; [facility] Penicillins Allergy 12/03/2021 Active Last Documented On 3 10:33AM ; [facility] Morphine Derivatives Allergy 12/03/2021 Active Last Documented On 3 10:33AM ; [facility] Metoclopramide Allergy 12/03/2021 Acti ve Last Documented On 3 10:33AM ; [facility] Adhesive Tape Allergy 12/03/2021 Activ e Last Documented On 3 10:33AM ; [facility] Insurance Includes: Active Insurance Policies Plan Name Member ID Group # Subscriber Relationship Effect enriqueta Dates 1 - [facility] [id number] LAURIE Glil Clinical Notes Includes: Signed Clinical Notes starting from 10/07/2022 No Clinical Notes Recorded
--- OUTSIDE RECORDS SUMMARY | 2024-10-11 18:16 | XMS_ITS | Clinical Summary ---
Author Organization [facility] Address [address] [place] [address] Phone Care Team Providers Care Reviewer Sales Name Role Phone RENA SORIANO, LYNN Alcaraz [...] tatus Bipolar Disorder Nos Unknown DEB CAMARENA INFORMATION RESOURCE CONSULTANT-FPA, OPERATIONS LOGISTICS ANALYST-BC Active Last Documented On 2 11:56AM ; [facility] Esophageal Reflux Unknown DEB CAMARENA APR N-FPA, OPERATIONS LOGISTICS ANALYST-BC Active Last Documented On 2 11:57AM ; [facility] 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 DEB CAMARENA INFORMATION RESOURCE CONSULTANT-FPA, F [employer]-BC Active Last Documented On 2 11:43AM ; [...] Delayed Release Particles 01/23/2023 Provider: DEB PACHECO OPERATIONS LOGISTICS ANALYST-BC Diagnosis: Dorsalgia, unspe cified TAKE 1 CAPSULE BY MOUTH AT BEDTIME Last Documented On 3 2:59PM By DEB CALLE-JUNIE ; [facility] tiZANidine HCl 2 MG Oral Tablet 01/23/2023 Provider: BLANE GRANADOS Diagnosis: TAKE 1 TABLET BY MOUTH THREE TIMES DAILY NEEDED Last Documented On 3 8:40AM By DEB ARGUELLES ; [facility] [...] On 3 12:46PM By DEB ARGUELLES ; [facility] [...] On 3 12:46PM By DEB ARGUELLES ; [facility] hydrOXYzine HCl 50 MG Oral Tablet 10/04/2022 Provide r: ROSENDO PECK DO Diagnosis: Last Documented On 3 12:46PM By DEB ARGUELLES ; [facility] Symbicort 160-4.5 MCG/ACT Inhalation Aerosol 3 Provider: ROSENDO PECK DO Diagnosis: Last Documented On 3 4:46PM By DBE ARGUELLES ; [facility] Albuterol Sulfate HFA 108 (9 0 Base) MCG/ACT Inhalation Aerosol Solution 09/19/2022 Provider: ROSENDO ALARCON DO Diagnosis: Last Documented On 3 4:46PM By DEB CAMARENA [facility] ; [facility] SUMAtriptan Succinate 100 MG Oral Tablet 09/17/2022 Provider: NICHOLAS DORADO MD Diagnosis: Last Documented On 3 4:46PM By DEB CAMARENA [facility] ; [facility] Qulipta 60 MG Oral Tablet 08/08/2022 Provider: Diagnosis: Last Documented On 3 4:46PM By DEB CAMARENA [facility] ; [facility] RisperDAL 1 MG Oral Tablet 12/03/2021 Provider: Diagnosis: Last Documented On 2 11:52AM [facility] ; [facility] Pantoprazole Sodium 40 MG Oral Tablet Delayed Release 11/14/2021 Provider: Diagnosis: Last Documented On 2 11:52AM By DEB CAMARENA [facility] ; [facility] Sucralfate 1 GM Oral Tablet 10/18/2021 Provider: Diagnosis: Last Documented On 2 11:52AM By DEB CAMARENA [facility] ; [facility] Past Medications on file SUMAtriptan Succinate 50 MG Oral Tablet 07/28/2022 - 08/27/2022 Provider: DEB CAMARENA APRN-JUNIOR, [facility]- Diagnosis: Headache, unspec ified take 2 tablet at onset of he adache, may repeat after 2 hours, max 4 in 24 hours Last Documented On 2 8:43AM By DEB CAMARENA [facility] ; [facility] Medications Administered Includes: Administered Medications from this encounter No Administered Medications Recorded Results Includes: Results discussed during this encounter No Results Recorded For Specified Dates History of Present Illness Includes: History of Present Illness from this encounter No History of Present Illness Recorded Social History Description Last Updated No consumption of alcohol 12/03/2021 Last Documented On 3 10:29AM ; [facility] Not using drugs 12/03/2021 Last Documented On 3 10:29AM ; [facility] Smoking packs of cigarettes per day 2 Last Documented On 3 10:29AM ; [facility] Current smoker 12/03/2021 Last Documented On 3 10:29AM ; [facility] Smoking Status Unknown Procedures and Surgical History Surgical History Last Updated No Pacemaker 12/03/2021 Last Documented On 3 10:29AM ; [facility] Medical History Includes: Medical History addressed during this encounter Description Last Updated Has had a fall in the last 12 months. Last Documented On 3 10:29AM ; [facility] Denies a fear of falling. 12/03/2021 Last Documented On 3 10:29AM ; [facility] Currently wearing eyeglasses 12/03/2021 Last Documented On 3 10:29AM ; [facility] No Pain Pump 12/03/2021 Last Documented On 3 10:29AM ; [facility] No Spinal cord stimulator 12/03/2021 Last Documented On 3 10:29AM ; [facility] Please list all illnesses/co nditions you have been diagnosed with: Idopathic intercranial hypertension, seizures, stomach hernia,acid reflux disease,depression,anxiety,bipolor 12/03/2021 Last Documented On 3 10:29AM ; [facility] Please list all surgeries: C sections 12/09/06 12/10/07 01/19/2010. eptopic pregnacy 2 12/03/2021 Last Documented On 3 10:29AM ; [facility] Family History Includes: Family History addressed during this encounter Description Last Updated Family history of ischemic heart disease 12/03/2021 Last Documented On 3 10:29AM ; [facility] Fraternal history of reported family his tory of seizures 12/03/2021 Last Documented On 3 10:29AM ; [facility] Maternal history of reported family hist ory of seizures 12/03/2021 Last Documented On 3 10:29AM ; [facility] Sororal history of reported [...] 3 10:33AM ; [facility] Sulfa Antibiotics Allergy 12/03/2021 A [...] Subscriber Relationship Effect enriqueta Dates 1 - [facility] [id number] LARUIE DAS Self Clinical Notes Includes: Clinical Notes from this encounter * Progress note Date Encounter Last Documented by 12/15/2022 * PHONE CALL Last documented on 12/15/2022; 1:54 PM, DEB Howard NICOL INFORMATION RESOURCE CONSULTANT-FPA, OPERATIONS LOGISTICS ANALYST-BC; [facility] Active Problems & Conditions [...]
--- OUTSIDE RECORDS SUMMARY | 2024-10-11 18:16 | XMS_ITS | Clinical Summary ---
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 DEB Howard NICOL DELINQUENT TAX COLLECTOR-FPA, F FLOOR REPRESENTATIVE-BC Active Last Documented On 2 11:43AM ; [facility] Past Visits Onset Date Resolved Date Provider Condition Status Bipolar Disorder Nos Unknown DEB Howard NICOL DELINQUENT TAX COLLECTOR-FPA, PLUSH WEAVER-BC Active Last Documented On 2 11:56AM ; [facility] Esophageal Reflux Unknown DEB Howard NICOL APR N-FPA, PLUSH WEAVER-BC Active Last Documented On 2 11:57AM ; [facility] Plan of Treatment Urine sample ordered and sent to lab for testing with confirmation via LCMS when appropriate. Urine drug testing is ordered to monitor opioid use and ongoing candidacy, verify compliant use of controlled substances, and monitor for use of illicit substances as these may result in harmful interactions. - Last Documented On 12/10/2022 12:47PM ; [facility] Instructions to patient Intervention and counseling on cessation of tobacco use : Patient recieved smoking cessation handout Last Documented On 3 10:22AM ; [facility] Education and Decision Aids were provided during visit for: Pill Count: six Last Documented On 3 10:33AM ; [facility] Assessments Includes: Assessments from this encounter Findings - [E66.8 - Other obesity] Morbid obesity - Last Documented On 12/10/2022 12:47PM ; [facility] - [M25.561 - Pain in right knee] Arthralgia of the right knee/patella/tibia/fibula - Last Documented On 12/10/2022 12:47PM ; [facility] - [M25.562 - Pain in left knee] Arthralgia of the left knee/patella/tibia/fibula - Last Documented On 12/10/2022 12:47PM ; [facility] - [M54.9 - Dorsalgia, unspecified] DORSALGIA - Last Documented On 12/10/2022 12:47PM ; [facility] - [M47.896 - Other spondylosis, lumbar region] Lumbar spondylosis - Last Documented On 12/10/2022 12:47PM ; [facility] - [G44.89 - Other headache syndrome] Chronic daily headache - Last Documented On 12/10/2022 12:47PM ; [facility] - [G93.2 - Benign intracranial hypertension] Idiopathic intracranial hypertension - Last Documented On 12/10/2022 12:47PM ; [facility] - [G89.4 - Chronic pain syndrome] Chronic pain syndrome - Last Documented On 12/10/2022 12:47PM ; [facility] - [Z79.891 - terminal gauger (current) use of opiate analgesic] alf use of opiate analgesic - Last Documented On 12/10/2022 12:47PM ; [facility] Instructions Includes: Instructions from this encounter Instructions to patient Intervention and counseling on cessation of tobacco use : Patient recieved smoking cessation handout Last Documented On 3 10:22AM ; [facility] Education and Decision Aids were provided during visit for: Pill Count: six Last Documented On 3 10:33AM ; [facility] Medical Equipment - Implanted Devices Includes: Current Devices No Medical Equipment Recorded Medications Includes: Medications discussed during this encounter and other current Medications Discontinued / Stopped on this date HERMELINDA VILLAREAL MD on 10/28/2022 Lucemyra 0.18 MG Oral Tablet Provider: HERMELINDA VILLAREAL MD Diagnosis: Last Documented On 3 10:40AM By DEB ARGUELLES ; [facility] Amitriptyline HCl 25 MG Oral Tablet Provider: BLANE FORBES Diagnosis: Chronic pain syn drome Last Documented On 3 10:33AM By Ratna STUART ; [facility] New / Renewed during this visit BLANE GRANADOS on 12/08/2022 Pregabalin 75 MG Oral Capsule Provider: BLANE FORBES 8 day supply: 12 capsule, 0 refills Diagnosis: Chronic pain syndrome 1 capsule 2times daily for 4 days then at bedtime only for 4 days then stop Pharmacy: [address], [phone] - Last Documented On 3 4:25PM By DEB ARGUELLES ; [facility] Buprenorphine 5 MCG/HR Transdermal Patch Weekly Provider: BLANE GRANADOS 30 day supply: 4 patch, 0 refills Diagnosis: Chronic pain syndrome apply 1 patch every 7 days, be sure to remove the old patch Pharmacy: [address], [id number] - Last Documented On 3 12:46PM By DEB ARGUELLES ; [facility] Narcan 4 MG/0.1ML Nasal Liquid Provider: BLANE GRANADOS 30 day supply: 2 each, 0 refills Diagnosis: Chronic pain syndrome 1 spray intranasally for jeff pected overdose Pharmacy: [address], [id number] - Last Documented On 3 12:46PM By DEB ARGUELLES ; [facility] Current Medications (continue as prescribed) DULoxetine HCl 60 MG Oral Capsule Delayed Release Particles 01/23/2023 Provider: BLANE FORBES Diagnosis: Dorsalgia, unspe cified TAKE 1 CAPSULE BY MOUTH AT BEDTIME Last Documented On 3 2:59PM By DEB ARGUELLES ; [facility] tiZANidine HCl 2 MG Oral Tablet 01/23/2023 Provider: SARA GRANADOSJUNIE Diagnosis: TAKE 1 TABLET BY MOUTH THREE TIMES DAILY NEEDED Last Documented On 3 8:40AM By DEB ARGUELLES ; [facility] oxyCODONE-Acetaminophen 10-3 25 MG Oral Tablet 01/03/2023 Provider: BLANE FORBES Diagnosis: 1/2-1 tablet as needed for s evere migraine, max 2 tablets per week Last Documented On 3 4:30PM By DEB ARGUELLES ; [facility] CeleBREX 200 MG Oral Capsule 11/28/2022 [facility] Diagnosis: Dorsalgia, unspe cified 1 capsule daily with a meal Last Documented On 3 12:46PM By DEB ARGUELLES ; [facility] hydrOXYzine HCl 50 MG Oral Tablet 10/04/2022 Provide r: ROSENDO PECK DO Diagnosis: Last Documented On 3 12:46PM By DEB ARGUELLES ; [facility] Symbicort 160-4.5 MCG/ACT Inhalation Aerosol 3 Provider: ROSENDO PECK DO Diagnosis: Last Documented On 3 4:46PM By DEB ARGUELLES ; [facility] Albuterol Sulfate HFA 108 (9 0 Base) MCG/ACT Inhalation Aerosol Solution 09/19/2022 Provider: ROSENDO ALARCON DO Diagnosis: Last Documented On 3 4:46PM By DEB ARGUELLES ; [facility] SUMAtriptan Succinate 100 MG Oral Tablet 09/17/2022 Provider: NICHOLAS ANDERSON MD Diagnosis: Last Documented On 3 4:46PM By DEB ARGUELLES ; [facility] Qulipta 60 MG Oral Tablet 08/08/2022 Provider: Diagnosis: Last Documented On 3 4:46PM By DEB ARGUELLES ; [facility] RisperDAL 1 MG Oral Tablet 12/03/2021 Provider: Diagnosis: Last Documented On 2 11:52AM By DEB ARGUELLES ; [facility] Pantoprazole Sodium 40 MG Oral Tablet Delayed Release 11/14/2021 Provider: Diagnosis: Last Documented On 2 11:52AM By DEB ARGUELLES ; [facility] Sucralfate 1 GM Oral Tablet 10/18/2021 Provider: Diagnosis: Last Documented On 2 11:52AM By DEB ARGUELLES ; [facility] Past Medications on file SUMAtriptan Succinate 50 MG Oral Tablet 07/28/2022 - 08/27/2022 Provider: BLANE GRANADOS Diagnosis: Headache, unspec ified take 2 tablet at onset of he adache, may repeat after 2 hours, max 4 in 24 hours Last Documented On 2 8:43AM By DEB ARGUELLES ; [facility] Medications Administered Includes: Administered Medications [...] On 12/08/2022 10:36A M ; [facility] Results Includes: Results discussed during this encounter Drugs of abuse screen [facility] Ordered by TONY GRANADOS on 12/08/2022 Collected: Reported: 12/08/2022 12:44 Last Documented On 3 1:45PM ; [facility] Reviewed on 12/08/2022; All test results are final unless otherwise noted. Lot # & Exp. Date [id number] EXP 01/01/24 (NEG) N (Normal) Last Documented On 3 1:44PM ; [facility] Amphetamines NEG (NEG) N (Normal) Last Documented On 3 1:44PM ; [facility] Barbiturates NEG (neg) N (Normal) Last Documented On 3 1:44PM ; [facility] Benzodiazepines NEG (neg) N (Normal) Last Documented On 3 1:44PM ; [facility] Cocaine NEG (neg) N (Normal) Last Documented On 3 1:44PM ; [facility] Ecstasy NEG (Neg) N (Normal) Last Documented On 3 1:44PM ; [facility] Methamphetamines NEG (neg) N (Normal) Last Documented On 3 1:44PM ; [facility] Methadone NEG (Neg) N (Normal) Last Documented On 3 1:44PM ; [facility] Morphine NEG (Neg) N (Normal) Last Documented On 3 1:44PM ; [facility] Oxycodone POS (POS) A (Abnormal) Last Documented On 3 1:44PM ; [facility] Phencyclidine NEG (NEG) N (Normal) Last Documented On 3 1:44PM ; [facility] TCA/Tricyclic Antidepressants POS (POS) A (Abnormal) Last Documented On 3 1:44PM ; [facility] Cannabis NEG (neg) N (Normal) Last Documented On 3 1:44PM ; [facility] History of Present Illness Includes: History [...] is going to see a specialist in [place] to discuss surgical intervention for her knee [...] and they are sending her to an mechanical service specialist. She has gained a lot of [...] her Oxycodone. Regarding her back pain taking qzix-rpx-rrbyrom medication, working on weight loss, doing physical [...] She previously saw neurologist Dr Higgins at [place] who apparently is no longer prescribing medication [...] Documented On 3 10:21AM ; [facility] Not using drugs 12/03/2021 Last Documented On 3 10:21AM ; [facility] Smoking packs of cigarettes per day 2 Last Documented On 3 10:21AM ; [facility] Current smoker 12/03/2021 Last Documented On 3 10:21AM ; [facility] Smoking Status Unknown Procedures and Surgical History Includes: Procedures from this encounter Procedures Code Diagnosis Performing Provider Service L ocation Service Date intervention and counseling on cessation of tobacco use : Patient recieved smoking cessation handout 4000F Last Documented On 3 10:22AM ; [facility] use of tobacco assessment performed 1000F Last Documented On 3 10:21AM ; [facility] patient screened for future fall risk: documentation of any fall with injury in past year Oxycodone 10-325 1100F Last Documented On 3 10:21AM ; [facility] review of medications documented 1160F Last Documented On 3 10:21AM ; [facility] screening for adult depression: impressi on and score 13 Last Documented On 3 10:21AM ; [facility] standardized depression screening: posit enriqueta for symptoms Last Documented On 3 10:21AM ; [facility] Clinical summary provided to patient Last Documented On 3 10:21AM ; [facility] SOAPP-R: total score 28 Last Documented On 3 10:30AM ; [facility] Surgical History Last Updated No Pacemaker 12/03/2021 Last Documented On 3 10:21AM ; [facility] Medical History Includes: Medical History addressed during this encounter Description Last Updated Has had a fall in the last 12 months. Last Documented On 3 12:47PM ; [facility] Denies a fear of falling. 12/03/2021 Last Documented On 3 10:21AM ; [facility] Currently wearing eyeglasses 12/03/2021 Last Documented On 3 10:21AM ; [facility] No Pain Pump 12/03/2021 Last Documented On 3 10:21AM ; [facility] No Spinal cord stimulator 12/03/2021 Last Documented On 3 10:21AM ; [facility] Please list all illnesses/co nditions you have been diagnosed with: Idopathic intercranial hypertension, seizures, stomach hernia,acid reflux disease,depression,anxiety,bipolor 12/03/2021 Last Documented On 3 10:21AM ; [facility] Please list all surgeries: C sections 12/09/06 12/10/07 01/19/2010. eptopic pregnacy 2 12/03/2021 Last Documented On 3 10:21AM ; [facility] Family History Includes: Family History addressed during this encounter Description Last Updated Family history of ischemic heart disease 12/03/2021 Last Documented On 3 10:21AM ; [facility] Fraternal history of reported family his tory of seizures 12/03/2021 Last Documented On 3 10:21AM ; [facility] Maternal history of reported family hist ory of seizures 12/03/2021 Last Documented On 3 10:21AM ; [facility] Sororal history of reported family histo ry of seizures 12/03/2021 Last Documented On 3 10:21AM ; [facility] Review of Systems Includes: Review of [...] Documented On 3 10:33AM ; [facility] Sulfa Antibiotics Allergy 12/03/2021 A ctive Last Documented On 3 10:33AM ; [facility] Penicillins Allergy 12/03/2021 Active Last Documented On 3 10:33AM ; [facility] Morphine Derivatives Allergy 12/03/2021 Active Last Documented On 3 10:33AM ; [facility] Metoclopramide Allergy 12/03/2021 Acti ve Last Documented On 3 10:33AM ; [facility] Adhesive Tape Allergy 12/03/2021 Activ e Last Documented On 3 10:33AM ; [facility] Encounters Encounter Provider Location Date Check-In Time Check-Out Time Diagnosis PAIN MANAGEMENT FOLLOW UP DEB CAMARENA DELINQUENT TAX COLLECTOR-FPA, PLUSH WEAVER-BC [facility] 12/09/19 10:27AM 11:09AM Idiopathic Intracranial Hypertension (Pseudotumor Cerebri),Chroni c Pain Syndrome,Obesit y Morbid,Arthralg ia - Knee / Patella / Tibia / Fibula Right,Arthralgi a - Knee / Patella / Tibia / Fibula Left,Chronic Daily Headache,Halfway Use of Opiate Analgesic,Dorsa lgia,Lumbar Spondylosis Insurance Includes: Active Insurance Policies Plan Name Member ID Group # Subscriber Relationship Effect enriqueta Dates 1 - [facility] [id number] LAURIE DAS Self Clinical Notes Includes: Clinical Notes from this encounter * Progress note Date Encounter Last Documented by 12/08/2022 PAIN MANAGEMENT FOLLOW UP Last d ocumented on 12/10/2022; 12:47 PM, DEB CAMARENA APRN-FPA, PLUSH WEAVER-BC; [facility] Active Problems & Conditions - [...] is going to see a specialist in [place] to discuss surgical intervention for her knee [...] and they are sending her to an mechanical service specialist. She has gained a lot of [...] her Oxycodone. Regarding her back pain taking csju-vnt-jmhpkmy medication, working on weight loss, doing physical [...] She previously saw neurologist Dr Higgins at [place] who apparently is no longer prescribing medication [...] in all extremities. No focal neurologic deficit. Davd-hn-yobb normal bilaterally. Psych: No apparent distress. Mood normal. Affect normal. No pain behaviors. Tests - Test: Drugs of abuse screen Report Date: 12/08/2022 Lot # & Exp. Date [id number] EXP 01/01/24 Normal Amphetamines NEG Normal Barbiturates [...] syndrome] Chronic pain syndrome - [Z79.891 - alf (current) use of opiate analgesic] alf use of opiate analgesic Therapy - Intervention [...] 30 days, 0 refills EndCited StartCited - alf (current) use of opiate analgesic Lab: PRESCRIBED [...] and for adult impression and score 13; [07763] Established outpatient, medically appropriate H&P, high level decision making, 40-54 minutes. A total of 25 minutes were spent on this patient's evaluation, as above, with greater than 50% of this time spent in direct mlht-ul-uxiy counseling and coordination of care. Results of [...] but may be subject to typographical or clinical research coordinator errors. Verify all diagnoses, medications, dosages, and [...]
--- OUTSIDE RECORDS SUMMARY | 2024-10-11 18:16 | XMS_ITS ---
Care Plan - [facility] Created on: October 11, 2024 JOY DASKat Katie : 1985 Sex: Female Author Organization [facility] Address [address] [place] [address] Phone Care Team Providers Care Concrete Batch Plant Operator Name Role Phone RENA SORIANO, LYNN Alcaraz Unavailable [phone] ROSENDO PECK DO Primary Care Provider [phone] ESTRADA SORIANO, NICHOLAS Unavailable [phone]
--- NOTE | 2024-10-11 18:40 | PC.NURSE ---
ASSUMED CARE. REPORT RECEIVED FROM SHAWN SUAZO
--- NOTE | 2024-10-11 18:40 | PC.NURSE ---
report to kendal steen
[2024-10-11 18:49] VITALS: BP 126/70; PULSE 124; RESP 18; O2SAT 98
[2024-10-11 19:00] VITALS: BP 122/75; PULSE 98; RESP 20; O2SAT 97
[2024-10-11 19:15] VITALS: BP 118/74; PULSE 95; RESP 20; O2SAT 95
[2024-10-11] MEDS: levoFLOXacin TAB 500 MG, levoFLOXacin TAB 250 MG 750 MG PO (19:26)
== END 2024-10-11 19:46 | disposition home or self-care (01) ==
PROVIDERS: Emergency Provider Emergency Medicine; PCP Family Medicine
DX: J18.9 Pneumonia, unspecified organism (principal); F17.210 Nicotine dependence, cigarettes, uncomplicated; Z79.891 Long term (current) use of opiate analgesic
CPT/HCPCS: 71275; 99284; A9270; Q9967

== ENCOUNTER 2025-04-21 11:58 | Outpatient (CLI) | payer OTHER, SELFPAY ==
--- NOTE | ~2025-04-21 | CT_ITS ---
EXAMINATION: CT abdomen pelvis w con DATE: 04/21/2025 13:01 INDICATION: Lower abdominal pain TECHNIQUE: Computed tomography (CT) of the abdomen and pelvis was performed with 100 mL Omnipaque-350 intravenous contrast. Automated exposure control and iterative reconstruction technique were employe d. The dose-length product was 1524.16 mGy-cm. COMPARISON: 11/09/2021 FINDINGS: Geographic groundglass opacity likely related mild atelectasis in the medial right middle lobe. Uncha nged likely benign 6 mm pleural-based nodule in the right middle lobe. Heart size is normal. No peric ardial or pleural effusion. Cholecystectomy clips in the gallbladder fossa. Mildly heterogeneous dante danna of diffuse hepatic steatosis. Spleen, pancreas, bilateral adrenal glands and kidneys are normal. Fatty infiltration of the wall the colon likely related to patient body habitus. Small bowel and appe ndix are normal. Bladder, right ovary and anteverted uterus are normal. Left ovary is either atrophic or absent. No free intraperitoneal gas or fluid. No pathologically enlarged abdominal or pelvic lymp hadenopathy. Moderate bilateral sacroiliac osteoarthritis. IMPRESSION: 1. No acute intra-abdominal/pelvic process. 2. Diffuse hepatic steatosis and fatty infiltration of the wall the colon likely related to body habi tus. Reviewed, dictated and finalized at location A. IMPRESSION: 1. No acute intra-abdominal/pelvic process. 2. Diffuse hepatic steatosis and fatty infiltration of the wall the colon likel y related to body habitus.
--- OUTSIDE RECORDS SUMMARY | 2025-04-21 12:03 | XMS_ITS | Clinical Summary ---
Author Organization [facility] Address [address] [place] [address] Care Team Providers Care Alteration Tailor Name Role Phone Juni Lopez DO Primary Care Provider [phone] Allergies Active Allergy Reactions Criticality Noted Date [...] (two) times daily. 20 tablet 5 Active Social History Tobacco Use Types Packs/Day Years [...] Comments Blood Pressure 117/50 09/27/2024 3:50 PM MAINTENANCE DIRECTOR Pulse 132 09/27/2024 3:50 PM MAINTENANCE DIRECTOR Temperature 36.6 C (97.8 F) 09/27/2024 3:50 PM MAINTENANCE DIRECTOR Respiratory Rate 18 09/27/2024 3:50 PM MAINTENANCE DIRECTOR Oxygen Saturation 94% 09/27/2024 3:52 PM MAINTENANCE DIRECTOR Inhaled Oxygen Concentration - - Weight 140.6 kg (310 lb) 09/27/2024 3:50 PM MAINTENANCE DIRECTOR Height 152.4 cm (5') 09/27/2024 3:50 PM MAINTENANCE DIRECTOR Body Mass Index 60.54 09/27/2024 3:50 PM MAINTENANCE DIRECTOR Plan of Treatment Health Maintenance Due Date Last Done Comments Cervical Cancer Screening Pa p Smear (Age 30 to 64) Every 3 Years 1986 Annual Physical 1989 Hepatitis C 2004 DTaP, Tdap and Td Vaccines ( 1 - Tdap) 2005 Hepatitis B Vaccines (1 of 3 - 19+ 3-dose series) 2005 Pneumococcal Vaccine: Pediat rics (0 to 5 Years) and At-Risk Patients (6 to 49 Years) (1 of 2 - PCV) 2005 HPV Vaccines (1 - 3-dose SCD M series) 2013 Cervical Cancer Screening Pa p with HPV Testing (Age 30 to 64) Every 5 Years 2016 Cervical Cancer Screening with HPV 2016 COVID-19 Vaccine (2 - 2023-2 5 season) 2024 02/01/2021 Meningococcal B Vaccine Aged Out No l onger eligible based on patient's age to complete this topic Meningococcal Vaccine Aged Out No javier leroy eligible based on patient's age to complete this topic RSV Immunizations Under 20 Months Aged Out No longer eligible based on patient's age to complete this topic Insurance [employer] Care Teams Alteration Tailor Relationship Specialty Start Date End Date Juni Lopez DO [address] [place] [address] PCP - General FAMILY PRACTICE 03/03/24
--- OUTSIDE RECORDS SUMMARY | 2025-04-21 12:03 | XMS_ITS | Clinical Summary ---
Author Organization [facility] Address [address] [place] [address] Phone Care Team Providers Care Shingle Catcher Name Role Phone Juni Lopez MD Primary Care Provider [phone] Odell Anderson MD Unavailable [phone] Dorita Escobedo APRN, CHIEF WHEELAGE CLERK Unavailable [phone] Allergies Active Allergy Reactions Criticality Noted Date Comments Metoclopramide Unknown 02/04/2022 Morphine Unknown 02/04/2022 Wound Dressing Adhesive Unknown 02/04/2022 Penicillins Unknown 02/04/2022 Sulfa Antibiotics Unknown 02/04/2022 Topiramate Other (see Comments) 11/22/2022 Per patient caused a burning in her groin area Trimethoprim Unknown 02/04/2022 Medications pregabalin (LYRICA) 75 MG Capsule 0 01/27/2022 Active DULoxetine (CYMBALTA) [address] Particles Take 60 mg by mouth daily. Active pantoprazole (PROTONIX) 40 MG Tablet Delayed Response Take 40 mg by mouth daily. Active risperiDONE (RISPERDAL) 1 MG Tablet Take 1 mg by mouth 2 times daily. Active hydrOXYzine (ATARAX) 50 MG Tablet Take 100 mg by mouth every 6 hours as needed. Active Symbicort 160-4.5 MCG/ACT Aerosol INHALE 2 PUFFS BY MOUTH EVERY 12 HOURS 06/02/2022 Active albuterol 108 (90 Base) MCG/ACT Aerosol Solution INHALE 2 PUFFS BY MOUTH FOUR TIMES DAILY 05/31/2022 Active Ubrelvy 100 MG Tablet Take 1 Tablet by mouth as needed for Other. 10 Tablet 3 01/09/2025 Active Atogepant (Qulipta) 60 MG Tablet Take 60 mg by mouth daily. 90 Tablet 1 02/11/2025 Active Active Problems No known active problems Encounters Date Type Department Care Team Description 02/11/2025 Refill [facility] - [facility] [address] [place] [address] Odell Anderson MD from Last 3 Months Family History Medical History Relation Name Comments Seizures Father Seizures Mother Relation Name Status Comments Father Mother Social History Tobacco Use Types Packs/Day Years Used Date Smoking Tobacco: Every Day Cigarettes 2 23.6 Started: 09/18/2001 Smokeless Tobacco: Never Tobacco Cessation:Ready to Q uit: Yes; Counseling Given: Not Answered Alcohol Use Standard [...] Sign Reading Time Taken Comments Blood Pressure 120/84 01/09/2025 2:38 PM CDT Pulse 122 01/09/2025 2:38 PM CDT Temperature 36.6 C (97.9 F) 01/09/2025 2:38 PM CDT Respiratory Rate 20 01/09/2025 2:38 PM CDT Oxygen Saturation 95% 01/09/2025 2:38 PM CDT Inhaled Oxygen Concentration - - Weight 142.6 kg (314 lb 6.4 oz) 01/09/2025 2:38 PM CDT Height 154.9 cm (5' 1) 01/09/2025 2:38 PM CDT Body Mass Index 59.41 01/09/2025 2:38 PM CDT Plan of Treatment Upcoming Encounters Date Type Department Care Team (Late st Contact Info) Description 07/11/2025 3:00 PM CDT [facility] [address] [place] [address] Dorita Escobedo APRN, CHIEF WHEELAGE CLERK [address] [place] [address] Health Maintenance Due Date Last Done Comments Hepatitis C Virus (HCV) Screening 1985 TdaP Immunization 1985 Human Papillomavirus (HPV) Immunization (1 - 3-dose series) 2001 Hepatitis B Immunization (1 of 3 - 19+ 3-dose series) 2005 Pneumococcal Immunization Combined (1 of 2 - PCV) 2005 Pap Smear 2007 Cervical Cancer Screening (CCS) 2016 HPV/Cotest 2016 SARS-COV-2 Immunization ( season) 2024 09/09/2021, 03/09/2021, 02/01/2021 Influenza Immunization (#1) 2025 Respiratory Syncytial Virus (RSV) Immunization (Adult) (1 - 1-dose 75+ series) 2061 Meningococcal Immunization (ACWY) Aged Out No longer eligible b ased on patient's age to complete this topic Rotavirus Immunization Aged Out No lo nger eligible based on patient's age to complete this topic Insurance MEDICAID [employer] Care Teams Shingle Catcher Relationship Specialty Start Date End Date Juni Lopez MD [address] [place] [id number] PCP - General Family Medicine 07/02/22 Odell Anderson MD [address] [place] [address] Consulting Physician Neurology 07/04/23 Dorita Escobedo, INSULATION HOSEMAN, CHIEF WHEELAGE CLERK [address] [place] [address] Nurse Practitioner Advanced Practice Nurse 05/17/22
--- OUTSIDE RECORDS SUMMARY | 2025-04-21 12:03 | XMS_ITS | Clinical Summary ---
Author Organization [facility] Address [address] [place] [address] Care Team Providers Care Product Introduction Manager Name Role Phone Juni Lopez DO Primary Care Provider [phone] Source Comments [facility],non-owned Affiliates and Associated Physician Practices is amultiple site organization consisting of ambulatory clinics and hospital sitesin [place], [place], [place] and [place]. This disclosure is being madepursuant to the Care Everywhere program and may not contain all information available regarding this patient. Last updated 18.[facility] Allergies Active Allergy Reactions Criticality Noted Date Comments Morphine Headache 05/17/2018 Sulfa Drugs Rash Medium 05/17/2018 Medications * Be aware that medications may not be up to date on this document. Alwaysverify current medications with the patient. 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 Gender Identity Not on file Sexual Orientation [...] Health Maintenance Due Date Last Done Comments HIV SCREENING 2001 HEPATITIS C SCREENING 10/03/2004 DTAP/TDAP/TD VACCINES (1 - Tdap) 2005 HEPATITIS B VACCINE (1 of 3 - 19+ 3-dose series) 2005 PNEUMOCOCCAL VACCINE (1 of 2 - PCV) 2005 PAP SMEAR 2007 HPV VACCINE (1 - 3-dose SCDM series) 2013 COVID-19 VACCINE (1 - 2023-2 5 season) 2024 DEPRESSION SCREENING 09/18/2024 INFLUENZA VACCINE (#1) 2025 ZOSTER VACCINE (1 of 2) 2036 HIB VACCINE Aged Out No longer eligi ble based on patient's age to complete this topic MENINGOCOCCAL (Group B) VACC INE SHARED DECISION-MAKING Aged Out No longer eligibl e based on patient's age to complete this topic MENINGOCOCCAL GROUPS A/C/Y/W VACCINE Aged Out No longer eligible b ased on patient's age to complete this topic Insurance [facility] [employer] [employer] Care Teams Product Introduction Manager Relationship Specialty Start Date End Date Juni Lopez DO [address] [place] [id number] PCP - General 12/02/21
[2025-04-21 12:13] LABS: Hematocrit 43.6 % (35.0-49.0); Hemoglobin 14.1 g/dL (12.0-15.0); Immature Granulocyte Percent A 1.7 % (0.0-0.0); Lymphocytes Absolute Auto 1.58 K/mm3 (1.10-4.50); Mean Corpuscular HGB Conc 32.3 g/dL (32-36); Mean Corpuscular Hemoglobin 28.0 pg (27.0-31.0); Mean Corpuscular Volume 86.7 fL (78.0-102.0); Nucleated Red Blood Cells Absolute Auto 0.00 K/mm3 (0.00-0.00); Nucleated Red Blood Cells Perc 0.0 % (0-0.0); Platelet Count Result 242 K/mm3 (150-420); Red Blood Count 5.03 M/mm3 (4.20-5.40); White Blood Count 7.5 K/mm3 (4.8-10.8)
[2025-04-21 12:27] LABS: Alanine Aminotransferase 24 U/L (6-35); Albumin Level 4.3 g/dL (3.5-5.1); Alkaline Phosphatase 72 U/L (38-126); Anion Gap 6 mmol/L (4-12); Aspartate Amino Transferase 35 U/L (14-36); Bilirubin,Total 0.5 mg/dL (0.2-1.3); Blood Urea Nitrogen 9 mg/dL (7-17); CRP 3.3 mg/dL (<1.0); Calcium 9.1 mg/dL (8.4-10.2); Carbon Dioxide 25 mmol/L (22-30); Chloride 109 mmol/L (98-107); Estimated Glomerular Filt Rate > 60; Glucose 105 mg/dL (65-110); Osmolality Calculated 288 mOsm/kg (285-295); Potassium 4.9 mmol/L (3.4-5.0); Sodium 140 mmol/L (137-145); Total Protein 7.6 g/dL (6.3-8.2)
== END 2025-04-21 11:59 | disposition home or self-care (01) ==
PROVIDERS: PCP Family Medicine; Visit Provider Family Medicine
DX: R10.9 Unspecified abdominal pain (principal); K76.0 Fatty (change of) liver, not elsewhere classified
CPT/HCPCS: 36415; 74177; 80053; 85025; 86140; Q9967

== ENCOUNTER 2025-05-26 00:24 | Emergency (ER) | payer OTHER, SELFPAY ==
[2025-05-26] VITALS (7 sets, daily range): BP systolic 93–103; BP diastolic 57–64; PULSE 71–90; RESP 20–22; TEMP 36.4–36.6; O2SAT 85–95
--- NOTE | ~2025-05-26 | XR_ITS ---
EXAMINATION: XR chest 1V portable 05/26/2025 01:06 INDICATION: Cough TECHNIQUE:A single AP portable upright frontal image of the chest was obtained. COMPARISON: Chest x-ray 05/22/2024 FINDINGS: Heart is not enlarged. No pneumothorax. No pleural effusion. No free air under the diaphragm. Moderate-sized interstitial and airspace opacities scattered throughout both lungs. The patient's chin is down which slightly limits evaluation. IMPRESSION: 1: Moderate-sized interstitial and airspace opacities scattered throughout both lungs. Differential includes but is not limited to edema or pneumonia. Recommend follow-up to resolution. Reviewed, dictated and finalized at location Q. IMPRESSION: 1: Moderate-sized interstitial and airspace opacities scattered throughout both lungs. Differential includes but is not limited to edema or pneumonia. Recomme nd follow-up to resolution.
--- NOTE | ~2025-05-26 | CT_ITS ---
CTA CHEST CLINICAL HISTORY: hypoxia. COUGH. SHORTNESS OF BREATH . COMPARISON: Chest x-ray today CTA chest 10/11/2024 TECHNIQUE: Helical CTA performed from thoracic inlet to upper abdomen 100 mL Omnipaque 350 Coronal, sagittal reformats. Multiplanar MIPS CT images acquired with automatic exposure control for dose reduction DLP: 913 mGy-cm FINDINGS: Pulmonary arteries: No PE. Main pulmonary artery dilated Thoracic Aorta: No dissection or aneurysm. Heart/pericardium: Unremarkable. RV/LV ratio: Normal. Lungs/Pleura: Diffuse bilateral airspace disease. Tracheobronchial tree: Patent. Nodes: Recurrent hilar and mediastinal nodes. Present on scan from May 2024 but resolved on scan from September 2024. Bones: No acute bony abnormality. Soft tissues: Unremarkable. Visualized upper abdomen: Hepatosplenomegaly. Question early cirrhosis. Hepatic steatosis IMPRESSION: 1. No PE. 2. Diffuse bilateral airspace disease, nonspecific. Multifocal infection and/or viral pneumonitis including atypical infections possible. Other possibilities such as pulmonary edema or sarcoidosis considered less likely. 3. Mildly enlarged thoracic lymph nodes, presumably due to above. Reviewed, dictated and finalized at location A. IMPRESSION: 1. No PE. 2. Diffuse bilateral airspace disease, nonspecific. Multifocal infection and/o r viral pneumonitis including atypical infections possible. Other possibilities such as pulmonary edema or sarcoidosis considered less likely. 3. Mildly enlarged thoracic lymph nodes, presumably due to above.
--- NOTE | 2025-05-26 00:52 | ECG_ITS ---
Test Date: 2025-05-26 01:14:35 Measurements Intervals [place] Rate: 82 P: 33 NH: 151 QRS: 76 QRSD: 106 T: 55 QT: 375 QTc: 440 Interpretive Statements SINUS RHYTHM Compared to ECG 05/21/2024 08:16:50 Sinus tachycardia no longer present Electronically Signed On 05-26-2025 10:36:46 CDT by Philip Cates M.D.
--- NOTE | 2025-05-26 00:59 | ED_ITS ---
HPI - General Adult General Chief complaint: Shortness of Breath/Dyspnea Stated complaint: SHORTNESS OF BREATH Time Seen by Provider: 05/26/25 00:28 History of Present Illness HPI narrative: Elvira is a 39F with a PMH of obesity, chronic headaches, COPD, tobacco abuse, GERD that presented to the ED not feeling well. She started sneezing a few days ago and it progressed to a cough, congestion, then aches, fevers and dyspnea as well as weakness. No CP, syncope vomiting or diarrhea. She stated that she took 2 percocet before she came for the aches. Related Data Home Medications ?Medication ?Instructions ?Recorded ?Confirmed ?Last Taken ?Type acetaminophen 300 mg-codeine 60 mg 1 tablet PO QID PRN Chronic pain 05/21/24 04/21/25 05/21/24 03:30 History tablet oxycodone-acetaminophen 7.5 mg-325 1 tablet PO Q6H PRN 07/04/24 04/21/25 Unknown History mg tablet (Percocet) ubrogepant 100 mg tablet (Ubrelvy) 100 mg PO ONCE 06/1204/21/25 Unknown History metformin 500 mg tablet mg PO 01/23/25 04/21/25 Unkn own History estradiol 2 mg tablet 2 mg PO DAILY 04/21/2504/21 Unknown History Allergies Allergy/AdvReac Type Severity Reaction Status Date / Time adhesive tape Allergy Severe Hives Verified 05/26/25 01:12 Penicillins Allergy Intermediate THROAT Verified 05/26/25 01:12 SWELLING Sulfa (Sulfonamide Allergy Intermediate Rash Verified 05/26/25 01:12 Antibiotics) sulfamethoxazole Allergy Mild Rash Verified 05/26/25 01:12 trimethoprim Allergy Mild Rash Verified 05/26/25 01:12 metoclopramide AdvReac Severe PARANOIA Verified 05/26/25 01:12 morphine AdvReac Intermediate ITCHING, Verified 05/26/25 01:12 MIGRAINE flexiril Allergy Seizure Uncoded 05/26/25 01:12 Review of Systems 2 Review of Systems: All systems reviewed & are unremarkable except as noted in HPI and below PMFSH Past Medical History Medical History Daytime somnolence Arthritis Claustrophobia Viral syndrome Bronchitis Nausea and vomiting in adult Epigastric pain Idiopathic intracranial hypertension Managed by Dr. Curt Higgins Obesity, Class III, BMI 40-49.9 (morbid obesity) Epilepsy Reportedly her last seizure was November of 2015 Eczema Bipolar disorder Anxiety Depression UTI (urinary tract infection) Gastric ulcer GERD (gastroesophageal reflux disease) Ectopic Chronic headaches Chronic low back pain Nicotine dependence Surgical History Surgical History History of left salpingo-oophorectomy Due to ectopic Hx of section x3 Hx of cholecystectomy Hx of dilation and curettage Family History Family History Father Medical history unknown Mother Schizophrenia Liver cirrhosis Sibling Seizure disorder Daughter Congenital heart disease Other Arthritis Diabetes mellitus HLD (hyperlipidemia) Heart disease Hypertension Social History Social History Social History: She lives with her 11-year-old daughter. She also has a 13 in 14-year-old child that sounds if lives elsewhere. She has smoked 1.5 packs of cigarettes per day since she was 17 years old. She denies any significant alcohol use. She is on disability. Smoking packs per day: 3 Smoking cigarettes per day: 60.0 Years smoked: 21 Smoking pack-years: 63.00 Smoking status: Current every day smoker Tobacco type: cigarettes Second hand tobacco smoke exposure: Yes Alcohol intake: never Substance use: never Substance use type: does not use Other substance usage details: used to sleep the other day, but not a daily usage Do You Feel Safe in your Home?: Yes Lack of Transportation: No Lack of Food: Never True Current Housing: I Have Housing Concerned About Future Housing: No Difficulty Paying Gas/Electric Bills: No Difficulty Paying for Meds: No Currently Unemployed: No Education: Decline to Answer Difficulty w/ Childcare or Family Care: No Living arrangements: with family Additional living arrangements comments: 1 daughter. Occupation/Education: unemployed Additional occupation/education comments: Disabled due to Idiopathic Intracranial Hypertension Gender identity (if verbalized by the patient): Female Sexual Orientation (if Verbalized by the Patient): Straight or Heterosexual Spiritual care concerns: No Exam 2 Const: Nutritional Appearance: well nourished Orientation/consciousness: p atient oriented x3 Other: mild distress HENMT: Head: normal to inspection Ears: external ears normal F lele/Nose/Sinus: Normal external nose present Eyes: Conjunctivae: conjunctivae normal Pupils: Equal, round and reactive pupils present EOM: EOMs intact bilaterally Neck: Neck: normal visual inspection Chest: Chest palpation & inspection: normal inspection of the chest Resp: Other: Increased work of breathing, tachypnea, diffuse crackles and cough present on exam Cardio: Rate: regular rate Rhythm: regular rhythm Heart sounds: no murmurs GI: Inspection: non-distended GI Palp: Yes Soft to palpation and No Tenderness to palpation present (GI) Auscultation: normal bowel sounds : General: Yes bladder normal to palpation Back/Spine/Pelvis: Back: no CVA tenderness Skin: General skin exam: normal color Rashes: no rashes Wounds: no wounds Neuro: General: patient oriented x3 Cranial nerves: Yes Nystagmus not present Speech: normal speech Extrem: General: normal to inspection Psych: Mental Status: mental status grossly normal Affect: normal affect Attitude: cooperative Course Course Emergency Course: Ordered labs, CXR, cultures, as well as toradol for pain. Fluids were started as BP was borderline low. CBC was unremarkable. Chemistries showed a mild MICHAEL, normal troponin, normal BNP but elevated CRP. CTA was ordered for hypoxia. viral testing negative CTA Impression: No acute pulmonary embolus Bilateral airspice consolidations consistent with diffuse multilobar pneumonia. Does not meet criteria for admission CURB 65 score of 0 Vital Signs Vital signs: Vital Signs Temperature 97.8 F 05/26/25 00:25 Pulse Rate 90 05/26/25 00:25 Respiratory Rate 22 H 05/26/25 00:25 Blood Pressure 93/63 L 05/26/25 00:25 Pulse Oximetry 90 05/26/25 00:25 Oxygen Delivery Room Air 05/26/25 00:25 Temperature 97.6 F 05/26/25 04:22 Pulse Rate 78 05/26/25 04:22 Respiratory Rate 20 05/26/25 04:22 Blood Pressure 103/64 05/26/25 04:22 Pulse Oximetry 95 05/26/25 04:22 Oxygen Delivery Room Air 05/26/25 04:22 Oxygen Flow Rate 2 05/26/25 02:31 Medical Decision Making Vital Signs Vital Signs: Vital Signs Temperature 97.8 F 05/26/25 00:25 Pulse Rate 90 05/26/25 00:25 Respiratory Rate 22 H 05/26/25 00:25 Blood Pressure 93/63 L 05/26/25 00:25 Pulse Oximetry 90 05/26/25 00:25 Oxygen Delivery Room Air 05/26/25 00:25 Temperature 97.6 F 05/26/25 04:22 Pulse Rate 78 05/26/25 04:22 Respiratory Rate 20 05/26/25 04:22 Blood Pressure 103/64 05/26/25 04:22 Pulse Oximetry 95 05/26/25 04:22 Oxygen Delivery Room Air 05/26/25 04:22 Oxygen Flow Rate 2 05/26/25 02:31 Lab Data 05/26/25 01:36 05/26/25 01:36 Labs: Lab Results 05/26/25 05/26/25 Range/Units 01:36 01:38 WBC 10.8 (4.8-10.8) K/mm3 RBC 4.19 L (4.20-5.40) M/mm3 Hgb 12.0 (12.0-15.0) g/dL Hct 36.5 (35.0-49.0) % MCV 87.1 (78.0-102.0) fL MCH 28.6 (27.0-31.0) pg MCHC 32.9 (32-36) g/dL RDW 16.2 H (11.6-14.4) % Plt Count 224 (150-420) K/mm3 MPV 10.2 (9.2-11.8) fl Immature Gran % (Auto) 0.7 H (0.0-0.0) % Neut % (Auto) 75.5 H (50.0-70.0) % Lymph % (Auto) 15.5 L (18.0-42.0) % [place] % (Auto) 5.4 (2.0-11.0) % Eos % (Auto) 2.5 (1.0-6.0) % Baso % (Auto) 0.4 (0.0-1.0) % Lymph # (Auto) 1.68 (1.10-4.50) K/mm3 [place] # (Auto) 0.58 (0.10-0.90) K/mm3 Eos # (Auto) 0.27 (0.02-0.50) K/mm3 Baso # (Auto) 0.04 (0.00-0.10) K/mm3 Abs Immat Gran (auto) 0.08 H (0.00-0.00) K/mm3 Absolute Neuts (auto) 8.17 H (1.70-7.20) K/mm3 Absolute Nucleated RBC 0.00 (0.00-0.00) K/mm3 Nucleated RBC % 0.0 (0-0.0) % PT 10.1 (9.50-12.1) Seconds INR 0.9 APTT 26.4 (23.9-30.70) Sec Sodium 138 (137-145) mmol/L Potassium 3.8 (3.4-5.0) mmol/L Chloride 103 (98-107) mmol/L Carbon Dioxide 29 (22-30) mmol/L Anion Gap 6 (4-12) mmol/L BUN 14 D (7-17) mg/dL Creatinine 1.08 H (0.7-1.0) mg/dL Estim Creat Clear Calc 79 ml/min Estimated GFR 57 L (59 - ) Glucose 132 H (65-110) mg/dL Calculated Osmolality 288 (285-295) mOsm/kg Lactic Acid 1.6 (0.4-2.0) mmol/L Calcium 9.8 (8.4-10.2) mg/dL Total Bilirubin 0.6 (0.2-1.3) mg/dL AST 37 H (14-36) U/L ALT 24 (6-35) U/L Alkaline Phosphatase 72 (38-126) U/L Troponin I < 0.012 (0.000-0.034) ng/mL C-Reactive Protein > 9.0 H (<1.0) mg/dL NT-Pro-B Natriuret Pep 86 (19.9-100) pg/mL Total Protein 7.0 (6.3-8.2) g/dL Albumin 3.9 (3.5-5.1) g/dL Influenza A (RT-PCR) Negative (Negative) Influenza B (RT-PCR) Negative (Negative) RSV (RT-PCR) Negative (Negative) SARS-CoV-2 RNA (RT-PCR) Negative (Negative) Discharge Plan Discharge Clinical Impression: Multifocal pneumonia, COPD exacerbation Patient Disposition: Home Condition: Stable Instructions: Antibiotic Form, COPD (Chronic Obstructive Pulmonary Disease) (ED), Bacterial Pneumonia (ED) Patient Language: Citizen Of [place] Prescriptions: New levofloxacin 750 mg tablet 750 mg PO DAILY Qty: 6 0RF prednisone 50 mg tablet 50 mg PO DAILY Qty: 5 0RF No Action oxycodone-acetaminophen [Percocet] 7.5-325 mg tablet 1 tablet PO Q6H PRN Ubrelvy 100 mg tablet 100 mg PO ONCE Rx Instructions: as a single dose; may repeat once in >=2 hours after first dose if needed metformin 500 mg tablet PO estradiol 2 mg tablet 2 mg PO DAILY dicyclomine 20 mg tablet 20 mg PO TID Qty: 90 0RF acetaminophen-codeine 300-60 mg tablet 1 tablet PO QID PRN (Reason: Chronic pain ) albuterol sulfate 90 mcg/actuation HFA aerosol inhaler 2 puff inhalation QID Qty: 8.5 3RF budesonide-formoterol [Symbicort] 160-4.5 mcg/actuation HFA aerosol inhaler 2 puff inhalation Q12H Qty: 10.2 3RF amitriptyline 100 mg tablet 100 mg PO QHS Qty: 90 2RF hydroxyzine HCl 50 mg tablet 100 mg PO QHS PRN (Reason: insomnia) Qty: 60 1RF duloxetine 60 mg capsule,delayed release(DR/EC) 60 mg PO DAILY Qty: 90 1RF benzonatate 200 mg capsule 200 mg PO BID Qty: 60 0RF ondansetron HCl 4 mg tablet 4 mg PO Q8H PRN (Reason: nausea and vomiting) Qty: 30 0RF risperidone [Risperdal] 1 mg tablet 1 mg PO BID Qty: 180 1RF tizanidine 4 mg tablet 6 mg PO BID PRN (Reason: muscle spasticity) Qty: 180 1RF famotidine 20 mg tablet 20 mg PO BID Qty: 180 0RF pregabalin [Lyrica] 150 mg capsule 150 mg PO BID Qty: 60 2RF Follow-up/Referrals: UNKNOWN,DOCTOR [Non-Staff]
[2025-05-26] MEDS: SODIUM CHLORIDE 0.9% IV 1,000 ML 999 ML IV CONT ×2 (01:07→02:20)
[2025-05-26] MEDS: KETOROLAC 15 MG/ML VIAL (*BKC) IV PUSH (01:08)
--- OUTSIDE RECORDS SUMMARY | 2025-05-26 01:30 | XMS_ITS | Clinical Summary ---
Author Organization [facility] Address [address] [place] [address] Phone Care Team Providers Care Scientific Helper Name Role Phone Juni Lopez MD Primary Care Provider [phone] Odell Anderson MD Unavailable [phone] Dorita Escobedo APRN, PHARMACY TECHNICIAN INPATIENT Unavailable [phone] Allergies Active Allergy Reactions Criticality Noted Date [...] Active Active Problems No known active problems Family History Medical History Relation Name Comments Seizures Father Seizures Mother Relation Name Status Comments Father Mother Social History Tobacco Use Types Packs/Day Years Used Date Smoking Tobacco: Every Day Cigarettes 2 23.7 Started: 09/18/2001 Smokeless Tobacco: Never Tobacco Cessation:Ready [...] Description 07/11/2025 3:00 PM CDT Office Visit [facility] [address] [place] [address] Dorita Escobedo APRN, PHARMACY TECHNICIAN INPATIENT [address] [place] [address] Health Maintenance Due Date Last Done Comments Hepatitis C Virus (HCV) Screening 1986 TdaP Immunization 1986 Hepatitis B Immunization (1 of 3 - 19+ 3-dose series) 2005 Pneumococcal Immunization Combined (1 of 2 - PCV) 2005 Pap Smear 2007 Human Papillomavirus (HPV) Immunization (1 - 3-dose SCDM series) 2013 Cervical Cancer Screening (CCS) 2016 HPV/Cotest 2016 Influenza Immunization (#1) 2025 SARS-COV-2 Immunization ( season) 2025 09/09/2021, 03/09/2021, 02/01/2021 Respiratory Syncytial Virus (RSV) Immunization (Adult) (1 - 1-dose 75+ series) 2061 Meningococcal Immunization (ACWY) Aged Out No longer eligible b ased on patient's age to complete this topic Rotavirus Immunization Aged Out No lo nger eligible based on patient's age to complete this topic Insurance MEDICAID [employer] Care Teams Scientific Helper Relationship Specialty Start Date End Date Juni Lopez MD [address] [place] [phone] PCP - General Family Medicine 07/02/22 Odell Anderson MD [address] [place] [address] Consulting Physician Neurology 07/04/23 Dorita Escobedo APRN, PHARMACY TECHNICIAN INPATIENT [address] [place] [id number] Nurse Practitioner Advanced Practice Nurse 05/17/22
--- OUTSIDE RECORDS SUMMARY | 2025-05-26 01:30 | XMS_ITS | Clinical Summary ---
Author Organization [facility] Address [address] [place] [address] Care Team Providers Care Non Emergency Services Ambulance Driver Name Role Phone Juni Lopez DO Primary Care Provider [phone] Source Comments [facility],non-owned Affiliates and Associated Physician Practices is amultiple site organization consisting of ambulatory clinics and hospital sitesin [place], [place], [place] and [place]. This disclosure is being madepursuant to the Care Everywhere program and may not contain all information available regarding this patient. 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
[2025-05-26] MEDS: cefTRIAXone 2 GM in SODIUM CHLORIDE 0.9% IV 100 ML 200 ML IVPB (01:47)
[2025-05-26 01:52] LABS: Hematocrit 36.5 % (35.0-49.0); Hemoglobin 12.0 g/dL (12.0-15.0); Immature Granulocyte Percent A 0.7 % (0.0-0.0); Lymphocytes Absolute Auto 1.68 K/mm3 (1.10-4.50); Mean Corpuscular HGB Conc 32.9 g/dL (32-36); Mean Corpuscular Hemoglobin 28.6 pg (27.0-31.0); Mean Corpuscular Volume 87.1 fL (78.0-102.0); Nucleated Red Blood Cells Absolute Auto 0.00 K/mm3 (0.00-0.00); Nucleated Red Blood Cells Perc 0.0 % (0-0.0); Platelet Count Result 224 K/mm3 (150-420); Red Blood Count 4.19 M/mm3 (4.20-5.40); White Blood Count 10.8 K/mm3 (4.8-10.8)
[2025-05-26 02:04] LABS: INR 0.9; Partial Thromboplastin Time 26.4 Sec (23.9-30.70); Prothrombin Time 10.1 Seconds (9.50-12.1)
[2025-05-26 02:13] LABS: Alanine Aminotransferase 24 U/L (6-35); Albumin Level 3.9 g/dL (3.5-5.1); Alkaline Phosphatase 72 U/L (38-126); Anion Gap 6 mmol/L (4-12); Aspartate Amino Transferase 37 U/L (14-36); Bilirubin,Total 0.6 mg/dL (0.2-1.3); Blood Urea Nitrogen 14 mg/dL (7-17); CRP > 9.0 mg/dL (<1.0); Calcium 9.8 mg/dL (8.4-10.2); Carbon Dioxide 29 mmol/L (22-30); Chloride 103 mmol/L (98-107); Estimated CRCL calculation 79 ml/min; Estimated Glomerular Filt Rate 57; Glucose 132 mg/dL (65-110); Osmolality Calculated 288 mOsm/kg (285-295); Potassium 3.8 mmol/L (3.4-5.0); Sodium 138 mmol/L (137-145); Total Protein 7.0 g/dL (6.3-8.2)
--- NOTE | 2025-05-26 02:15 | PC.NURSE ---
Pt sleeping when entering room, VSS, NSR on monitor. Pt awakens easily and then c/o pain in her back and asking for more pain medication. Dr Lopez informed, no new orders at this time.
[2025-05-26 02:22] LABS: NT Pro B Type Natriuretic Pept 86 pg/mL (19.9-100)
[2025-05-26 02:24] LABS: Troponin I < 0.012 ng/mL (0.000-0.034)
[2025-05-26 02:41] LABS: Influenza A QL RT-PCR Negative (Negative); Influenza B QL RT-PCR Negative (Negative); RSV RNA, RT-PCR Negative (Negative); SARS-CoV-2 RNA PCR Negative (Negative)
[2025-05-26] MEDS: AZITHROMYCIN IV 500 MG in SODIUM CHLORIDE 0.9% IV 250 ML IVPB (03:06)
--- NOTE | 2025-05-26 03:50 | PC.NURSE ---
Dr Lopez in to talk to pt about CTA results. POC to d/c home, VSS.
[2025-05-26] MEDS: ONDANSETRON HCL ODT 4 MG TABLET PO (03:59)
--- NOTE | 2025-05-28 17:05 | PC.NURSE ---
preliminary blood cultures x2 reviewed. no growth at this time
--- NOTE | 2025-05-29 13:40 | PC.NURSE ---
preliminary blood cultures x2 reviewed. no growth in 24 hours
--- NOTE | 2025-05-30 13:50 | PC.NURSE ---
PRELIMINARY BLOOD CULTURE NO GROWTH 48 HOURS
--- NOTE | 2025-05-30 14:15 | PC.NURSE ---
PRELIMINARY BLOOD CULTURES NO GROWTH IN 48 HOURS
--- NOTE | 2025-06-02 12:28 | PC.NURSE ---
BLOOD CULTURE FINAL RESULT: NO GROWTH, NO CHANGE IN PLAN OF CARE.
== END 2025-05-26 04:22 | disposition home or self-care (01) ==
PROVIDERS: Emergency Provider Family Medicine; PCP Family Medicine
DX: J18.9 Pneumonia, unspecified organism (principal); J44.1 Chronic obstructive pulmonary disease with (acute) exacerbation; F17.210 Nicotine dependence, cigarettes, uncomplicated; Z20.822 Contact with and (suspected) exposure to COVID-19
CPT/HCPCS: 36415; 71045; 71275; 80053; 83605; 83880; 84484; 85025; 85610; 85730; 86140; 87040; 87637; 93005; 96361; 96365; 96367; 96375; 99284; A9270; J0456; J0696; J1885; J7030; J7050; Q9967

== ENCOUNTER 2025-05-29 14:34 | Outpatient (CLI) | payer OTHER, SELFPAY ==
--- NOTE | ~2025-05-29 | XR_ITS ---
EXAMINATION: XR chest 2V, 05/29/2025 14:50 CDT HISTORY: J44.9 - Chronic obstructive pulmonary disease, unspecified COMPARISON: No comparisons available. Technique: 2 views obtained. Findings: The lungs are clear, no effusion. No pneumothorax. Heart is normal size. Mediastinal and hilar contours are within normal limits. Bony thorax no acute abnormality. Impression: No acute cardiopulmonary abnormality. Reviewed, dictated and finalized at location A. Impression: No acute cardiopulmonary abnormality.
[2025-05-29 14:54] LABS: Hematocrit 41.8 % (35.0-49.0); Hemoglobin 13.5 g/dL (12.0-15.0); Immature Granulocyte Percent A 2.1 % (0.0-0.0); Lymphocytes Absolute Auto 1.82 K/mm3 (1.10-4.50); Mean Corpuscular HGB Conc 32.3 g/dL (32-36); Mean Corpuscular Hemoglobin 28.2 pg (27.0-31.0); Mean Corpuscular Volume 87.4 fL (78.0-102.0); Nucleated Red Blood Cells Absolute Auto 0.00 K/mm3 (0.00-0.00); Nucleated Red Blood Cells Perc 0.0 % (0-0.0); Platelet Count Result 253 K/mm3 (150-420); Red Blood Count 4.78 M/mm3 (4.20-5.40); White Blood Count 8.5 K/mm3 (4.8-10.8)
[2025-05-29 16:04] LABS: Alanine Aminotransferase 33 U/L (6-35); Albumin Level 4.0 g/dL (3.5-5.1); Alkaline Phosphatase 71 U/L (38-126); Anion Gap 13 mmol/L (4-12); Aspartate Amino Transferase 45 U/L (14-36); Bilirubin,Total 0.4 mg/dL (0.2-1.3); Blood Urea Nitrogen 10 mg/dL (7-17); Calcium 10.1 mg/dL (8.4-10.2); Carbon Dioxide 28 mmol/L (22-30); Chloride 100 mmol/L (98-107); Estimated Glomerular Filt Rate > 60; Glucose 124 mg/dL (65-110); Osmolality Calculated 292 mOsm/kg (285-295); Potassium 4.3 mmol/L (3.4-5.0); Sodium 141 mmol/L (137-145); Total Protein 6.5 g/dL (6.3-8.2)
--- OUTSIDE RECORDS SUMMARY | 2025-05-29 16:18 | XMS_ITS | Clinical Summary ---
Author Organization [facility] Address [address] [place] [address] Phone Care Team Providers Care Returner Name Role Phone Juni Lopez MD Primary Care Provider [phone] Odell Anderson MD Unavailable [phone] Dorita Escobedo APRN, DATA ENTRY SPECIALIST Unavailable [phone] Allergies Active Allergy Reactions Criticality Noted Date [...] Visit [facility] [address] [place] [address] Dorita Escobedo APRN, DATA ENTRY SPECIALIST [address] [place] [address] Health Maintenance Due Date Last Done Comments [...] Insurance MEDICAID [employer] Care Teams Returner Relationship Specialty Start Date End Date Juni Lopez MD [address] [place] [id number] PCP - General Family Medicine 07/02/22 Odell Anderson MD [address] [place] [address] Consulting Physician Neurology 07/04/23 Dorita Escobedo APRN, DATA ENTRY SPECIALIST [address] [place] [id number] Nurse Practitioner Advanced Practice Nurse 05/17/22
== END 2025-05-29 14:35 | disposition home or self-care (01) ==
PROVIDERS: PCP Family Medicine; Visit Provider Family Medicine
DX: J44.9 Chronic obstructive pulmonary disease, unspecified (principal)
CPT/HCPCS: 36415; 71046; 80053; 85025

== ENCOUNTER 2025-06-17 12:35 | Outpatient (CLI) | payer OTHER, SELFPAY ==
--- NOTE | ~2025-06-17 | MR_ITS ---
EXAMINATION: MR shoulder LT wo con DATE: 06/17/2025 13:47 INDICATION: Unspecified rotator cuff tear or rupture. Left shoulder pain. TECHNIQUE: Magnetic resonance imaging (MRI) of the left shoulder was performed without intravenous contrast. Sequences included axial PD-weighted FS FSE, coronal oblique PD-weighted FS FSE and T2-weighted FS FSE, and sagittal oblique T2-weighted FS FSE and T1-weighted FSE. COMPARISON: None. FINDINGS: Coracoacromial arch: The acromion undersurface is convex in morphology (type IV). There is mild acromioclavicular joint osteoarthritis. There is a physiologic volume of fluid in subacromial/subdeltoid bursa. Rotator cuff: There is mild supraspinatus and infraspinatus tendinopathy. Teres minor tendon is normal. There is mild subscapularis tendinopathy. There is no asymmetric fatty atrophy of the rotator cuff muscle bellies. Biceps tendon and glenoid labrum: Biceps tendon is in bicipital groove. Biceps tendon is normal. The glenoid labrum is normal. Fluid: There is a small glenohumeral joint effusion. Bones/cartilage: There is deep partial-thickness cartilage loss of central glenoid. There is partial-thickness cartilage loss of humeral head. There are tiny osteophytes at glenohumeral joint. IMPRESSION: 1. Mild rotator cuff tendinopathy. No tear. 2. Moderate glenohumeral joint chondrosis. 3. Mild acromioclavicular joint osteoarthritis. 4. Small glenohumeral joint effusion. Reviewed, dictated and finalized at location E.
--- OUTSIDE RECORDS SUMMARY | 2025-06-17 12:38 | XMS_ITS | Clinical Summary ---
Author Organization [facility] Address [address] [place] [address] Phone Care Team Providers Care Continuous Loft Operator Name Role Phone Juni Lopez MD Primary Care Provider [phone] Odell Anderson MD Unavailable [phone] Dorita Escobedo APRN, DRAPERY ESTIMATOR Unavailable [phone] Allergies Active Allergy Reactions Criticality Noted Date Comments Metoclopramide Unknown 02/04/2022 Morphine Unknown 02/04/2022 Wound Dressing Adhesive Unknown 02/04/2022 Penicillins Unknown 02/04/2022 Sulfa Antibiotics Unknown 02/04/2022 Topiramate Other (see Comments) 11/22/2022 Per patient caused a burning in her groin area Trimethoprim Unknown 02/04/2022 Medications pregabalin (LYRICA) 75 MG Capsule 0 2 [...] BY MOUTH FOUR TIMES DAILY 2 Active Atogepant (Qulipta) 60 MG Tablet Take 60 mg by mouth daily. 90 Tablet 1 5 Active Ubrelvy 100 MG Tablet Take 1 Tablet by mouth as needed for Other. 10 Tablet 3 5 Active Ubrelvy 100 MG Tablet Take 1 Tablet by mouth as needed for Other. 10 Tablet 3 5 06/02/20 25 Discontinu ed(Reorder ) Active Problems No known active problems Encounters Date Type Department Care Team Description 06/02/[facility] [address] [place] [address] Odell Anderson MD Medication Refill from Last [...] Visit [facility] [place] [address] [place] [address] Dorita Escobedo APRN, DRAPERY ESTIMATOR [address] [place] [address] Health Maintenance Due Date Last Done Comments [...] Insurance MEDICAID [employer] Care Teams Continuous Loft Operator Relationship Specialty Start Date End Date Buschling, Juni, MD [address] [place] [id number] PCP - General Family Medicine 07/02/22 Odell Anderson MD [address] [place] [address] Consulting Physician Neurology 07/04/23 Dorita Escobedo APRN, DRAPERY ESTIMATOR [address] [place] [address] Nurse Practitioner Advanced Practice Nurse 05/17/22
--- OUTSIDE RECORDS SUMMARY | 2025-06-17 12:38 | XMS_ITS | Clinical Summary ---
Author Organization [facility] Address [address] [place] [address] Care Team Providers Care Care Taker Name Role Phone Juni Lopez DO Primary Care Provider [phone] Allergies Active Allergy Reactions Criticality Noted Date [...] Comments Blood Pressure 117/50 09/27/2024 3:50 PM DIAMOND POWDER MIXER Pulse 132 09/27/2024 3:50 PM DIAMOND POWDER MIXER Temperature 36.6 C (97.8 F) 09/27/2024 3:50 PM DIAMOND POWDER MIXER Respiratory Rate 18 09/27/2024 3:50 PM DIAMOND POWDER MIXER Oxygen Saturation 94% 09/27/2024 3:52 PM DIAMOND POWDER MIXER Inhaled Oxygen Concentration - - Weight 140.6 kg (310 lb) 09/27/2024 3:50 PM DIAMOND POWDER MIXER Height 152.4 cm (5') 09/27/2024 3:50 PM DIAMOND POWDER MIXER Body Mass Index 60.54 09/27/2024 3:50 PM DIAMOND POWDER MIXER Plan of Treatment Health Maintenance Due Date [...] with HPV 2016 COVID-19 Vaccine (2 - 2024-2 6 season) 2025 02/01/2021 Meningococcal B Vaccine Aged Out No l onger eligible based on patient's age to complete this topic Meningococcal Vaccine Aged Out No javier leroy eligible based on patient's age to complete this topic RSV Immunizations Under 20 Months Aged Out No longer eligible based on patient's age to complete this topic Insurance [employer] Care Teams Care Taker Relationship Specialty Start Date End Date Juni Lopez DO [address] [place] [address] PCP - General FAMILY PRACTICE 03/03/24
--- OUTSIDE RECORDS SUMMARY | 2025-06-17 12:39 | XMS_ITS | Clinical Summary ---
Author Organization [facility] Address [address] [place] [address] Care Team Providers Care Amusement Machine Mechanic Name Role Phone Juni Lopez DO Primary Care Provider [phone] Source Comments [facility]non-owned Affiliates and Associated Physician Practices is amultiple site organization consisting of ambulatory clinics and hospital sitesin [place], [place], [place] and [place]. This disclosure is being madepursuant to the Care Everywhere program and may not contain all information available regarding this patient. Last updated 18.[facility] Allergies Active Allergy Reactions Criticality Noted Date [...] on file Legal Sex Female 1:25 PM MANAGEMENT INTERN Gender Identity Not on file Sexual Orientation [...] patient's age to complete this topic Insurance [facility] [employer] Care Teams Amusement Machine Mechanic Relationship Specialty Start Date End Date Juni Lopez DO [address] [place] [id number] PCP - General 12/02/21
== END 2025-06-17 12:36 | disposition home or self-care (01) ==
PROVIDERS: PCP Nurse Practitioner Family; Visit Provider Nurse Practitioner Family
DX: M67.814 Other specified disorders of tendon, left shoulder (principal); M94.212 Chondromalacia, left shoulder; M19.012 Primary osteoarthritis, left shoulder; M25.412 Effusion, left shoulder
CPT/HCPCS: 73221

== ENCOUNTER 2025-08-27 13:46 | Outpatient (CLI) | payer OTHER, SELFPAY ==
--- NOTE | ~2025-08-27 | XR_ITS ---
EXAMINATION: Lumbosacral spine 3 views: DATE: 08/27/2025 INDICATION: Low back pain, radiculopathy TECHNIQUE: 3 views of lumbar spine were obtained. COMPARISON: None. FINDINGS: 5 lumbar segments are seen. No focal bone changes. The disc spaces are normal. Alignment of the vertebrae are normal. IMPRESSION: 1. No plain radiographic abnormalities of lumbar spine. If symptoms are persistent and not responding to conservative treatment, MRI can considered. Reviewed, dictated and finalized at location T. Y GO ROUND ATTENDANT IMPRESSION: 1. No plain radiographic abnormalities of lumbar spine. If symptoms are persist ent and not responding to conservative treatment, MRI can considered.
== END 2025-08-27 13:47 | disposition home or self-care (01) ==
PROVIDERS: PCP Family Medicine; Visit Provider Pain Medicine Interventional Pain Medicine
DX: M54.16 Radiculopathy, lumbar region (principal)
CPT/HCPCS: 72100